=== PATIENT | female | born 1955 | race Caucasian/White ===

== ENCOUNTER → 2017-09-05 | Outpatient (REF) | payer OTHER ==
[2017-09-05 14:26] LABS: ALBUMIN 3.6 GM/DL (3.2-5.2); ALBUMIN/GLOBULIN RATIO 0.84 (1.00-1.93); ALKALINE PHOSPHATASE 94 U/L (45-117); ALT/SGPT 56 U/L (12-78); ANION GAP 10 MEQ/L (8-16); AST/SGOT 46 U/L (7-37); BILIRUBIN,TOTAL 0.6 MG/DL (0.2-1.0); BLOOD UREA NITROGEN 20 MG/DL (7-18); CALCIUM LEVEL 9.6 MG/DL (8.8-10.2); CARBON DIOXIDE LEVEL 28 MEQ/L (21-32); CHLORIDE LEVEL 100 MEQ/L (98-107); CREATININE FOR GFR 0.82 MG/DL (0.55-1.30); GLOMERULAR FILTRATION RATE > 60.0 (>45); GLUCOSE, FASTING 162 MG/DL (70-100); POTASSIUM SERUM 4.5 MEQ/L (3.5-5.1); SODIUM LEVEL 138 MEQ/L (136-145); TOTAL PROTEIN 7.9 GM/DL (6.4-8.2)
[2017-09-05 15:06] LABS: TOTAL 25(OH) VITAMIN D 21.4 NG/ML (30.0-100.0)
== END ==
LOC: M LAB REF 13:49
DX: E11.9 Type 2 diabetes mellitus without complications (principal)
CPT/HCPCS: 80053

== ENCOUNTER → 2017-09-14 | Outpatient (REF) | payer OTHER, MEDICAID ==
[2017-09-14 13:45] LABS: BACTERIA, URINE AUTO NEGATIVE (NEGATIVE); MUCUS, URINE SMALL (NEGATIVE); RBC, URINE AUTO 1 /HPF (0-3); SQUAMOUS EPITHELIAL CELL UR AU 1 /HPF (0-6); WBC, URINE AUTO 1 /HPF (0-3)
== END ==
LOC: M SMT 12:57
DX: N39.41 Urge incontinence (principal)
CPT/HCPCS: 81015

== ENCOUNTER → 2017-11-23 | Outpatient (REF) | payer OTHER, MEDICAID ==
[2017-11-26 15:28] LABS: HPV HYBRID CAPTURE II Negative (Negative)
== END ==
LOC: M LAB REF 14:07
DX: Z12.4 Encounter for screening for malignant neoplasm of cervix (principal)

== ENCOUNTER → 2018-01-09 | Outpatient (REF) | payer OTHER, MEDICAID ==
[2018-01-09 13:41] LABS: ANION GAP 8 MEQ/L (8-16); BLOOD UREA NITROGEN 37 MG/DL (7-18); CALCIUM LEVEL 10.3 MG/DL (8.8-10.2); CARBON DIOXIDE LEVEL 26 MEQ/L (21-32); CHLORIDE LEVEL 103 MEQ/L (98-107); CHOLESTEROL LEVEL 241 MG/DL (<200); CHOLESTEROL RISK RATIO 8.607 (<5); CREATININE FOR GFR 1.51 MG/DL (0.55-1.30); GLOMERULAR FILTRATION RATE 37.2 (>45); GLUCOSE, FASTING 142 MG/DL (70-100); HDL CHOLESTEROL 28 MG/DL (>40); LDL CHOLESTEROL 144 MG/DL (<100); NON-HDL-C 213 MG/DL; POTASSIUM SERUM 5.5 MEQ/L (3.5-5.1); SODIUM LEVEL 137 MEQ/L (136-145); TRIGLYCERIDES LEVEL 346 MG/DL (<150)
== END ==
LOC: M LABDRAW1 09:58
DX: E11.65 Type 2 diabetes mellitus with hyperglycemia (principal); E78.00 Pure hypercholesterolemia, unspecified
CPT/HCPCS: 80061

== ENCOUNTER 2018-03-02 19:48 | Emergency (ER) | payer MEDICAID, OTHER ==
[~2018-03-02] VITALS: Ht 154.9 cm; Wt 80.5 kg
[2018-03-02] MEDS ORDERED: BENAZEP/HCTZ (20:10)
[2018-03-02] MEDS ORDERED: GEMF600T5 (20:10)
[2018-03-02] MEDS ORDERED: VICT18IN (20:10)
[2018-03-02] MEDS ORDERED: LANTINJ4 (20:10)
[2018-03-02] MEDS ORDERED: PHEN-500 (20:10)
[2018-03-02] MEDS ORDERED: INSURSD (20:10)
[2018-03-02] MEDS ORDERED: GLIP5TAB8 (20:10)
[2018-03-02] MEDS ORDERED: INSUHUMDS (20:10)
[2018-03-02] MEDS ORDERED: BASA100I (20:10)
[2018-03-02] MEDS ORDERED: VITA-122 (20:10)
[2018-03-02] MEDS ORDERED: METF10004 (20:10)
[2018-03-02] MEDS ORDERED: METO50TA7 (20:10)
[2018-03-02] MEDS ORDERED: MUPI2OI (20:10)
[2018-03-02] MEDS ORDERED: OMEP40CA2 (20:10)
[2018-03-02] MEDS ORDERED: KETO10TAB PO (22:05)
[2018-03-02 22:08] VITALS: BP 140/71
[2018-03-02] MEDS ORDERED: KETOROLAC TROMETHAMINE 10 MG TAB PO ONE (22:15)
--- NOTE | 2018-03-03 01:44 | REP ---
Clinical: thoracic pain with recent trauma/fall . Technique: AP, lateral, and swimmers views. Findings: Alignment and kyphosis is maintained. Vertebral bodies intact. No acute fracture / compression injury or subluxation. Age-related changes include marginal vertebral body spurring with minimal endplate sclerosis. Impression: No acute fracture / compression injury or subluxation. Electronically Signed by Jean Carlos Branch MD 03/03/2018 01:37 A
== END 2018-03-02 22:17 | disposition home or self-care (01) ==
LOC: M ED 19:48
DX: R10.9 Unspecified abdominal pain (principal); R29.6 Repeated falls; E11.9 Type 2 diabetes mellitus without complications; Z79.4 Long term (current) use of insulin; Z79.899 Other long term (current) drug therapy; Z88.1 Allergy status to other antibiotic agents; Z88.8 Allergy status to other drugs, medicaments and biological substances

== ENCOUNTER → 2018-05-25 | Outpatient (REF) | payer OTHER, MEDICAID ==
[~2018-05-25] MED LIST: BASA100I; BENAZEP/HCTZ; GEMF600T5; GLIP5TAB8; INSUHUMDS; INSURSD; KETO10TAB PO; LANTINJ4; METF10004; METO50TA7; MUPI2OI; OMEP40CA2; PHEN-500; VICT18IN; VITA-122
[2018-05-25 18:41] LABS: APPEARANCE, URINE HAZY (CLEAR); BACTERIA, URINE AUTO NEGATIVE (NEGATIVE); BILIRUBIN, URINE AUTO NEGATIVE (NEGATIVE); BLOOD, URINE BLOOD NEGATIVE (NEGATIVE); COLOR, URINE YELLOW (YELLOW); GLUCOSE, URINE (UA) AUTO 3+ mg/dL (NEGATIVE); KETONE, URINE AUTO NEGATIVE (NEGATIVE); LEUKOCYTE ESTERASE, URINE AUTO NEGATIVE (NEGATIVE); NITRITE, URINE AUTO NEGATIVE (NEGATIVE); PROTEIN, URINE AUTO NEGATIVE (NEGATIVE); RBC, URINE AUTO 0 /HPF (0-3); SPECIFIC GRAVITY URINE AUTO 1.023 (1.002-1.035); SQUAMOUS EPITHELIAL CELL UR AU 4 /HPF (0-6); UROBILINOGEN, URINE AUTO 0.2 mg/dL (0.0-2.0); WBC, URINE AUTO 1 /HPF (0-3)
== END ==
LOC: M SMT 17:00
PROVIDERS: ATTEND Nurse Practitioner Women's Health
DX: R31.9 Hematuria, unspecified (principal)

== ENCOUNTER → 2018-05-25 | Outpatient (REF) | payer OTHER, MEDICAID ==
[2018-05-25 12:03] LABS: BASO % 0.6 % (0.0-1.0); EOS # 0.2 10^3/uL (0.0-0.50); EOS % 2.9 % (0.0-3.0); HEMATOCRIT 40.7 % (36.0-47.0); HEMOGLOBIN 13.5 g/dl (12.0-15.5); LYMPH # 1.6 10^3/uL (1.5-4.5); LYMPH % 24.8 % (24.0-44.0); MEAN CORPUSCULAR HEMOGLOBIN 31.7 pg (27.0-33.0); MEAN CORPUSCULAR HGB CONC 33.2 g/dl (32.0-36.5); MEAN CORPUSCULAR VOLUME 95.5 fl (80.0-96.0); MONO # 0.6 10^3/uL (0.0-0.8); MONO % 10.1 % (0.0-5.0); NEUTROPHILS # 3.9 10^3/uL (1.8-7.7); NEUTROPHILS % 61.4 % (36.0-66.0); PLATELET COUNT, AUTOMATED 159 10^3/uL (150-450); RED BLOOD COUNT 4.26 10^6/uL (4.00-5.40); WHITE BLOOD COUNT 6.3 10^3/uL (4.0-10.0)
[2018-05-25 12:29] LABS: BLOOD UREA NITROGEN 18 MG/DL (7-18); CALCIUM LEVEL 9.2 MG/DL (8.8-10.2); CARBON DIOXIDE LEVEL 29 MEQ/L (21-32); CHLORIDE LEVEL 98 MEQ/L (98-107); CHOLESTEROL LEVEL 238 MG/DL (<200); CHOLESTEROL RISK RATIO 7.677 (<5); CREATININE FOR GFR 0.92 MG/DL (0.55-1.30); GLOMERULAR FILTRATION RATE > 60.0 (>45); GLUCOSE, FASTING 208 MG/DL (70-100); HDL CHOLESTEROL 31 MG/DL (>40); NON-HDL-C 207 MG/DL; POTASSIUM SERUM 3.9 MEQ/L (3.5-5.1); SODIUM LEVEL 135 MEQ/L (136-145); TRIGLYCERIDES LEVEL 621 MG/DL (<150)
[2018-05-25 12:47] LABS: MALB URINE SIEMENS 57.1 MG/L; MAU/CREAT RATIO 19.8 MCG/MG (0.0-30.0)
== END ==
LOC: M LABDRAW1 11:43
PROVIDERS: ATTEND Nurse Practitioner Family
DX: E78.00 Pure hypercholesterolemia, unspecified (principal); E11.65 Type 2 diabetes mellitus with hyperglycemia; N18.3 Chronic kidney disease, stage 3 (moderate)

== ENCOUNTER → 2018-06-23 | Outpatient (CLI) | payer OTHER ==
--- NOTE | 2018-06-23 16:48 | REP ---
HISTORY: Kidney disease. COMPARISON: None. The right kidney measures 11.5 x 5.4 x 5.3 cm, the left kidney measures 11 x 4.4 x 4.8 cm. The renal cortical echoes are normal. There is good cortical medullary differentiation. There are no cystic or solid masses. There is no hydronephrosis. Doppler of the urinary bladder shows uro-jet phenomenon bilaterally. IMPRESSION: The examination is within normal limits. Electronically Signed by Jaret Joe DO 06/23/2018 05:13 P
== END ==
LOC: M RAD 10:06
PROVIDERS: ATTEND Internal Medicine Nephrology
DX: I12.9 Hypertensive chronic kidney disease with stage 1 through stage 4 chronic kidney disease, or unspecified chronic kidney disease (principal)

== ENCOUNTER → 2018-08-07 | Outpatient (REF) | payer OTHER, MEDICAID ==
[2018-08-07 17:23] LABS: BASO % 0.6 % (0.0-1.0); EOS # 0.1 10^3/uL (0.0-0.50); EOS % 2.4 % (0.0-3.0); HEMATOCRIT 37.1 % (36.0-47.0); HEMOGLOBIN 12.5 g/dl (12.0-15.5); LYMPH # 1.5 10^3/uL (1.5-4.5); LYMPH % 30.1 % (24.0-44.0); MEAN CORPUSCULAR HEMOGLOBIN 31.9 pg (27.0-33.0); MEAN CORPUSCULAR HGB CONC 33.7 g/dl (32.0-36.5); MEAN CORPUSCULAR VOLUME 94.6 fl (80.0-96.0); MONO # 0.4 10^3/uL (0.0-0.8); NEUTROPHILS # 2.9 10^3/uL (1.8-7.7); NEUTROPHILS % 58.7 % (36.0-66.0); PLATELET COUNT, AUTOMATED 140 10^3/uL (150-450); RED BLOOD COUNT 3.92 10^6/uL (4.00-5.40)
[2018-08-07 17:26] LABS: ALBUMIN 3.3 GM/DL (3.2-5.2); ALT/SGPT 43 U/L (12-78); BILIRUBIN,TOTAL 0.4 MG/DL (0.2-1.0); BLOOD UREA NITROGEN 19 MG/DL (7-18); CALCIUM LEVEL 9.6 MG/DL (8.8-10.2); CARBON DIOXIDE LEVEL 27 MEQ/L (21-32); CHLORIDE LEVEL 101 MEQ/L (98-107); CHOLESTEROL LEVEL 298 MG/DL (<200); CHOLESTEROL RISK RATIO 9.933 (<5); CREATININE FOR GFR 0.82 MG/DL (0.55-1.30); GLOMERULAR FILTRATION RATE > 60.0 (>45); GLUCOSE, FASTING 234 MG/DL (70-100); HDL CHOLESTEROL 30 MG/DL (>40); NON-HDL-C 268 MG/DL; POTASSIUM SERUM 4.3 MEQ/L (3.5-5.1); SODIUM LEVEL 137 MEQ/L (136-145); TOTAL PROTEIN 7.7 GM/DL (6.4-8.2); TRIGLYCERIDES LEVEL 921 MG/DL (<150)
[2018-08-07 17:41] LABS: HEMOGLOBIN A1c 8.9 %
== END ==
LOC: M LAB REF 16:27
PROVIDERS: ATTEND Nurse Practitioner Family
DX: E78.1 Pure hyperglyceridemia (principal); E11.9 Type 2 diabetes mellitus without complications; I10 Essential (primary) hypertension; Z13.9 Encounter for screening, unspecified

== ENCOUNTER → 2018-08-08 | Outpatient (CLI) | payer OTHER, MEDICAID ==
[~2018-08-08] MED LIST changes: +PRED20TA PO
--- NOTE | 2018-08-20 23:32 | ECWPNPC ---
PATIENT NAME: CATERINA SPEARS : 1955 GENDER: FEMALE VISIT DATE: 08/08/2018 DISCHARGE DATE: 08/08/18 1725 VISIT LOCKED DATE TIME: PHYSICIAN: ZAYRA RUANO MD RESOURCE: ZAYRA RUANO MD REASON FOR APPOINTMENT 1. BACK PAIN HISTORY OF PRESENT ILLNESS PAIN SCREENING: PATIENT HAS A COMPLAINT OF ACUTE OR CHRONIC PAIN :YES 62 YEAR OLD FEMALE PATIENT WITH A HISTORY OF CHRONIC MULTIPLE BODY PAIN. THE PATIENT DESCRIBES THE PAIN ACHING, BURNING, SORE, TENDER, SHARP, STABBING, SHOOTING, AND CONTINUOUS WITH A PAIN SCORE OF 7-10/10 DEPENDING ON PHYSICAL ACTIVITY. THE PATIENT SAYS HER PAIN IS LOCATED AT HER NECK, LEFT SHOULDER, AND BACK AREAS. THE PATIENT SAYS THAT SHE HAS HAD THIS PAIN FOR MANY YEARS AND IT HAS WORSENED OVER TIME. THE PATIENT IS CURRENTLY USING TYLENOL TO AID IN PAIN RELIEF. THE PATIENT IS CURRENTLY USING ELMIRON DUE TO A HISTORY OF CYSTITIS. THE PATIENT ALSO HAS A HISTORY OF KIDNEY STONES. PATIENT DENIES UNEXPLAINABLE WEIGHT LOSS, FEVER, CHILLS, NEW CHANGES ON HER URINARY OR BOWEL CONTROL. FALL RISK SCREENING: SCREENING :NO FALLS REPORTED IN THE LAST YEAR CURRENT MEDICATIONS TAKING PEN NEEDLES 05/06" 31G X 5 MM MISCELLANEOUS TAKING COMFORT EZ INSULIN SYRINGE 31G X 5/16 MISCELLANEOUS TAKING COMFORT EZ INSULIN SYRINGE 31G X 5/16 MISCELLANEOUS TAKING VITAMIN D 1000 UNIT TABLET 2 TABLET ORALLY ONCE A DAY TAKING ALLOPURINOL 100 MG TABLET 1 TABLET ORALLY THREE TIMES DAILY TAKING GLIPIZIDE 5 MG TABLET 1 TABLET ORALLY THREE TIMES DAILY TAKING VICTOZA 18 MG/3ML SOLUTION PEN-INJECTOR SUBCUTANEOUS TAKING GEMFIBROZIL 600 MG TABLET 1 TABLET ORALLY TWICE A DAY TAKING TRIAMTERENE-HCTZ 75-50 MG TABLET 1 TABLET IN THE MORNING ORALLY ONCE A DAY TAKING METOPROLOL TARTRATE 50 MG TABLET 1 TABLET WITH FOOD ORALLY TWICE A DAY TAKING CREON 27918 UNIT CAPSULE DELAYED RELEASE PARTICLES 2 TAB ORALLY BID TAKING METFORMIN HCL 1000 MG TABLET 1 TAB ORALLY DAILY TAKING INSULIN SYRINGE-NEEDLE U-100 31G X 1/4 MISCELLANEOUS TAKING ADVOCATE INSULIN SYRINGE 29G X 1/2 MISCELLANEOUS TAKING OMEPRAZOLE 40 MG CAPSULE DELAYED RELEASE 1 CAPSULE ORALLY ONCE A DAY TAKING BASAGLAR KWIKPEN 20 INITS AM 50 UNITS PM BID TAKING HUMALOG 12 UNITS TID TAKING ELMIRON 100 MG CAPSULE 1 CAPSULE ON AN EMPTY STOMACH ORALLY BID TAKING BENAZEPRIL HCL 20 MG TABLET DIRECTED ORALLY TAKING MAGNESIUM OXIDE 400 MG CAPSULE 1 CAPSULE NEEDED ORALLY ONCE A DAY TAKING VENTOLIN HFA 108 (90 BASE) MCG/ACT AEROSOL SOLUTION 2 PUFFS NEEDED INHALATION EVERY 6 HRS TAKING MUPIROCIN 2 % OINTMENT 1 APPLICATION TO AFFECTED AREA EXTERNALLY THREE TIMES A DAY TAKING ESTRADIOL 10 % CREAM DIRECTED TAKING TYLENOL ARTHRITIS PAIN NOT-TAKING DIPHENHYDRAMINE HCL 2 % CREAM 1 APPLICATION TO AFFECTED AREA NEEDED EXTERNALLY BID NOT-TAKING PREMARIN 0.625 MG/GM CREAM USE 1 GM 2 NIGHTS WEEKLY BY FINGERTIP APPLICATION VAGINAL 2-3X/WEEK X 4 WEEKS NOT-TAKING PYRIDIUM 100 MG TABLET 1 TABLET AFTER MEALS ORALLY THREE TIMES A DAY NEEDED FOR BURNING SENSATION NOT-TAKING CLOBETASOL PROPIONATE 0.05 % OINTMENT 1 APPLICATION TO AFFECTED AREA EXTERNALLY TWICE A DAY NOT-TAKING LANTUS SOLOSTAR 100 UNIT/ML SOLUTION PEN-INJECTOR SUBCUTANEOUS NOT-TAKING GLUCOPHAGE XR 500 MG TABLET EXTENDED RELEASE 24 HOUR 2 TABLETS ORALLY ONCE A DAY NOT-TAKING BENAZEPRIL-HYDROCHLOROTHIAZIDE 20-25 MG TABLET 1 TABLET ORALLY ONCE A DAY NOT-TAKING ATORVASTATIN CALCIUM 40 MG TABLET 1 TABLET ORALLY EVERY OTHER DAY NOT-TAKING HUMULIN R 100 UNIT/ML SOLUTION INJECTION TAKE 14 UNITS TID NOT-TAKING CELEBREX 200 MG CAPSULE 1 CAPSULE WITH FOOD ORALLY ONCE A DAY NOT-TAKING DICLOFENAC SODIUM 1 % GEL TRANSDERMAL APPLY 2 GRAMS TO AFFECTED AREA FOUR TIMES DAILY MEDICATION LIST REVIEWED AND RECONCILED WITH THE PATIENT PAST MEDICAL HISTORY INRTSTITIAL CYSTITIS DM TYPE 2 INSULIN DEPENDENT HYPERTRIGLYCERIDEMIA GERD HTN SKIN LESIONS NOCTURIA UTI'S CHRONIC KIDNEY DISEASE STAGE II BRIAN'S ESOPHAGUS OSTEOPENIA ATHEROSCLEROTIC VESSEL DISEASE ALLERGIES BACTRIM DS: TOUNGE SWELL - ALLERGY KEFLEX: BOTTOM LEGS ITCH - ALLERGY TETRACYCLINE HCL: BUMPS ON TONGUE - ALLERGY PROMETHAZINE HCL: TONGUE SWELL - ALLERGY ATORVASTATIN CALCIUM: FEET, LEG PAIN - SIDE EFFECTS ZETIA: SEVERE MUSCLE PAIN - SIDE EFFECTS SURGICAL HISTORY RT THUMB 1960 1990 TUBALIGATION 1992 GALLBLADDER 1993 NECK 2013 ABORTIONS 1993 BREAST BIOPSY 1979' SQUAMOUS CELL CANCER - NOSE 1989' MISCARRIAGE 1979' (4) LIPOSUCTION FAMILY HISTORY FATHER: MOTHER: 2DAUGHTER(S) . SOCIAL HISTORY GENERAL: TOBACCO USE ARE YOU A:FORMER SMOKER QUIT AGE 34 OTHERS AT HOME: GRANDKIDS AND DAUGHTER. HOUSING: RENTS APARTMENT. EDUCATION LEVEL OF EDUCATION:COLLEGE DIET: REGULAR, LOW CHOLETEROL, LOW SALT. LANGUAGE LANGUAGES SPOKEN:HUNGARIAN DOMESTIC VIOLENCE DO YOU FEEL SAFE IN YOUR ENVIRONMENT?YES NEW PATIENT PAIN DIARY PATIENT DESCRIBES PAIN :ACHING, BURNING, HAVE IT ALL THE TIME, IT COMES AND GOES, SHARP, STABBING, TENDER, THROBBING, SORE, SHOOTING FROM 0-10, WHAT LEVEL IS YOUR PAIN TODAY?7 ARE YOU ALLERGIC TO SHELLFISH OR IV DYE?NO ARE YOU DIABETIC?YES RECREATIONAL DRUG USE DRUG USE?NO EXERCISE: NO REGULAR EXERCISE, CARE FOR 3, 5, 7 YEAR OLD 6-7 DAYS/WEEK. LEARNING BARRIERS / SPECIAL NEEDS BARRIERS TO LEARNING?YES COMMENTSDOCUMENTED IN NOTES SECTION> NEED EXTRA TIME FOR TESTS HEARING IMPAIRED?NO VISION IMPAIRED?NO COGNITIVELY IMPAIRED?YES : DIFFICULTY WITH COMPREHENSION READINESS TO LEARN?YES LEARNING CAPABILITIES PRESENT?YES PAIN CLINIC PFS, CLERGY, PUBLIC HEALTH REFERRALS WAS THE PROVIDER NOTIFIED OF ANY PERTINENT INFO?YES HAS THE PATIENT BEEN EDUCATED REGARDING HIS/HER PLAN OF CARE?YES ORIENTED TO [facility] HAS THE PATIENT BEEN EDUCATED REGARDING PAIN, THE RISK FOR PAIN, THE IMPORTANCE OF EFFECTIVE PAIN MANAGEMENT, AND THE PAIN ASSESSMENT PROCESS?YES LATEX QUESTIONNAIRE LATEX ALLERGY : HAVE YOU EVER DEVELOPED ANY TYPE OF REACTION AFTER HANDLING LATEX PRODUCTS SUCH RUBBER GLOVES, CONDOMS, DIAPHRAGMS, BALLOONS, SOCKS, OR UNDERWEAR?NO LATEX ALLERGY : HAVE YOU EVER DEVELOPED ANY TYPE OF REACTION DURING OR AFTER DENTAL APPOINTMENT, VAGINAL/RECTAL EXAMINATION, SURGICAL PROCEDURE, OR ANY OTHER EXPOSURE?NO LATEX RISK : HAVE YOU EVER HAD ANY DIFFICULTY BREATHING OR HIVES AFTER EATING OR HANDLING ANY FRUITS, OR VEGETABLES; SUCH KIWI, BANANAS, STONE FRUITS, OR CHESTNUTSNO LATEX RISK : DO YOU HAVE A PREVIOUS PERSONAL HISTORY OF MORE THAN NINE SURGERIES, SPINA BIFIDA, OR REPEATED CATHERTIZATIONS? NO LATEX RISK : ARE YOU FREQUENTLY EXPOSED TO LATEX PRODUCTS IN YOUR OCCUPATION?NO DATE ASKED : 08/08/2018 CAFFEINE CAFFEINE USE?YES HOW OFTEN AND HOW MUCH? 1-2 DAILY ADVANCE DIRECTIVE ADVANCE DIRECTIVE DISCUSSED WITH PATIENT:YES PT DOES NOT CURRENTLY HAVE HCP, PAPERWORK GIVEN AND OFFERED ASSISTANCE LATTER DAY [id number] OTHER NO GNOSTICISM BELIEFS THAT WOULD IMPACT HEALTH CARE. SPIRITUAL MARITAL STATUS: .. 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 SEXUAL HX HAD SEX IN THE LAST 12 MONTHS (VAGINAL, ORAL, OR ANAL)?NO HAVE YOU EVER HAD AN STD?YES OTHER?YES HOSPITALIZATION/MAJOR DIAGNOSTIC PROCEDURE NO HOSPITALIZATION HISTORY. REVIEW OF SYSTEMS REVIEWED BY: PROVIDER: ZAYRA RUANO MD . CONSTITUTIONAL: ANY CHANGE IN YOUR MEDICAL CONDITION? NO . CHILLS NO . FEVER NO . INFECTION: DO YOU HAVE NEW INFECTIONS? NO . DO YOU HAVE HISTORY OF MRSA? NO . MUSCULOSKELETAL: ANY NEW PATTERNS OF PAIN OR NUMBNESS? NO . SYTEMIC LUPUS NO . GASTROENTEROLOGY: ANY NEW CHANGE IN BOWEL CONTROL? NO . BARRETTS ESOPHAGUS YES . CIRRHOSIS NO . HEPATITIS NO . LIVER FAILURE NO . ACID REFLUX YES . UNEXPLAINED WEIGHT LOSS NO . GENITOURINARY: ANY NEW CHANGE IN BLADDER CONTROL? NO . IS THERE A CHANCE YOU COULD BE ? NO . HEMATOLOGY/LYMPH: DO YOU TAKE ANY BLOOD THINNERS? (FOR EXAMPLE- COUMADIN, PLAVIX, AGGRENOX, PLATEL, PRADAXA, OR XARELTO) NO . WHEN WAS YOUR LAST DOSE? DATE: TIME: . LOW PLATELET COUNT NO . SICKLE CELL DISEASE NO . VON WILLIEBRANDS NO . FACTOR V LEIDEN NO . THALLASEMIA NO . ANEMIA NO . EASY BRUISING NO . NEUROLOGY: HAVE YOU FALLEN IN THE PAST 12 MONTHS? YES, PT STATES THAT SHE FELL IN MAY WHILE AT HOME, NO REPORT TO ED, BRUISING, PT STATES THAT SHE IS FALLING FREQUENTLY. . ANY NEW EXTREMITY NUMBNESS OR WEAKNESS? NO . HEAD INJURY NO . DEMENTIA NO . CEREBRAL PALSY NO . MULTIPLE SCLEROSIS NO . DIZZINESS NO . HEADACHE NO . STROKES NO . VERTIGO NO . CARDIOLOGY: DO YOU HAVE A PACEMAKER OR DEFIBRILLATOR? NO . ANGINA NO . HEART ATTACK NO . HEART SURGERY NO . CONGESTIVE HEART FAILURE/FLUID OVERLOAD NO . CHEST PAIN NO . HIGH BLOOD PRESSURE NO . IRREGULAR HEART BEAT NO . RESPIRATORY: HAVE YOU BEEN SICK IN THE PAST WEEK? NO . FEVER NO . FLU LIKE SYMPTOMS? NO . CPAP NO . BYPAP NO . ASTHMA NO . EMPHYSEMA NO . CHRONIC LUNG DISEASES NO . SHORTNESS OF BREATH ON EXERTION NO . COUGH NO . SNORING NO . INTEGUMENTARY: DO YOU HAVE ANY RASHES OR OPEN SORES? YES, TOP OF HEAD OPEN SORES, BITES ON BODY . ALLERGIC/IMMUNO: ARE YOU ALLERGIC TO IV DYE? NO . ANY NEW ALLERGIES? NO . PSYCHIATRIC: DO YOU HAVE THOUGHTS OF HURTING YOURSELF OR SOMEONE ELSE? NO . ARE YOU ABUSED, NEGLECTED, OR IN AN UNSAFE ENVIRONMENT? NO . ENDOCRINOLOGY: ARE YOU DIABETIC? YES, TYPE II, INSULIN DEPENDENT . THYROID DISORDER NO . OTHER: DO YOU NEED ANY PRESCRIPTIONS? NO . IF YES, PLEASE LIST: ____ . ANY NEW PROBLEMS WITH YOUR MEDICATIONS? NO . WHEN DID YOU LAST EAT? ____ . WHEN DID YOU LAST DRINK? ____ . WHAT DID YOU LAST DRINK? ____ . NAME OF PERSON DRIVING YOU HOME? ____ . DO YOU HAVE ANY OTHER QUESTIONS OR CONCERNS YES, HAVING SEVERE BACK PAIN AND FREQUENT FALLS . VITAL SIGNS WT 182.2 LBS, HT 62 IN, BMI 33.32 INDEX, BP 136/71`, HR 96 /MIN, RR 18 /MIN, TEMP 99.7 F, OXYGEN SAT % 93%, SAFE IN ENV? (Y/N) Y, NA INITIALS AW 1517, REVIEWED BY: ZORAN. EXAMINATION GENERAL EXAMINATION: PATIENT IS ALERT O X 3 AND COOPERATIVE. LUNGS CLEAR, TO AUSCULTATION. HEART: NO MURMURS OR GALLOPS; FACIAL CRANIAL NERVES ARE GROSSLY NORMAL. GOOD SYMMETRY OF FACIAL MUSCLE MOVEMENT. NORMAL VISUAL BOSS. TENDERNESS IN THE NECK AND THORACIC AREAS. TENDERNESS OVER THE CERVICAL FACET JOINTS. PRESENCE OF TRIGGER POINTS AND BANDS OF TISSUE WITH RESTRICTION OF MOVEMENT OF THE NECK AND BACK. MRI OF THE CERVICAL SPINE DONE ON 12/27/2008 IS SHOWING FACET ARTHROPATHY CHANGES AND BULGING DISCS. X-RAY OF THE THORACIC SPINE DONE ON 03/02/2018 IS SHOWING SOME ARTHRITIC CHANGES. ASSESSMENTS MYALGIA, OTHER SITE - M79.18 (PRIMARY) THORACIC SPINE PAIN - M54.6 CERVICALGIA - M54.2 SPONDYLOSIS OF CERVICAL REGION WITHOUT MYELOPATHY OR RADICULOPATHY - M47.812 TREATMENT MYALGIA, OTHER SITE CLINICAL NOTES: WE DISCUSSED SEVERAL ISSUES WITH MRS. SPEARS'S PAIN MANAGEMENT CASE. DUE TO THE TRIGGER POINTS, BANDS OF TISSUE, AND RESTRICTION OF MOVEMENT, I WOULD LIKE TO MOVE FORWARD WITH A TRIGGER POINT INJECTION. WE DISCUSSED THE BENEFITS, RISKS, AND ALTERNATIVES OF THE INJECTION AND THE PATIENT WOULD LIKE TO PROCEED. THE PATIENT'S THORACIC X-RAY IS NOT SHOWING ME ENOUGH INFORMATION AND HER CERVICAL MRI IS 10 YEARS OLD, SO I WILL ALSO ORDER A THORACIC MRI AND A CERVICAL MRI TO GET A BETTER UNDERSTANDING OF WHERE THE PATIENT'S PAIN IS COMING FROM. IF THE PATIENT HAS AN EPIDURAL IN THE FUTURE, SHE WILL NEED TO STOP THE ELMIRON FOR 5 DAYS PRIOR. INSTRUCTIONS WERE GIVEN, QUESTIONS WERE ANSWERED, PATIENT REPORTS UNDERSTANDING AND AGREES WITH THE PLAN. I, RAPHAEL PARDO, DOCUMENTED THE ABOVE INFORMATION ACTING A SCRIBE FOR DR. RUANO. I HAVE REVIEWED THE ABOVE DOCUMENT, WRITTEN BY RAPHAEL MCADAMSIBRitchie AND I VERIFY THAT IT IS ACCURATE. DEAR DASHAWN CASTILLO:THANK YOU FOR YOUR KIND REFERRAL OF MRS. SPEARS. IF YOU WANT TO DISCUSS HER CASE WITH ME PLEASE CALL ME AT THE PAIN CENTER AT [phone]. SINCERELY,ZAYRA RUANO, [facility] . PROCEDURE CODES FA211 ESTABILISHED PATIENT [facility] CHARGE [id number] CURRENT MEDS W/DOSAGES DOCUMENTED G8730 PAIN ASSESS POS TOOL F/U PLAN DOC DISPOSITION & COMMUNICATION FOLLOW UP 3 WEEKS ELECTRONICALLY SIGNED BY ZAYRA RUANO MD, MD ON 08/20/2018 AT 07:28 PM EDT DISCLAIMER : THIS IS A VISIT SUMMARY EXTRACTED FROM THE [employer] CHART. IT IS NOT A COPY OF THE [employer] PROGRESS NOTE. MERRICK
== END ==
LOC: M PAIN 15:15
PROVIDERS: ATTEND Anesthesiology
DX: M79.18 Myalgia, other site (principal); M54.6 Pain in thoracic spine; M54.2 Cervicalgia; M47.812 Spondylosis without myelopathy or radiculopathy, cervical region; E11.22 Type 2 diabetes mellitus with diabetic chronic kidney disease; K21.9 Gastro-esophageal reflux disease without esophagitis; I12.9 Hypertensive chronic kidney disease with stage 1 through stage 4 chronic kidney disease, or unspecified chronic kidney disease; N18.2 Chronic kidney disease, stage 2 (mild); K22.70 Barrett's esophagus without dysplasia; M85.80 Other specified disorders of bone density and structure, unspecified site; I25.10 Atherosclerotic heart disease of native coronary artery without angina pectoris

== ENCOUNTER 2018-08-27 21:38 | Emergency (ER) | payer MEDICAID, OTHER ==
[~2018-08-27] VITALS: Ht 157.5 cm; Wt 82.5 kg
[~2018-08-27 21:38] MED LIST changes: -PRED20TA PO
[2018-08-27] MEDS ORDERED: NS 1,000 ML IV ONE (22:00)
[2018-08-27] MEDS ORDERED: diphenhydrAMINE INJ 50MG/ML VIAL (J1200) IV ONE (22:00)
[2018-08-27] MEDS ORDERED: FAMOTIDINE INJ 20MG/2ML VIAL (S0028) IVP ONE (22:00)
[2018-08-27] MEDS ORDERED: methylPREDNISolone INJ 125 MG/2 ML VIAL (J2930) IV ONE (22:00)
[2018-08-27 22:07] LABS: BASO % 0.3 % (0.0-1.0); EOS % 0.4 % (0.0-3.0); HEMATOCRIT 42.2 % (36.0-47.0); HEMOGLOBIN 14.2 g/dl (12.0-15.5); LYMPH # 0.8 10^3/uL (1.5-4.5); LYMPH % 8.6 % (24.0-44.0); MEAN CORPUSCULAR HEMOGLOBIN 32.3 pg (27.0-33.0); MEAN CORPUSCULAR HGB CONC 33.6 g/dl (32.0-36.5); MEAN CORPUSCULAR VOLUME 96.1 fl (80.0-96.0); MONO # 0.5 10^3/uL (0.0-0.8); MONO % 5.3 % (0.0-5.0); NEUTROPHILS # 7.6 10^3/uL (1.8-7.7); NEUTROPHILS % 85.1 % (36.0-66.0); PLATELET COUNT, AUTOMATED 173 10^3/uL (150-450); RED BLOOD COUNT 4.39 10^6/uL (4.00-5.40)
[2018-08-27] MEDS ORDERED: ONDANSETRON 4MG/2ML VIAL (J2405) IV ONE (22:30)
[2018-08-27 22:36] LABS: ALBUMIN 3.5 GM/DL (3.2-5.2); BILIRUBIN,DIRECT 0.2 MG/DL (0.0-0.2); BILIRUBIN,TOTAL 0.7 MG/DL (0.2-1.0); CALCIUM LEVEL 8.9 MG/DL (8.8-10.2); CREATININE FOR GFR 1.05 MG/DL (0.55-1.30); GLOMERULAR FILTRATION RATE 56.5 (>45); POTASSIUM SERUM 4.3 MEQ/L (3.5-5.1); TOTAL PROTEIN 8.5 GM/DL (6.4-8.2)
[2018-08-28] MEDS ORDERED: PRED20TA PO (04:17)
[2018-08-28 04:24] VITALS: BP 108/59
[2018-08-31 00:06] LABS: C1 ESTER INHIB. NON FUNCTIONAL 25 mg/dL (21-39); C1 ESTERASE INHIB. FUNCTIONAL > 92 (.)
== END 2018-08-28 04:36 | disposition home or self-care (01) ==
LOC: M ED 21:38
DX: T78.40XA Allergy, unspecified, initial encounter (principal); Y92.9 Unspecified place or not applicable; Y93.9 Activity, unspecified; I51.9 Heart disease, unspecified; E11.9 Type 2 diabetes mellitus without complications; I10 Essential (primary) hypertension; Z79.4 Long term (current) use of insulin; Z79.899 Other long term (current) drug therapy; Z88.8 Allergy status to other drugs, medicaments and biological substances; Z88.1 Allergy status to other antibiotic agents
CPT/HCPCS: 80048; 80076; 85025; 86160; 86161; 93041; 94760; 96361; 96374; 96375; 99285; J1200; J2405; J2930

== ENCOUNTER → 2018-09-06 | Outpatient (CLI) | payer OTHER ==
[~2018-09-06] MED LIST changes: +PRED20TA PO
[2018-09-06 13:06] LABS: FREE T4 0.91 NG/DL (0.76-1.46); THYROID STIMULATING HORMONE 2.64 uIU/ML (0.358-3.740)
[2018-09-12 00:06] LABS: FATS NEUTRAL Normal (.); FATS TOTAL Normal (.); PANCREATIC ELASTASE STOOL >500 (>200); TISSUE TRANSGLUTAMINASE IgA <2 U/mL (0-3)
== END ==
LOC: M LAB 11:38
PROVIDERS: ATTEND Physician Assistant Medical
DX: R19.7 Diarrhea, unspecified (principal)

== ENCOUNTER → 2018-09-27 | Outpatient (CLI) | payer OTHER ==
[~2018-09-27] MED LIST changes: +ALLO100T PO; +ASPI81CH33 PO; +BASA100I SC; +BASA100I SQ; +BENA20TA8 PO; +CETI10TA8 PO; +CLOP75TA2 PO; +CREO12CA PO; +CREO3600 PO; +DULO30CA9 PO; +E-Z-GAS II EFFERVESCENT PACKET (SODIUM BICARB./CITRIC ACID/SIMETHICONE) As Ordered ONE; +E-Z-HD 98% w/w 340GM SUSP BTL As Ordered ONE; +E-Z-PAQUE 96% w/w SUSP 176GM BTL As Ordered ONE; +ESTR1CRE PV; -GEMF600T5; +GEMF600T5 PO; -GLIP5TAB8; +GLIP5TAB8 PO; -INSUHUMDS; +INSUHUMDS SC; +LEVA1TAB2 PO; +LEVO500T3 PO; +MAG400TA PO; -METF10004; +METF10004 PO; +METO25TA4 PO; -METO50TA7; +METO50TA7 PO; +MUCI600T31 PO; +MUPI2OI EXT; +NITR0.4S14 SL; +NITR4TASL SL; -OMEP40CA2; +OMEP40CA97 PO; +PENT10CA PO; -PHEN-500; +PHEN-500 PO; +TRIA75TA PO; -VICT18IN; +VICT18IN SQ; -VITA-122; +VITA-122 PO; +ZOFR4TAB16 PO
--- NOTE | 2018-09-28 00:15 | REP ---
Examination Requested: Esophagram Barium Swallow Reason For Exam/Comment: Dysphasia, heartburn Esophagram: The procedure was performed ERLINDA Patel, under the direct supervision of Dr. Owens. The images were reviewed with Dr. Owens. A single PA chest x-ray is submitted as a healthcare sales representative film. The superior mediastinal structures are midline. The heart size is within normal limits. The lungs are clear. Liquid barium and gas producing granules were given in the erect position as well as liquid barium in the prone oblique position, in order to perform a double contrast esophagram examination. Oral and pharyngeal stages of the examination were unremarkable. Esophageal transport is efficient and there is no esophagitis, stricture, or mucosal ring noted. There is no hiatal hernia noted. Gastroesophageal reflux was not demonstrated throughout the course of this exam. Impression: 1. Unremarkable esophagram. 0.3 minutes of fluoroscopy time was utilized for this procedure. Some fluoroscopic images are performed with last image hold technology. These images require no additional radiation. Reviewed by ERLINDA Payne 09/27/2018 04:45 P Electronically Signed by Darío Owens MD 09/28/2018 12:07 A
== END ==
LOC: M RAD 06:46
PROVIDERS: ATTEND Physician Assistant Medical
DX: R13.10 Dysphagia, unspecified (principal); R12 Heartburn

== ENCOUNTER → 2018-10-04 | Outpatient (CLI) | payer OTHER ==
[~2018-10-04] MED LIST changes: -ALLO100T PO; -ASPI81CH33 PO; -BASA100I SC; -BASA100I SQ; -BENA20TA8 PO; -CETI10TA8 PO; -CLOP75TA2 PO; -CREO12CA PO; -CREO3600 PO; -DULO30CA9 PO; -E-Z-GAS II EFFERVESCENT PACKET (SODIUM BICARB./CITRIC ACID/SIMETHICONE) As Ordered ONE; -E-Z-HD 98% w/w 340GM SUSP BTL As Ordered ONE; -E-Z-PAQUE 96% w/w SUSP 176GM BTL As Ordered ONE; -ESTR1CRE PV; +GEMF600T5; -GEMF600T5 PO; +GLIP5TAB8; -GLIP5TAB8 PO; +INSUHUMDS; -INSUHUMDS SC; -LEVA1TAB2 PO; -LEVO500T3 PO; -MAG400TA PO; +METF10004; -METF10004 PO; -METO25TA4 PO; +METO50TA7; -METO50TA7 PO; -MUCI600T31 PO; -MUPI2OI EXT; -NITR0.4S14 SL; -NITR4TASL SL; +OMEP40CA2; -OMEP40CA97 PO; -PENT10CA PO; +PHEN-500; -PHEN-500 PO; -TRIA75TA PO; +VICT18IN; -VICT18IN SQ; +VITA-122; -VITA-122 PO; -ZOFR4TAB16 PO
--- NOTE | 2018-10-04 20:31 | REP ---
CT abdomen and pelvis without IV or oral contrast: History: Kidney calculus. No comparison CT study. Comparison sonography June 23, [address] findings: Preliminary digital tobacco packer radiograph demonstrates moderate colonic stool. The lung bases show minimal fibrosis. No pleural effusion is seen. The liver is not enlarged. Its margin shows a somewhat micronodular contour. The spleen is mildly enlarged measuring 14 cm in greatest dimension. No focal hepatic or splenic lesion is seen. There are clips in gallbladder fossa post cholecystectomy. No adrenal lesion is observed. The pancreas shows no evidence of mass or cyst. There is a calcification along the superior border of the pancreatic tail which may be vascular. There is vascular calcification in the aorta and its other branches. No hydronephrosis or renal mass lesion is observed. No calculus is seen in either kidney. A normal appendix is noted in the right lower quadrant. No bladder calculus or ureteral stone is seen. No uterine or ovarian abnormality is seen. No abdominal wall defect is observed. There are degenerative changes in the lumbosacral spine. Impression: Mild splenomegaly and micronodular texture to the liver, question chronic liver disease or cirrhosis. No urinary tract calculus or hydronephrosis seen. Prominent vascular calcification. Post cholecystectomy. Electronically Signed by Justino Warren MD 10/04/2018 09:19 P
== END ==
LOC: M RAD 14:58
PROVIDERS: ATTEND Nurse Practitioner Family
DX: N20.0 Calculus of kidney (principal)

== ENCOUNTER → 2018-10-19 | Outpatient (CLI) | payer OTHER ==
[~2018-10-19] MED LIST changes: +ALLO100T PO; +ASPI81CH33 PO; +BASA100I SC; +BASA100I SQ; +BENA20TA8 PO; +CLOP75TA2 PO; +CREO12CA PO; +ESTR1CRE PV; -GEMF600T5; +GEMF600T5 PO; -GLIP5TAB8; +GLIP5TAB8 PO; -INSUHUMDS; +INSUHUMDS SC; +MAG400TA PO; -METF10004; +METF10004 PO; -METO50TA7; +METO50TA7 PO; +NITR0.4S14 SL; -OMEP40CA2; +OMEP40CA2 PO; +PENT10CA PO; -PHEN-500; +PHEN-500 PO; +TRIA75TA PO; -VICT18IN; +VICT18IN SQ; -VITA-122; +VITA-122 PO
--- NOTE | 2018-10-20 09:11 | REP ---
MRI of the thoracic spine without contrast Clinical indication: Thoracic pain. Rule fully kyphosis on vertebral body heights are well aligned but other than dash image been imaging record is of bone marrow signal intensity on CT month which would be right in the bones while there is evolving here Comparison: None Technique: MRI of the thoracic spine was performed utilizing an sagittal T1, T2 and STIR and axial T1 and T2 weighted imaging. No intravenous contrast was administered. Findings: There is normal alignment and curvature of the thoracic spine. Vertebral body heights and intervertebral dic heights are maintained. There is endplate degenerative marrow edema at T5-T6 and T10-T11 adjacent to large anterior bridging osteophytes. There is disc bulge at T12-L1 seen on sagittal images only. The visualized spinal cord is normal in signal intensity. There is no significant spinal canal stenosis or neuroforaminal compromise. The paraspinal soft tissues are within normal limits Impression: Thoracic spondylosis. No significant spinal canal stenosis or neural foraminal compromise within the thoracic spine. Electronically Signed by Elvia Herrera MD 10/20/2018 09:02 A
--- NOTE | 2018-10-20 09:41 | REP ---
MRI of the cervical spine without contrast Indication: Cervical pain. Cevicalgia. Comparison: None Technique: MRI of the cervical spine was performed utilizing sagittal T1 FLAIR, STIR, and T2 weighted imaging as well as axial T1 and T2-weighted imaging. No intravenous contrast was administered. Findings: There is straightening of cervical lordosis which could be related to positioning or muscle spasm. There is normal alignment of the cervical spine. Vertebral body heights and intervertebral disc heights are maintained. There is no bone marrow edema. There is ligamentum flavum thickening, bilateral facet arthropathy and moderate narrowing of the spinal canal with effacement of the epidural fat at C5-C6 and C6-C7. There is ill-defined T2 hyperintensity within the cord without evidence of cord atrophy, questionable for cord edema at this level. There is left greater than right facet arthropathy at remaining levels without significant spinal canal stenosis or neural foraminal narrowing. The paraspinal soft tissues are within normal limits. Impression: Moderate spinal stenosis at C5-C6 and C6-C7 with abnormal signal within the cord at this level, likely representing cord edema versus artifact. There is no cord atrophy. Electronically Signed by Elvia Herrera MD 10/20/2018 09:33 A
== END ==
LOC: M RAD 15:37
PROVIDERS: ATTEND Anesthesiology
DX: M54.2 Cervicalgia (principal)

== ENCOUNTER → 2018-10-24 | Outpatient (REF) | payer OTHER ==
[2018-10-24 14:48] LABS: ALBUMIN 3.4 GM/DL (3.2-5.2); BILIRUBIN,DIRECT 0.2 MG/DL (0.0-0.2); BILIRUBIN,TOTAL 0.7 MG/DL (0.2-1.0); TOTAL PROTEIN 7.5 GM/DL (6.4-8.2)
== END ==
LOC: M LAB REF 13:53
PROVIDERS: ATTEND Nurse Practitioner Family
DX: R93.5 Abnormal findings on diagnostic imaging of other abdominal regions, including retroperitoneum (principal)

== ENCOUNTER 2018-10-25 16:47 | Emergency (ER) | payer OTHER ==
[~2018-10-25] VITALS: Ht 157.5 cm; Wt 83.0 kg
[~2018-10-25 16:47] MED LIST changes: -ALLO100T PO; -ASPI81CH33 PO; -BASA100I SC; -BASA100I SQ; -BENA20TA8 PO; -CLOP75TA2 PO; -CREO12CA PO; -ESTR1CRE PV; -MAG400TA PO; -NITR0.4S14 SL; -PENT10CA PO; -TRIA75TA PO
[2018-10-25 17:44] LABS: BASO % 0.4 % (0.0-1.0); EOS # 0.1 10^3/uL (0.0-0.5); EOS % 1.6 % (0.0-3.0); HEMATOCRIT 37.8 % (36.0-47.0); HEMOGLOBIN 13.2 g/dl (12.0-15.5); LYMPH # 2.5 10^3/uL (1.5-5.0); LYMPH % 36.9 % (24.0-44.0); MEAN CORPUSCULAR HEMOGLOBIN 32.9 pg (27.0-33.0); MEAN CORPUSCULAR HGB CONC 34.9 g/dl (32.0-36.5); MEAN CORPUSCULAR VOLUME 94.3 fl (80.0-96.0); MONO # 0.7 10^3/uL (0.0-0.8); MONO % 9.7 % (0.0-5.0); NEUTROPHILS # 3.4 10^3/uL (1.5-8.5); NEUTROPHILS % 51.1 % (36.0-66.0); PLATELET COUNT, AUTOMATED 159 10^3/uL (150-450); RED BLOOD COUNT 4.01 10^6/uL (4.00-5.40); WHITE BLOOD COUNT 6.7 10^3/uL (4.0-10.0)
--- NOTE | 2018-10-25 17:59 | REP ---
HISTORY: Chest pain. COMPARISON: None. The technique utilized in obtaining the radiograph has magnified the cardiac silhouette and accentuated the interstitial markings. The superior mediastinal structures are midline. The cardiac silhouette is unremarkable in size, shape, and position. The diaphragmatic surfaces of the lungs are regular, and the costophrenic angles are clear. The pulmonary donnelly are clear. The imaged osseous structures are intact. IMPRESSION: There is no acute cardiopulmonary disease. Electronically Signed by Jaret Joe DO 10/25/2018 07:47 P
[2018-10-25 18:17] LABS: CK-MB VALUE MASS 2.3 NG/ML (<3.6); CREATININE FOR GFR 1.22 MG/DL (0.55-1.30); GLOMERULAR FILTRATION RATE 47.5 (>45); MB/CK RELATIVE INDEX 3.9 (< OR =4); POTASSIUM SERUM 3.8 MEQ/L (3.5-5.1); TROPONIN I 0.35 NG/ML (< 0.10)
[2018-10-25] MEDS ORDERED: ASPIRIN 81 MG CHEW TABLET PO ONE (20:00)
--- NOTE | 2018-10-25 20:43 | ECGEPIP ---
[facility] - ED Test Date: 2018-10-25 Pat Name: CATERINA SPEARS Department: Room: - Gender: Female Primary Care Nurse Practitioner: mani : 1955 Requested By: JAYDEN Banks Order Number: [id number] Reading MD: Jeanne Nelson Measurements Intervals [place] Rate: 84 P: 44 MT: 160 QRS: -11 QRSD: 93 T: 58 QT: 366 QTc: 433 Interpretive Statements SINUS RHYTHM NO PRIOR Electronically Signed on 10-25-2018 20:42:54 EDT by Jeanne Nelson
[2018-10-25] MEDS ORDERED: HEPARIN DRIP 25,000 UNITS in APPROPRIATE DILUENT 1 EA IV SCH (21:04)
[2018-10-25] MEDS ORDERED: HEPARIN SOD (PORCINE) 5000 UNITS/ML VIAL IV ONE (21:15)
[2018-10-25 21:23] LABS: INR 0.98; PROTHROMBIN TIME 12.7 SECONDS (11.8-14.0)
[2018-10-25 21:24] LABS: PARTIAL THROMBOPLASTIN TIME 31.9 SECONDS (25.0-38.4)
[2018-10-25 21:47] VITALS: BP 119/57
== END 2018-10-25 21:52 | disposition short-term general hospital (02) ==
LOC: M ED 16:47
DX: I20.0 Unstable angina (principal); I25.10 Atherosclerotic heart disease of native coronary artery without angina pectoris; E11.9 Type 2 diabetes mellitus without complications; K21.9 Gastro-esophageal reflux disease without esophagitis; Z87.891 Personal history of nicotine dependence; Z79.82 Long term (current) use of aspirin; Z79.4 Long term (current) use of insulin; Z79.899 Other long term (current) drug therapy; Z88.8 Allergy status to other drugs, medicaments and biological substances; Z88.1 Allergy status to other antibiotic agents

== ENCOUNTER 2018-10-29 17:51 | Emergency (ER) | payer OTHER ==
[~2018-10-29] VITALS: Ht 157.5 cm; Wt 81.8 kg
[2018-10-29 21:33] LABS: BASO # 0.1 10^3/uL (0.0-0.2); BASO % 0.8 % (0.0-1.0); EOS # 0.2 10^3/uL (0.0-0.5); EOS % 2.7 % (0.0-3.0); HEMATOCRIT 37.9 % (36.0-47.0); HEMOGLOBIN 12.9 g/dl (12.0-15.5); LYMPH # 2.9 10^3/uL (1.5-5.0); LYMPH % 34.9 % (24.0-44.0); MEAN CORPUSCULAR HEMOGLOBIN 32.7 pg (27.0-33.0); MEAN CORPUSCULAR VOLUME 95.9 fl (80.0-96.0); MONO # 0.8 10^3/uL (0.0-0.8); MONO % 9.4 % (0.0-5.0); NEUTROPHILS # 4.4 10^3/uL (1.5-8.5); PLATELET COUNT, AUTOMATED 174 10^3/uL (150-450); RED BLOOD COUNT 3.95 10^6/uL (4.00-5.40); WHITE BLOOD COUNT 8.4 10^3/uL (4.0-10.0)
[2018-10-29 21:45] LABS: CALCIUM LEVEL 9.7 MG/DL (8.8-10.2); CK-MB VALUE MASS 1.7 NG/ML (<3.6); CREATININE FOR GFR 1.09 MG/DL (0.55-1.30); GLOMERULAR FILTRATION RATE 54.1 (>45); MB/CK RELATIVE INDEX 2.1 (< OR =4); POTASSIUM SERUM 3.5 MEQ/L (3.5-5.1); TROPONIN I 0.13 NG/ML (< 0.10)
--- NOTE | 2018-10-29 23:11 | REPVR ---
EXAM: CT Neck Without Contrast EXAM DATE/TIME: 10/29/2018 10:19 PM CLINICAL HISTORY: 62 years old, female; Other: Fb; Additional info: Fb eval TECHNIQUE: Imaging protocol: Computed tomography images of the neck without contrast. Radiation optimization: All CT scans at this facility use at least one of these dose optimization techniques: automated exposure control; mA and/or kV adjustment per patient size (includes targeted exams where dose is matched to clinical indication); or iterative reconstruction. COMPARISON: MRI-Spine,Cervical without con 10/19/2018 5:44 PM FINDINGS: Nasopharynx: Unremarkable. Oropharynx: Small rounded associated with the right tonsil which are probably tonsilloliths. Hypopharynx: Unremarkable Larynx: The epiglottis is normal. Retropharyngeal space: Unremarkable. Submandibular/Parotid glands: Normal. Glands are normal in size. Thyroid: Normal. No enlarged or calcified nodules. Lymph nodes: Unremarkable. No lymphadenopathy. Trachea: Visualized trachea is unremarkable. Lungs: Unremarkable as visualized. Bones/joints: Unremarkable. No acute fracture. Soft tissues: Linear calcification in the left pharyngeal wall just above the left piriform sinus which measures approximately 15 mm in length and 4 mm in diameter appears to be within the wall rather than a definite radiopaque foreign body. There is decreased size of the left piriform sinus. There is also a calcification at the level of the right false cord posteriorly measuring 3 x 7 x 6 mm of uncertain etiology. There is another elongated somewhat rounded calcification at the posterior aspect of the right piriform sinus of uncertain etiology measuring 3 mm in diameter and 15 mm in length. Otherwise, no radiopaque foreign bodies are suggested within the airway lumen. IMPRESSION: 1. Rounded calcifications associated with the right tonsil which are probably tonsilloliths. 2. Elongated calcifications which appear to be within the pharyngeal wall above the left piriform sinus, posterior to the right piriform sinus and associated with the posterior aspect of the right false cords of uncertain etiology but are thought to reflect dystrophic calcifications rather than radiopaque foreign bodies. 3. Otherwise negative CT neck. Electronically signed by: Bernardo Berger On 10/29/2018 23:10:36 PM
[2018-10-30 02:15] VITALS: BP 133/60
[2018-10-30] MEDS ORDERED: CLOP75TA2 PO (08:58)
[2018-10-30] MEDS ORDERED: TRIA75TA PO (08:58)
[2018-10-30] MEDS ORDERED: BASA100I SC (08:58)
[2018-10-30] MEDS ORDERED: BASA100I SQ (08:58)
[2018-10-30] MEDS ORDERED: ASPI81CH33 PO (08:58)
[2018-10-30] MEDS ORDERED: PENT10CA PO (08:58)
[2018-10-30] MEDS ORDERED: BENA20TA8 PO (08:58)
[2018-10-30] MEDS ORDERED: ALLO100T PO (08:58)
[2018-10-30] MEDS ORDERED: NITR0.4S14 SL (08:58)
[2018-10-30] MEDS ORDERED: MAG400TA PO (08:58)
--- NOTE | 2018-10-30 12:19 | REP ---
Oral chest x-ray: Single view. History: Chest pain. Comparison study: October 25, 2018. Findings: EKG monitoring electrodes overlie the chest. There is mild linear plate-like atelectasis at the left base. Lung donnelly are otherwise clear. Pleural angles are sharp. Heart size is normal. Pulmonary vasculature is not increased. The thoracic aorta is calcific and very slightly tortuous. Impression: Mild plate-like atelectasis left base. Otherwise no acute disease. Electronically Signed by Justino Warren MD 10/30/2018 07:58 A
[2018-10-30] MEDS ORDERED: INSUHUMDS SC (20:20)
[2018-10-30] MEDS ORDERED: CREO12CA PO (20:20)
[2018-10-30] MEDS ORDERED: ESTR1CRE PV (20:24)
--- NOTE | 2018-10-31 07:01 | ECGEPIP ---
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
== END 2018-10-30 02:28 | disposition home or self-care (01) ==
LOC: M ED 17:51
DX: J35.8 Other chronic diseases of tonsils and adenoids (principal); I49.8 Other specified cardiac arrhythmias; I12.9 Hypertensive chronic kidney disease with stage 1 through stage 4 chronic kidney disease, or unspecified chronic kidney disease; N18.2 Chronic kidney disease, stage 2 (mild); J98.11 Atelectasis; R07.9 Chest pain, unspecified; K21.9 Gastro-esophageal reflux disease without esophagitis; K57.30 Diverticulosis of large intestine without perforation or abscess without bleeding; E11.9 Type 2 diabetes mellitus without complications; F41.9 Anxiety disorder, unspecified; Z79.4 Long term (current) use of insulin; Z79.899 Other long term (current) drug therapy; Z95.5 Presence of coronary angioplasty implant and graft

== ENCOUNTER 2018-10-30 16:37 | Observation (INO) | payer OTHER ==
[~2018-10-30] VITALS: Ht 157.5 cm; Wt 83.3 kg
[~2018-10-30 16:37] MED LIST changes: +ALLO100T PO; +ASPI81CH33 PO; +BASA100I SC; +BASA100I SQ; +BENA20TA8 PO; +CLOP75TA2 PO; +MAG400TA PO; +NITR0.4S14 SL; +PENT10CA PO; +TRIA75TA PO
--- NOTE | 2018-10-30 17:36 | REPVR ---
EXAM: CT Head Without Contrast EXAM DATE/TIME: 10/30/2018 5:10 PM CLINICAL HISTORY: 62 years old, female; Altered mental status/memory loss TECHNIQUE: Imaging protocol: Computed tomography of the head without contrast. Radiation optimization: All CT scans at this facility use at least one of these dose optimization techniques: automated exposure control; mA and/or kV adjustment per patient size (includes targeted exams where dose is matched to clinical indication); or iterative reconstruction. COMPARISON: No relevant prior studies available. FINDINGS: Brain: No hemorrhage. Unremarkable white matter for the patient's age. No mass effect. No evolving territorial infarct. Ventricles: No significant ventriculomegaly. Bones/joints: Unremarkable. No acute fracture. Sinuses: Visualized sinuses are unremarkable. No fluid levels. Mastoid air cells: Visualized mastoid air cells are well aerated. Soft tissues: Unremarkable. IMPRESSION: No acute intracranial abnormality seen. Electronically signed by: Terri Lewis On 10/30/2018 17:35:58 PM
[2018-10-30 17:57] LABS: BASO % 0.4 % (0.0-1.0); EOS # 0.2 10^3/uL (0.0-0.5); EOS % 2.1 % (0.0-3.0); HEMOGLOBIN 13.5 g/dl (12.0-15.5); LYMPH # 2.7 10^3/uL (1.5-5.0); LYMPH % 28.7 % (24.0-44.0); MEAN CORPUSCULAR HEMOGLOBIN 32.1 pg (27.0-33.0); MEAN CORPUSCULAR HGB CONC 33.8 g/dl (32.0-36.5); MEAN CORPUSCULAR VOLUME 95.2 fl (80.0-96.0); MONO # 0.9 10^3/uL (0.0-0.8); MONO % 9.3 % (0.0-5.0); NEUTROPHILS # 5.6 10^3/uL (1.5-8.5); NEUTROPHILS % 59.1 % (36.0-66.0); PLATELET COUNT, AUTOMATED 205 10^3/uL (150-450); WHITE BLOOD COUNT 9.5 10^3/uL (4.0-10.0)
[2018-10-30] MEDS: OMEPRAZOLE 20 MG CAP PO SCH (18:00)
[2018-10-30 18:15] LABS: ALBUMIN 3.5 GM/DL (3.2-5.2); ALT/SGPT 51 U/L (12-78); BILIRUBIN,DIRECT 0.3 MG/DL (0.0-0.2); BILIRUBIN,TOTAL 0.8 MG/DL (0.2-1.0); BLOOD UREA NITROGEN 32 MG/DL (7-18); CALCIUM LEVEL 9.7 MG/DL (8.8-10.2); CARBON DIOXIDE LEVEL 22 MEQ/L (21-32); CHLORIDE LEVEL 102 MEQ/L (98-107); CK-MB VALUE MASS 1.6 NG/ML (<3.6); CPK CREATINE PHOSPHOKINASE 69 U/L (26-192); CREATININE FOR GFR 1.73 MG/DL (0.55-1.30); GLOMERULAR FILTRATION RATE 31.8 (>45); GLUCOSE, FASTING 125 MG/DL (70-100); MB/CK RELATIVE INDEX 2.32 (< OR =4); POTASSIUM SERUM 3.9 MEQ/L (3.5-5.1); SODIUM LEVEL 138 MEQ/L (136-145); TOTAL PROTEIN 7.6 GM/DL (6.4-8.2); TROPONIN I 0.11 NG/ML (< 0.10)
[2018-10-30 18:52] LABS: INR 1.06; PROTHROMBIN TIME 13.5 SECONDS (11.8-14.0)
--- NOTE | 2018-10-30 19:33 | HPEPDOC ---
[facility] Medical History & Physical Date of Admission Oct 30, 2018 Date of Service: Oct 30, 2018 Other Provider Denise Renae LAUNDRY TECHNICIAN Attending Physician: YAMILEX CLARKE MD History and Physical TIME OF SERVICE: 800pm CHIEF COMPLAINT: confusion HISTORY OF PRESENT ILLNESS: This is a 62-year-old female who presented today with complaints of slow speech, "not feeling right", confusion and anxiety. She reports that she's been confused for a couple of days, but today's worse. She denies dropping objects, denies falling, denies losing consciousness, denies having chest pain, denies having fevers, denies having chills, denies having a runny nose, and denies worsening of her chronic cough. She does have chronic relapsing and remitting. Neck and back pain and attends a pain clinic. Currently the back pain, which she attributes to the ED bed, is 6 out of 10 in severity Per discussion with the ED provided this is her fourth hospitalization in the last few days. 3 days ago she was here and was evaluated for chest pain and her troponin was noted to be 0.35. Today she was diagnosed with tonsillar stones. Today her BUN and creatinine are more elevated than they were the on October 25. The patient attributes admits to not eating and drinking much over the last few days; her last proper meal was yesterday morning. REVIEW OF SYSTEMS: 12 point review of systems negative except as listed in HPI PAST MEDICAL/ SURGICAL HISTORY: Chronic hypertension IDDM Chronic CAD CKD 2 Interstitial cystitis. Dyslipidemia. GERD./Arita's esophagus Osteopenia Frequent UTIs. History of spindle cell cancer affecting the nose Status post Right thumb surgery. Status post . Status post tubal ligation. Status post cholecystectomy Status post neck surgery. Status post . SOCIAL HISTORY: Quit smoking ALLERGIES: Please see below. HOME MEDICATIONS: Please see below. PHYSICAL EXAMINATION: VITAL SIGNS: Please see below. GENERAL APPEARANCE: Well-nourished, well-developed, not in apparent distress HEENT: Normocephalic, atraumatic, mucous members moist and pink CARDIOVASCULAR: Regular rate and rhythm. No murmurs, rubs or gallops. Radial pulses intact. There is no lower extremity edema LUNGS: Clear to auscultation bilaterally on room air ABDOMEN: Bowel sounds hypoactive. Abdomen is soft and nontender on palpation MUSCULOSKELETAL: Range of motion is intact in all 4 extremities INTEGUMENT: She does have a lesion on her scalp NEUROLOGICAL: Cranial nerves II-12 are grossly intact. Speech is not dysarthric PSYCHIATRIC: Alert and oriented to person, place and time, able to understand and follow commands LABORATORY DATA: See below. IMAGING: CT of the head unremarkable. Chest x-ray final report pending. The based on personal visualizations there appears to be cardiomegaly MICROBIOLOGY: Please see below. ASSESSMENT: Ms. Alexander a 52-year-old female with a past medical history of chronic hypertension, chronic CAD, CKD 2, GERD, dyslipidemia, chronic neck and back pain who will be admitted for evaluation of confusion and management of RONALDO.. PLAN: 1. Confusion Possibly due to adverse reaction to medication vs anxiety vs uremia or other metabolic cause Oxygen saturation, glucose, and sodium are within normal limits. CT of the head is unrevealing The only abnormalities are that her blood pressure slightly lower today than it was yesterday and her LFTs are slightly elevated. Plan: admit to [facility] / neurochecks 6H / f/u orthostats / f/u accuchecks, serum E THO, drug screen, ammonia, Mag, Phos, UA, TSH / f/u MRI brain and Carotid US / decreased dose of metoprolol & triamterene-HTCZ 1. RONALDO on CKD 2. RONALDO, likely due 2 dehydration Cr increased from 1.09 to 1.73 CKD, may be secondary to hypertension or diabetes Plan: Is/Os, daily weights / Renal diet / f/u UA ulytes for FENa or FEUrea, renal US, IVF / hold Silas inhibitors and avoid other nephrotoxins such as NSAIDs 3. Elevated Troponin Patient denies having chest pain today. Troponins has been trending down since Oct 25 Plan: telemetry / trend trops 4. CAD Plan continue home meds except decrease dose of metoprolol 5. IDDM A1C 8.9% in July Plan: diabetic diet / f/u accuchecks & A1C / hypoglycemia protocol / sliding scale insulin / c/w lispro 16 units, 16 units & 18 units / c/w long-acting insulin (detemir) 30 units in the morning and 50 units at night (at home the patient takes glargine but this is not on the formulary) / continue with liraglutide 1.8 units daily / hold oral anti-glycemics 6 .Chronic HTN Blood pressures a bit low today Plan: Decrease metoprolol from 50mg BID to 12.5 mg BID and decrease triamterene- HTCZ from 75-50 to 37.5-25 / hold bentapril bc of RONALDO 7. GERD. Plan continue home meds 8.Obesity. BMI 32.7 kg/m2 Plan: can f/u w PCP for bender machine operator consult & referral for Bariatric surgery / recommend cardiovascular exercise for 40 min 4-5 days a week DVT prophylaxis with Heparin Disposition pending clinical course. Vital Signs Vital Signs Date Time Temp Pulse Resp B/P (MAP) Pulse Ox O2 Delivery O2 Flow Rate FiO2 10/30/18 18:45 102/53 (69) 10/30/18 18:37 81 96 10/30/18 16:38 98.4 18 Room Air Laboratory Data Labs 24H Laboratory Tests 2 10/30/18 17:30: Prothrombin Time 13.5, Prothromb Time International Ratio 1.06 10/30/18 17:31: Immature Granulocyte % (Auto) 0.4, White Blood Count 9.5, Red Blood Count 4.20, Hemoglobin 13.5, Hematocrit 40.0, Mean Corpuscular Volume 95.2, Mean Corpuscular Hemoglobin 32.1, Mean Corpuscular Hemoglobin Concent 33.8, Red Cell Distribution Width 13.1, Platelet Count 205, Neutrophils (%) (Auto) 59.1, Lymphocytes (%) (Auto) 28.7, Monocytes (%) (Auto) 9.3H, Eosinophils (%) (Auto) 2.1, Basophils (%) (Auto) 0.4, Neutrophils # (Auto) 5.6, Lymphocytes # (Auto) 2.7, Monocytes # (Auto) 0.9H, Eosinophils # (Auto) 0.2, Basophils # (Auto) 0.0, Nucleated Red Blood Cells % (auto) 0.0, Anion Gap 14, Glomerular Filtration Rate 31.8L, Calcium Level 9.7, Aspartate Amino Transf (AST/SGOT) 48H, Alanine Aminotransferase (ALT/SGPT) 51, Alkaline Phosphatase 105, Total Bilirubin 0.8, Direct Bilirubin 0.3H, Total Creatine Kinase 69, Creatine Kinase MB 1.6, Creatine Kinase MB Relative Index 2.32, Troponin I 0.11H, Total Protein 7.6, Albumin 3.5, Albumin/Globulin Ratio 0.85L, Thyroid Stimulating Hormone (TSH) 1.900 CBC/BMP Laboratory Tests 10/30/18 17:31 Red Blood Count 4.20, Mean Corpuscular Volume 95.2, Mean Corpuscular Hemoglobin 32.1, Mean Corpuscular Hemoglobin Concent 33.8, Red Cell Distribution Width 13.1, Neutrophils (%) (Auto) 59.1, Lymphocytes (%) (Auto) 28.7, Monocytes (%) (Auto) 9.3 H, Eosinophils (%) (Auto) 2.1, Basophils (%) (Auto) 0.4, Neutrophils # (Auto) 5.6, Lymphocytes # (Auto) 2.7, Monocytes # (Auto) 0.9 H, Eosinophils # (Auto) 0.2, Basophils # (Auto) 0.0 Home Medications Scheduled Allopurinol (Allopurinol) 100 Mg Tablet, 100 MG PO TID Aspirin (Aspirin) 81 Mg Tab.chew, 81 MG PO DAILY Benazepril HCl (Benazepril HCl) 20 Mg Tablet, 20 MG PO DAILY Cholecalciferol (Vitamin D3) (Vitamin D3) 1,000 Unit Tab, 1,000 MG PO DAILY @ NOON Clopidogrel Bisulfate (Clopidogrel) 75 Mg Tablet, 75 MG PO DAILY Estradiol (Estrace) 42.5 Gm Cream.appl, 2 GRAM PV 2XW Gemfibrozil (Gemfibrozil) 600 Mg Tab, 600 MG PO BID Glipizide (Glipizide) 5 Mg Tab, 5 MG PO TID Insulin Glargine,Hum.rec.anlog (Basaglar Kwikpen U-100) 100 Unit/1 Ml Insuln.pen, 30 UNITS SQ QAM Insulin Glargine,Hum.rec.anlog (Basaglar Kwikpen U-100) 100 Unit/1 Ml Insuln.pen, 50 UNIT SC QPM Insulin Human Lispro (Humalog) 1 Units/0.01 Ml Inj, 16 UNITS SC BID MORNING AND NOON Insulin Human Lispro (Humalog) 100 Unit/1 Ml Vial, 18 UNITS SC QPM Liraglutide (Victoza 2-Alonzo) 18 Mg/3 Ml Inj, 1.8 UNITS SQ DAILY Magnesium Oxide (Magnesium Oxide) 400 Mg Tablet, 400 MG PO BID Metformin HCl (Metformin HCl) 1,000 Mg Tab, 1,000 MG PO DAILY Metoprolol Tartrate (Metoprolol Tartrate) 50 Mg Tab, 50 MG PO BID Omeprazole (Omeprazole) 40 Mg Cap, 40 MG PO QPM Pancreatic Enzymes (Creon Dr 12,000 Units Capsule) 1 Each Capsule.dr, 1 CAP PO DAILY @NOON Pentosan Polysulfate Sodium (Elmiron) 100 Mg Capsule, 100 MG PO BID Triamterene/Hydrochlorothiazid (Triamterene-Hctz 75-50 mg Tab) 1 Each Tablet, 1 TAB PO DAILY @NOON Scheduled PRN Nitroglycerin (Nitroglycerin) 0.4 Mg Tab.subl, SL NITRO PRN for CHEST PAIN Allergies Coded Allergies: trimethoprim (Verified Allergy, Severe, 10/30/18) promethazine (Verified Allergy, Intermediate, TONGUE SWELLING, 10/30/18) sulfamethoxazole (Verified Allergy, Intermediate, TONGUE SWELLING, 10/30/18) cephalexin (Verified Allergy, Mild, ITCHING, 10/30/18) Sfrumvk-Ehe-Shz Reductase Inhibitor (Verified Adverse Reaction, Unknown, FOOT PAIN, 10/30/18) tetracycline (Verified Adverse Reaction, Unknown, BUMPS ON TONGUE, 10/30/18) A-FIB/CHADSVASC A-FIB History Current/History of A-Fib/PAF?: No Current PO Anticoag Therapy: YAMILEX Saenz MD Oct 30, 2018 19:33
[2018-10-30] MEDS ORDERED: DEXTROSE 50% 50 ML SYRINGE IV PRN (19:45)
[2018-10-30] MEDS ORDERED: GLUCOSE 4 GM CHEW TABLET PO PRN (19:45)
[2018-10-30] MEDS ORDERED: GLUCAGON FOR INJ 1 MG VIAL (J1610) SC PRN (19:45)
[2018-10-30] MEDS ORDERED: INSUHUMDS SC (20:20)
[2018-10-30] MEDS ORDERED: CREO12CA PO (20:20)
[2018-10-30] MEDS ORDERED: ESTR1CRE PV (20:24)
[2018-10-30] MEDS: NS 1,000 ML IV SCH (20:48)
[2018-10-30] MEDS ORDERED: NITROGLYCERIN 0.4 MG SUBL TABLET SL PRN (21:00)
[2018-10-30 21:13] LABS: ETHYL ALCOHOL (ETHANOL) < 0.003 % (0.000-0.010)
[2018-10-30 22:13] VITALS: BP 100/55
[2018-10-30 22:16] VITALS: BP 112/57
[2018-10-30 22:18] VITALS: BP 110/57
[2018-10-30] MEDS: HumaLOG INSULIN (NovoLOG) PER UNIT SC SCH (22:30)
[2018-10-30] MEDS: METOPROLOL TART 12.5 MG PER 1/2 TAB PO SCH (22:30)
[2018-10-30] MEDS: ALLOPURINOL 100 MG TAB PO SCH (22:54)
[2018-10-30] MEDS: LEVEMIR (INSULIN DETEMIR) 1 UNITS/0.01ML SC SCH (22:54)
[2018-10-30] MEDS: HEPARIN SOD (PORCINE) 5000 UNITS/ML VIAL SC SCH (22:54)
[2018-10-30] MEDS: PENTOSAN POLYSULFATE SODIUM 100 MG CAP (ELMIRON) PO SCH (22:54)
[2018-10-30] MEDS: GEMFIBROZIL 600 MG TAB PO SCH (22:54)
[2018-10-31] VITALS (7 sets, daily range): BP systolic 94–140; BP diastolic 54–65
[2018-10-31 05:45] LABS: HEMATOCRIT 36.3 % (36.0-47.0); HEMOGLOBIN 12.2 g/dl (12.0-15.5); MEAN CORPUSCULAR HEMOGLOBIN 31.5 pg (27.0-33.0); MEAN CORPUSCULAR HGB CONC 33.6 g/dl (32.0-36.5); MEAN CORPUSCULAR VOLUME 93.8 fl (80.0-96.0); PLATELET COUNT, AUTOMATED 189 10^3/uL (150-450); RED BLOOD COUNT 3.87 10^6/uL (4.00-5.40); WHITE BLOOD COUNT 9.1 10^3/uL (4.0-10.0)
[2018-10-31] MEDS: HEPARIN SOD (PORCINE) 5000 UNITS/ML VIAL SC SCH ×3 (05:59→21:57)
[2018-10-31 06:17] LABS: CALCIUM LEVEL 9.4 MG/DL (8.8-10.2); CREATININE FOR GFR 1.41 MG/DL (0.55-1.30); GLOMERULAR FILTRATION RATE 40.2 (>45); POTASSIUM SERUM 3.5 MEQ/L (3.5-5.1); THYROID STIMULATING HORMONE 1.19 uIU/ML (0.358-3.740)
--- NOTE | 2018-10-31 07:15 | ECGEPIP ---
[facility] - ED Test Date: 2018-10-30 Pat Name: CATERINA SPEARS Department: Room: [place] [address] Gender: Female Senior Paralegal: BARI : 1955 Requested By: SHANE TAMEZ Order Number: [id number] Reading MD: Magdiel Hull Measurements Intervals [place] Rate: 75 P: 49 WV: 162 QRS: -13 QRSD: 82 T: 19 QT: 365 QTc: 409 Interpretive Statements SINUS RHYTHM SIMILAR TO 10/29/18 Electronically Signed on 10-31-2018 7:15:47 EDT by Magdiel Hull
[2018-10-31] MEDS: HumaLOG INSULIN (NovoLOG) PER UNIT SC SCH ×6 (07:30→21:58)
[2018-10-31] MEDS: LEVEMIR (INSULIN DETEMIR) 1 UNITS/0.01ML SC SCH ×2 (08:41→21:58)
[2018-10-31] MEDS: ASPIRIN 81 MG ENTERIC TAB PO SCH (08:42)
[2018-10-31] MEDS: PENTOSAN POLYSULFATE SODIUM 100 MG CAP (ELMIRON) PO SCH ×2 (08:42→21:57)
[2018-10-31] MEDS: ALLOPURINOL 100 MG TAB PO SCH ×3 (08:44→21:57)
[2018-10-31] MEDS: GEMFIBROZIL 600 MG TAB PO SCH ×2 (08:44→21:57)
[2018-10-31] MEDS: METOPROLOL TART 12.5 MG PER 1/2 TAB PO SCH ×2 (08:44→21:57)
[2018-10-31] MEDS: CLOPIDOGREL 75 MG TAB PO SCH (08:44)
--- NOTE | 2018-10-31 08:46 | REP ---
PORTABLE CHEST X-RAY: SINGLE VIEW. HISTORY: Confusion. COMPARISON CHEST X-RAY: October 29, 2018 FINDINGS: EKG monitoring electrodes overlie the chest. There is evidence of coronary artery stent material over the right heart. Pulmonary vasculature is not increased. Pleural angles are sharp. Lung donnelly are free of infiltrate. Minimal linear plate-like atelectasis is seen in the left base. IMPRESSION: Mild linear plate-like atelectasis is again seen in the left base. There is evidence of coronary artery stent material overlying the right heart. Otherwise no acute disease. Electronically Signed by Justino Warren MD 10/31/2018 09:12 A
[2018-10-31] MEDS ORDERED: LIRAGLUTIDE 18 MG/3 ML SC SCH (09:00)
[2018-10-31 09:05] LABS: APPEARANCE, URINE CLEAR (CLEAR); BACTERIA, URINE AUTO NEGATIVE (NEGATIVE); BILIRUBIN, URINE AUTO NEGATIVE (NEGATIVE); BLOOD, URINE BLOOD NEGATIVE (NEGATIVE); COLOR, URINE YELLOW (YELLOW); GLUCOSE, URINE (UA) AUTO NEGATIVE (NEGATIVE); KETONE, URINE AUTO NEGATIVE (NEGATIVE); LEUKOCYTE ESTERASE, URINE AUTO TRACE (NEGATIVE); MUCUS, URINE SMALL (NEGATIVE); NITRITE, URINE AUTO NEGATIVE (NEGATIVE); PROTEIN, URINE AUTO NEGATIVE (NEGATIVE); RBC, URINE AUTO 0 /HPF (0-3); SPECIFIC GRAVITY URINE AUTO 1.015 (1.002-1.035); SQUAMOUS EPITHELIAL CELL UR AU 4 /HPF (0-6); UROBILINOGEN, URINE AUTO 0.2 mg/dL (0.0-2.0); WBC, URINE AUTO 7 /HPF (0-3)
[2018-10-31 09:32] LABS: SODIUM,RANDOM URINE 90 MEQ/L; UREA NITROGEN RANDOM URINE 696 MG/DL
[2018-10-31 09:35] LABS: AMPHETAMINES LEVEL URINE NEGATIVE (NEGATIVE); BARBITURATES URINE NEGATIVE (NEGATIVE); BENZODIAZEPINES URINE POSITIVE (NEGATIVE); CANNABINOIDS URINE NEGATIVE (NEGATIVE); COCAINE METABOLITE URINE NEGATIVE (NEGATIVE); METHADONE URINE NEGATIVE (NEGATIVE); OPIATES URINE NEGATIVE (NEGATIVE); PHENCYCLIDINE URINE NEGATIVE (NEGATIVE)
[2018-10-31] MEDS ORDERED: LORazepam 2 MG/ML VIAL (J2060) IV ONE (12:00)
--- NOTE | 2018-10-31 12:44 | REP ---
CAROTID ULTRASOUND: Real-time ultrasound evaluation and duplex Doppler interrogation of the extracranial carotid vasculature is performed. There is mild to moderate plaquing in the area in the carotid bulbs and internal carotid arteries bilaterally. There is elevation of the peak systolic velocity in the internal carotid arteries bilaterally, right more so than left. Findings suggest bilateral stenosis 60-79%. There is normal direction of flow in both vertebral arteries. RIGHT LEFT Peak systolic velocity ICA 154.6 cm/s 128.8 cm/s End diastolic velocity ICA 47.4 cm/s 35.5 cm/s Peak systolic velocity CCA 107.8 cm/s 78.1 cm/s Peak systolic velocity ECA 96.9 cm/s 95.4 cm/s ICA/CCA ratio 1.43 1.65 IMPRESSION: Mild elevation of peak systolic velocity in the internal carotid arteries suggesting bilateral stenosis 60-79%. Electronically Signed by Darío Owens MD 11/01/2018 11:19 A
--- NOTE | 2018-10-31 12:44 | REP ---
RENAL AND BLADDER ULTRASOUND: Real-time sonographic evaluation of kidneys performed and demonstrates both kidneys to be normal in size and echotexture, right kidney measuring 12.9 x 6.2 x 5.4 cm, and left kidney 11.5 x 5.8 x 5.0 cm. There is no hydronephrosis. No definite renal stones or mass are seen. Urinary bladder is mildly distended with bilateral ureteral jets noted. IMPRESSION: No evidence of hydronephrosis or nephrolithiasis. Electronically Signed by Darío Owens MD 11/01/2018 11:18 A
--- NOTE | 2018-10-31 13:08 | REP ---
MRA of the brain without contrast Indication: Confusion and slurred speech. Comparison: None Technique: 3D time of flight MR angiogram of the [place] was performed without contrast. MIP images of the vessels were obtained including tumble and spin MIP imaging. 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 The left vertebral artery is dominant. There is no evidence of cerebrovascular occlusion or aneurysmal formation. Impression: No cerebrovascular occlusion or aneurysmal formation. Electronically Signed by Elvia Herrera MD 10/31/2018 01:00 P
[2018-10-31] MEDS: NS 1,000 ML IV SCH (13:32)
[2018-10-31] MEDS: CREON-12 CAPSULE PO SCH (13:33)
[2018-10-31] MEDS: DYAZIDE 37.5/25 CAP (TRIAM/HCTZ) PO SCH (13:33)
--- NOTE | 2018-10-31 16:49 | IPNPDOC ---
Text Note Date of Service The patient was seen on 10/31/18. NOTE SUBJECTIVE: Feels ok this morning, much better than yesterday when she had confused speech and felt generally unwell Review of systems: Pertinent negative: No chest pain, palpitations, headaches, dizziness, asymmetric limb movement or slurred speech OBJECTIVE: Vitals: as below General: sitting up, comfortable, conversational, eating breakfast Head: No sign or evidence of trauma Eyes: Anicteric, non-injected, EOMI Neuro: No tremor, CN 2-12 grossly intact, 5/5 muscle strength in UE and LE core muscle groups, felt slightly dizzy on trying to stand but steadied herself wit hout much difficulty. Cardiovascular: s1,s2, no murmurs, no carotid bruits that could be auscultated Pulmonary: CTAB, breathing comfortably on room air Extremities: WWP, no LE edema IMAGIN10/31/2018: MRA of the brain without contrast Indication: Confusion and slurred speech. Comparison: None Findings: There is antegrade flow within the distal ICAs and proximal MCAs and ACAs, the distal vertebral arteries, basilar artery and proximal apparatus engineering technologist. The left vertebral artery is dominant. There is no evidence of cerebrovascular occlusion or aneurysmal formation. Impression: No cerebrovascular occlusion or aneurysmal formation. 10/31/2018: Renal and bladder ultrasound: Real-time sonographic evaluation of kidneys performed and demonstrates both kidneys to be normal in size and echotexture, right kidney measuring 12.9 x 6.2 x 5.4 cm, and left kidney 11.5 x 5.8 x 5.0 cm. There is no hydronephrosis. No definite renal stones or mass are seen. Urinary bladder is mildly distended with bilateral ureteral jets noted. IMPRESSION: No evidence of hydronephrosis or nephrolithiasis. 10/31/2018: Carotid doppler ultrasound: Real-time ultrasound evaluation and duplex Doppler interrogation of the extracranial carotid vasculature is performed. There is mild to moderate plaquing in the area in the carotid bulbs and internal carotid arteries bilaterally. There is elevation of the peak systolic velocity in the internal carotid arteries bilaterally, right more so than left. Findings suggest bilateral stenosis 60-79%. There is normal direction of flow in both vertebral arteries. IMPRESSION: Mild elevation of peak systolic velocity in the internal carotid arteries suggesting bilateral stenosis 60-79%. ASSESSMENT: 52 yo woman with chronic hypertension, chronic CAD, stage 2 CKD, GERD, dysl ipidemia, chronic neck and back pain who was admitted for altered mental status of confusion and an RONALDO. PLAN: 1. Confusion: Resolved with some episodes of feeling faint. Most likely iatrogenic from psychotropic medications vs unlikely uremia -s/p unrevealing non-contrast head CT and MRI, and tele with no evidence of arrythmias or significant ectopy -Carotid ultrasound with bilateral stenosis of ~60-79%, unlikely to be etiology of her transient symptoms. -Elevated ammonia to to 48 now downtrending with slight transaminitis -Utox with benzodiazepines 1. RONALDO on CKD 2 likely 2/2 chronic hypertension and diabetes RONALDO, likely due 2 dehydration: Cr increased from 1.09 to 1.73 - strict Is/Os - daily weights - Renal diet - f/u UA ulytes for FENa or FEUrea - renal US - s/p IVF - holding Silas inhibitors and avoiding other nephrotoxins such as NSAIDs 3. Elevated Troponin -Continues to have no chest pain -telemetry with no evidence of sustained arrythmia or acute ST segment changes 4. CAD continue home meds and the decreased dose of metoprolol of 12.5 BID 5. IDDM - c/w lispro 16 units, 16 units & 18 units - c/w long-acting insulin (detemir) 30 units in the morning and 50 units at ni ght - continue with liraglutide 1.8 units daily / hold oral anti-glycemics - hypoglycemia protocol - sliding scale insulin 6 .Chronic HTN -metoprolol 12.5 mg BID and decrease triamterene-HTCZ 37.5-25 -continue hold bentapril in the setting of an RONALDO 7. GERD. Plan continue home meds 8.Obesity. BMI 32.7 kg/m2 Plan: can f/u w PCP for emt intermediate consult, recommend cardiovascular exercise for 40 min 4-5 days a week DVT prophylaxis with Heparin Dispo: Plan for dispo home tomorrow, after PT evaluation (consult PT) Roberto RICH, I+O VS, Roberto, I+O Laboratory Tests 10/30/18 17:31 Red Blood Count 4.20, Mean Corpuscular Volume 95.2, Mean Corpuscular Hemoglobin 32.1, Mean Corpuscular Hemoglobin Concent 33.8, Red Cell Distribution Width 13.1, Neutrophils (%) (Auto) 59.1, Lymphocytes (%) (Auto) 28.7, Monocytes (%) (Auto) 9.3 H, Eosinophils (%) (Auto) 2.1, Basophils (%) (Auto) 0.4, Neutrophils # (Auto) 5.6, Lymphocytes # (Auto) 2.7, Monocytes # (Auto) 0.9 H, Eosinophils # (Auto) 0.2, Basophils # (Auto) 0.0 10/31/18 05:30 Red Blood Count 3.87 L, Mean Corpuscular Volume 93.8, Mean Corpuscular Hemoglobin 31.5, Mean Corpuscular Hemoglobin Concent 33.6, Red Cell Distribution Width 13.0, Calcium Level 9.4 Vital Signs Date Time Temp Pulse Resp B/P (MAP) Pulse Ox O2 Delivery O2 Flow Rate FiO2 10/31/18 15:39 104 119/56 (77) 94 117/58 (77) 97 111/55 (73) 10/31/18 13:15 97.3 18 98 10/30/18 22:05 Room Air I&O- Last 24 Hours up to 6 AM 10/31/18 05:59 Intake Total 720 ml Output Total 300 ml Balance 420 ml CLEMENTE PRIETO MD Oct 31, 2018 16:49
[2018-10-31] MEDS ORDERED: HumaLOG INSULIN (NovoLOG) PER UNIT SC SCH (18:00)
[2018-10-31] MEDS: OMEPRAZOLE 20 MG CAP PO SCH (18:45)
[2018-11-01] VITALS: BP_SYST 130; BP_SYST 138; BP_SYST 141; BP_DIAS 62; BP_DIAS 68; BP_DIAS 71
[2018-11-01] MEDS: NS 1,000 ML IV SCH (03:53)
[2018-11-01 04:00] VITALS: BP 111/57
[2018-11-01] MEDS: HEPARIN SOD (PORCINE) 5000 UNITS/ML VIAL SC SCH (06:32)
[2018-11-01] MEDS: HumaLOG INSULIN (NovoLOG) PER UNIT SC SCH ×4 (08:14→14:12)
[2018-11-01] MEDS: ASPIRIN 81 MG ENTERIC TAB PO SCH (08:16)
[2018-11-01] MEDS: LEVEMIR (INSULIN DETEMIR) 1 UNITS/0.01ML SC SCH (08:16)
[2018-11-01 08:17] VITALS: BP 154/80
[2018-11-01] MEDS: ALLOPURINOL 100 MG TAB PO SCH (08:17)
[2018-11-01] MEDS: CLOPIDOGREL 75 MG TAB PO SCH (08:17)
[2018-11-01] MEDS: GEMFIBROZIL 600 MG TAB PO SCH (08:17)
[2018-11-01] MEDS: METOPROLOL TART 12.5 MG PER 1/2 TAB PO SCH (08:17)
[2018-11-01] MEDS: PENTOSAN POLYSULFATE SODIUM 100 MG CAP (ELMIRON) PO SCH (08:17)
[2018-11-01 08:38] VITALS: BP_SYST 125; BP_SYST 135; BP_SYST 154; BP_DIAS 57; BP_DIAS 77; BP_DIAS 80
[2018-11-01 09:51] LABS: ALBUMIN 3.4 GM/DL (3.2-5.2); ALT/SGPT 38 U/L (12-78); BILIRUBIN,TOTAL 0.5 MG/DL (0.2-1.0); BLOOD UREA NITROGEN 19 MG/DL (7-18); CALCIUM LEVEL 9.5 MG/DL (8.8-10.2); CARBON DIOXIDE LEVEL 26 MEQ/L (21-32); CHLORIDE LEVEL 106 MEQ/L (98-107); CREATININE FOR GFR 0.96 MG/DL (0.55-1.30); GLOMERULAR FILTRATION RATE > 60.0 (>45); GLUCOSE, FASTING 171 MG/DL (70-100); POTASSIUM SERUM 3.8 MEQ/L (3.5-5.1); SODIUM LEVEL 139 MEQ/L (136-145); TOTAL PROTEIN 7.2 GM/DL (6.4-8.2)
[2018-11-01] MEDS: DYAZIDE 37.5/25 CAP (TRIAM/HCTZ) PO SCH (12:56)
[2018-11-01] MEDS: CREON-12 CAPSULE PO SCH (14:11)
--- NOTE | 2018-11-01 17:15 | DS.PDOC ---
Discharge Summary General Date of Admission Oct 30, 2018 at 16:38 Date of Discharge 11/01/2018 Primary Care Physician: A Attending Physician: CLEMENTE PRIETO MD Discharge Summary PROCEDURES PERFORMED DURING STAY: None ADMITTING DIAGNOSES: Altered mental status with confused speech DISCHARGE DIAGNOSES: Drug induced delirium Hypertension Insulin dependent diabetes mellitus CAD stage 2 CKD Dyslipidemia GERD. Osteopenia COMPLICATIONS/CHIEF COMPLAINT: Alteration In Speech; Confusion. HISTORY OF PRESENT ILLNESS: 62-year-old woman who presented to the ED after family and a repetitive confused message she left at her PCP office got them concerned that she had significant acute altered mental status. She reported slow speech, "not feeling right", c onfusion and anxiety for two days. On presentation she denied dropping objects, falling, losing consciousness, chest pain, fevers, chills, new URI symptoms or worsening of her chronic cough. She does have chronic relapsing and remitting neck and back pain and attends a pain clinic and per the ED, this was her fourth presentation in the last few days during which her last presentation was for chest pain during which she had a non ischemic EKG with a positive troponin. I HOSPITAL COURSE: Initial work up was notable for an RONALDO in the setting of poor PO per patient's report, as well as a tox screen that was positive for benzodiazepines though she does not carry an outpatient script for them. She had a non con head CT and MRA brain that were negative for acute stroke, carotic ultrasound with 60-70% bilateral stenosis and negative orthostatic vitals. By day 2 of admission her speech had returned to normal and she felt well. On discussions about the benzodiazepines, she reported that she had recently taken 2 valium tabs for an MRI outpatient and felt "loopy" after. We discussed that this presentation may have been a result of the Valium and that she should note this experience the next time they are offered in the future. With regard to her RONALDO, she was started on fluids and her creatinine returned to baseline shortly after. She had an unrevealing renal Doppler ultrasound. She is now being discharge home. DISCHARGE MEDICATIONS: Please see below. ALLERGIES: Please see below. PHYSICAL EXAMINATION ON DISCHARGE: VITAL SIGNS: Please see below. PHYSICAL EXAMINATION: VITAL SIGNS: Please see below. GENERAL APPEARANCE: Well-nourished, well-developed, not in apparent distress HEENT: Normocephalic, atraumatic, mucous members moist and pink CARDIOVASCULAR: Regular rate and rhythm. No murmurs, rubs or gallops. Radial pulses intact. There is no lower extremity edema LUNGS: Clear to auscultation ABDOMEN: Normoactive bowel sounds. Abdomen is soft and nontender on palpation MUSCULOSKELETAL: Range of motion is intact in all 4 extremities NEUROLOGICAL: Cranial nerves II-12 are grossly intact. Speech is not dysarthric, normal gait PSYCHIATRIC: Alert and oriented to person, place and time, able to understand and follow commands LABORATORY DATA: See below. IMAGIN10/30/2018: non contrast CT No acute intracranial abnormalities 10/31/2018: MRA of the brain without contrast Indication: Confusion and slurred speech. Comparison: None Findings: There is antegrade flow within the distal ICAs and proximal MCAs and ACAs, the distal vertebral arteries, basilar artery and proximal laboratory assistant. The left vertebral artery is dominant. There is no evidence of cerebrovascular occlusion or aneurysmal formation. Impression: No cerebrovascular occlusion or aneurysmal formation. 10/31/2018: Renal and bladder ultrasound: Real-time sonographic evaluation of kidneys performed and demonstrates both kidneys to be normal in size and echotexture, right kidney measuring 12.9 x 6.2 x 5.4 cm, and left kidney 11.5 x 5.8 x 5.0 cm. There is no hydronephrosis. No definite renal stones or mass are seen. Urinary bladder is mildly distended with bilateral ureteral jets noted. IMPRESSION: No evidence of hydronephrosis or nephrolithiasis. 10/31/2018: Carotid doppler ultrasound: Real-time ultrasound evaluation and duplex Doppler interrogation of the extracranial carotid vasculature is performed. There is mild to moderate plaquing in the area in the carotid bulbs and internal carotid arteries bilaterally. There is elevation of the peak systolic velocity in the internal carotid arteries bilaterally, right more so than left. Findings suggest bilateral stenosis 60-79%. There is normal direction of flow in both vertebral arteries. IMPRESSION: Mild elevation of peak systolic velocity in the internal carotid arteries suggesting bilateral stenosis 60-79%. PROGNOSIS: Good ACTIVITY: As tolerated DIET: Diabetic consistent carbohydrate diet DISCHARGE PLAN: Home to follow up with PCP DISPOSITION: 01 Home, Self-Care. DISCHARGE INSTRUCTIONS: 1. To follow up with PCP in 1 week post discharge ITEMS TO FOLLOWUP ON ON OUTPATIENT: 1. Benzodiazepine use and its psychotropic effects in Ms. Alexander DISCHARGE CONDITION: Good TIME SPENT ON DISCHARGE: Greater than 30 minutes. Vital Signs/I&Os Vital Signs Date Time Temp Pulse Resp B/P (MAP) Pulse Ox O2 Delivery O2 Flow Rate FiO2 11/01/18 08:38 97.1 81 19 125/57 (79) 97 10/30/18 22:05 Room Air I&O- Last 24 Hours up to 6 AM 11/01/18 06:00 Intake Total 2160 ml Output Total 2000 ml Balance 160 ml Laboratory Data Labs 24H Laboratory Tests 2 10/31/18 17:51: Bedside Glucose (Misc Panel) 269H 10/31/18 20:15: Bedside Glucose (Misc Panel) 280H 11/01/18 07:29: Bedside Glucose (Misc Panel) 184H 11/01/18 08:53: Anion Gap 7L, Glomerular Filtration Rate > 60.0, Blood Urea Nitrogen 19H, Creatinine 0.96, Sodium Level 139, Potassium Level 3.8, Chloride Level 106, Carbon Dioxide Level 26, Calcium Level 9.5, Aspartate Amino Transf (AST/SGOT) 24, Alanine Aminotransferase (ALT/SGPT) 38, Alkaline Phosphatase 99, Total Bilirubin 0.5, Total Protein 7.2, Albumin 3.4, Albumin/Globulin Ratio 0.89L 11/01/18 13:01: Bedside Glucose (Misc Panel) 223H CBC/BMP Laboratory Tests 11/01/18 08:53 Calcium Level 9.5, Aspartate Amino Transf (AST/SGOT) 24, Alanine Aminotransferase (ALT/SGPT) 38, Alkaline Phosphatase 99, Total Bilirubin 0.5, Total Protein 7.2, Albumin 3.4 FSBS Laboratory Tests Test 10/31/18 17:51 10/31/18 20:15 11/01/18 07:29 11/01/18 13:01 Range/Units Bedside Glucose (Misc Panel) 269 280 184 223 80-115 MG/DL Discharge Medications Scheduled Allopurinol (Allopurinol) 100 Mg Tablet, 100 MG PO TID, (Reported) Aspirin (Aspirin) 81 Mg Tab.chew, 81 MG PO DAILY, (Reported) Benazepril HCl (Benazepril HCl) 20 Mg Tablet, 20 MG PO DAILY, (Reported) Cholecalciferol (Vitamin D3) (Vitamin D3) 1,000 Unit Tab, 1,000 MG PO DAILY, (Reported) @ NOON Clopidogrel Bisulfate (Clopidogrel) 75 Mg Tablet, 75 MG PO DAILY, (Reported) Estradiol (Estrace) 42.5 Gm Cream.appl, 2 GRAM PV 2XW, (Reported) Gemfibrozil (Gemfibrozil) 600 Mg Tab, 600 MG PO BID, (Reported) Glipizide (Glipizide) 5 Mg Tab, 5 MG PO TID, (Reported) Insulin Glargine,Hum.rec.anlog (Basaglar Kwikpen U-100) 100 Unit/1 Ml Insuln.pen, 30 UNITS SQ QAM, (Reported) Insulin Glargine,Hum.rec.anlog (Basaglar Kwikpen U-100) 100 Unit/1 Ml Insuln.pen, 50 UNIT SC QPM, (Reported) Insulin Human Lispro (Humalog) 1 Units/0.01 Ml Inj, 16 UNITS SC BID, (Reported) MORNING AND NOON Insulin Human Lispro (Humalog) 100 Unit/1 Ml Vial, 18 UNITS SC QPM, (Reported) Liraglutide (Victoza 2-Alonzo) 18 Mg/3 Ml Inj, 1.8 UNITS SQ DAILY, (Reported) Magnesium Oxide (Magnesium Oxide) 400 Mg Tablet, 400 MG PO BID, (Reported) Metformin HCl (Metformin HCl) 1,000 Mg Tab, 1,000 MG PO DAILY, (Reported) Metoprolol Tartrate (Metoprolol Tartrate) 50 Mg Tab, 50 MG PO BID, (Reported) Omeprazole (Omeprazole) 40 Mg Cap, 40 MG PO QPM, (Reported) Pancreatic Enzymes (Creon Dr 12,000 Units Capsule) 1 Each Capsule.dr, 1 CAP PO DAILY, (Reported) @NOON Pentosan Polysulfate Sodium (Elmiron) 100 Mg Capsule, 100 MG PO BID, (Reported) Triamterene/Hydrochlorothiazid (Triamterene-Hctz 75-50 mg Tab) 1 Each Tablet, 1 TAB PO DAILY, (Reported) @NOON Scheduled PRN Nitroglycerin (Nitroglycerin) 0.4 Mg Tab.subl, SL NITRO PRN for CHEST PAIN, (Reported) Allergies Coded Allergies: trimethoprim (Verified Allergy, Severe, 10/30/18) promethazine (Verified Allergy, Intermediate, TONGUE SWELLING, 10/30/18) sulfamethoxazole (Verified Allergy, Intermediate, TONGUE SWELLING, 10/30/18) cephalexin (Verified Allergy, Mild, ITCHING, 10/30/18) Xhrlpum-Twy-Rfv Reductase Inhibitor (Verified Adverse Reaction, Unknown, FOOT PAIN, 10/30/18) tetracycline (Verified Adverse Reaction, Unknown, BUMPS ON TONGUE, 10/30/18) CLEMENTE PRIETO MD Nov 01, 2018 17:15
== END 2018-11-01 14:30 | disposition home or self-care (01) ==
LOC: M ED 16:37 → M ED INP 16:38 → M PCU 22:13
PROVIDERS: ADMIT Internal Medicine; ATTEND Internal Medicine
DX: F19.221 Other psychoactive substance dependence with intoxication delirium (principal); N17.9 Acute kidney failure, unspecified; I12.9 Hypertensive chronic kidney disease with stage 1 through stage 4 chronic kidney disease, or unspecified chronic kidney disease; E11.9 Type 2 diabetes mellitus without complications; Z79.4 Long term (current) use of insulin; I25.10 Atherosclerotic heart disease of native coronary artery without angina pectoris; N18.2 Chronic kidney disease, stage 2 (mild); E78.49 Other hyperlipidemia; K21.9 Gastro-esophageal reflux disease without esophagitis; M85.80 Other specified disorders of bone density and structure, unspecified site; Z87.891 Personal history of nicotine dependence; Z79.899 Other long term (current) drug therapy
CPT/HCPCS: 36415; 70450; 70544; 71045; 76775; 80048; 80053; 80076; 80307; 81001; 82140; 82550; 82553; 82570; 83735; 84300; 84311; 84443; 84540; 85025; 85027; 85610; 93005; 93041; 93880; 94760; 96361; 96372; 96374; 97116; 97161; 99285; G0480; J2060

== ENCOUNTER → 2018-11-08 | Outpatient (REF) | payer OTHER, MEDICAID ==
[~2018-11-08] MED LIST changes: +CREO12CA PO; +ESTR1CRE PV
[2018-11-08 18:48] LABS: BASO % 0.7 % (0.0-1.0); EOS # 0.2 10^3/uL (0.0-0.5); HEMATOCRIT 35.2 % (36.0-47.0); HEMOGLOBIN 11.4 g/dl (12.0-15.5); LYMPH # 1.9 10^3/uL (1.5-5.0); LYMPH % 33.7 % (24.0-44.0); MEAN CORPUSCULAR HEMOGLOBIN 32.5 pg (27.0-33.0); MEAN CORPUSCULAR HGB CONC 32.4 g/dl (32.0-36.5); MEAN CORPUSCULAR VOLUME 100.3 fl (80.0-96.0); MONO # 0.5 10^3/uL (0.0-0.8); MONO % 8.5 % (0.0-5.0); NEUTROPHILS # 2.9 10^3/uL (1.5-8.5); NEUTROPHILS % 52.9 % (36.0-66.0); PLATELET COUNT, AUTOMATED 180 10^3/uL (150-450); RED BLOOD COUNT 3.51 10^6/uL (4.00-5.40); WHITE BLOOD COUNT 5.6 10^3/uL (4.0-10.0)
[2018-11-08 18:52] LABS: ALBUMIN 3.5 GM/DL (3.2-5.2); BILIRUBIN,TOTAL 0.4 MG/DL (0.2-1.0); CALCIUM LEVEL 9.8 MG/DL (8.8-10.2); CHOLESTEROL RISK RATIO 7.032 (<5); CREATININE FOR GFR 1.09 MG/DL (0.55-1.30); GLOMERULAR FILTRATION RATE 54.1 (>45); HEMOGLOBIN A1c 8.1 %; POTASSIUM SERUM 5.2 MEQ/L (3.5-5.1); TOTAL PROTEIN 7.3 GM/DL (6.4-8.2)
== END ==
LOC: M LAB REF 16:41
PROVIDERS: ATTEND Nurse Practitioner Family
DX: I10 Essential (primary) hypertension (principal); E78.1 Pure hyperglyceridemia

== ENCOUNTER 2018-11-09 12:54 | Outpatient (RCR) | payer OTHER | END 2018-11-20 | LOC: M PT 12:54 | PROVIDERS: ATTEND Specialist | DX: N39.41 Urge incontinence (principal); E11.65 Type 2 diabetes mellitus with hyperglycemia; N76.1 Subacute and chronic vaginitis; L90.0 Lichen sclerosus et atrophicus ==

== ENCOUNTER → 2018-12-21 | Outpatient (CLI) | payer OTHER, MEDICAID ==
[~2018-12-21] MED LIST changes: -OMEP40CA2 PO; +OMEP40CA97 PO
--- NOTE | 2019-01-03 03:04 | ECWPNPC ---
PATIENT NAME: CATERINA SPEARS : 1955 GENDER: FEMALE VISIT DATE: 12/21/2018 DISCHARGE DATE: 12/21/18 1227 VISIT LOCKED DATE TIME: PHYSICIAN: JOSH LONDON RESOURCE: JOSH LONDON REASON FOR APPOINTMENT 1. BACK/REVIEW MRI HISTORY OF PRESENT ILLNESS HISTORY OF PRESENT ILLNESS: PAIN THE PATIENT DESCRIBES THE PAIN... 62-YEAR-OLD FEMALE IN TO REVIEW MRI AND CHRONIC PAIN FOLLOW-UP. PATIENT RATES HER PAIN CURRENTLY AT A 6+ OUT OF 10 AND DESCRIBES IT ACHING, SHARP, BURNING, SORE, AND TENDER. SHE FURTHER STATES THAT SHE FEELS STIFF. FALL RISK SCREENING: SCREENING :NO FALLS REPORTED IN THE LAST YEAR CURRENT MEDICATIONS TAKING PEN NEEDLES 3/16" 31G X 5 MM MISCELLANEOUS TAKING COMFORT EZ INSULIN SYRINGE 31G X 5/16 MISCELLANEOUS TAKING COMFORT EZ INSULIN SYRINGE 31G X 5/16 MISCELLANEOUS TAKING VITAMIN D 1000 UNIT TABLET 2 TABLET ORALLY ONCE A DAY TAKING ALLOPURINOL 100 MG TABLET 1 TABLET ORALLY THREE TIMES DAILY TAKING GLIPIZIDE 5 MG TABLET 1 TABLET ORALLY THREE TIMES DAILY TAKING VICTOZA 18 MG/3ML SOLUTION PEN-INJECTOR SUBCUTANEOUS TAKING GEMFIBROZIL 600 MG TABLET 1 TABLET ORALLY TWICE A DAY TAKING TRIAMTERENE-HCTZ 75-50 MG TABLET 1 TABLET IN THE MORNING ORALLY ONCE A DAY TAKING METOPROLOL TARTRATE 25 MG TABLET 1 TABLET WITH FOOD ORALLY TWICE A DAY TAKING CREON 10863 UNIT CAPSULE DELAYED RELEASE PARTICLES 2 TAB ORALLY BID TAKING METFORMIN HCL 1000 MG TABLET 1 TAB ORALLY DAILY TAKING INSULIN SYRINGE-NEEDLE U-100 31G X 1/4 MISCELLANEOUS TAKING ADVOCATE INSULIN SYRINGE 29G X 1/2 MISCELLANEOUS TAKING OMEPRAZOLE 40 MG CAPSULE DELAYED RELEASE 1 CAPSULE ORALLY ONCE A DAY TAKING BASAGLAR KWIKPEN 20 INITS AM 50 UNITS PM BID TAKING HUMALOG 12 UNITS TID TAKING ELMIRON 100 MG CAPSULE 1 CAPSULE ON AN EMPTY STOMACH ORALLY BID TAKING MAGNESIUM OXIDE 400 MG CAPSULE 1 CAPSULE NEEDED ORALLY ONCE A DAY TAKING VENTOLIN HFA 108 (90 BASE) MCG/ACT AEROSOL SOLUTION 2 PUFFS NEEDED INHALATION EVERY 6 HRS TAKING MUPIROCIN 2 % OINTMENT 1 APPLICATION TO AFFECTED AREA EXTERNALLY THREE TIMES A DAY TAKING ESTRADIOL 10 % CREAM DIRECTED TAKING TYLENOL ARTHRITIS PAIN NOT-TAKING BENAZEPRIL HCL 20 MG TABLET DIRECTED ORALLY NOT-TAKING CETIRIZINE HCL 10 MG TABLET 1 TABLET ORALLY ONCE A DAY NOT-TAKING DIPHENHYDRAMINE HCL 2 % CREAM 1 APPLICATION TO AFFECTED AREA NEEDED EXTERNALLY BID NOT-TAKING PREMARIN 0.625 MG/GM CREAM USE 1 GM 2 NIGHTS WEEKLY BY FINGERTIP APPLICATION VAGINAL 2-3X/WEEK X 4 WEEKS NOT-TAKING PYRIDIUM 100 MG TABLET 1 TABLET AFTER MEALS ORALLY THREE TIMES A DAY NEEDED FOR BURNING SENSATION NOT-TAKING CLOBETASOL PROPIONATE 0.05 % OINTMENT 1 APPLICATION TO AFFECTED AREA EXTERNALLY TWICE A DAY NOT-TAKING LANTUS SOLOSTAR 100 UNIT/ML SOLUTION PEN-INJECTOR SUBCUTANEOUS NOT-TAKING GLUCOPHAGE XR 500 MG TABLET EXTENDED RELEASE 24 HOUR 2 TABLETS ORALLY ONCE A DAY NOT-TAKING BENAZEPRIL-HYDROCHLOROTHIAZIDE 20-25 MG TABLET 1 TABLET ORALLY ONCE A DAY NOT-TAKING ATORVASTATIN CALCIUM 40 MG TABLET 1 TABLET ORALLY EVERY OTHER DAY NOT-TAKING HUMULIN R 100 UNIT/ML SOLUTION INJECTION TAKE 14 UNITS TID NOT-TAKING CELEBREX 200 MG CAPSULE 1 CAPSULE WITH FOOD ORALLY ONCE A DAY NOT-TAKING DICLOFENAC SODIUM 1 % GEL TRANSDERMAL APPLY 2 GRAMS TO AFFECTED AREA FOUR TIMES DAILY DISCONTINUED DIAZEPAM 5 MG TABLET 1 TABLET NEEDED ORALLY FOR ANXIETY ON HER WAY TO MRI STUDY. MAY REPEAT UPON ARRIVAL TO MRI OFFICE. MDD2 MEDICATION LIST REVIEWED AND RECONCILED WITH THE PATIENT PAST MEDICAL HISTORY INRTSTITIAL CYSTITIS DM TYPE 2 INSULIN DEPENDENT HYPERTRIGLYCERIDEMIA GERD HTN SKIN LESIONS NOCTURIA UTI'S CHRONIC KIDNEY DISEASE STAGE II BRIAN'S ESOPHAGUS OSTEOPENIA ATHEROSCLEROTIC VESSEL DISEASE OR WITH 2 STENTS PLACED 10/2018 KIDNEY DISEASE CAD W/ UNSTABLE ANGINA ALLERGIES BACTRIM DS: TOUNGE SWELL - ALLERGY KEFLEX: BOTTOM LEGS ITCH - ALLERGY TETRACYCLINE HCL: BUMPS ON TONGUE - ALLERGY PROMETHAZINE HCL: TONGUE SWELL - ALLERGY ATORVASTATIN CALCIUM: FEET, LEG PAIN - SIDE EFFECTS ZETIA: SEVERE MUSCLE PAIN - SIDE EFFECTS SURGICAL HISTORY RT THUMB 1960 1990 TUBALIGATION 1992 GALLBLADDER 1993 NECK 2013 ABORTIONS 1994 BREAST BIOPSY SQUAMOUS CELL CANCER - NOSE MISCARRIAGE (4) LIPOSUCTION 2 CARDIAC STENTS PLACED 10/2018 FAMILY HISTORY FATHER: MOTHER: 2DAUGHTER(S) . SOCIAL HISTORY GENERAL: TOBACCO USE ARE YOU A:FORMER SMOKER QUIT AGE 34 OTHERS AT HOME: GRANDKIDS AND DAUGHTER. HOUSING: RENTS APARTMENT. EDUCATION LEVEL OF EDUCATION:COLLEGE DIET: REGULAR, LOW CHOLETEROL, LOW SALT. LANGUAGE LANGUAGES SPOKEN:GREENLANDIC DOMESTIC VIOLENCE DO YOU FEEL SAFE IN YOUR ENVIRONMENT?YES NEW PATIENT PAIN DIARY PATIENT DESCRIBES PAIN :ACHING, BURNING, HAVE IT ALL THE TIME, IT COMES AND GOES, SHARP, STABBING, TENDER, THROBBING, SORE, SHOOTING FROM 0-10, WHAT LEVEL IS YOUR PAIN TODAY?7 ARE YOU ALLERGIC TO SHELLFISH OR IV DYE?NO ARE YOU DIABETIC?YES RECREATIONAL DRUG USE DRUG USE?NO EXERCISE: NO REGULAR EXERCISE, CARE FOR 3, 5, 7 YEAR OLD 6-7 DAYS/WEEK. LEARNING BARRIERS / SPECIAL NEEDS BARRIERS TO LEARNING?YES COMMENTSDOCUMENTED IN NOTES SECTION> NEED EXTRA TIME FOR TESTS HEARING IMPAIRED?NO VISION IMPAIRED?NO COGNITIVELY IMPAIRED?YES : DIFFICULTY WITH COMPREHENSION READINESS TO LEARN?YES LEARNING CAPABILITIES PRESENT?YES PAIN CLINIC PFS, CLERGY, PUBLIC HEALTH REFERRALS WAS THE PROVIDER NOTIFIED OF ANY PERTINENT INFO?YES HAS THE PATIENT BEEN EDUCATED REGARDING HIS/HER PLAN OF CARE?YES ORIENTED TO PMC HAS THE PATIENT BEEN EDUCATED REGARDING PAIN, THE RISK FOR PAIN, THE IMPORTANCE OF EFFECTIVE PAIN MANAGEMENT, AND THE PAIN ASSESSMENT PROCESS?YES LATEX QUESTIONNAIRE LATEX ALLERGY : HAVE YOU EVER DEVELOPED ANY TYPE OF REACTION AFTER HANDLING LATEX PRODUCTS SUCH RUBBER GLOVES, CONDOMS, DIAPHRAGMS, BALLOONS, SOCKS, OR UNDERWEAR?NO LATEX ALLERGY : HAVE YOU EVER DEVELOPED ANY TYPE OF REACTION DURING OR AFTER DENTAL APPOINTMENT, VAGINAL/RECTAL EXAMINATION, SURGICAL PROCEDURE, OR ANY OTHER EXPOSURE?NO DATE ASKED : 08/08/2018 LATEX RISK : HAVE YOU EVER HAD ANY DIFFICULTY BREATHING OR HIVES AFTER EATING OR HANDLING ANY FRUITS, OR VEGETABLES; SUCH KIWI, BANANAS, STONE FRUITS, OR CHESTNUTSNO LATEX RISK : DO YOU HAVE A PREVIOUS PERSONAL HISTORY OF MORE THAN NINE SURGERIES, SPINA BIFIDA, OR REPEATED CATHERIZATIONS? NO LATEX RISK : ARE YOU FREQUENTLY EXPOSED TO LATEX PRODUCTS IN YOUR OCCUPATION?NO CAFFEINE CAFFEINE USE?YES HOW OFTEN AND HOW MUCH? 1-2 DAILY ADVANCE DIRECTIVE ADVANCE DIRECTIVE DISCUSSED WITH PATIENT:YES PT DOES NOT CURRENTLY HAVE HCP, PAPERWORK GIVEN AND OFFERED ASSISTANCE UATSDIN [id number] OTHER NO MU-ISM BELIEFS THAT WOULD IMPACT HEALTH CARE. SPIRITUAL MARITAL STATUS: .. ALCOHOL SCREENING DID YOU HAVE A DRINK CONTAINING ALCOHOL IN THE PAST YEAR?NO POINTS0 INTERPRETATIONNEGATIVE OCCUPATION: [employer]. SEXUAL HX HAD SEX IN THE LAST 12 MONTHS (VAGINAL, ORAL, OR ANAL)?NO HAVE YOU EVER HAD AN STD?YES OTHER?YES HOSPITALIZATION/MAJOR DIAGNOSTIC PROCEDURE OR WITH STENTS PLACED 10/2018 ALTERED SPEECH 10/2018 REVIEW OF SYSTEMS REVIEWED BY: PROVIDER: ZACKARY VILLAGOMEZ . CONSTITUTIONAL: ANY CHANGE IN YOUR MEDICAL CONDITION? YES, OR . CHILLS NO . FEVER NO . INFECTION: DO YOU HAVE NEW INFECTIONS? NO . DO YOU HAVE HISTORY OF MRSA? NO . MUSCULOSKELETAL: ANY NEW PATTERNS OF PAIN OR NUMBNESS? YES, BILAT FOOT PAIN WORSE AT NIGHT . GASTROENTEROLOGY: ANY NEW CHANGE IN BOWEL CONTROL? YES, CONSTIPATION . GENITOURINARY: ANY NEW CHANGE IN BLADDER CONTROL? YES, URGENCY . IS THERE A CHANCE YOU COULD BE ? NO . HEMATOLOGY/LYMPH: DO YOU TAKE ANY BLOOD THINNERS? (FOR EXAMPLE- COUMADIN, PLAVIX, AGGRENOX, PLATEL, PRADAXA, OR XARELTO) YES, PLAVIX, ELMIRON . WHEN WAS YOUR LAST DOSE? DATE: TIME: . NEUROLOGY: HAVE YOU FALLEN IN THE PAST 12 MONTHS? YES, FELL X 10 IN PAST YEAR NOT SURE WHY . ANY NEW EXTREMITY NUMBNESS OR WEAKNESS? YES, LEFT ARM TO DELTOID, CRAMPS TO LEFT CALF AND RIGHT LEG . CARDIOLOGY: DO YOU HAVE A PACEMAKER OR DEFIBRILLATOR? NO . RESPIRATORY: HAVE YOU BEEN SICK IN THE PAST WEEK? YES, COUGH . FEVER NO . FLU LIKE SYMPTOMS? NO . COUGH NON-PRODUCTIVE . INTEGUMENTARY: DO YOU HAVE ANY RASHES OR OPEN SORES? YES, SORE TO TOP OF HEAD COMES AND GOES . ALLERGIC/IMMUNO: ARE YOU ALLERGIC TO IV DYE? NO . ANY NEW ALLERGIES? NO . PSYCHIATRIC: DO YOU HAVE THOUGHTS OF HURTING YOURSELF OR SOMEONE ELSE? NO . ARE YOU ABUSED, NEGLECTED, OR IN AN UNSAFE ENVIRONMENT? NO . ENDOCRINOLOGY: ARE YOU DIABETIC? YES . OTHER: DO YOU NEED ANY PRESCRIPTIONS? YES, PRN PAIN FOR GREATER THAN 7/10 PAIN . IF YES, PLEASE LIST: ____ . ANY NEW PROBLEMS WITH YOUR MEDICATIONS? ASKING FOR RX FOR GRAB BAR IN [place] . WHEN DID YOU LAST EAT? ____ . WHEN DID YOU LAST DRINK? ____ . WHAT DID YOU LAST DRINK? ____ . NAME OF PERSON DRIVING YOU HOME? ____ . DO YOU HAVE ANY OTHER QUESTIONS OR CONCERNS FLU VACCINE RECEIVED 11/27/18 . VITAL SIGNS WT 182.6 LBS, HT 62 IN, BMI 33.39 INDEX, BP 126/61 MM HG, HR 89 /MIN, RR 18 /MIN, TEMP 97.8 F, OXYGEN SAT % 97%, NA INITIALS SC 11:26, REVIEWED BY: EM. EXAMINATION GENERAL EXAMINATION: GENERALNO ACUTE DISTRESS, WELL NOURISHED AND HYDRATED. PSYCHAPPROPRIATE MOOD AND AFFECT . LUNGS:CLEAR TO AUSCULTATION BILATERALLY, NO WHEEZES, RHONCHI, RALES. HEART:NO MURMURS, REGULAR RATE AND RHYTHM. ASSESSMENTS SPONDYLOSIS OF CERVICAL REGION WITHOUT MYELOPATHY OR RADICULOPATHY - M47.812 (PRIMARY) TREATMENT SPONDYLOSIS OF CERVICAL REGION WITHOUT MYELOPATHY OR RADICULOPATHY START CYMBALTA CAPSULE DELAYED RELEASE PARTICLES, 30 MG, 1 CAPSULE, ORALLY, ONCE A DAY, 30 DAY(S), 30 CLINICAL NOTES: 62-YEAR-OLD FEMALE IN FOR CHRONIC PAIN FOLLOW-UP AND TO REVIEW RECENT MRIS. MRIS WERE REVIEWED WITH PATIENT. DISCUSSED POTENTIAL PROCEDURES AND THEY WERE DECLINED BY PATIENT. DISCUSSED POTENTIALLY PRESCRIBING CYMBALTA 30 MG DAILY FOR PATIENT AND INFORMED HER THAT THIS SIMULATION EDUCATOR WOULD DISCUSS IT WITH HER ELECT EQUIP MAINT ENG AND SHOULD HE AGREE THEN AN ORDER WOULD BE SENT. PATIENT HAS EXPRESSED UNDERSTANDING OF AND WAS IN AGREEMENT WITH TREATMENT PLAN. GIVEN TIME TO ASK QUESTIONS AND EXPRESS CONCERNS. NEPHROLOGY AGREED WITH USE OF CYMBALTA. . PROCEDURE CODES FA211 ESTABILISHED PATIENT [facility] CHARGE DISPOSITION & COMMUNICATION FOLLOW UP 2 MONTHS (REASON: CHRONIC PAIN ) ELECTRONICALLY SIGNED BY DASHAWN MCKEON ON 01/02/2019 AT 01:45 PM EST DISCLAIMER : THIS IS A VISIT SUMMARY EXTRACTED FROM THE [email or web address] CHART. IT IS NOT A COPY OF THE [email or web address] PROGRESS NOTE. MERRICK
== END ==
LOC: M PAIN 11:45
PROVIDERS: ATTEND Family Medicine
DX: M47.812 Spondylosis without myelopathy or radiculopathy, cervical region (principal); G89.29 Other chronic pain; E11.9 Type 2 diabetes mellitus without complications; E78.1 Pure hyperglyceridemia; K21.9 Gastro-esophageal reflux disease without esophagitis; I10 Essential (primary) hypertension; Z87.891 Personal history of nicotine dependence; Z88.1 Allergy status to other antibiotic agents; Z88.8 Allergy status to other drugs, medicaments and biological substances; Z91.81 History of falling; Z79.4 Long term (current) use of insulin; Z79.899 Other long term (current) drug therapy

== ENCOUNTER 2019-01-10 21:51 | Inpatient (IN) | payer MEDICAID, OTHER ==
[~2019-01-10] VITALS: Ht 157.5 cm; Wt 82.0 kg
[2019-01-10] MEDS ORDERED: NS 1,000 ML IV ONE (22:15)
[2019-01-10] MEDS ORDERED: ACETAMINOPHEN 325 MG TAB PO ONE (22:45)
[2019-01-10] MEDS ORDERED: ISOVUE-370 76% 100ML VIAL (Q9967) As Ordered ONE (22:56)
[2019-01-10 22:58] LABS: HEMATOCRIT 37.2 % (36.0-47.0); HEMOGLOBIN 12.8 g/dl (12.0-15.5); MEAN CORPUSCULAR HEMOGLOBIN 31.7 pg (27.0-33.0); MEAN CORPUSCULAR HGB CONC 34.4 g/dl (32.0-36.5); MEAN CORPUSCULAR VOLUME 92.1 fl (80.0-96.0); PLATELET COUNT, AUTOMATED 139 10^3/uL (150-450); RED BLOOD COUNT 4.04 10^6/uL (4.00-5.40); WHITE BLOOD COUNT 5.3 10^3/uL (4.0-10.0)
[2019-01-10 23:14] LABS: ALBUMIN 3.2 GM/DL (3.2-5.2); ALT/SGPT 31 U/L (12-78); BILIRUBIN,DIRECT 0.5 MG/DL (0.0-0.2); BILIRUBIN,TOTAL 1.1 MG/DL (0.2-1.0); CK-MB VALUE MASS < 1.0 NG/ML (<3.6); CPK CREATINE PHOSPHOKINASE 36 U/L (26-192); LIPASE 131 U/L (73-393); MB/CK RELATIVE INDEX 2.78 (< OR =4); TOTAL PROTEIN 7.7 GM/DL (6.4-8.2); TROPONIN I < 0.02 NG/ML (< 0.10)
[2019-01-10 23:24] LABS: LYMPHOCYTES 9 % (16-44); METAMYELOCYTES 6 % (0-0); NEUTROPHILS 75 % (28-66)
[2019-01-10 23:25] LABS: GIANT PLATELETS 1+; PLATELET ESTIMATE NORMAL (NORMAL)
[2019-01-10] MEDS ORDERED: NS 1,450 ML in IV 1 EA IV ONE (23:30)
[2019-01-10] MEDS ORDERED: LevoFLOXacin IV 750 MG in IV 1 EA IV ONE (23:45)
--- NOTE | 2019-01-11 00:17 | REPVR ---
PROCEDURE INFORMATION: Exam: CT Abdomen And Pelvis With Contrast Exam date and time: 01/10/2019 10:37 PM Age: 63 years old Clinical history: Abdominal pain; Generalized; Additional info: Abdominal pain; R/O colitis vs pyelonephritis TECHNIQUE: Imaging protocol: Computed tomography of the abdomen and pelvis with intravenous contrast. Radiation optimization: All CT scans at this facility use at least one of these dose optimization techniques: automated exposure control; mA and/or kV adjustment per patient size (includes targeted exams where dose is matched to clinical indication); or iterative reconstruction. Contrast material: ISO; Contrast volume: 100 ml; Contrast route: AC; COMPARISON: CT ABD PELVIS W/O CONTRAST 10/04/2018 3:21 PM FINDINGS: Heart: The heart is normal in size and there is no pericardial effusion. Liver: There is hepatomegaly with the right lobe of the liver measuring 20 CM in length. There is moderate fatty infiltration of the liver. Gallbladder and bile ducts: There are surgical clips in the gallbladder fossa. Normal common bile duct. Pancreas: Normal pancreas. Spleen: Moderate splenomegaly measuring 15 CM in length. Adrenals: Normal adrenal glands. Kidneys and ureters: There is opacification of the kidneys. There is no evidence of hydronephrosis. Stranding along the right kidney could be from pyelonephritis. Stomach and bowel: There is no evidence of bowel obstruction. Appendix: The cecum is in the right pelvis and the appendix appears within the range of normal. Intraperitoneal space: There is no evidence of pneumoperitoneum. There is no evidence of mesenteric mass. Vasculature: There is opacification of the SMV and the SMA. There is opacification of the celiac artery and SMA. There is severe calcified atherosclerotic plaque formation along the course of the aorta. Opacification of the renal arteries. Lymph nodes: There are small lymph nodes following the aorta. Bladder: Normal appearing urinary bladder. Reproductive: Normal uterus. No evidence of adnexal mass. Bones/joints: There is moderate posterior disc protrusion L5-S1. There is a large posterior osteophytes T12-L1 causing impression on the thecal sac. Soft tissues: There is a small area of skin thickening to the right of the umbilicus measuring 7 cm which could represent scar or an area of cellulitis. IMPRESSION: 1. Hepatosplenomegaly and moderate fatty infiltration of the liver. 2. No evidence of bowel obstruction. 3. 7 CM area of skin thickening to the right of the umbilicus may be scarring or cellulitis. 4. Subtle stranding along the margin of the right kidney could be related to pyelonephritis or scarring. Electronically signed by: Brodie Byrne On 01/11/2019 00:17:08 AM
[2019-01-11] MEDS ORDERED: NS 1,000 ML IV SCH (01:08)
[2019-01-11] MEDS ORDERED: ONDANSETRON 4MG/2ML VIAL (J2405) IV PRN (01:15)
[2019-01-11] MEDS ORDERED: GLUCAGON FOR INJ 1 MG VIAL (J1610) SC PRN (01:30)
[2019-01-11] MEDS ORDERED: DEXTROSE 50% 50 ML SYRINGE IV PRN (01:30)
[2019-01-11] MEDS ORDERED: GLUCOSE 4 GM CHEW TABLET PO PRN (01:30)
--- NOTE | 2019-01-11 01:34 | HPEPDOC ---
General Date of Admission 01/11/19 Date of Service: Jan 11, 2019 Chief Complaint The patient is a 63-year-old female admitted with a reason for visit of Urinary Problem. Source: Patient Exam Limitations: No limitations Timing/Duration: Day(s) Severity: Moderate Associated Symptoms: Nausea, Weakness, Other (right flank pain) History of Present Illness Patient is 63 year old female with past medical history of multiple UTI, coronary artery diseases with 2 stents placement, [place], hypertension, diabetes type 2 presented to the hospital with right flank pain and dysuria. She stated that she developed painful urination with frequency 5-6 days ago associated with chills and fever. Also patient noticed increased right flank pain with suprapubic discomfort. Of note patient has had multiple UTI episodes in the past. Today patient stated that his symptoms became worse, in emergency room patient was found to have fever of 100.9, lactic acid of 4.3 and pyuria. Abdominal CAT scan showed subtle stranding along the margin of the right kidney could be related to pyelonephritis or scarring. Home Medications Scheduled Allopurinol (Allopurinol) 100 Mg Tablet, 100 MG PO TID, (Reported) Aspirin (Aspirin) 81 Mg Tab.chew, 81 MG PO QPM, (Reported) DINNERTIME Cholecalciferol (Vitamin D3) (Vitamin D3) 1,000 Unit Tab, 1,000 MG PO DAILY, (Reported) LUNCHTIME Clopidogrel Bisulfate (Clopidogrel) 75 Mg Tablet, 75 MG PO DAILY, (Reported) Duloxetine Hcl (Duloxetine HCl) 30 Mg Capsule.dr, 30 MG PO DAILY, (Reported) LUNCHTIME Gemfibrozil (Gemfibrozil) 600 Mg Tab, 600 MG PO BID, (Reported) Glipizide (Glipizide) 5 Mg Tab, 5 MG PO WM, (Reported) Insulin Glargine,Hum.rec.anlog (Basaglar Kwikpen U-100) 100 Unit/1 Ml Insu ln.pen, 30 UNITS SQ QAM, (Reported) Insulin Glargine,Hum.rec.anlog (Basaglar Kwikpen U-100) 100 Unit/1 Ml Insuln.pen, 50 UNIT SC QPM, (Reported) Insulin Human Lispro (Humalog) 1 Units/0.01 Ml Inj, 16 UNITS SC BID, (Reported) MORNING AND NOON Insulin Human Lispro (Humalog) 100 Unit/1 Ml Vial, 18 UNITS SC QPM, (Reported) Lipase/Protease/Amylase (Creon Dr 36,000 Units Capsule) 1 Each Capsule.dr, 1 CAP PO DAILY, (Reported) LUNCHTIME Liraglutide (Victoza 2-Alonzo) 18 Mg/3 Ml Inj, 1.8 UNITS SQ DAILY, (Reported) LUNCHTIME Magnesium Oxide (Magnesium Oxide) 400 Mg Tablet, 400 MG PO BID, (Reported) Metformin HCl (Metformin HCl) 1,000 Mg Tab, 1,000 MG PO QPM, (Reported) DINNERTIME Metoprolol Tartrate (Metoprolol Tartrate) 25 Mg Tablet, 25 MG PO BID, (Reported) Omeprazole (Omeprazole) 40 Mg Cap, 40 MG PO QHS, (Reported) Pentosan Polysulfate Sodium (Elmiron) 100 Mg Capsule, 100 MG PO BID, (Reported) Triamterene/Hydrochlorothiazid (Triamterene-Hctz 75-50 mg Tab) 1 Each Tablet, 1 TAB PO DAILY, (Reported) LUNCHTIME Scheduled PRN Cetirizine HCl (Cetirizine HCl) 10 Mg Tablet, 10 MG PO DAILY PRN for ALLERGY SYMPTOMS, (Reported) Estradiol (Estrace) 42.5 Gm Cream.appl, 2 GRAM PV 2XW PRN for IRRITATION, (Reported) Guaifenesin (Mucinex) 600 Mg Tab.er.12h, 600 MG PO BID PRN for CONGESTION, (Reported) Mupirocin (Mupirocin) 22 Gm Oint...g., 1 DOSE EXT BID PRN for SORES, (Reported) APPLIES TO SORE ON SCALP NEEDED Nitroglycerin (Nitrostat) 0.4 Mg Tab.subl, 0.4 MG SL NITRO PRN for CHEST PAIN, (Reported) Allergies Coded Allergies: trimethoprim (Verified Allergy, Severe, 10/30/18) promethazine (Verified Allergy, Intermediate, TONGUE SWELLING, 10/30/18) sulfamethoxazole (Verified Allergy, Intermediate, TONGUE SWELLING, 10/30/18) cephalexin (Verified Allergy, Mild, ITCHING, 10/30/18) Jkwuuqf-Rrg-Vzi Reductase Inhibitor (Verified Adverse Reaction, Unknown, FOOT PAIN, 10/30/18) tetracycline (Verified Adverse Reaction, Unknown, BUMPS ON TONGUE, 10/30/18) Past Medical History Medical History multiple UTI, coronary artery diseases with 2 stents placement, [place], hypertension, diabetes type 2 Family History Mother had diabetes type2 Social History * Smoker: Denies, former Smoker Alcohol: Denies Drugs: denies A-FIB/CHADSVASC A-FIB History Current/History of A-Fib/PAF?: No Current PO Anticoag Therapy: No Review of Systems Constitutional: Reports: Chills, Fever, Malaise, Weakness Eyes: Denies: Pain, Vision change ENT: Denies: Head Aches, Ear Pain Skin: Denies: Rash, Lesions, Jaundice Pulmonary: Denies: Dyspnea, Cough Cardiovascular: Denies: Chest Pain, Palpitations Gastrointestinal: Reports: Abdominal Pain (right flank pain with suprapubic discomfort); Denies: Nausea, Vomiting Genitourinary: Reports: Dysuria, Frequency Hematologic: Denies: Bruising, Bleeding Excessively Endocrine: Denies: Polydipsia, Polyphagia Musculoskeletal: Denies: Neck Pain, Back Pain Neurological: Denies: Weakness, Numbness Psych: Reports: Mood Normal Physical Examination General Exam: Positive: Alert, Cooperative Eye Exam: Positive: PERRLA, Conjunctiva & lids normal, EOMI ENT Exam: Positive: Atraumatic Neck Exam: Positive: Supple; Negative: JVD Chest Exam: Positive: Clear to auscultation Heart Exam: Positive: Rate Normal Telemetry: Positive: No significant arrhythmia Abdomen Exam: Positive: Normal bowel sounds, Tenderness (in suprapubic area) Extremity Exam: Negative: Clubbing, Cyanosis Skin Exam: Positive: Nl turgor and temperature Neuro Exam: Positive: Normal Gait, Strength at 5/5 X4 ext Psych Exam: Positive: Mental status NL Vital Signs Vital Signs Date Time Temp Pulse Resp B/P (MAP) Pulse Ox O2 Delivery O2 Flow Rate FiO2 01/10/19 23:56 100.9 01/10/19 23:45 105 116/50 (72) 95 Room Air 01/10/19 22:27 18 Laboratory Data Labs 24H Laboratory Tests 2 01/10/19 22:27: Nucleated Red Blood Cells % (auto) 0.0, Neutrophils 75H, Band Neutrophils 10, Lymphocytes (Manual) 9L, Metamyelocytes 6H, Red Blood Cell Morphology NORMAL, Giant Platelets 1+, Platelet Estimate NORMAL, POC Glucose (Misc Panel) 325H, POC Sodium (Misc Panel) 133L, POC Potassium (Misc Panel) 3.0L, POC Chloride (Misc Panel) 94L, POC Total CO2 (Misc Panel) 24.0, POC Blood Urea Nitrogen (Misc Panel 18, POC Ionized Calcium (Misc Panel) 4.4L, POC Creatinine (Misc Panel) 0.9, POC Hematocrit (Misc Panel) 38.0, Total Bilirubin 1.1H, Direct Bilirubin 0.5H, Aspartate Amino Transf (AST/SGOT) 21, Alanine Aminotransferase (ALT/SGPT) 31, Alkaline Phosphatase 172H, Total Creatine Kinase 36, Creatine Kinase MB < 1.0, Creatine Kinase MB Relative Index 2.78, Troponin I < 0.02, Total Protein 7.7, Albumin 3.2, Albumin/Globulin Ratio 0.71L, Lipase 131 01/10/19 22:37: Lactic Acid Level 4.3*H 01/10/19 23:17: Urine Color GURWINDER, Urine Appearance CLOUDYH, Urine pH 5.0, Urine Specific [place] 1.017, Urine Protein 1+H, Urine Glucose (UA) 3+H, Urine Ketones NEGATIVE, Urine Blood 2+H, Urine Nitrite POSITIVEH, Urine Bilirubin NEGATIVE, Urine Urobilinogen 2.0H, Urine Leukocyte Esterase 2+H, Urine WBC (Auto) TNTCH, Urine RBC (Auto) 4H, Urine Hyaline Casts (Auto) 0, Urine Bacteria (Auto) 1+H, Urine Squamous Epithelial Cells 1, Urine Calcium Oxalate Cryst (Auto) SMALL, Urine Sperm (Auto) CBC/BMP Laboratory Tests 01/10/19 22:27 Microbiology Microbiology 01/10/19 Urine Culture, Received Pending 01/10/19 Blood Culture, Received Pending 01/10/19 Blood Culture, Received Pending Assessment/Plan Patient is 63 year old female with past medical history of multiple UTI, coronary artery diseases with 2 stents placement, [place], hypertension, diabetes type 2 presented to the hospital with right flank pain and dysuria. She stated that she developed painful urination with frequency 5-6 days ago associated with chills and fever. Also patient noticed increased right flank pain with s uprapubic discomfort. Of note patient has had multiple UTI episodes in the past. Patient was diagnosed with sepsis secondary to acute pyelonephritis Problems (1) Sepsis Status: Acute Problem Text: Secondary to acute pyelonephritis IV fluid Blood culture, urine culture Monitor lactic acid level Levaquin IV (2) Pyelonephritis Status: Acute Problem Text: Patient has multiple episodes of UTI in the past She has a fever with chills associated with pyuria No stones on the CAT scan or hydronephrosis Continue treatment with IV antibiotic (3) Lactic acidosis Status: Acute Problem Text: Continue to monitor Secondary to acute pyelonephritis and sepsis (4) Diabetes mellitus Status: Chronic Problem Text: Diabetes diet Detemir twice a day Insulin sliding scale (5) Coronary artery disease Status: Chronic Problem Text: Patient has recently [place] with 2 stents placement Continue treatment with dual antiplatelet therapy Patient does not have any chest pain EKG does not show any acute ischemic changes Plan / VTE VTE Prophylaxis Ordered?: Yes CHELLY NEWTON DO Jan 11, 2019 01:34
[2019-01-11] MEDS ORDERED: METO25TA4 PO (01:39)
[2019-01-11] MEDS ORDERED: CETI10TA8 PO (01:39)
[2019-01-11] MEDS ORDERED: NITR4TASL SL (01:39)
[2019-01-11] MEDS ORDERED: MUCI600T31 PO (01:39)
[2019-01-11] MEDS ORDERED: DULO30CA9 PO (01:39)
[2019-01-11] MEDS ORDERED: CREO3600 PO (01:39)
[2019-01-11] MEDS ORDERED: MUPI2OI EXT (01:39)
[2019-01-11 02:45] VITALS: BP 141/71
[2019-01-11] MEDS ORDERED: CETIRIZINE (ZyrTEC) 10 MG TAB PO PRN (02:45)
[2019-01-11] MEDS ORDERED: NITROGLYCERIN 0.4 MG SUBL TABLET SL PRN ×2 (02:45→03:45)
[2019-01-11 04:00] VITALS: BP 114/55
[2019-01-11] MEDS: ACETAMINOPHEN TAB 650MG DOSE (2X325MG) PO PRN ×2 (05:28→22:12)
[2019-01-11 08:00] VITALS: BP 131/58
[2019-01-11 08:14] LABS: BLOOD UREA NITROGEN 15 MG/DL (7-18); CARBON DIOXIDE LEVEL 24 MEQ/L (21-32); CHLORIDE LEVEL 101 MEQ/L (98-107); CREATININE FOR GFR 0.95 MG/DL (0.55-1.30); GLOMERULAR FILTRATION RATE > 60.0 (>45); GLUCOSE, FASTING 219 MG/DL (70-100); SODIUM LEVEL 135 MEQ/L (136-145)
[2019-01-11 08:30] LABS: HEMATOCRIT 31.2 % (36.0-47.0); HEMOGLOBIN 10.4 g/dl (12.0-15.5); MEAN CORPUSCULAR HEMOGLOBIN 31.6 pg (27.0-33.0); MEAN CORPUSCULAR HGB CONC 33.3 g/dl (32.0-36.5); MEAN CORPUSCULAR VOLUME 94.8 fl (80.0-96.0); RED BLOOD COUNT 3.29 10^6/uL (4.00-5.40)
[2019-01-11] MEDS: VITAMIN D 1,000 INTERNATIONAL UNITS TABLET PO SCH (08:39)
[2019-01-11] MEDS: HumaLOG INSULIN (NovoLOG) PER UNIT SC SCH ×3 (08:39→17:48)
[2019-01-11] MEDS: LEVEMIR (INSULIN DETEMIR) 1 UNITS/0.01ML SC SCH ×2 (08:39→20:29)
[2019-01-11] MEDS: CLOPIDOGREL 75 MG TAB PO SCH (08:39)
[2019-01-11] MEDS: DULoxetine 30 MG CAP (CYMBALTA) PO SCH (08:39)
[2019-01-11] MEDS: ASPIRIN 81 MG CHEW TABLET PO SCH (08:39)
[2019-01-11] MEDS: METOPROLOL TART 25 MG TABLET PO SCH ×2 (08:39→20:27)
[2019-01-11] MEDS: ALLOPURINOL 100 MG TAB PO SCH ×3 (08:40→20:28)
[2019-01-11] MEDS: MAGNESIUM OXIDE 400 MG TAB (MAG-OX) PO SCH ×2 (08:40→20:26)
[2019-01-11] MEDS: PENTOSAN POLYSULFATE SODIUM 100 MG CAP (ELMIRON) PO SCH ×2 (08:40→22:09)
[2019-01-11] MEDS: HEPARIN SOD (PORCINE) 5000 UNITS/ML VIAL SC SCH ×2 (08:40→20:27)
[2019-01-11] MEDS: GEMFIBROZIL 600 MG TAB PO SCH ×2 (08:40→20:26)
[2019-01-11 08:43] LABS: PLATELET COUNT, AUTOMATED 86 10^3/uL (150-450)
[2019-01-11] MEDS ORDERED: MAXZIDE 75/50 TABLET PO SCH (09:00)
[2019-01-11] MEDS ORDERED: POTASSIUM CHLORIDE 10 MEQ SR TABLET PO ONE ×2 (10:30→12:00)
--- NOTE | 2019-01-11 11:28 | REP ---
Portable chest x-ray: Single view. History: Short of breath. Comparison study: October 30, 2018. Findings: Patient is rotated slightly to the right. Lungs are symmetrically aerated and clear. Pleural angles are sharp. Monitoring electrodes overlie the right chest. The aorta is calcific and tortuous. The heart is not felt to be enlarged. Pulmonary vasculature is not increased. Impression: No acute disease. Electronically Signed by Justino Warren MD 01/11/2019 11:19 A
[2019-01-11 12:00] VITALS: BP 130/60
--- NOTE | 2019-01-11 13:42 | IPNPDOC ---
Date Seen The patient was seen on 01/11/19. Progress Note SUBJECTIVE: Patient reported feeling unwell. Stated that she feels slightly better than yesterday but still fairly sick. Dysuria reportedly had resolved however. Reported feeling SOB this morning, stated that she gets intermittent episodes either with anxiety or lying flat. Tmax 101.7 overnight, finally afebrile at noon today. WBC 5.3->12 Blood culture + Gram negative rods. OBJECTIVE PHYSICAL EXAMINATION: VITAL SIGNS: Please see below. General: Mild distress, Alert Eyes: Normal sclera, EOMI, DARLIN HENT: Atraumatic Cardiovascular: Normal rate, normal rhythm. Pulmonary: Clear to auscultation b/l, no wheezing GI: Soft, nontender, nondistended Skin: Warm and dry Neuro: CN grossly intact. No focal deficits. Strengths equal b/l. Psych: oriented x 3 LABORATORY DATA, IMAGING STUDIES, MICROBIOLOGY: Please see below. DVT prophylaxis ordered?: HSQ ASSESSMENT AND PLAN: 1. Sepsis 2/2 Pyelonephritis - Febrile, tachycardia, Lactic acidosis 4.3 on presentation. - c/p 30 cc/kg and started on IV levaquin. - Lactic acid trended down to 2.3. - c/w Abx. HD stable at this time. 2. Gram negative rods bacteremia - likely 2/2 E. coli UTI. - c/w current IV abx. - f/u/ culture ID and sensitivities. 3. DM - Resume home insulin regimen. - ISS and coverage ACHS. 4. CAD - resume home medications. DISPOSITION: Home. VS, I&O, 24H, [facility] Vital Signs/I&O Vital Signs Date Time Temp Pulse Resp B/P (MAP) Pulse Ox O2 Delivery O2 Flow Rate FiO2 01/11/19 12:00 98.8 100 20 130/60 (83) 97 01/11/19 08:00 Room Air I&O- Last 24 Hours up to 6 AM 01/11/19 06:00 Intake Total 3350 ml Output Total 450 ml Balance 2900 ml Laboratory Data 24H LABS Laboratory Tests 2 01/10/19 22:27: Nucleated Red Blood Cells % (auto) 0.0, Neutrophils 75H, Band Neutrophils 10, Lymphocytes (Manual) 9L, Metamyelocytes 6H, Red Blood Cell Morphology NORMAL, Giant Platelets 1+, Platelet Estimate NORMAL, POC Glucose (Misc Panel) 325H, POC Sodium (Misc Panel) 133L, POC Potassium (Misc Panel) 3.0L, POC Chloride (Misc Panel) 94L, POC Total CO2 (Misc Panel) 24.0, POC Blood Urea Nitrogen (Misc Panel 18, POC Ionized Calcium (Misc Panel) 4.4L, POC Creatinine (Misc Panel) 0.9, POC Hematocrit (Misc Panel) 38.0, Total Bilirubin 1.1H, Direct Bilirubin 0.5H, Aspartate Amino Transf (AST/SGOT) 21, Alanine Aminotransferase (ALT/SGPT) 31, A lkaline Phosphatase 172H, Total Creatine Kinase 36, Creatine Kinase MB < 1.0, Creatine Kinase MB Relative Index 2.78, Troponin I < 0.02, Total Protein 7.7, Albumin 3.2, Albumin/Globulin Ratio 0.71L, Lipase 131 01/10/19 22:37: Lactic Acid Level 4.3*H 01/10/19 23:17: Urine Color GURWINDER, Urine Appearance CLOUDYH, Urine pH 5.0, Urine Specific [place] 1.017, Urine Protein 1+H, Urine Glucose (UA) 3+H, Urine Ketones NEGATIVE, Urine Blood 2+H, Urine Nitrite POSITIVEH, Urine Bilirubin NEGATIVE, Urine Urobilinogen 2.0H, Urine Leukocyte Esterase 2+H, Urine WBC (Auto) TNTCH, Urine RBC (Auto) 4H, Urine Hyaline Casts (Auto) 0, Urine Bacteria (Auto) 1+H, Urine Squamous Epithelial Cells 1, Urine Calcium Oxalate Cryst (Auto) SMALL, Urine Sperm (Auto) 01/11/19 03:01: Lactic Acid Level 3.1*H 01/11/19 07:18: Nucleated Red Blood Cells % (auto) 0.0, Immature Platelet Fraction 8.7, Anion Gap 10, Glomerular Filtration Rate > 60.0, Calcium Level 8.0L 01/11/19 07:22: Lactic Acid Followup at 4 Hours 2.3*H 01/11/19 12:16: Bedside Glucose (Misc Panel) 238H CBC/BMP Laboratory Tests 01/10/19 22:27 01/11/19 07:18 Microbiology Microbiology 01/10/19 Urine Culture, Received Pending 01/10/19 Blood Culture - Preliminary, Resulted 01/10/19 Blood Culture, Received Pending ZAHRA TAYLOR MD Jan 11, 2019 13:42
--- NOTE | 2019-01-11 15:02 | ECGEPIP ---
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
[2019-01-11 16:00] VITALS: BP 116/63
[2019-01-11] MEDS ORDERED: SENNA 8.6 MG TAB (SENOKOT) PO PRN (17:30)
[2019-01-11 20:00] VITALS: BP 119/59
[2019-01-11] MEDS: OMEPRAZOLE 20 MG CAP PO SCH (20:26)
[2019-01-11] MEDS: LevoFLOXacin IV 750 MG in IV 1 EA IV SCH (22:10)
[2019-01-11] MEDS: DOCUSATE SODIUM 100 MG CAP PO PRN (23:50)
[2019-01-12] VITALS: BP 104/52
[2019-01-12 04:00] VITALS: BP 125/56
[2019-01-12 05:37] LABS: HEMATOCRIT 30.5 % (36.0-47.0); HEMOGLOBIN 10.5 g/dl (12.0-15.5); MEAN CORPUSCULAR HEMOGLOBIN 31.6 pg (27.0-33.0); MEAN CORPUSCULAR HGB CONC 34.4 g/dl (32.0-36.5); MEAN CORPUSCULAR VOLUME 91.9 fl (80.0-96.0); RED BLOOD COUNT 3.32 10^6/uL (4.00-5.40); WHITE BLOOD COUNT 10.2 10^3/uL (4.0-10.0)
[2019-01-12 05:39] LABS: PLATELET COUNT, AUTOMATED 87 10^3/uL (150-450)
[2019-01-12 05:56] LABS: BLOOD UREA NITROGEN 13 MG/DL (7-18); CALCIUM LEVEL 8.9 MG/DL (8.8-10.2); CARBON DIOXIDE LEVEL 27 MEQ/L (21-32); CHLORIDE LEVEL 102 MEQ/L (98-107); CREATININE FOR GFR 0.86 MG/DL (0.55-1.30); GLOMERULAR FILTRATION RATE > 60.0 (>45); GLUCOSE, FASTING 204 MG/DL (70-100); MAGNESIUM LEVEL 1.6 MG/DL (1.8-2.4); POTASSIUM SERUM 3.5 MEQ/L (3.5-5.1); SODIUM LEVEL 136 MEQ/L (136-145)
[2019-01-12] MEDS ORDERED: MAG SULF 1GM/100ML (MAG RUN) 1 GM in IV 1 EA IV ONE (06:15)
[2019-01-12 07:57] VITALS: BP 116/55
[2019-01-12] MEDS: HumaLOG INSULIN (NovoLOG) PER UNIT SC SCH ×3 (08:22→17:58)
[2019-01-12] MEDS: LEVEMIR (INSULIN DETEMIR) 1 UNITS/0.01ML SC SCH ×2 (08:22→21:15)
[2019-01-12] MEDS: VITAMIN D 1,000 INTERNATIONAL UNITS TABLET PO SCH (08:23)
[2019-01-12] MEDS: ASPIRIN 81 MG CHEW TABLET PO SCH (08:23)
[2019-01-12] MEDS: HEPARIN SOD (PORCINE) 5000 UNITS/ML VIAL SC SCH ×2 (08:23→21:16)
[2019-01-12] MEDS: PENTOSAN POLYSULFATE SODIUM 100 MG CAP (ELMIRON) PO SCH ×2 (08:23→21:15)
[2019-01-12] MEDS: ACETAMINOPHEN TAB 650MG DOSE (2X325MG) PO PRN ×2 (08:25→18:18)
[2019-01-12] MEDS: ALLOPURINOL 100 MG TAB PO SCH ×3 (08:25→21:15)
[2019-01-12] MEDS: DULoxetine 30 MG CAP (CYMBALTA) PO SCH (08:25)
[2019-01-12] MEDS: CLOPIDOGREL 75 MG TAB PO SCH (08:25)
[2019-01-12] MEDS: GEMFIBROZIL 600 MG TAB PO SCH ×2 (08:26→21:15)
[2019-01-12] MEDS: METOPROLOL TART 25 MG TABLET PO SCH ×2 (08:26→21:17)
[2019-01-12] MEDS: MAGNESIUM OXIDE 400 MG TAB (MAG-OX) PO SCH ×2 (08:26→21:16)
[2019-01-12] MEDS ORDERED: DYAZIDE 37.5/25 CAP (TRIAM/HCTZ) PO SCH (09:00)
--- NOTE | 2019-01-12 09:50 | IPN ---
DATE: 01/12/2019 PRIMARY CARE PROVIDER: (cut off) [facility]ST[facility] REPORT DEVELOPER: Dr. Escobar UROLOGIST: Dr. Korin Espinoza HISTORY: Sherie Alexander is a 63-year-old. She has a history of chronic kidney disease, followed by nephrology, and interstitial cystitis, followed by urology. She was admitted with pyelonephritis and gram negative bacteremia with microbiology still pending. She is on Levaquin, she feels better. She still has flank and abdominal pain, but has improved. She has been afebrile for the last 24 hours. She had a T-max yesterday of 102.6, T-max the last 24 hours of 99 degrees. PHYSICAL EXAMINATION: Afebrile. Vital signs stable, 116/55. Alert and conversant, in no distress. Lungs clear. Heart regular rhythm. Abdomen soft, nontender. Mild right CVA tenderness. Mild right sided abdominal pain. No peripheral edema. LABS: Electrolytes unremarkable. Potassium 3.5, creatinine 0.6, white count is 10.2, hemoglobin 10.5, platelets 87, blood sugar is in the 200 range. IMPRESSION: 1. Pyelonephritis with gram negative bacteremia. Microbiology is pending. Continue Levaquin and tailor antibiotic therapy more precisely once bacteria is identified. 2. Interstitial cystitis. Continue her Elmiron. 3. Chronic kidney disease. Renal function is stable. I will send a copy of this note to Dr. Escobar so he is aware of the admission. 4. Hypertensive heart disease. Blood pressure is well controlled on current regimen. 5. Diabetes. Blood sugar is adequately controlled on her current medications. 6. Coronary artery disease. Stable. Continue antiplatelet therapy. Continue beta-sumi therapy. She is not currently on a statin. She apparently has an intolerance or allergy to statin medications per her allergy list.
[2019-01-12 16:00] VITALS: BP 132/74
[2019-01-12] MEDS ORDERED: SLF 3 ML SYR IV PRN (18:00)
[2019-01-12 20:00] VITALS: BP 129/60
[2019-01-12] MEDS: OMEPRAZOLE 20 MG CAP PO SCH (21:15)
[2019-01-12] MEDS: LevoFLOXacin IV 750 MG in IV 1 EA IV SCH (21:15)
[2019-01-12] MEDS: DOCUSATE SODIUM 100 MG CAP PO PRN (21:17)
[2019-01-12] MEDS: SLF 3 ML SYR IV SCH (21:34)
[2019-01-13] VITALS: BP 126/63
[2019-01-13 04:00] VITALS: BP 129/64
[2019-01-13] MEDS: ACETAMINOPHEN TAB 650MG DOSE (2X325MG) PO PRN (06:12)
[2019-01-13] MEDS: SLF 3 ML SYR IV SCH ×3 (06:13→20:41)
[2019-01-13 06:26] LABS: BASO % 0.5 % (0.0-1.0); EOS # 0.1 10^3/uL (0.0-0.5); EOS % 1.9 % (0.0-3.0); HEMATOCRIT 33.2 % (36.0-47.0); HEMOGLOBIN 11.1 g/dl (12.0-15.5); MEAN CORPUSCULAR HEMOGLOBIN 31.2 pg (27.0-33.0); MEAN CORPUSCULAR HGB CONC 33.4 g/dl (32.0-36.5); MEAN CORPUSCULAR VOLUME 93.3 fl (80.0-96.0); MONO # 0.9 10^3/uL (0.0-0.8); MONO % 14.1 % (0.0-5.0); NEUTROPHILS # 4.3 10^3/uL (1.5-8.5); NEUTROPHILS % 67.6 % (36.0-66.0); RED BLOOD COUNT 3.56 10^6/uL (4.00-5.40); WHITE BLOOD COUNT 6.3 10^3/uL (4.0-10.0)
[2019-01-13 06:28] LABS: PLATELET COUNT, AUTOMATED 93 10^3/uL (150-450)
[2019-01-13 06:37] LABS: BLOOD UREA NITROGEN 12 MG/DL (7-18); CARBON DIOXIDE LEVEL 26 MEQ/L (21-32); CHLORIDE LEVEL 97 MEQ/L (98-107); CREATININE FOR GFR 0.93 MG/DL (0.55-1.30); GLOMERULAR FILTRATION RATE > 60.0 (>45); GLUCOSE, FASTING 252 MG/DL (70-100); POTASSIUM SERUM 3.5 MEQ/L (3.5-5.1); SODIUM LEVEL 133 MEQ/L (136-145)
[2019-01-13] MEDS: LEVEMIR (INSULIN DETEMIR) 1 UNITS/0.01ML SC SCH ×2 (08:35→20:38)
[2019-01-13] MEDS: HumaLOG INSULIN (NovoLOG) PER UNIT SC SCH ×3 (08:35→18:00)
[2019-01-13] MEDS: ASPIRIN 81 MG CHEW TABLET PO SCH (08:35)
[2019-01-13] MEDS: VITAMIN D 1,000 INTERNATIONAL UNITS TABLET PO SCH (08:35)
[2019-01-13] MEDS: PENTOSAN POLYSULFATE SODIUM 100 MG CAP (ELMIRON) PO SCH ×2 (08:35→20:39)
[2019-01-13] MEDS: DULoxetine 30 MG CAP (CYMBALTA) PO SCH (08:36)
[2019-01-13] MEDS: CLOPIDOGREL 75 MG TAB PO SCH (08:36)
[2019-01-13] MEDS: MAGNESIUM OXIDE 400 MG TAB (MAG-OX) PO SCH ×2 (08:36→20:39)
[2019-01-13] MEDS: ALLOPURINOL 100 MG TAB PO SCH ×3 (08:36→20:39)
[2019-01-13] MEDS: GEMFIBROZIL 600 MG TAB PO SCH ×2 (08:38→20:39)
[2019-01-13] MEDS: METOPROLOL TART 25 MG TABLET PO SCH ×2 (08:38→20:40)
[2019-01-13] MEDS: HEPARIN SOD (PORCINE) 5000 UNITS/ML VIAL SC SCH ×2 (08:39→20:40)
--- NOTE | 2019-01-13 11:04 | IPN ---
DATE: 01/13/2019 Sherie is feeling well. Some aches and pains. Had low grade fever 100.1 overnight. One urine culture returned with to Escherichia (E.) coli. Treatment options are limited by her allergy list. PHYSICAL EXAMINATION: Afebrile. T-max 100.1. Lungs clear. Heart: Regular rhythm. Abdomen soft, nontender. No peripheral edema. No costovertebral angle (CVA) tenderness. LABS: CBC: White count 76.3. Electrolytes unremarkable. IMPRESSION: E. Coli urinary tract infection (UTI) with bacteremia. PLAN: Will reduce the Levaquin dose to 500 mg daily. The plan is for mouth (p.o.) Levaquin with discharge tomorrow if stable.
[2019-01-13 16:00] VITALS: BP 138/77
[2019-01-13] MEDS: OMEPRAZOLE 20 MG CAP PO SCH (20:39)
[2019-01-13] MEDS: LevoFLOXacin IV 250 MG in IV 1 EA IV SCH (20:41)
[2019-01-14] VITALS: BP 124/58
[2019-01-14] MEDS: SLF 3 ML SYR IV SCH ×3 (05:13→21:00)
[2019-01-14 05:37] LABS: BASO % 0.7 % (0.0-1.0); EOS # 0.1 10^3/uL (0.0-0.5); HEMOGLOBIN 11.4 g/dl (12.0-15.5); LYMPH # 1.4 10^3/uL (1.5-5.0); LYMPH % 26.2 % (24.0-44.0); MEAN CORPUSCULAR HGB CONC 32.6 g/dl (32.0-36.5); MEAN CORPUSCULAR VOLUME 95.1 fl (80.0-96.0); MONO % 18.7 % (0.0-5.0); NEUTROPHILS # 2.8 10^3/uL (1.5-8.5); NEUTROPHILS % 51.5 % (36.0-66.0); RED BLOOD COUNT 3.68 10^6/uL (4.00-5.40); WHITE BLOOD COUNT 5.4 10^3/uL (4.0-10.0)
[2019-01-14 05:41] LABS: PLATELET COUNT, AUTOMATED 99 10^3/uL (150-450)
[2019-01-14 05:58] LABS: BLOOD UREA NITROGEN 10 MG/DL (7-18); CALCIUM LEVEL 9.3 MG/DL (8.8-10.2); CARBON DIOXIDE LEVEL 27 MEQ/L (21-32); CHLORIDE LEVEL 100 MEQ/L (98-107); CREATININE FOR GFR 0.87 MG/DL (0.55-1.30); GLOMERULAR FILTRATION RATE > 60.0 (>45); GLUCOSE, FASTING 235 MG/DL (70-100); POTASSIUM SERUM 3.6 MEQ/L (3.5-5.1); SODIUM LEVEL 137 MEQ/L (136-145)
[2019-01-14 08:00] VITALS: BP 127/58
[2019-01-14] MEDS: LEVEMIR (INSULIN DETEMIR) 1 UNITS/0.01ML SC SCH ×2 (08:57→20:59)
[2019-01-14] MEDS: MAGNESIUM OXIDE 400 MG TAB (MAG-OX) PO SCH ×2 (08:58→20:57)
[2019-01-14] MEDS: CLOPIDOGREL 75 MG TAB PO SCH (08:58)
[2019-01-14] MEDS: GEMFIBROZIL 600 MG TAB PO SCH ×2 (08:58→20:59)
[2019-01-14] MEDS: HumaLOG INSULIN (NovoLOG) PER UNIT SC SCH ×3 (08:58→18:24)
[2019-01-14] MEDS: DULoxetine 30 MG CAP (CYMBALTA) PO SCH (08:59)
[2019-01-14] MEDS: ALLOPURINOL 100 MG TAB PO SCH ×3 (08:59→20:57)
[2019-01-14] MEDS: VITAMIN D 1,000 INTERNATIONAL UNITS TABLET PO SCH (08:59)
[2019-01-14] MEDS: PENTOSAN POLYSULFATE SODIUM 100 MG CAP (ELMIRON) PO SCH ×2 (08:59→21:00)
[2019-01-14] MEDS: ASPIRIN 81 MG CHEW TABLET PO SCH (09:01)
[2019-01-14] MEDS: METOPROLOL TART 25 MG TABLET PO SCH ×2 (09:01→20:58)
[2019-01-14] MEDS: HEPARIN SOD (PORCINE) 5000 UNITS/ML VIAL SC SCH ×2 (09:02→20:59)
--- NOTE | 2019-01-14 11:57 | IPN ---
DATE: 01/14/2019 Sherie is seen in progressive care unit (PCU). She probably could be discharged. She is declining discharge today, she does not feel she is ready. She has a lot of back pain. I looked in her records and she has chronic back pain. She has been referred to the pain clinic and this is not a new finding for her. She does think that it is worse since the pyelonephritis. Medically, she is improved. She has defervesced and her white count has normalized. PHYSICAL EXAMINATION: Afebrile. Vital signs stable. LUNGS: Clear. HEART: Regular rhythm. ABDOMEN: Soft, nontender. No costovertebral angle tenderness. BACK: Low back is tender to palpate in a musculoskeletal fashion but not over the kidneys. EXTREMITIES: Trace peripheral edema. LABORATORIES: White count is 5.4. Electrolytes unremarkable. IMPRESSION: 1. Escherichia (E) coli pyelonephritis with bacteremia. She is on oral Levaquin 250 mg daily, dose adjusted for renal function. 2. Back pain. This is acute on chronic, it has acutely worsened with pyelonephritis, but it is not something that is going to resolve before discharge. The patient is declining discharge today and feels that she needs more therapy. I have ordered physical therapy (PT) for her and we will get a home safety evaluation and plan for discharge tomorrow.
[2019-01-14 16:00] VITALS: BP 133/63
[2019-01-14 20:00] VITALS: BP 129/60
[2019-01-14] MEDS: DOCUSATE SODIUM 100 MG CAP PO PRN (20:57)
[2019-01-14] MEDS: OMEPRAZOLE 20 MG CAP PO SCH (20:57)
[2019-01-14] MEDS: LevoFLOXacin IV 250 MG in IV 1 EA IV SCH (20:59)
[2019-01-15] VITALS: BP 134/67
[2019-01-15] MEDS: ACETAMINOPHEN TAB 650MG DOSE (2X325MG) PO PRN (00:21)
[2019-01-15 04:00] VITALS: BP 129/68
[2019-01-15] MEDS: SLF 3 ML SYR IV SCH ×2 (06:12→08:34)
[2019-01-15 07:46] LABS: BASO % 0.7 % (0.0-1.0); EOS # 0.1 10^3/uL (0.0-0.5); EOS % 2.1 % (0.0-3.0); HEMATOCRIT 35.4 % (36.0-47.0); HEMOGLOBIN 11.6 g/dl (12.0-15.5); LYMPH # 1.8 10^3/uL (1.5-5.0); LYMPH % 29.3 % (24.0-44.0); MEAN CORPUSCULAR HEMOGLOBIN 31.2 pg (27.0-33.0); MEAN CORPUSCULAR HGB CONC 32.8 g/dl (32.0-36.5); MEAN CORPUSCULAR VOLUME 95.2 fl (80.0-96.0); MONO # 0.9 10^3/uL (0.0-0.8); MONO % 14.5 % (0.0-5.0); NEUTROPHILS # 3.2 10^3/uL (1.5-8.5); NEUTROPHILS % 52.1 % (36.0-66.0); PLATELET COUNT, AUTOMATED 125 10^3/uL (150-450); RED BLOOD COUNT 3.72 10^6/uL (4.00-5.40); WHITE BLOOD COUNT 6.1 10^3/uL (4.0-10.0)
[2019-01-15 07:57] LABS: BLOOD UREA NITROGEN 11 MG/DL (7-18); CALCIUM LEVEL 9.5 MG/DL (8.8-10.2); CARBON DIOXIDE LEVEL 27 MEQ/L (21-32); CHLORIDE LEVEL 101 MEQ/L (98-107); CREATININE FOR GFR 0.93 MG/DL (0.55-1.30); GLOMERULAR FILTRATION RATE > 60.0 (>45); GLUCOSE, FASTING 303 MG/DL (70-100); POTASSIUM SERUM 3.7 MEQ/L (3.5-5.1); SODIUM LEVEL 136 MEQ/L (136-145)
[2019-01-15 08:00] VITALS: BP 140/63
[2019-01-15] MEDS: GEMFIBROZIL 600 MG TAB PO SCH (08:31)
[2019-01-15] MEDS: CLOPIDOGREL 75 MG TAB PO SCH (08:31)
[2019-01-15] MEDS: PENTOSAN POLYSULFATE SODIUM 100 MG CAP (ELMIRON) PO SCH (08:31)
[2019-01-15] MEDS: ASPIRIN 81 MG CHEW TABLET PO SCH (08:31)
[2019-01-15] MEDS: VITAMIN D 1,000 INTERNATIONAL UNITS TABLET PO SCH (08:31)
[2019-01-15 08:32] VITALS: BP 140/63
[2019-01-15] MEDS: DULoxetine 30 MG CAP (CYMBALTA) PO SCH (08:32)
[2019-01-15] MEDS: MAGNESIUM OXIDE 400 MG TAB (MAG-OX) PO SCH (08:32)
[2019-01-15] MEDS: METOPROLOL TART 25 MG TABLET PO SCH (08:32)
[2019-01-15] MEDS: ALLOPURINOL 100 MG TAB PO SCH (08:32)
[2019-01-15] MEDS: LEVEMIR (INSULIN DETEMIR) 1 UNITS/0.01ML SC SCH (08:33)
[2019-01-15] MEDS: HEPARIN SOD (PORCINE) 5000 UNITS/ML VIAL SC SCH (08:33)
[2019-01-15] MEDS: HumaLOG INSULIN (NovoLOG) PER UNIT SC SCH ×2 (08:33→12:41)
[2019-01-15] MEDS ORDERED: LEVA1TAB2 PO (10:23)
[2019-01-15] MEDS ORDERED: LevoFLOXacin 500 MG TABLET PO ONE ×2 (13:45→14:00)
--- NOTE | 2019-01-16 10:07 | DSES ---
DATE OF ADMISSION: 01/11/2019 DATE OF DISCHARGE: 01/15/2019 PRINCIPAL DIAGNOSIS: Pyelonephritis with E. coli bacteremia and sepsis. SECONDARY DIAGNOSES: History of interstitial cystitis. History of chronic back pain. Chronic kidney disease stage III, followed by nephrology/Dr. Escobar as an outpatient. Hypertensive heart disease. Type 2 diabetes. Coronary artery disease (CAD). Hyperlipidemia. HISTORY: Sherie Alexander was admitted with pyelonephritis. Details are in the history and physical from admission. HOSPITAL COURSE: The patient was admitted to a medical bed. She was treated with IV Levaquin due to multiple antibiotic allergies. She ended up culturing out E. coli and blood in the urine. She responded well to the prescribed therapy. She defervesced after 24 hours of antibiotic and her leukocytosis resolved as well. She was a little slow to agree to discharge, contributing her back pain to her pyelonephritis, but chart review showed that she has actually been in the pain clinic for chronic back pain and on exam she had no CVA tenderness and her back pain seemed musculoskeletal. On the day of discharge she is afebrile. Vital signs stable. Lungs clear. Heart regular rhythm. Abdomen soft, nontender. There is no CVA tenderness. No peripheral edema. She has passed her home safety evaluation, walking and doing stairs. LABORATORIES: Today white count is 6.1, hemoglobin 11.6, platelets 125, sodium 136, potassium 3.7, BUN 11, creatinine 0.9, glucose 300. Blood and urine cultures grew out E. coli sensitive to quinolones. CT scan of the abdomen and pelvis showed hepatosplenomegaly, fatty liver infiltration, right pyelonephritis. Disc protrusion at L5-1, large posterior osteophytes T12-L1. Severely calcified atherosclerotic plaque formation in the aorta. DISPOSITION: Patient discharged home in improved and stable condition. She will followup with [facility] in a week. Activity as tolerated. No added salt, low fat/cholesterol diet advised. DISCHARGE MEDICATIONS: Her discharge medicines will continue to be: - allopurinol 100 mg three times a day - aspirin 81 mg daily - cetirizine 10 mg daily as needed for allergies - vitamin D 1000 units daily - Plavix 75 mg daily - duloxetine 30 mg daily - esterase 2 grams vaginally twice weekly - gemfibrozil 600 mg twice a day - glipizide 5 mg daily - Basaglar 30 units in the morning and 50 units in the evening - sliding scale insulin coverage three times a day - Creon 36,000 unit capsules daily at lunch time - Victoza 18 mg subcutaneous daily - MagOx 400 mg twice a day - metformin 1000 mg at bedtime - metoprolol tartrate 25 mg twice a day - Nitrostat as needed - omeprazole 40 mg daily - Elmiron 100 mg twice a day - triamterene hydrochlorothiazide 75-50 mg daily The only new medication will be Levaquin 500 mg daily for seven more days. She will need outpatient urine culture to confirm cure after she completes her antibiotic and has been off the antibiotic for at least 2-3 days. The patient is unable to take statins. She has significant atherosclerosis noted and a history of coronary artery disease (CAD). Consideration could be given to PCSK9 inhibitor therapy, which she can discuss with her outpatient provider.
== END 2019-01-15 14:15 | disposition home or self-care (01) | DRG 720 ==
LOC: M ED 21:51 → M ED INP 01-11 01:08 → M PCU 01-11 02:34
PROVIDERS: ADMIT Internal Medicine; ATTEND Family Medicine
DX: A41.51 Sepsis due to Escherichia coli [E. coli] (principal); E87.2 Acidosis; N18.3 Chronic kidney disease, stage 3 (moderate); I11.9 Hypertensive heart disease without heart failure; N10 Acute pyelonephritis; E11.9 Type 2 diabetes mellitus without complications; E78.5 Hyperlipidemia, unspecified; M54.5 Low back pain; I25.10 Atherosclerotic heart disease of native coronary artery without angina pectoris; Z79.82 Long term (current) use of aspirin; Z79.899 Other long term (current) drug therapy; Z88.8 Allergy status to other drugs, medicaments and biological substances; Z88.2 Allergy status to sulfonamides; Z95.2 Presence of prosthetic heart valve; I12.9 Hypertensive chronic kidney disease with stage 1 through stage 4 chronic kidney disease, or unspecified chronic kidney disease

== ENCOUNTER 2019-01-17 12:30 | Emergency (ER) | payer OTHER ==
[~2019-01-17] VITALS: Ht 154.9 cm; Wt 80.5 kg
[~2019-01-17 12:30] MED LIST changes: +CETI10TA8 PO; +CREO3600 PO; +DULO30CA9 PO; +LEVA1TAB2 PO; +METO25TA4 PO; +MUCI600T31 PO; +MUPI2OI EXT; +NITR4TASL SL
[2019-01-17] MEDS ORDERED: LEVO500T3 PO (12:50)
[2019-01-17] MEDS ORDERED: NS 1,000 ML IV ONE (13:30)
[2019-01-17] MEDS ORDERED: ONDANSETRON 4MG/2ML VIAL (J2405) IV ONE (13:30)
--- NOTE | 2019-01-17 13:42 | REP ---
Clinical: Generalized abdominal pain. Technique: Upright view of the chest with supine and upright views of the abdomen and pelvis. Findings: Frontal upright view of the chest demonstrates no acute cardiopulmonary process or free air below the diaphragm to suspect pneumoperitoneum. Supine and upright views of the abdomen and pelvis demonstrate nonspecific bowel gas pattern without obstruction or perforation. No organomegaly. No significant abnormal calcifications. Skeletal structures normal for age. Impression: Nonspecific bowel gas pattern. Electronically Signed by Jean Carlos Branch MD 01/17/2019 01:33 P
[2019-01-17 14:13] LABS: BASO % 0.4 % (0.0-1.0); EOS # 0.1 10^3/uL (0.0-0.5); EOS % 1.6 % (0.0-3.0); HEMATOCRIT 35.4 % (36.0-47.0); HEMOGLOBIN 11.9 g/dl (12.0-15.5); LYMPH # 1.9 10^3/uL (1.5-5.0); MEAN CORPUSCULAR HEMOGLOBIN 31.5 pg (27.0-33.0); MEAN CORPUSCULAR HGB CONC 33.6 g/dl (32.0-36.5); MEAN CORPUSCULAR VOLUME 93.7 fl (80.0-96.0); MONO # 0.6 10^3/uL (0.0-0.8); MONO % 9.2 % (0.0-5.0); NEUTROPHILS # 4.2 10^3/uL (1.5-8.5); NEUTROPHILS % 60.2 % (36.0-66.0); PLATELET COUNT, AUTOMATED 178 10^3/uL (150-450); RED BLOOD COUNT 3.78 10^6/uL (4.00-5.40); WHITE BLOOD COUNT 6.9 10^3/uL (4.0-10.0)
[2019-01-17 14:45] LABS: ALBUMIN 2.7 GM/DL (3.2-5.2); ALT/SGPT 28 U/L (12-78); BILIRUBIN,DIRECT 0.1 MG/DL (0.0-0.2); BILIRUBIN,TOTAL 0.4 MG/DL (0.2-1.0); BLOOD UREA NITROGEN 14 MG/DL (7-18); CALCIUM LEVEL 9.8 MG/DL (8.8-10.2); CARBON DIOXIDE LEVEL 28 MEQ/L (21-32); CHLORIDE LEVEL 101 MEQ/L (98-107); CREATININE FOR GFR 0.88 MG/DL (0.55-1.30); GLOMERULAR FILTRATION RATE > 60.0 (>45); GLUCOSE, FASTING 142 MG/DL (70-100); LIPASE 335 U/L (73-393); POTASSIUM SERUM 3.8 MEQ/L (3.5-5.1); SODIUM LEVEL 138 MEQ/L (136-145); TOTAL PROTEIN 7.4 GM/DL (6.4-8.2)
[2019-01-17] MEDS ORDERED: ZOFR4TAB16 PO (14:58)
[2019-01-17 15:14] VITALS: BP 100/57
== END 2019-01-17 15:40 | disposition home or self-care (01) ==
LOC: M ED 12:30 → EDBD 12:30 → M ED 15:40
DX: R11.10 Vomiting, unspecified (principal); I51.9 Heart disease, unspecified; E11.9 Type 2 diabetes mellitus without complications; I10 Essential (primary) hypertension; Z95.5 Presence of coronary angioplasty implant and graft; Z87.891 Personal history of nicotine dependence; Z79.82 Long term (current) use of aspirin; Z79.4 Long term (current) use of insulin; Z79.899 Other long term (current) drug therapy; Z88.8 Allergy status to other drugs, medicaments and biological substances; Z88.1 Allergy status to other antibiotic agents
CPT/HCPCS: 74021; 80048; 80076; 81001; 83690; 85025; 87086; 96374; 99284; J2405

== ENCOUNTER → 2019-01-30 | Outpatient (REF) | payer OTHER, MEDICAID ==
[~2019-01-30] MED LIST changes: +LEVO500T3 PO; +ZOFR4TAB16 PO
== END ==
LOC: M SMT 13:37
PROVIDERS: ATTEND Nurse Practitioner Women's Health
DX: R30.0 Dysuria (principal)

== ENCOUNTER → 2019-01-30 | Outpatient (REF) | payer OTHER, MEDICAID ==
[2019-01-30 13:44] LABS: APPEARANCE, URINE CLOUDY (CLEAR); BACTERIA, URINE AUTO NEGATIVE (NEGATIVE); BILIRUBIN, URINE AUTO NEGATIVE (NEGATIVE); BLOOD, URINE BLOOD 2+ (NEGATIVE); COLOR, URINE YELLOW (YELLOW); GLUCOSE, URINE (UA) AUTO 3+ mg/dL (NEGATIVE); KETONE, URINE AUTO NEGATIVE (NEGATIVE); LEUKOCYTE ESTERASE, URINE AUTO 3+ (NEGATIVE); NITRITE, URINE AUTO NEGATIVE (NEGATIVE); PROTEIN, URINE AUTO NEGATIVE (NEGATIVE); RBC, URINE AUTO 1 /HPF (0-3); SPECIFIC GRAVITY URINE AUTO 1.021 (1.002-1.035); SQUAMOUS EPITHELIAL CELL UR AU 7 /HPF (0-6); WBC, URINE AUTO 16 /HPF (0-3)
== END ==
LOC: M SMT 13:32
PROVIDERS: ATTEND Nurse Practitioner Women's Health
DX: N39.0 Urinary tract infection, site not specified (principal)

== ENCOUNTER 2019-03-11 18:51 | Emergency (ER) | payer MEDICAID, OTHER ==
[~2019-03-11] VITALS: Ht 157.5 cm; Wt 81.8 kg
[2019-03-11] MEDS ORDERED: IMIQ5CR (19:21)
[2019-03-11] MEDS ORDERED: ROSU10TA6 (19:21)
[2019-03-11 21:15] LABS: BASO % 0.5 % (0.0-1.0); EOS # 0.1 10^3/uL (0.0-0.5); EOS % 2.2 % (0.0-3.0); HEMOGLOBIN 12.6 g/dl (12.0-15.5); LYMPH # 2.2 10^3/uL (1.5-5.0); LYMPH % 34.2 % (24.0-44.0); MEAN CORPUSCULAR HEMOGLOBIN 30.2 pg (27.0-33.0); MEAN CORPUSCULAR HGB CONC 32.3 g/dl (32.0-36.5); MEAN CORPUSCULAR VOLUME 93.5 fl (80.0-96.0); MONO # 0.6 10^3/uL (0.0-0.8); MONO % 9.2 % (0.0-5.0); NEUTROPHILS # 3.4 10^3/uL (1.5-8.5); NEUTROPHILS % 53.7 % (36.0-66.0); PLATELET COUNT, AUTOMATED 158 10^3/uL (150-450); RED BLOOD COUNT 4.17 10^6/uL (4.00-5.40); WHITE BLOOD COUNT 6.4 10^3/uL (4.0-10.0)
[2019-03-11 21:37] LABS: C REACTIVE PROTEIN QUANTITATIV 0.71 MG/DL (0.00-0.30); CALCIUM LEVEL 8.9 MG/DL (8.8-10.2); CREATININE FOR GFR 1.06 MG/DL (0.55-1.30); ERYTHROCYTE SEDIMENTATION RATE 80 mm/hr (0-30); GLOMERULAR FILTRATION RATE 55.7 (>45); POTASSIUM SERUM 3.7 MEQ/L (3.5-5.1)
[2019-03-11] MEDS ORDERED: AUGM875T28 PO (22:27)
[2019-03-11 22:35] VITALS: BP 148/70
== END 2019-03-11 22:40 | disposition home or self-care (01) ==
LOC: M ED 18:51
DX: T81.41XA Infection following a procedure, superficial incisional surgical site, initial encounter (principal); Y92.9 Unspecified place or not applicable; Y93.9 Activity, unspecified; E11.9 Type 2 diabetes mellitus without complications; N18.2 Chronic kidney disease, stage 2 (mild); Z85.828 Personal history of other malignant neoplasm of skin; Z95.5 Presence of coronary angioplasty implant and graft; Z79.82 Long term (current) use of aspirin; Z79.4 Long term (current) use of insulin; Z79.899 Other long term (current) drug therapy; Z88.1 Allergy status to other antibiotic agents; Z88.8 Allergy status to other drugs, medicaments and biological substances

== ENCOUNTER → 2019-03-19 | Outpatient (CLI) | payer OTHER, MEDICAID ==
[~2019-03-19] MED LIST changes: +AUGM875T28 PO; +IMIQ5CR; +ROSU10TA6
--- NOTE | 2019-03-21 00:50 | ECWPNPC ---
PATIENT NAME: CATERINA SPEARS : 1955 GENDER: FEMALE VISIT DATE: 03/19/2019 DISCHARGE DATE: 03/19/19 1112 VISIT LOCKED DATE TIME: PHYSICIAN: JOSH LONDON RESOURCE: JOSH LONDON REASON FOR APPOINTMENT 1. CHRONIC PAIN HISTORY OF PRESENT ILLNESS HISTORY OF PRESENT ILLNESS: PAIN THE PATIENT DESCRIBES THE PAIN... 63-YEAR-OLD FEMALE IN FOR CHRONIC PAIN FOLLOW-UP. SHE RATES HER PAIN CURRENTLY AT A 7 OUT OF 10 AND DESCRIBES IT ACHING, BURNING, SORE, TENDER, NUMBNESS AND TINGLING. PATIENT WAS STARTED ON CYMBALTA AT LAST CLINIC VISIT HOWEVER SHE HAS DISCONTINUED USE IT ALTERED HER MOOD. FALL RISK SCREENING: SCREENING :NO FALLS REPORTED IN THE LAST YEAR CURRENT MEDICATIONS TAKING PEN NEEDLES 3/16" 31G X 5 MM MISCELLANEOUS TAKING COMFORT EZ INSULIN SYRINGE 31G X 5/16 MISCELLANEOUS TAKING COMFORT EZ INSULIN SYRINGE 31G X 5/16 MISCELLANEOUS TAKING VITAMIN D 1000 UNIT TABLET 2 TABLET ORALLY ONCE A DAY TAKING ALLOPURINOL 100 MG TABLET 1 TABLET ORALLY THREE TIMES DAILY TAKING GLIPIZIDE 5 MG TABLET 1 TABLET ORALLY THREE TIMES DAILY TAKING VICTOZA 18 MG/3ML SOLUTION PEN-INJECTOR SUBCUTANEOUS TAKING TRIAMTERENE-HCTZ 75-50 MG TABLET 1 TABLET IN THE MORNING ORALLY ONCE A DAY TAKING METOPROLOL TARTRATE 25 MG TABLET 1 TABLET WITH FOOD ORALLY TWICE A DAY TAKING METFORMIN HCL 1000 MG TABLET 1 TAB ORALLY DAILY TAKING INSULIN SYRINGE-NEEDLE U-100 31G X 1/4 MISCELLANEOUS TAKING ADVOCATE INSULIN SYRINGE 29G X 1/2 MISCELLANEOUS TAKING OMEPRAZOLE 40 MG CAPSULE DELAYED RELEASE 1 CAPSULE ORALLY ONCE A DAY TAKING BASAGLAR KWIKPEN 20 INITS AM 50 UNITS PM BID TAKING HUMALOG 12 UNITS TID TAKING ELMIRON 100 MG CAPSULE 1 CAPSULE ON AN EMPTY STOMACH ORALLY BID TAKING MAGNESIUM OXIDE 400 MG CAPSULE 1 CAPSULE NEEDED ORALLY ONCE A DAY TAKING MUPIROCIN 2 % OINTMENT 1 APPLICATION TO AFFECTED AREA EXTERNALLY THREE TIMES A DAY TAKING ESTRADIOL 10 % CREAM DIRECTED TAKING TYLENOL ARTHRITIS PAIN TAKING ASPIRIN 81 81 MG TABLET DELAYED RELEASE 1 TABLET ORALLY ONCE A DAY TAKING PLAVIX 75 MG TABLET 1 TABLET ORALLY ONCE A DAY TAKING CLOTRIMAZOLE-7 1 % CREAM 1 APPLICATION AT BEDTIME VAGINAL ONCE A DAY TAKING ZOFRAN 4 MG TABLET 1 TABLET ORALLY ONCE A DAY TAKING GENTAMICIN 1 TAB ORAL TAKING MUCINEX 600 MG TABLET EXTENDED RELEASE 12 HOUR 1 TABLET NEEDED ORALLY EVERY 12 HRS TAKING NITROGLYCERIN 0.4 MG TABLET SUBLINGUAL DIRECTED SUBLINGUAL TAKING STOOL SOFTENER 100 MG CAPSULE 1 CAPSULE NEEDED ORALLY ONCE A DAY TAKING CETIRIZINE HCL 10 MG TABLET 1 TABLET ORALLY ONCE A DAY NOT-TAKING CREON 93362 UNIT CAPSULE DELAYED RELEASE PARTICLES 2 TAB ORALLY BID NOT-TAKING VENTOLIN HFA 108 (90 BASE) MCG/ACT AEROSOL SOLUTION 2 PUFFS NEEDED INHALATION EVERY 6 HRS NOT-TAKING DIFLUCAN 200 MG TABLET 1 TABLET ORALLY DAILY NOT-TAKING FLAGYL 500 MG TABLET 1 TABLET ORALLY THREE TIMES A DAY NOT-TAKING CYMBALTA 30 MG CAPSULE DELAYED RELEASE PARTICLES 1 CAPSULE ORALLY ONCE A DAY NOT-TAKING BENAZEPRIL HCL 20 MG TABLET DIRECTED ORALLY NOT-TAKING DIPHENHYDRAMINE HCL 2 % CREAM 1 APPLICATION TO AFFECTED AREA NEEDED EXTERNALLY BID NOT-TAKING PREMARIN 0.625 MG/GM CREAM USE 1 GM 2 NIGHTS WEEKLY BY FINGERTIP APPLICATION VAGINAL 2-3X/WEEK X 4 WEEKS NOT-TAKING PYRIDIUM 100 MG TABLET 1 TABLET AFTER MEALS ORALLY THREE TIMES A DAY NEEDED FOR BURNING SENSATION NOT-TAKING CLOBETASOL PROPIONATE 0.05 % OINTMENT 1 APPLICATION TO AFFECTED AREA EXTERNALLY TWICE A DAY NOT-TAKING LANTUS SOLOSTAR 100 UNIT/ML SOLUTION PEN-INJECTOR SUBCUTANEOUS NOT-TAKING GLUCOPHAGE XR 500 MG TABLET EXTENDED RELEASE 24 HOUR 2 TABLETS ORALLY ONCE A DAY NOT-TAKING BENAZEPRIL-HYDROCHLOROTHIAZIDE 20-25 MG TABLET 1 TABLET ORALLY ONCE A DAY NOT-TAKING ATORVASTATIN CALCIUM 40 MG TABLET 1 TABLET ORALLY EVERY OTHER DAY NOT-TAKING HUMULIN R 100 UNIT/ML SOLUTION INJECTION TAKE 14 UNITS TID NOT-TAKING CELEBREX 200 MG CAPSULE 1 CAPSULE WITH FOOD ORALLY ONCE A DAY NOT-TAKING DICLOFENAC SODIUM 1 % GEL TRANSDERMAL APPLY 2 GRAMS TO AFFECTED AREA FOUR TIMES DAILY DISCONTINUED GEMFIBROZIL 600 MG TABLET 1 TABLET ORALLY TWICE A DAY MEDICATION LIST REVIEWED AND RECONCILED WITH THE PATIENT PAST MEDICAL HISTORY INRTSTITIAL CYSTITIS DM TYPE 2 INSULIN DEPENDENT HYPERTRIGLYCERIDEMIA GERD HTN SKIN LESIONS NOCTURIA UTI'S CHRONIC KIDNEY DISEASE STAGE II BRIAN'S ESOPHAGUS OSTEOPENIA ATHEROSCLEROTIC VESSEL DISEASE [place] WITH 2 STENTS PLACED 10/2018 KIDNEY DISEASE CAD W/ UNSTABLE ANGINA ALLERGIES BACTRIM DS: TOUNGE SWELL - ALLERGY KEFLEX: BOTTOM LEGS ITCH - ALLERGY TETRACYCLINE HCL: BUMPS ON TONGUE - ALLERGY PROMETHAZINE HCL: TONGUE SWELL - ALLERGY ATORVASTATIN CALCIUM: FEET, LEG PAIN - SIDE EFFECTS ZETIA: SEVERE MUSCLE PAIN - SIDE EFFECTS SURGICAL HISTORY RT THUMB 1960 1990 TUBALIGATION 1991 GALLBLADDER 1993 NECK 2013 ABORTIONS 1994 BREAST BIOPSY SQUAMOUS CELL CANCER - NOSE MISCARRIAGE (4) LIPOSUCTION 2 CARDIAC STENTS PLACED 10/2018 FAMILY HISTORY FATHER: MOTHER: 2DAUGHTER(S) . SOCIAL HISTORY GENERAL: TOBACCO USE ARE YOU A:FORMER SMOKER QUIT AGE 34 OTHERS AT HOME: GRANDKIDS AND DAUGHTER. HOUSING: RENTS APARTMENT. EDUCATION LEVEL OF EDUCATION:COLLEGE DIET: REGULAR, LOW CHOLETEROL, LOW SALT. LANGUAGE LANGUAGES SPOKEN:EAST TIMORESE DOMESTIC VIOLENCE DO YOU FEEL SAFE IN YOUR ENVIRONMENT?YES NEW PATIENT PAIN DIARY PATIENT DESCRIBES PAIN :ACHING, BURNING, HAVE IT ALL THE TIME, IT COMES AND GOES, SHARP, STABBING, TENDER, THROBBING, SORE, SHOOTING FROM 0-10, WHAT LEVEL IS YOUR PAIN TODAY?7 ARE YOU ALLERGIC TO SHELLFISH OR IV DYE?NO ARE YOU DIABETIC?YES RECREATIONAL DRUG USE DRUG USE?NO EXERCISE: NO REGULAR EXERCISE, CARE FOR 3, 5, 7 YEAR OLD 6-7 DAYS/WEEK. LEARNING BARRIERS / SPECIAL NEEDS BARRIERS TO LEARNING?YES COMMENTSDOCUMENTED IN NOTES SECTION> NEED EXTRA TIME FOR TESTS HEARING IMPAIRED?NO VISION IMPAIRED?NO COGNITIVELY IMPAIRED?YES : DIFFICULTY WITH COMPREHENSION READINESS TO LEARN?YES LEARNING CAPABILITIES PRESENT?YES PAIN CLINIC PFS, CLERGY, PUBLIC HEALTH REFERRALS WAS THE PROVIDER NOTIFIED OF ANY PERTINENT INFO?YES HAS THE PATIENT BEEN EDUCATED REGARDING HIS/HER PLAN OF CARE?YES ORIENTED TO [facility] HAS THE PATIENT BEEN EDUCATED REGARDING PAIN, THE RISK FOR PAIN, THE IMPORTANCE OF EFFECTIVE PAIN MANAGEMENT, AND THE PAIN ASSESSMENT PROCESS?YES LATEX QUESTIONNAIRE LATEX ALLERGY : HAVE YOU EVER DEVELOPED ANY TYPE OF REACTION AFTER HANDLING LATEX PRODUCTS SUCH RUBBER GLOVES, CONDOMS, DIAPHRAGMS, BALLOONS, SOCKS, OR UNDERWEAR?NO LATEX ALLERGY : HAVE YOU EVER DEVELOPED ANY TYPE OF REACTION DURING OR AFTER DENTAL APPOINTMENT, VAGINAL/RECTAL EXAMINATION, SURGICAL PROCEDURE, OR ANY OTHER EXPOSURE?NO DATE ASKED : 03/12/2019 LATEX RISK : HAVE YOU EVER HAD ANY DIFFICULTY BREATHING OR HIVES AFTER EATING OR HANDLING ANY FRUITS, OR VEGETABLES; SUCH KIWI, BANANAS, STONE FRUITS, OR CHESTNUTSNO LATEX RISK : DO YOU HAVE A PREVIOUS PERSONAL HISTORY OF MORE THAN NINE SURGERIES, SPINA BIFIDA, OR REPEATED CATHERIZATIONS? NO LATEX RISK : ARE YOU FREQUENTLY EXPOSED TO LATEX PRODUCTS IN YOUR OCCUPATION?NO CAFFEINE CAFFEINE USE?YES HOW OFTEN AND HOW MUCH? 1-2 DAILY ADVANCE DIRECTIVE ADVANCE DIRECTIVE DISCUSSED WITH PATIENT:YES PT DOES NOT CURRENTLY HAVE HCP, PAPERWORK GIVEN AND OFFERED ASSISTANCE SHINTO [id number] OTHER NO ADVENTISM BELIEFS THAT WOULD IMPACT HEALTH CARE. SPIRITUAL MARITAL STATUS: .. ALCOHOL SCREENING DID YOU HAVE A DRINK CONTAINING ALCOHOL IN THE PAST YEAR?NO POINTS0 INTERPRETATIONNEGATIVE OCCUPATION: [employer]. SEXUAL HX HAD SEX IN THE LAST 12 MONTHS (VAGINAL, ORAL, OR ANAL)?NO HAVE YOU EVER HAD AN STD?YES OTHER?YES HOSPITALIZATION/MAJOR DIAGNOSTIC PROCEDURE [place] WITH STENTS PLACED 10/2018 ALTERED SPEECH 10/2018 SEPTIC 12/2018 REVIEW OF SYSTEMS REVIEWED BY: PROVIDER: ZACKARY VILLAGOMEZ . CONSTITUTIONAL: ANY CHANGE IN YOUR MEDICAL CONDITION? YES, LEFT SHOULDER BASAL CELL CARCINOMA EXCISED S/P STAPH INFECTION TX'D W ABX . CHILLS NO . FEVER NO . INFECTION: DO YOU HAVE NEW INFECTIONS? YES, SEE ABOVE . DO YOU HAVE HISTORY OF MRSA? YES . MUSCULOSKELETAL: ANY NEW PATTERNS OF PAIN OR NUMBNESS? YES, PAIN IS WORSE . GASTROENTEROLOGY: ANY NEW CHANGE IN BOWEL CONTROL? NO . GENITOURINARY: ANY NEW CHANGE IN BLADDER CONTROL? NO . IS THERE A CHANCE YOU COULD BE ? NO . HEMATOLOGY/LYMPH: DO YOU TAKE ANY BLOOD THINNERS? (FOR EXAMPLE- COUMADIN, PLAVIX, AGGRENOX, PLATEL, PRADAXA, OR XARELTO) YES, PLAVIX . WHEN WAS YOUR LAST DOSE? DATE: TIME: . NEUROLOGY: HAVE YOU FALLEN IN THE PAST 12 MONTHS? YES, PRIOR TO LAST VISIT . ANY NEW EXTREMITY NUMBNESS OR WEAKNESS? LEFT KNEE PATELLA NECROSIS . CARDIOLOGY: DO YOU HAVE A PACEMAKER OR DEFIBRILLATOR? NO . RESPIRATORY: HAVE YOU BEEN SICK IN THE PAST WEEK? YES, ALLERGIES . FEVER NO . FLU LIKE SYMPTOMS? NO . COUGH NO . INTEGUMENTARY: DO YOU HAVE ANY RASHES OR OPEN SORES? NO . ALLERGIC/IMMUNO: ARE YOU ALLERGIC TO IV DYE? NO . ANY NEW ALLERGIES? NO . PSYCHIATRIC: DO YOU HAVE THOUGHTS OF HURTING YOURSELF OR SOMEONE ELSE? NO . ARE YOU ABUSED, NEGLECTED, OR IN AN UNSAFE ENVIRONMENT? NO . ENDOCRINOLOGY: ARE YOU DIABETIC? YES . OTHER: DO YOU NEED ANY PRESCRIPTIONS? TO DISCUSS . IF YES, PLEASE LIST: ____ . ANY NEW PROBLEMS WITH YOUR MEDICATIONS? YES, CYMBALTA MADE HER FEEL LIKE A ZOMBIE . WHEN DID YOU LAST EAT? ____ . WHEN DID YOU LAST DRINK? ____ . WHAT DID YOU LAST DRINK? ____ . NAME OF PERSON DRIVING YOU HOME? ____ . DO YOU HAVE ANY OTHER QUESTIONS OR CONCERNS NO . VITAL SIGNS WT 184 LBS, HT 62 IN, BMI 33.65 INDEX, BP 134/68 MM HG, HR 86 /MIN, RR 16 /MIN, TEMP 98.6 F, OXYGEN SAT % 97, REVIEWED BY: GISELE. EXAMINATION GENERAL EXAMINATION: GENERALNO ACUTE DISTRESS, WELL NOURISHED AND HYDRATED. PSYCHAPPROPRIATE MOOD AND AFFECT . LUNGS:CLEAR TO AUSCULTATION BILATERALLY, NO WHEEZES, RHONCHI, RALES. HEART:NO MURMURS, REGULAR RATE AND RHYTHM. ASSESSMENTS SPONDYLOSIS OF CERVICAL REGION WITHOUT MYELOPATHY OR RADICULOPATHY - M47.812 (PRIMARY) TREATMENT SPONDYLOSIS OF CERVICAL REGION WITHOUT MYELOPATHY OR RADICULOPATHY STOP CYMBALTA CAPSULE DELAYED RELEASE PARTICLES, 30 MG, 1 CAPSULE, ORALLY, ONCE A DAY START LYRICA CAPSULE, 50 MG, 1 CAPSULE, ORALLY, ONCE A DAY, 30 DAYS, 30 CAPSULE, REFILLS 1 CLINICAL NOTES: 63-YEAR-OLD FEMALE IN FOR CHRONIC PAIN FOLLOW-UP. GIVEN PRESENTING SYMPTOMS AND RESULTS OF PHYSICAL EXAMINATION RECOMMENDED STOPPING CYMBALTA AND STARTING LYRICA 50 MG DAILY WITH FOLLOW-UP IN 2 MONTHS TO DETERMINE EFFICACY OF TREATMENT. PATIENT HAS EXPRESSED UNDERSTANDING OF AND WAS IN AGREEMENT WITH TREATMENT PLAN. GIVEN TIME TO ASK QUESTIONS AND EXPRESS CONCERNS., ISTOP REGISTRY REVIEWED AND DEMONSTRATES COMPLLIANCE. (REF # [id number] ) BRINGS IN MEDICATIONS WHICH IS APPROPRIATE FOR WHAT WAS DISPENSED. RECENT URINE TOXICOLOGY REVIEWED. NO UNAUTHORIZED MEDICATIONS. NO ILLICIT SUBSTANCES AND PRESCRIBED MEDICATIONS WERE PRESENT. PROCEDURE CODES FA211 ESTABILISHED PATIENT [facility] FACILITY CHARGE DISPOSITION & COMMUNICATION FOLLOW UP 2 MONTHS (REASON: NECK PAIN, NEW MEDICATION) ELECTRONICALLY SIGNED BY DASHAWN MCKEON ON 03/20/2019 AT 08:42 AM EST DISCLAIMER : THIS IS A VISIT SUMMARY [facility]ACTED FROM [facility]. IT IS NOT A COPY OF THE [employer] PROGRESS NOTE. MTDD
== END ==
LOC: M PAIN 10:15
PROVIDERS: ATTEND Family Medicine
DX: M47.812 Spondylosis without myelopathy or radiculopathy, cervical region (principal); G89.29 Other chronic pain; E11.9 Type 2 diabetes mellitus without complications; K21.9 Gastro-esophageal reflux disease without esophagitis; I10 Essential (primary) hypertension; I25.2 Old myocardial infarction; Z87.891 Personal history of nicotine dependence; Z88.1 Allergy status to other antibiotic agents; Z88.8 Allergy status to other drugs, medicaments and biological substances; Z86.14 Personal history of Methicillin resistant Staphylococcus aureus infection; Z79.4 Long term (current) use of insulin; Z79.82 Long term (current) use of aspirin; Z79.899 Other long term (current) drug therapy

== ENCOUNTER → 2019-03-22 | Outpatient (REF) | payer OTHER, MEDICAID ==
[2019-03-22 13:48] LABS: BASO # 0.1 10^3/uL (0.0-0.2); BASO % 0.7 % (0.0-1.0); EOS # 0.1 10^3/uL (0.0-0.5); EOS % 1.6 % (0.0-3.0); HEMATOCRIT 36.5 % (36.0-47.0); HEMOGLOBIN 12.2 g/dl (12.0-15.5); LYMPH # 1.6 10^3/uL (1.5-5.0); LYMPH % 22.6 % (24.0-44.0); MEAN CORPUSCULAR HGB CONC 33.4 g/dl (32.0-36.5); MEAN CORPUSCULAR VOLUME 92.9 fl (80.0-96.0); MONO # 0.6 10^3/uL (0.0-0.8); MONO % 8.1 % (0.0-5.0); NEUTROPHILS # 4.6 10^3/uL (1.5-8.5); NEUTROPHILS % 66.1 % (36.0-66.0); PLATELET COUNT, AUTOMATED 174 10^3/uL (150-450); RED BLOOD COUNT 3.93 10^6/uL (4.00-5.40)
[2019-03-22 14:05] LABS: ALBUMIN 3.3 GM/DL (3.2-5.2); ALT/SGPT 51 U/L (12-78); BILIRUBIN,TOTAL 0.6 MG/DL (0.2-1.0); BLOOD UREA NITROGEN 16 MG/DL (7-18); CARBON DIOXIDE LEVEL 28 MEQ/L (21-32); CHLORIDE LEVEL 99 MEQ/L (98-107); CREATININE FOR GFR 0.95 MG/DL (0.55-1.30); FOLATE 11.5 NG/ML; FREE T4 1.15 NG/DL (0.76-1.46); GLOMERULAR FILTRATION RATE > 60.0 (>45); GLUCOSE, FASTING 364 MG/DL (70-100); POTASSIUM SERUM 3.9 MEQ/L (3.5-5.1); RHEUMATOID FACTOR QUANT < 10.0 IU/ML (<15.0); SODIUM LEVEL 134 MEQ/L (136-145); TOTAL PROTEIN 7.5 GM/DL (6.4-8.2); VITAMIN B12 LEVEL 399 PG/ML
[2019-03-22 14:16] LABS: ERYTHROCYTE SEDIMENTATION RATE 71 mm/hr (0-30)
[2019-03-29 00:06] LABS: ANTINUCLEAR ANTIBODIES DIRECT Negative (Negative); VITAMIN B1 LEVEL WHOLE BLOOD 100.1 nmol/L (66.5-200.0); VITAMIN B6,PYRIDOXAL PHOSPHATE 6.3 ug/L (2.0-32.8); VITAMIN E(ALPHA TOCOPHEROL) 22.7 mg/L (9.0-29.0)
== END ==
LOC: M LABNEURO 13:03
PROVIDERS: ATTEND Psychiatry & Neurology Neurology
DX: E07.9 Disorder of thyroid, unspecified (principal); G62.9 Polyneuropathy, unspecified

== ENCOUNTER 2019-04-16 23:20 | Emergency (ER) | payer MEDICAID, OTHER ==
[~2019-04-16] VITALS: Ht 157.5 cm; Wt 81.8 kg
[2019-04-16] MEDS ORDERED: CREO12CA PO (23:38)
[2019-04-17 00:35] LABS: BASO # 0.1 10^3/uL (0.0-0.2); BASO % 0.7 % (0.0-1.0); EOS # 0.1 10^3/uL (0.0-0.5); EOS % 1.5 % (0.0-3.0); HEMOGLOBIN 11.8 g/dl (12.0-15.5); LYMPH # 2.4 10^3/uL (1.5-5.0); LYMPH % 35.7 % (24.0-44.0); MEAN CORPUSCULAR HEMOGLOBIN 31.1 pg (27.0-33.0); MEAN CORPUSCULAR HGB CONC 33.7 g/dl (32.0-36.5); MEAN CORPUSCULAR VOLUME 92.1 fl (80.0-96.0); MONO # 0.7 10^3/uL (0.0-0.8); MONO % 10.9 % (0.0-5.0); NEUTROPHILS # 3.4 10^3/uL (1.5-8.5); NEUTROPHILS % 51.1 % (36.0-66.0); PLATELET COUNT, AUTOMATED 146 10^3/uL (150-450); WHITE BLOOD COUNT 6.7 10^3/uL (4.0-10.0)
[2019-04-17 01:03] LABS: BLOOD UREA NITROGEN 21 MG/DL (7-18); CALCIUM LEVEL 9.7 MG/DL (8.8-10.2); CARBON DIOXIDE LEVEL 26 MEQ/L (21-32); CHLORIDE LEVEL 102 MEQ/L (98-107); CK-MB VALUE MASS 1.1 NG/ML (<3.6); CPK CREATINE PHOSPHOKINASE 62 U/L (26-192); CREATININE FOR GFR 1.02 MG/DL (0.55-1.30); GLOMERULAR FILTRATION RATE 58.3 (>45); GLUCOSE, FASTING 174 MG/DL (70-100); MB/CK RELATIVE INDEX 1.77 (< OR =4); POTASSIUM SERUM 3.4 MEQ/L (3.5-5.1); SODIUM LEVEL 139 MEQ/L (136-145); TROPONIN I < 0.02 NG/ML (< 0.10)
[2019-04-17] MEDS ORDERED: GI COCKTAIL 50ML BTL(HYOSCYAMINE/MAALOX/LIDOCAINE VISCOUS)(1:3:1) PO ONE (02:30)
--- NOTE | 2019-04-17 06:00 | ECGEPIP ---
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
[2019-04-17 06:47] LABS: CPK CREATINE PHOSPHOKINASE 53 U/L (26-192); MB/CK RELATIVE INDEX 1.89 (< OR =4); TROPONIN I < 0.02 NG/ML (< 0.10)
[2019-04-17] MEDS ORDERED: PEPC1TAB5 PO (06:54)
[2019-04-17] MEDS ORDERED: CARA1TAB6 PO (06:54)
[2019-04-17] MEDS ORDERED: FAMOTIDINE 20 MG TAB PO ONE (07:00)
[2019-04-17] MEDS ORDERED: SUCRALFATE 1 GM TAB PO ONE (07:00)
[2019-04-17 07:11] VITALS: BP 122/56
--- NOTE | 2019-04-17 07:23 | REP ---
Portable chest, 11:38 p.m., single AP view the patient upright: Comparison is 01/11/2019. The lung donnelly are clear. The cardiac size is normal. The antwon, mediastinum, and skeletal structures are unremarkable. Impression: Negative portable chest. There is no interval change. The Electronically Signed by Darío Gallegos MD 04/17/2019 07:14 A
--- NOTE | 2019-04-18 07:51 | ECGEPIP ---
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
== END 2019-04-17 07:20 | disposition home or self-care (01) ==
LOC: M ED 23:20
DX: K21.9 Gastro-esophageal reflux disease without esophagitis (principal); I25.2 Old myocardial infarction; E11.21 Type 2 diabetes mellitus with diabetic nephropathy; I12.9 Hypertensive chronic kidney disease with stage 1 through stage 4 chronic kidney disease, or unspecified chronic kidney disease; E78.5 Hyperlipidemia, unspecified; Z95.5 Presence of coronary angioplasty implant and graft; Z79.82 Long term (current) use of aspirin; Z79.4 Long term (current) use of insulin; Z79.899 Other long term (current) drug therapy; Z88.8 Allergy status to other drugs, medicaments and biological substances; Z88.1 Allergy status to other antibiotic agents

== ENCOUNTER → 2019-04-27 | Outpatient (CLI) | payer OTHER ==
[~2019-04-27] MED LIST changes: +CARA1TAB6 PO; +PEPC1TAB5 PO
[2019-04-27 10:46] LABS: BLOOD UREA NITROGEN 19 MG/DL (7-18); CALCIUM LEVEL 9.6 MG/DL (8.8-10.2); CARBON DIOXIDE LEVEL 29 MEQ/L (21-32); CHLORIDE LEVEL 104 MEQ/L (98-107); CREATININE FOR GFR 0.85 MG/DL (0.55-1.30); GLOMERULAR FILTRATION RATE > 60.0 (>45); GLUCOSE, FASTING 171 MG/DL (70-100); POTASSIUM SERUM 3.9 MEQ/L (3.5-5.1); SODIUM LEVEL 139 MEQ/L (136-145)
== END ==
LOC: M LAB 09:48
PROVIDERS: ATTEND Nurse Practitioner Family
DX: E11.65 Type 2 diabetes mellitus with hyperglycemia (principal)

== ENCOUNTER → 2019-04-30 | Outpatient (CLI) | payer OTHER ==
--- NOTE | 2019-05-01 08:23 | REP ---
Clinical: Stenosis. Technique: Owens scale and color Doppler evaluation using linear high frequency transducer Comparison: 10/31/2018. Findings: Two-dimensional owens scale and color images demonstrate mild/moderate partially calcified bilateral atheromatous plaquing (right greater than left) . Color Doppler interrogation demonstrates normal arterial wave patterns with scattered spectral broadening. Normal flow direction is appreciated in the bilateral vertebral arteries. RIGHT (cm/s) LEFT (cm/s) ICA peak systolic velocity 149.0 122.0 ICA diastolic velocity 26.6 25.9 ECA peak systolic velocity 147.0 103.0 CCA peak systolic velocity 90.1 108.0 ICA/CCA ratio 2.89 1.36 Impression: Right carotid artery stenosis at the 50-69% range. Left carotid artery stenosis less than 50% range. Electronically Signed by Jean Carlos Branch MD 05/01/2019 08:15 A
== END ==
LOC: M RAD 11:57
PROVIDERS: ATTEND Surgery Vascular Surgery
DX: I65.23 Occlusion and stenosis of bilateral carotid arteries (principal)

== ENCOUNTER → 2019-06-06 | Outpatient (CLI) | payer OTHER, MEDICAID ==
--- NOTE | 2019-06-08 00:33 | ECWPNPC ---
PATIENT NAME: CATERINA SPEARS : 1955 GENDER: FEMALE VISIT DATE: 06/06/2019 DISCHARGE DATE: 06/06/19 1424 VISIT LOCKED DATE TIME: PHYSICIAN: JOSH LONDON RESOURCE: JOSH LONDON REASON FOR APPOINTMENT 1. BACK PX, MEDICINE [phone] HISTORY OF PRESENT ILLNESS HISTORY OF PRESENT ILLNESS: PAIN THE PATIENT DESCRIBES THE PAINDURING THE LAST MONTH SEVERITY - PAIN SCORE OF3/10, 4/10 LOCATIONSLOWER BACK QUALITYACHING , BURNING DURATIONMAINLY DURING THE NIGHT, INTERMITTENT, AWAKENS FROM SLEEEP PAIN IS INCREASED BY:ACTIVITIES, PROLONGED STANDING PAIN IS DECREASED BY:SITTING PERMISSION REQUESTED AND RECEIVED FROM PATIENT TO PERFORM TELEHEALTH VISIT. 63-YEAR-OLD FEMALE IN FOR CHRONIC PAIN FOLLOW-UP. AT LAST CLINIC VISIT PATIENT WAS STARTED ON LYRICA AND ADMITS THAT SHE STOP THE LYRICA SHE WAS EXPERIENCING SOME SIDE EFFECTS ALTHOUGH SHE IS UNSURE IF THE SIDE EFFECTS CAME FROM THE LYRICA OR ANOTHER MEDICATION THAT SHE HAD STARTED AT THE SAME TIME. SHE RATES HER PAIN CURRENTLY AT A 3-4 OUT OF 10. FALL RISK SCREENING: SCREENING :NO FALLS REPORTED IN THE LAST YEAR CURRENT MEDICATIONS TAKING PEN NEEDLES 3/16" 31G X 5 MM MISCELLANEOUS TAKING COMFORT EZ INSULIN SYRINGE 31G X 5/16 MISCELLANEOUS TAKING COMFORT EZ INSULIN SYRINGE 31G X 5/16 MISCELLANEOUS TAKING VITAMIN D 1000 UNIT TABLET 2 TABLET ORALLY ONCE A DAY TAKING ALLOPURINOL 100 MG TABLET 1 TABLET ORALLY THREE TIMES DAILY TAKING GLIPIZIDE 5 MG TABLET 1 TABLET ORALLY THREE TIMES DAILY TAKING VICTOZA 18 MG/3ML SOLUTION PEN-INJECTOR SUBCUTANEOUS TAKING TRIAMTERENE-HCTZ 75-50 MG TABLET 1 TABLET IN THE MORNING ORALLY ONCE A DAY TAKING METOPROLOL TARTRATE 25 MG TABLET 1 TABLET WITH FOOD ORALLY TWICE A DAY TAKING METFORMIN HCL 1000 MG TABLET 1 TAB ORALLY DAILY TAKING INSULIN SYRINGE-NEEDLE U-100 31G X 1/4 MISCELLANEOUS TAKING ADVOCATE INSULIN SYRINGE 29G X 1/2 MISCELLANEOUS TAKING OMEPRAZOLE 40 MG CAPSULE DELAYED RELEASE 1 CAPSULE ORALLY ONCE A DAY TAKING BASAGLAR KWIKPEN 20 INITS AM 50 UNITS PM BID TAKING HUMALOG 12 UNITS TID TAKING MAGNESIUM OXIDE 400 MG CAPSULE 1 CAPSULE NEEDED ORALLY ONCE A DAY TAKING MUPIROCIN 2 % OINTMENT 1 APPLICATION TO AFFECTED AREA EXTERNALLY THREE TIMES A DAY TAKING ESTRADIOL 10 % CREAM DIRECTED TAKING TYLENOL ARTHRITIS PAIN TAKING ASPIRIN 81 81 MG TABLET DELAYED RELEASE 1 TABLET ORALLY ONCE A DAY TAKING PLAVIX 75 MG TABLET 1 TABLET ORALLY ONCE A DAY TAKING CLOTRIMAZOLE-7 1 % CREAM 1 APPLICATION AT BEDTIME VAGINAL ONCE A DAY TAKING ZOFRAN 4 MG TABLET 1 TABLET ORALLY ONCE A DAY TAKING GENTAMICIN 1 TAB ORAL TAKING MUCINEX 600 MG TABLET EXTENDED RELEASE 12 HOUR 1 TABLET NEEDED ORALLY EVERY 12 HRS TAKING NITROGLYCERIN 0.4 MG TABLET SUBLINGUAL DIRECTED SUBLINGUAL TAKING STOOL SOFTENER 100 MG CAPSULE 1 CAPSULE NEEDED ORALLY ONCE A DAY TAKING CETIRIZINE HCL 10 MG TABLET 1 TABLET ORALLY ONCE A DAY TAKING LYRICA 75 MG CAPSULE 1 CAPSULE ORALLY ONCE A DAY TAKING ELMIRON 100 MG CAPSULE 1 CAPSULE ON AN EMPTY STOMACH ORALLY BID NOT-TAKING CREON 31192 UNIT CAPSULE DELAYED RELEASE PARTICLES 2 TAB ORALLY BID NOT-TAKING VENTOLIN HFA 108 (90 BASE) MCG/ACT AEROSOL SOLUTION 2 PUFFS NEEDED INHALATION EVERY 6 HRS NOT-TAKING DIFLUCAN 200 MG TABLET 1 TABLET ORALLY DAILY NOT-TAKING FLAGYL 500 MG TABLET 1 TABLET ORALLY THREE TIMES A DAY NOT-TAKING BENAZEPRIL HCL 20 MG TABLET DIRECTED ORALLY NOT-TAKING DIPHENHYDRAMINE HCL 2 % CREAM 1 APPLICATION TO AFFECTED AREA NEEDED EXTERNALLY BID NOT-TAKING PREMARIN 0.625 MG/GM CREAM USE 1 GM 2 NIGHTS WEEKLY BY FINGERTIP APPLICATION VAGINAL 2-3X/WEEK X 4 WEEKS NOT-TAKING PYRIDIUM 100 MG TABLET 1 TABLET AFTER MEALS ORALLY THREE TIMES A DAY NEEDED FOR BURNING SENSATION NOT-TAKING CLOBETASOL PROPIONATE 0.05 % OINTMENT 1 APPLICATION TO AFFECTED AREA EXTERNALLY TWICE A DAY NOT-TAKING LANTUS SOLOSTAR 100 UNIT/ML SOLUTION PEN-INJECTOR SUBCUTANEOUS NOT-TAKING GLUCOPHAGE XR 500 MG TABLET EXTENDED RELEASE 24 HOUR 2 TABLETS ORALLY ONCE A DAY NOT-TAKING BENAZEPRIL-HYDROCHLOROTHIAZIDE 20-25 MG TABLET 1 TABLET ORALLY ONCE A DAY NOT-TAKING ATORVASTATIN CALCIUM 40 MG TABLET 1 TABLET ORALLY EVERY OTHER DAY NOT-TAKING HUMULIN R 100 UNIT/ML SOLUTION INJECTION TAKE 14 UNITS TID NOT-TAKING CELEBREX 200 MG CAPSULE 1 CAPSULE WITH FOOD ORALLY ONCE A DAY NOT-TAKING DICLOFENAC SODIUM 1 % GEL TRANSDERMAL APPLY 2 GRAMS TO AFFECTED AREA FOUR TIMES DAILY MEDICATION LIST REVIEWED AND RECONCILED WITH THE PATIENT PAST MEDICAL HISTORY INRTSTITIAL CYSTITIS DM TYPE 2 INSULIN DEPENDENT HYPERTRIGLYCERIDEMIA GERD HTN SKIN LESIONS NOCTURIA UTI'S CHRONIC KIDNEY DISEASE STAGE II BRIAN'S ESOPHAGUS OSTEOPENIA ATHEROSCLEROTIC VESSEL DISEASE SD WITH 2 STENTS PLACED 10/2018 KIDNEY DISEASE CAD W/ UNSTABLE ANGINA ALLERGIES BACTRIM DS: TOUNGE SWELL - ALLERGY KEFLEX: BOTTOM LEGS ITCH - ALLERGY TETRACYCLINE HCL: BUMPS ON TONGUE - ALLERGY PROMETHAZINE HCL: TONGUE SWELL - ALLERGY ATORVASTATIN CALCIUM: FEET, LEG PAIN - SIDE EFFECTS ZETIA: SEVERE MUSCLE PAIN - SIDE EFFECTS SURGICAL HISTORY RT THUMB 1960 1990 TUBALIGATION 1991 GALLBLADDER 1993 NECK 2013 ABORTIONS 1994 BREAST BIOPSY SQUAMOUS CELL CANCER - NOSE MISCARRIAGE (3) LIPOSUCTION 2 CARDIAC STENTS PLACED 10/2018 FAMILY HISTORY FATHER: MOTHER: 2DAUGHTER(S) . SOCIAL HISTORY GENERAL: TOBACCO USE ARE YOU A:FORMER SMOKER QUIT AGE 34 OTHERS AT HOME: GRANDKIDS AND DAUGHTER. HOUSING: RENTS APARTMENT. EDUCATION LEVEL OF EDUCATION:COLLEGE DIET: REGULAR, LOW CHOLETEROL, LOW SALT. LANGUAGE LANGUAGES SPOKEN:LATVIAN DOMESTIC VIOLENCE DO YOU FEEL SAFE IN YOUR ENVIRONMENT?YES NEW PATIENT PAIN DIARY TODAY'S VISIT 06/06/19 PATIENT DESCRIBES PAIN :ACHING, BURNING, IT COMES AND GOES, SHARP, STABBING, TENDER, THROBBING, SORE, SHOOTING FROM 0-10, WHAT LEVEL IS YOUR PAIN TODAY?3 PRECIPITATING FACTORS ANY ACTIVITIES ALLEVIATING FACTORS SITTING ARE YOU ALLERGIC TO SHELLFISH OR IV DYE?NO ARE YOU DIABETIC?YES RECREATIONAL DRUG USE DRUG USE?NO EXERCISE: NO REGULAR EXERCISE, CARE FOR 3, 5, 7 YEAR OLD 6-7 DAYS/WEEK. LEARNING BARRIERS / SPECIAL NEEDS CHANGE FROM LAST VISIT?NO BARRIERS TO LEARNING?YES COMMENTSDOCUMENTED IN NOTES SECTION> NEED EXTRA TIME FOR TESTS HEARING IMPAIRED?NO VISION IMPAIRED?NO COGNITIVELY IMPAIRED?YES : DIFFICULTY WITH COMPREHENSION READINESS TO LEARN?YES LEARNING PREFERENCES?NO LEARNING CAPABILITIES PRESENT?YES EMOTIONAL BARRIERS?NO NAUTICAL INSTRUMENT MECHANIC NEEDED?NO PAIN CLINIC PFS, CLERGY, PUBLIC HEALTH REFERRALS WAS THE PROVIDER NOTIFIED OF ANY PERTINENT INFO?YES HAS THE PATIENT BEEN EDUCATED REGARDING HIS/HER PLAN OF CARE?YES ORIENTED TO PM[facility] HAS THE PATIENT BEEN EDUCATED REGARDING PAIN, THE RISK FOR PAIN, THE IMPORTANCE OF EFFECTIVE PAIN MANAGEMENT, AND THE PAIN ASSESSMENT PROCESS?YES LATEX QUESTIONNAIRE LATEX ALLERGY : HAVE YOU EVER DEVELOPED ANY TYPE OF REACTION AFTER HANDLING LATEX PRODUCTS SUCH RUBBER GLOVES, CONDOMS, DIAPHRAGMS, BALLOONS, SOCKS, OR UNDERWEAR?NO LATEX ALLERGY : HAVE YOU EVER DEVELOPED ANY TYPE OF REACTION DURING OR AFTER DENTAL APPOINTMENT, VAGINAL/RECTAL EXAMINATION, SURGICAL PROCEDURE, OR ANY OTHER EXPOSURE?NO DATE ASKED : 03/12/2019 LATEX RISK : HAVE YOU EVER HAD ANY DIFFICULTY BREATHING OR HIVES AFTER EATING OR HANDLING ANY FRUITS, OR VEGETABLES; SUCH KIWI, BANANAS, STONE FRUITS, OR CHESTNUTSNO LATEX RISK : DO YOU HAVE A PREVIOUS PERSONAL HISTORY OF MORE THAN NINE SURGERIES, SPINA BIFIDA, OR REPEATED CATHERIZATIONS? NO LATEX RISK : ARE YOU FREQUENTLY EXPOSED TO LATEX PRODUCTS IN YOUR OCCUPATION?NO CAFFEINE CAFFEINE USE?YES HOW OFTEN AND HOW MUCH? 1-2 DAILY ADVANCE DIRECTIVE ADVANCE DIRECTIVE DISCUSSED WITH PATIENT:YES PT DOES NOT CURRENTLY HAVE HCP, PAPERWORK GIVEN AND OFFERED ASSISTANCE MARITAL STATUS: .. ALCOHOL SCREENING DID YOU HAVE A DRINK CONTAINING ALCOHOL IN THE PAST YEAR?NO POINTS0 INTERPRETATIONNEGATIVE OCCUPATION: [employer]. SEXUAL HX HAD SEX IN THE LAST 12 MONTHS (VAGINAL, ORAL, OR ANAL)?NO HAVE YOU EVER HAD AN STD?YES OTHER?YES HOSPITALIZATION/MAJOR DIAGNOSTIC PROCEDURE SD WITH STENTS PLACED 10/2018 ALTERED SPEECH 10/2018 SEPTIC 12/2018 REVIEW OF SYSTEMS REVIEWED BY: PROVIDER: ZACKARY VILLAGOMEZ . CONSTITUTIONAL: ANY CHANGE IN YOUR MEDICAL CONDITION? NO . CHILLS NO . FEVER NO . INFECTION: DO YOU HAVE NEW INFECTIONS? NO . DO YOU HAVE HISTORY OF MRSA? NO . MUSCULOSKELETAL: ANY NEW PATTERNS OF PAIN OR NUMBNESS? NO . GASTROENTEROLOGY: ANY NEW CHANGE IN BOWEL CONTROL? NO . GENITOURINARY: ANY NEW CHANGE IN BLADDER CONTROL? NO . IS THERE A CHANCE YOU COULD BE ? NO . HEMATOLOGY/LYMPH: DO YOU TAKE ANY BLOOD THINNERS? (FOR EXAMPLE- COUMADIN, PLAVIX, AGGRENOX, PLATEL, PRADAXA, OR XARELTO) NO . WHEN WAS YOUR LAST DOSE? DATE: TIME: . NEUROLOGY: HAVE YOU FALLEN IN THE PAST 12 MONTHS? NO . ANY NEW EXTREMITY NUMBNESS OR WEAKNESS? NO . CARDIOLOGY: DO YOU HAVE A PACEMAKER OR DEFIBRILLATOR? NO . RESPIRATORY: HAVE YOU BEEN SICK IN THE PAST WEEK? NO . FEVER NO . FLU LIKE SYMPTOMS? NO . COUGH NO . INTEGUMENTARY: DO YOU HAVE ANY RASHES OR OPEN SORES? NO . ALLERGIC/IMMUNO: ARE YOU ALLERGIC TO IV DYE? NO . ANY NEW ALLERGIES? NO . PSYCHIATRIC: DO YOU HAVE THOUGHTS OF HURTING YOURSELF OR SOMEONE ELSE? NO . ARE YOU ABUSED, NEGLECTED, OR IN AN UNSAFE ENVIRONMENT? NO . ENDOCRINOLOGY: ARE YOU DIABETIC? YES . OTHER: DO YOU NEED ANY PRESCRIPTIONS? NO . IF YES, PLEASE LIST: ____ . ANY NEW PROBLEMS WITH YOUR MEDICATIONS? NO . WHEN DID YOU LAST EAT? ____ . WHEN DID YOU LAST DRINK? ____ . WHAT DID YOU LAST DRINK? ____ . NAME OF PERSON DRIVING YOU HOME? ____ . DO YOU HAVE ANY OTHER QUESTIONS OR CONCERNS NO . EXAMINATION GENERAL EXAMINATION: GENERALNO ACUTE DISTRESS, WELL NOURISHED AND HYDRATED. PSYCHAPPROPRIATE MOOD AND AFFECT , ORIENTED X 3. ASSESSMENTS SPONDYLOSIS OF CERVICAL REGION WITHOUT MYELOPATHY OR RADICULOPATHY - M47.812 (PRIMARY) TREATMENT SPONDYLOSIS OF CERVICAL REGION WITHOUT MYELOPATHY OR RADICULOPATHY CLINICAL NOTES: 63-YEAR-OLD FEMALE IN FOR CHRONIC PAIN FOLLOW-UP. GIVEN PRESENTING SYMPTOMS RECOMMEND RESTARTING LYRICA. PATIENT HAS STOPPED LYRICA SHE WAS EXPERIENCING HAIR LOSS A POTENTIAL SIDE EFFECT ALTHOUGH SHE ADMITS TO BEING ON ANOTHER MEDICATION AT THAT TIME AND SHE IS UNSURE IF THE LYRICA HAD IN FACT CAUSED THAT SIDE EFFECTS. GIVEN THIS RECOMMENDED RESTARTING LYRICA AND SHOULD PATIENT EXPERIENCING SIDE EFFECTS AGAIN STOPPING THE LYRICA AND CALL THE OFFICE TO MAKE THIS COMMUNICATIONS PROGRAM MANAGER AWARE. PATIENT HAS EXPRESSED UNDERSTANDING OF AND WAS IN AGREEMENT WITH TREATMENT PLAN. GIVEN TIME TO ASK QUESTIONS AND EXPRESS CONCERNS. , ISTOP REGISTRY REVIEWED AND DEMONSTRATES COMPLLIANCE. (REF # [id number] ) BRINGS IN MEDICATIONS WHICH IS APPROPRIATE FOR WHAT WAS DISPENSED. TELEHEALTH VISIT PERFORMED VIA ZOOM. TIME SPENT WITH PATIENT 8 MINUTES.. DISPOSITION & COMMUNICATION FOLLOW UP 2 MONTHS (REASON: SPONDYLOSIS IN CERVICAL REGION) ELECTRONICALLY SIGNED BY DASHAWN MCKEON ON 06/07/2019 AT 08:54 AM EDT DISCLAIMER : THIS IS A VISIT SUMMARY EXTRACTED FROM THE [employer] CHART. IT IS NOT A COPY OF THE [employer] PROGRESS NOTE. MERRICK
== END ==
LOC: M PAIN 10:15
PROVIDERS: ATTEND Family Medicine
DX: M47.812 Spondylosis without myelopathy or radiculopathy, cervical region (principal); E11.9 Type 2 diabetes mellitus without complications; I10 Essential (primary) hypertension; N18.2 Chronic kidney disease, stage 2 (mild); Z79.4 Long term (current) use of insulin; Z79.82 Long term (current) use of aspirin; Z79.899 Other long term (current) drug therapy; Z95.5 Presence of coronary angioplasty implant and graft; Z88.1 Allergy status to other antibiotic agents; Z88.8 Allergy status to other drugs, medicaments and biological substances

== ENCOUNTER 2019-06-23 14:54 | Emergency (ER) | payer MEDICAID, OTHER ==
[~2019-06-23] VITALS: Ht 157.5 cm; Wt 84.0 kg
--- NOTE | 2019-06-23 15:30 | REP ---
Clinical: Acute chest pain . Comparison: 04/16/2019 . Findings: The mediastinum and cardiac silhouette are stable and within normal limits for portable technique. The lung donnelly are clear without acute consolidation, effusion, or pneumothorax. Skeletal structures are intact. Impression: No acute cardiopulmonary process appreciated. Electronically Signed by Jean Carlos Branch MD 06/23/2019 03:22 P
[2019-06-23 15:39] LABS: BASO % 0.6 % (0.0-1.0); EOS # 0.1 10^3/uL (0.0-0.5); EOS % 1.3 % (0.0-3.0); HEMATOCRIT 36.7 % (36.0-47.0); HEMOGLOBIN 12.1 g/dl (12.0-15.5); LYMPH # 1.6 10^3/uL (1.5-5.0); LYMPH % 30.9 % (24.0-44.0); MEAN CORPUSCULAR HEMOGLOBIN 29.3 pg (27.0-33.0); MEAN CORPUSCULAR VOLUME 88.9 fl (80.0-96.0); MONO # 0.5 10^3/uL (0.0-0.8); MONO % 8.6 % (0.0-5.0); NEUTROPHILS % 58.4 % (36.0-66.0); PLATELET COUNT, AUTOMATED 112 10^3/uL (150-450); RED BLOOD COUNT 4.13 10^6/uL (4.00-5.40); WHITE BLOOD COUNT 5.2 10^3/uL (4.0-10.0)
[2019-06-23 15:59] LABS: PROTHROMBIN TIME 12.8 SECONDS (11.8-14.0)
[2019-06-23 16:00] LABS: PARTIAL THROMBOPLASTIN TIME 30.3 SECONDS (25.0-38.4)
[2019-06-23] MEDS ORDERED: ASPIRIN 81 MG CHEW TABLET PO ONE (16:00)
[2019-06-23] MEDS ORDERED: ONDANSETRON 4MG/2ML VIAL IV ONE (16:00)
[2019-06-23] MEDS ORDERED: fentaNYL 100 MCG/2 ML INJECTION (J3010) IV ONE (16:00)
[2019-06-23 16:04] LABS: ALBUMIN 3.3 GM/DL (3.2-5.2); ALT/SGPT 42 U/L (12-78); BILIRUBIN,DIRECT 0.2 MG/DL (0.0-0.2); BILIRUBIN,TOTAL 0.5 MG/DL (0.2-1.0); BLOOD UREA NITROGEN 15 MG/DL (7-18); CALCIUM LEVEL 9.3 MG/DL (8.8-10.2); CARBON DIOXIDE LEVEL 25 MEQ/L (21-32); CHLORIDE LEVEL 101 MEQ/L (98-107); CK-MB VALUE MASS 1.3 NG/ML (<3.6); CPK CREATINE PHOSPHOKINASE 49 U/L (26-192); GLOMERULAR FILTRATION RATE 59.6 (>45); GLUCOSE, FASTING 313 MG/DL (70-100); MB/CK RELATIVE INDEX 2.65 (< OR =4); NT-PRO BNP 21 PG/ML (<125); POTASSIUM SERUM 3.8 MEQ/L (3.5-5.1); SODIUM LEVEL 135 MEQ/L (136-145); TOTAL PROTEIN 7.8 GM/DL (6.4-8.2); TROPONIN I < 0.02 NG/ML (< 0.10)
[2019-06-23] MEDS ORDERED: ISOVUE-370 76% 100ML VIAL As Ordered ONE (16:24)
--- NOTE | 2019-06-23 16:52 | REP ---
Clinical: Acute chest pain. Technique: Axial contrast enhanced images from the thoracic inlet to the upper abdomen using 100 ml Isovue 370 intravenous contrast material with coronal and sagittal re-formations. Findings: Satisfactory enhancement of the pulmonary vasculature is achieved and no filling defects are identified to suggest pulmonary embolus. Thoracic aorta is normal caliber without aneurysm or dissection. Heart and pericardium are normal. Bilateral lung donnelly are well aerated and clear without acute pulmonary parenchymal consolidation or atelectasis. No nodule or mass lesion. No pleural effusion/reaction. No pneumothorax. No adenopathy. Impression: No evidence for pulmonary embolus. No acute pleuroparenchymal or mediastinal process. Electronically Signed by Jean Carlos Branch MD 06/23/2019 04:43 P
[2019-06-23 18:50] LABS: CK-MB VALUE MASS 1.5 NG/ML (<3.6); CPK CREATINE PHOSPHOKINASE 44 U/L (26-192); MB/CK RELATIVE INDEX 3.41 (< OR =4); TROPONIN I < 0.02 NG/ML (< 0.10)
[2019-06-23 19:00] VITALS: BP 121/59
--- NOTE | 2019-06-23 19:39 | ECGEPIP ---
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
--- NOTE | 2019-06-23 19:45 | ECGEPIP ---
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
== END 2019-06-23 19:15 | disposition home or self-care (01) ==
LOC: M ED 14:54
DX: R07.89 Other chest pain (principal); M25.511 Pain in right shoulder; I25.2 Old myocardial infarction; I12.9 Hypertensive chronic kidney disease with stage 1 through stage 4 chronic kidney disease, or unspecified chronic kidney disease; E78.5 Hyperlipidemia, unspecified; E11.9 Type 2 diabetes mellitus without complications; I25.10 Atherosclerotic heart disease of native coronary artery without angina pectoris; K21.9 Gastro-esophageal reflux disease without esophagitis; N18.9 Chronic kidney disease, unspecified; Z95.5 Presence of coronary angioplasty implant and graft; Z88.8 Allergy status to other drugs, medicaments and biological substances; Z88.1 Allergy status to other antibiotic agents; Z88.2 Allergy status to sulfonamides; Z79.899 Other long term (current) drug therapy; Z79.4 Long term (current) use of insulin; Z79.82 Long term (current) use of aspirin; Z79.02 Long term (current) use of antithrombotics/antiplatelets
CPT/HCPCS: 36415; 71045; 71275; 80048; 80076; 82550; 82553; 83880; 85025; 85610; 85730; 93005; 93041; 94760; 96374; 96375; 99285; J2405; J3010; Q9967

== ENCOUNTER → 2019-07-04 | Outpatient (REF) | payer OTHER, MEDICAID ==
[2019-07-04 16:13] LABS: MALB URINE SIEMENS 56.7 MG/L; MAU/CREAT RATIO 56.1 MCG/MG (0.0-30.0)
== END ==
LOC: M LAB REF 15:02
PROVIDERS: ATTEND Nurse Practitioner Family
DX: E11.65 Type 2 diabetes mellitus with hyperglycemia (principal)

== ENCOUNTER → 2019-10-04 | Outpatient (CLI) | payer OTHER, MEDICAID ==
[~2019-10-04] MED LIST changes: +AMMO12CR7 TOP; +APAP500T10 PO; +CIPR-250 PO; +D31000TA2 PO; +MIRA3350 PO; +MM S100C PO; -ROSU10TA6; +ROSU10TA6 PO; +TRIA0.027 EXT; +TRIA37.5 PO
[2019-11-21 07:11] LABS: BLOOD UREA NITROGEN 18 MG/DL (7-18); GLOMERULAR FILTRATION RATE > 60.0 (>45)
== END ==
LOC: M LAB 07:32
PROVIDERS: ATTEND Psychiatry & Neurology Neurology
DX: I10 Essential (primary) hypertension (principal)

== ENCOUNTER → 2019-11-06 | Outpatient (REF) | payer OTHER, MEDICAID ==
[2019-11-06 12:44] LABS: BASO # 0.1 10^3/uL (0.0-0.2); EOS # 0.1 10^3/uL (0.0-0.5); EOS % 2.8 % (0.0-3.0); HEMATOCRIT 38.5 % (36.0-47.0); HEMOGLOBIN 12.2 g/dl (12.0-15.5); LYMPH # 1.4 10^3/uL (1.5-5.0); LYMPH % 27.5 % (24.0-44.0); MEAN CORPUSCULAR HEMOGLOBIN 28.4 pg (27.0-33.0); MEAN CORPUSCULAR HGB CONC 31.7 g/dl (32.0-36.5); MEAN CORPUSCULAR VOLUME 89.7 fl (80.0-96.0); MONO # 0.5 10^3/uL (0.0-0.8); MONO % 10.4 % (0.0-5.0); NEUTROPHILS # 2.9 10^3/uL (1.5-8.5); NEUTROPHILS % 58.1 % (36.0-66.0); PLATELET COUNT, AUTOMATED 120 10^3/uL (150-450); RED BLOOD COUNT 4.29 10^6/uL (4.00-5.40)
[2019-11-06 13:02] LABS: ALBUMIN 3.3 GM/DL (3.2-5.2); ALT/SGPT 45 U/L (12-78); BILIRUBIN,TOTAL 0.6 MG/DL (0.2-1.0); BLOOD UREA NITROGEN 17 MG/DL (7-18); CALCIUM LEVEL 9.9 MG/DL (8.8-10.2); CARBON DIOXIDE LEVEL 27 MEQ/L (21-32); CHLORIDE LEVEL 102 MEQ/L (98-107); CHOLESTEROL LEVEL 219 MG/DL (<200); CREATININE FOR GFR 0.97 MG/DL (0.55-1.30); FREE T4 1.06 NG/DL (0.76-1.46); GLOMERULAR FILTRATION RATE > 60.0 (>45); GLUCOSE, FASTING 312 MG/DL (70-100); HDL CHOLESTEROL 30 MG/DL (>40); NON-HDL-C 189 MG/DL; POTASSIUM SERUM 4.1 MEQ/L (3.5-5.1); SODIUM LEVEL 138 MEQ/L (136-145); TOTAL PROTEIN 7.7 GM/DL (6.4-8.2); TRIGLYCERIDES LEVEL 507 MG/DL (<150)
[2019-11-06 13:35] LABS: TOTAL 25(OH) VITAMIN D 21.5 NG/ML (30.0-100.0)
== END ==
LOC: M LAB REF 12:23
PROVIDERS: ATTEND Nurse Practitioner Family
DX: M25.531 Pain in right wrist (principal); E11.40 Type 2 diabetes mellitus with diabetic neuropathy, unspecified; Z13.9 Encounter for screening, unspecified; E66.09 Other obesity due to excess calories; I10 Essential (primary) hypertension; E78.1 Pure hyperglyceridemia

== ENCOUNTER → 2020-02-27 | Outpatient (REF) | payer OTHER, MEDICAID ==
[2020-02-27 17:09] LABS: ALBUMIN 3.1 GM/DL (3.2-5.2); ALT/SGPT 33 U/L (12-78); BILIRUBIN,TOTAL 0.6 MG/DL (0.2-1.0); BLOOD UREA NITROGEN 13 MG/DL (7-18); CALCIUM LEVEL 8.9 MG/DL (8.8-10.2); CARBON DIOXIDE LEVEL 25 MEQ/L (21-32); CHLORIDE LEVEL 109 MEQ/L (98-107); GLOMERULAR FILTRATION RATE > 60.0 (>45); GLUCOSE, FASTING 241 MG/DL (70-100); POTASSIUM SERUM 4.3 MEQ/L (3.5-5.1); SODIUM LEVEL 141 MEQ/L (136-145); TOTAL PROTEIN 6.8 GM/DL (6.4-8.2)
[2020-02-27 17:54] LABS: HEMOGLOBIN A1c 9.9 %
== END ==
LOC: M LAB REF 16:13
PROVIDERS: ATTEND Family Medicine Addiction Medicine
DX: E11.69 Type 2 diabetes mellitus with other specified complication (principal)

== ENCOUNTER → 2020-03-17 | Outpatient (REF) | payer OTHER, MEDICAID ==
[~2020-03-17] MED LIST changes: -MAG400TA PO; +MAGN400T35 PO
[2020-03-17 18:31] LABS: PERCENT SATURATION 9.1 % (13.2-45.0)
== END ==
LOC: M LAB REF 17:11
PROVIDERS: ATTEND Internal Medicine Nephrology
DX: D50.9 Iron deficiency anemia, unspecified (principal)

== ENCOUNTER 2020-03-26 13:08 | Outpatient (CLI) | payer OTHER ==
[~2020-03-26] VITALS: Ht 157.5 cm; Wt 87.5 kg
[~2020-03-26 13:08] MED LIST changes: +ALBUTEROL SULFATE 2.5 MG/0.5 ML INH NEB SOLN INH PRN; +EPINEPHrine INJ 1 MG/ML 1ML AMP IM PRN; +MAG400TA PO; -MAGN400T35 PO; +diphenhydrAMINE 50MG/ML VIAL (J1200) IV PRN; +methylPREDNISolone 125MG 2ML VIAL IV PRN
[2020-03-26 13:15] VITALS: BP 142/78
[2020-03-26] MEDS ORDERED: FERRIC CARBOXYMALTOSE INJ 750 MG, VIAL MATE ADAPTER 1 EACH in NS 250 ML IV ONE (14:00)
[2020-03-26] MEDS ORDERED: NS 1,000 ML IV SCH (14:00)
[2020-03-26 14:30] VITALS: BP 116/59
[2020-03-26 16:51] VITALS: BP 159/72
== END 2020-03-26 17:00 | disposition home or self-care (01) ==
LOC: M INFU 13:08
PROVIDERS: ATTEND Internal Medicine Nephrology
DX: D50.9 Iron deficiency anemia, unspecified (principal); Z88.1 Allergy status to other antibiotic agents; Z88.2 Allergy status to sulfonamides; Z88.8 Allergy status to other drugs, medicaments and biological substances
CPT/HCPCS: 96365; 96366; J1439

== ENCOUNTER 2020-04-24 13:38 | Emergency (ER) | payer OTHER, MEDICAID ==
[~2020-04-24] VITALS: Ht 157.5 cm; Wt 84.4 kg
[~2020-04-24 13:38] MED LIST changes: -ALBUTEROL SULFATE 2.5 MG/0.5 ML INH NEB SOLN INH PRN; -EPINEPHrine INJ 1 MG/ML 1ML AMP IM PRN; -MAG400TA PO; +MAGN400T35 PO; -diphenhydrAMINE 50MG/ML VIAL (J1200) IV PRN; -methylPREDNISolone 125MG 2ML VIAL IV PRN
--- NOTE | 2020-04-24 15:09 | REP ---
INDICATION: Coronavirus workup. COMPARISON: 06/23/2019. TECHNIQUE: SINGLE PORTABLE AP VIEW OF THE CHEST WAS PERFORMED. FINDINGS: No evidence of acute infiltrate or pulmonary edema. There is mild cardiomegaly. The mediastinal silhouette appears unchanged. IMPRESSION: NO ACUTE PULMONARY DISEASE.Mild cardiomegaly. <Electronically signed by Darío Owens > 04/24/20 [id number]
[2020-04-24 15:37] LABS: BASO % 0.6 % (0.0-1.0); EOS % 1.3 % (0.0-3.0); HEMATOCRIT 40.6 % (36.0-47.0); HEMOGLOBIN 13.1 g/dl (12.0-15.5); LYMPH # 1.2 10^3/uL (1.5-5.0); LYMPH % 36.7 % (24.0-44.0); MEAN CORPUSCULAR HGB CONC 32.3 g/dl (32.0-36.5); MEAN CORPUSCULAR VOLUME 89.8 fl (80.0-96.0); MONO # 0.4 10^3/uL (0.0-0.8); MONO % 11.9 % (2.0-8.0); NEUTROPHILS # 1.6 10^3/uL (1.5-8.5); NEUTROPHILS % 49.5 % (36.0-66.0); RED BLOOD COUNT 4.52 10^6/uL (4.00-5.40); WHITE BLOOD COUNT 3.2 10^3/uL (4.0-10.0)
[2020-04-24 15:46] LABS: INR 0.96; PARTIAL THROMBOPLASTIN TIME 30.9 SECONDS (24.2-38.5)
[2020-04-24 15:49] LABS: D-DIMER QUANT 499.55 ng/ml (<500)
[2020-04-24 15:53] LABS: PLATELET COUNT, AUTOMATED 88 10^3/uL (150-450)
[2020-04-24 16:05] LABS: ALBUMIN 3.2 GM/DL (3.2-5.2); ALT/SGPT 102 U/L (12-78); BILIRUBIN,TOTAL 0.7 MG/DL (0.2-1.0); BLOOD UREA NITROGEN 13 MG/DL (7-18); C REACTIVE PROTEIN QUANTITATIV 0.87 MG/DL (0.00-0.30); CARBON DIOXIDE LEVEL 29 MEQ/L (21-32); CHLORIDE LEVEL 101 MEQ/L (98-107); CK-MB VALUE MASS 1.6 NG/ML (<3.6); CPK CREATINE PHOSPHOKINASE 65 U/L (26-192); CREATININE FOR GFR 0.82 MG/DL (0.55-1.30); FERRITIN 338 NG/ML (8-252); GLOMERULAR FILTRATION RATE > 60.0 (>45); GLUCOSE, FASTING 202 MG/DL (70-100); LDH LACTATE DEHYDROGENASE 218 U/L (84-246); MAGNESIUM LEVEL 1.8 MG/DL (1.8-2.4); MB/CK RELATIVE INDEX 2.46 (< OR =4); POTASSIUM SERUM 3.3 MEQ/L (3.5-5.1); SODIUM LEVEL 136 MEQ/L (136-145); TOTAL PROTEIN 7.3 GM/DL (6.4-8.2); TROPONIN I < 0.02 NG/ML (< 0.10)
--- NOTE | 2020-04-24 17:46 | CR ---
CONSULTATION DATE: 04/24/2020 CONSULTATION FOR: Dr. Boo Owens REASON FOR CONSULTATION: Concerning monoclonal antibody administration for COVID with multiple risk factors. HISTORY: Sherie Alexander is a 64-year-old patient followed by [facility]. She has been trying to reach them repeatedly for symptoms of fever, achiness, and concern that she had COVID. She was unable to get through on their phone line. She went to [facility]. Was diagnosed with an antigen test that was COVID positive. She came to the emergency room, where she is being offered monoclonal antibody therapy. MEDICAL HISTORY: Briefly summarized below. 1. Type 2 diabetes. Body mass index (BMI) over 35. 2. Hypertensive heart disease. Other past history includes coronary artery disease, history of gout, peripheral arterial disease, hyperlipidemia. HOME MEDICATIONS: - Tylenol as needed - allopurinol 100 mg three times a day - aspirin 81 mg daily - vitamin D 1000 units daily - Plavix 75 mg daily - famotidine 20 mg daily - glipizide 10 mg in the morning - Basaglar 50 units twice a day - Lispro sliding scale - Victoza 1.8 mcg subcutaneous daily - magnesium oxide 400 mg twice a day - metformin 1000 mg in the evening - metoprolol tartrate 25 mg twice a day - omeprazole 40 mg every night - Elmiron 100 mg twice a day - MiraLax as needed - Crestor 10 mg daily - triamterene/ hydrochlorothiazide, dose not specified, one daily ALLERGIES: CEPHALEXIN, PROMETHAZINE, SULFA, TETRACYCLINE, TRIMETHOPRIM. She also lists STATINS, though she is reportedly taking rosuvastatin. REVIEW OF SYSTEMS: No chest pain, no shortness of breath. She has felt febrile. PHYSICAL EXAMINATION: Temperature 99.6, 158/92, oxygen saturation 97% on room air, pulse 78. GENERAL APPEARANCE: Resting comfortably, no distress. HEENT: Unremarkable. LUNGS: Decreased breath sounds but clear. HEART: Regular rate and rhythm without murmur. ABDOMEN: Soft, nontender. No masses. No peripheral edema. LABORATORY DATA: Electrolytes look essentially unremarkable. Potassium 3.3, creatinine 0.8. AST 103, ALT 102, alkaline phosphatase 152, C-reactive protein 0.87. D-dimer 499. Fibrinogen 505. White count 32, hemoglobin 13, platelets 88. Chest x-ray: No active disease. IMPRESSION: Patient has multiple risk factors, putting her at risk for the progression of her COVID, including type 2 diabetes, BMI over 35, hypertensive heart disease. We have given her information on monoclonal antibody therapy, and after she reads and signs consent, we will order an infusion of this. She understands she should delay vaccination for COVID-19 for approximately 90 days after the infusion. She was set up to have her first COVID shot this week, but she missed that appointment. I urged her to followup with her primary care provider and to call the office in the morning to arrange a followup. She is at risk of progression. I have asked the emergency room (ER) to enroll her in the outpatient management program as well.
[2020-04-24 17:49] VITALS: BP 126/59
[2020-04-24] MEDS ORDERED: ACETAMINOPHEN TAB 650MG DOSE (2X325MG) PO ONE (18:15)
--- NOTE | 2020-04-25 08:07 | ECGEPIP ---
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
== END 2020-04-24 18:23 | disposition home or self-care (01) ==
LOC: M ED 13:38
DX: U07.1 COVID-19 (principal); R06.02 Shortness of breath; R05 Cough; R50.9 Fever, unspecified; E11.9 Type 2 diabetes mellitus without complications; I25.2 Old myocardial infarction; Z87.442 Personal history of urinary calculi; K21.9 Gastro-esophageal reflux disease without esophagitis; K58.9 Irritable bowel syndrome, unspecified; N18.30 Chronic kidney disease, stage 3 unspecified; F41.9 Anxiety disorder, unspecified; F32.9 Major depressive disorder, single episode, unspecified; Z95.5 Presence of coronary angioplasty implant and graft; Z79.4 Long term (current) use of insulin; Z79.82 Long term (current) use of aspirin; Z79.899 Other long term (current) drug therapy; Z88.8 Allergy status to other drugs, medicaments and biological substances; Z91.89 Other specified personal risk factors, not elsewhere classified; Z88.1 Allergy status to other antibiotic agents

== ENCOUNTER 2020-04-24 18:35 | Outpatient (CLI) | payer MEDICAID, OTHER ==
[2020-04-24] VITALS (11 sets, daily range): BP systolic 109–134; BP diastolic 53–61
[~2020-04-24] VITALS: Ht 157.5 cm; Wt 83.4 kg
[~2020-04-24 18:35] MED LIST changes: +ACETAMINOPHEN TAB 650MG DOSE (2X325MG) PO ONE; +ALBUTEROL 90 MCG/ACT 8GM HFA INHALER INH PRN; +ALBUTEROL SULFATE 2.5 MG/0.5 ML INH NEB SOLN INH PRN; +EPINEPHrine INJ 1 MG/ML 1ML AMP IM PRN; +NS 1,000 ML IV SCH; +diphenhydrAMINE 50MG CAP PO ONE; +diphenhydrAMINE 50MG/ML VIAL (J1200) IV PRN; +methylPREDNISolone 125MG 2ML VIAL IV ONE; +methylPREDNISolone 125MG 2ML VIAL IV PRN
[2020-04-24] MEDS ORDERED: BAMLANIVIMAB 700 MG in NS 250 ML IV ONE (19:30)
== END 2020-04-24 23:57 | disposition home or self-care (01) ==
LOC: M OPCLI4 18:35 → M 4MAIN 18:36 → M OPCLI4 23:57
PROVIDERS: ATTEND Family Medicine
DX: U07.1 COVID-19 (principal); Z88.2 Allergy status to sulfonamides; Z88.8 Allergy status to other drugs, medicaments and biological substances
CPT/HCPCS: 96375; J2930; M0239

== ENCOUNTER → 2020-05-29 | Outpatient (REF) | payer OTHER, MEDICAID ==
[~2020-05-29] MED LIST changes: -ACETAMINOPHEN TAB 650MG DOSE (2X325MG) PO ONE; -ALBUTEROL 90 MCG/ACT 8GM HFA INHALER INH PRN; -ALBUTEROL SULFATE 2.5 MG/0.5 ML INH NEB SOLN INH PRN; -EPINEPHrine INJ 1 MG/ML 1ML AMP IM PRN; -NS 1,000 ML IV SCH; -diphenhydrAMINE 50MG CAP PO ONE; -diphenhydrAMINE 50MG/ML VIAL (J1200) IV PRN; -methylPREDNISolone 125MG 2ML VIAL IV ONE; -methylPREDNISolone 125MG 2ML VIAL IV PRN
[2020-05-29 14:15] LABS: AMORPHOUS SEDIMENT SMALL (NEGATIVE); BACTERIA, URINE AUTO NEGATIVE (NEGATIVE); MUCUS, URINE SMALL (NEGATIVE); RBC, URINE AUTO 1 /HPF (0-3); SQUAMOUS EPITHELIAL CELL UR AU 5 /HPF (0-6); WBC, URINE AUTO 6 /HPF (0-3)
== END ==
LOC: M SMT 13:17
PROVIDERS: ATTEND Specialist
DX: R31.9 Hematuria, unspecified (principal)

== ENCOUNTER → 2020-06-06 | Outpatient (REF) | payer OTHER, MEDICAID ==
[2020-06-06 11:55] LABS: BASO % 0.7 % (0.0-1.0); EOS # 0.2 10^3/uL (0.0-0.5); EOS % 3.7 % (0.0-3.0); HEMATOCRIT 40.3 % (36.0-47.0); HEMOGLOBIN 13.2 g/dl (12.0-15.5); LYMPH # 1.4 10^3/uL (1.5-5.0); LYMPH % 34.2 % (24.0-44.0); MEAN CORPUSCULAR HEMOGLOBIN 31.1 pg (27.0-33.0); MEAN CORPUSCULAR HGB CONC 32.8 g/dl (32.0-36.5); MEAN CORPUSCULAR VOLUME 94.8 fl (80.0-96.0); MONO # 0.5 10^3/uL (0.0-0.8); MONO % 11.4 % (2.0-8.0); NEUTROPHILS % 49.8 % (36.0-66.0); PLATELET COUNT, AUTOMATED 101 10^3/uL (150-450); RED BLOOD COUNT 4.25 10^6/uL (4.00-5.40)
[2020-06-06 12:50] LABS: ALBUMIN 3.2 GM/DL (3.2-5.2); ALT/SGPT 42 U/L (12-78); BILIRUBIN,DIRECT 0.2 MG/DL (0.0-0.2); BILIRUBIN,TOTAL 0.6 MG/DL (0.2-1.0); BLOOD UREA NITROGEN 12 MG/DL (7-18); CALCIUM LEVEL 9.9 MG/DL (8.8-10.2); CARBON DIOXIDE LEVEL 27 MEQ/L (21-32); CHLORIDE LEVEL 103 MEQ/L (98-107); CREATININE FOR GFR 0.65 MG/DL (0.55-1.30); GLOMERULAR FILTRATION RATE > 60.0 (>45); GLUCOSE, FASTING 233 MG/DL (70-100); SODIUM LEVEL 139 MEQ/L (136-145); TOTAL PROTEIN 7.2 GM/DL (6.4-8.2)
== END ==
LOC: M LAB REF 11:17
PROVIDERS: ATTEND Pediatrics
DX: D69.6 Thrombocytopenia, unspecified (principal); R74.01 Elevation of levels of liver transaminase levels; N18.9 Chronic kidney disease, unspecified

== ENCOUNTER → 2020-11-11 | Outpatient (CLI) | payer OTHER ==
[~2020-11-11] MED LIST changes: +OMEP40CA4 PO; -OMEP40CA97 PO
--- NOTE | 2020-11-11 09:54 | REP ---
INDICATION: ELEVATED LFT\S. COMPARISON: CT chest 06/23/2019, CT abdomen 01/10/2019. TECHNIQUE: Real-time sonographic evaluation of right upper quadrant performed. FINDINGS: The patient has had a prior cholecystectomy.. There is no intrahepatic or extrahepatic biliary dilatation, common bile duct measures 4 mm in maximum diameter. Liver demonstrates heterogeneous increased echotexture compatible with diffuse fibrofatty infiltration. In the right lobe of the liver there is a hyperechoic nodule measuring 9 x 6 x 8 mm. The pancreas demonstrates homogeneous echotexture with no gross mass. The right kidney demonstrates no hydronephrosis, with a normal size of 11.8 cm in length. No free fluid is seen. IMPRESSION: Prior cholecystectomy. No biliary dilatation. Mild diffuse fibrofatty infiltration of the liver. Hyperechoic nodule in the right lobe of the liver measures 9 x 6 x 8 mm and may represent a subcentimeter hemangioma. <Electronically signed by Darío Owens > 11/11/20 0951
== END ==
LOC: M RAD 08:51
PROVIDERS: ATTEND Pediatrics
DX: R74.01 Elevation of levels of liver transaminase levels (principal); Z90.49 Acquired absence of other specified parts of digestive tract; K76.0 Fatty (change of) liver, not elsewhere classified; K76.89 Other specified diseases of liver

== ENCOUNTER → 2021-01-12 | Outpatient (REF) | payer OTHER, MEDICAID ==
[2021-01-12 18:34] LABS: MAGNESIUM LEVEL 1.8 MG/DL (1.8-2.4); PERCENT SATURATION 15.1 % (13.2-45.0)
== END ==
LOC: M LAB REF 17:06
PROVIDERS: ATTEND Internal Medicine Nephrology
DX: E61.1 Iron deficiency (principal); E83.42 Hypomagnesemia; N18.2 Chronic kidney disease, stage 2 (mild)

== ENCOUNTER → 2021-01-19 | Outpatient (CLI) | payer OTHER ==
[~2021-01-19] MED LIST changes: +ALBU8.5H INH; +BENA-8 PO; -BENA20TA8 PO; +CETI-25 PO; -CETI10TA8 PO; +GLIP10TA PO; -IMIQ5CR; +IMIQ5CRE8; -LEVO500T3 PO; +LEVO500T4 PO; +OZEM2INJ SC
[2021-01-19 12:55] LABS: HEMATOCRIT 36.1 % (36.0-47.0); HEMOGLOBIN 11.9 g/dl (12.0-15.5); MEAN CORPUSCULAR HEMOGLOBIN 30.4 pg (27.0-33.0); MEAN CORPUSCULAR VOLUME 92.3 fl (80.0-96.0); RED BLOOD COUNT 3.91 10^6/uL (4.00-5.40); WHITE BLOOD COUNT 4.7 10^3/uL (4.0-10.0)
[2021-01-19 12:58] LABS: PLATELET COUNT, AUTOMATED 89 10^3/uL (150-450)
== END ==
LOC: M LAB 12:10
PROVIDERS: ATTEND Physician Assistant Medical
DX: D50.9 Iron deficiency anemia, unspecified (principal); D69.6 Thrombocytopenia, unspecified

== ENCOUNTER → 2021-02-02 | Outpatient (CLI) | payer OTHER ==
[~2021-02-02] MED LIST changes: -BENA-8 PO; +BENA20TA8 PO; -CETI-25 PO; +CETI10TA8 PO; +IMIQ5CR; -IMIQ5CRE8; +LEVO500T3 PO; -LEVO500T4 PO
== END ==
LOC: M LABSMTC 10:59
PROVIDERS: ATTEND Anesthesiology
DX: Z01.812 Encounter for preprocedural laboratory examination (principal); Z20.822 Contact with and (suspected) exposure to COVID-19

== ENCOUNTER 2021-02-06 07:01 | Day surgery (SDC) | payer OTHER ==
[~2021-02-06] VITALS: Ht 157.5 cm; Wt 84.4 kg
[~2021-02-06 07:01] MED LIST changes: +BENA-8 PO; -BENA20TA8 PO; +CETI-25 PO; -CETI10TA8 PO; -IMIQ5CR; +IMIQ5CRE8; -LEVO500T3 PO; +LEVO500T4 PO; +NS 1,000 ML IV ONE
[2021-02-06] MEDS ORDERED: LIDOCAINE 2% 100MG/5ML SDV (FOR ANES.) As Ordered ONE (08:46)
[2021-02-06] MEDS ORDERED: propofoL 200 MG/20 ML VIAL As Ordered ONE ×3 (08:46→09:06)
[2021-02-06] MEDS ORDERED: GLYCOPYRROLATE INJ 0.2 MG/ML 2 ML VIAL As Ordered ONE (08:46)
[2021-02-06 09:35] VITALS: BP 156/72
== END 2021-02-06 09:44 | disposition home or self-care (01) ==
LOC: M OPP 07:01
PROVIDERS: ATTEND Internal Medicine Gastroenterology
DX: K52.9 Noninfective gastroenteritis and colitis, unspecified (principal); Z86.010 Personal history of colon polyps; Z80.0 Family history of malignant neoplasm of digestive organs; K64.8 Other hemorrhoids; R10.84 Generalized abdominal pain; I85.00 Esophageal varices without bleeding; K31.7 Polyp of stomach and duodenum; D50.9 Iron deficiency anemia, unspecified; R12 Heartburn; Z79.4 Long term (current) use of insulin; Z79.899 Other long term (current) drug therapy; Z88.1 Allergy status to other antibiotic agents; Z88.2 Allergy status to sulfonamides; Z88.5 Allergy status to narcotic agent; Z88.8 Allergy status to other drugs, medicaments and biological substances; Z91.048 Other nonmedicinal substance allergy status

== ENCOUNTER → 2021-04-09 | Outpatient (CLI) | payer OTHER ==
[~2021-04-09] MED LIST changes: -NS 1,000 ML IV ONE
== END ==
LOC: M SOG 09:30
PROVIDERS: ATTEND Orthopaedic Surgery Adult Reconstructive Orthopaedic Surgery
DX: M25.561 Pain in right knee (principal); M25.761 Osteophyte, right knee

== ENCOUNTER → 2021-04-14 | Outpatient (CLI) | payer MEDICAID, OTHER ==
[2021-04-14 12:32] LABS: URIC ACID 2.2 MG/DL (2.6-6.0)
[2021-04-14 12:41] LABS: TOTAL 25(OH) VITAMIN D 19.8 NG/ML (30.0-100.0)
== END ==
LOC: M RAD 09:28
PROVIDERS: ATTEND Pediatrics
DX: M47.817 Spondylosis without myelopathy or radiculopathy, lumbosacral region (principal); M17.11 Unilateral primary osteoarthritis, right knee; M25.561 Pain in right knee; M54.50 Low back pain, unspecified; M10.9 Gout, unspecified; E55.9 Vitamin D deficiency, unspecified; Z79.899 Other long term (current) drug therapy

== ENCOUNTER → 2021-04-14 | Outpatient (CLI) | payer MEDICAID, OTHER ==
[2021-04-14 12:05] LABS: HEMATOCRIT 35.6 % (36.0-47.0); HEMOGLOBIN 11.6 g/dl (12.0-15.5); MEAN CORPUSCULAR HEMOGLOBIN 29.3 pg (27.0-33.0); MEAN CORPUSCULAR HGB CONC 32.6 g/dl (32.0-36.5); MEAN CORPUSCULAR VOLUME 89.9 fl (80.0-96.0); PLATELET COUNT, AUTOMATED 112 10^3/uL (150-450); RED BLOOD COUNT 3.96 10^6/uL (4.00-5.40); WHITE BLOOD COUNT 6.3 10^3/uL (4.0-10.0)
[2021-04-14 12:33] LABS: ALBUMIN 3.1 GM/DL (3.2-5.2); ALT/SGPT 29 U/L (12-78); BILIRUBIN,DIRECT 0.2 MG/DL (0.0-0.2); BILIRUBIN,TOTAL 0.6 MG/DL (0.2-1.0); IRON (FE) 48 UG/DL (50-170); TOTAL IRON BINDING CAPACITY 479 UG/DL (250-450); TOTAL PROTEIN 7.1 GM/DL (6.4-8.2)
[2021-04-14 12:52] LABS: HEPATITIS B SURFACE ANTIGEN NEGATIVE (NEGATIVE)
[2021-04-14 13:20] LABS: HEPATITIS B CORE ANTIBODY IGM NEGATIVE (NEGATIVE)
[2021-04-16 17:08] LABS: ANCA-ATYPICAL <1:20 titer (Neg:<1:20); ANTI-MITOCHONDRIAL ANTIBODY <20.0 Units (0.0-20.0); ANTINUCLEAR ANTIBODIES DIRECT Negative (Negative); CERULOPLASMIN 28.5 mg/dL (19.0-39.0); CYTOPLASMIC NEUTROP AB ANCA-C <1:20 titer (Neg:<1:20); LIVER-KIDNEY MICROSOMAL ABY <20.1 Units (0.0-20.0); PERINUCLEAR AB ANCA-P <1:20 titer (Neg:<1:20)
== END ==
LOC: M LAB 09:21
PROVIDERS: ATTEND Physician Assistant Medical
DX: I85.00 Esophageal varices without bleeding (principal); R94.5 Abnormal results of liver function studies; Z79.899 Other long term (current) drug therapy; M25.561 Pain in right knee; M47.817 Spondylosis without myelopathy or radiculopathy, lumbosacral region; M17.11 Unilateral primary osteoarthritis, right knee; M10.9 Gout, unspecified; M54.50 Low back pain, unspecified; E55.9 Vitamin D deficiency, unspecified

== ENCOUNTER 2021-04-21 06:35 | Day surgery (SDC) | payer OTHER ==
[~2021-04-21] VITALS: Ht 154.9 cm; Wt 84.7 kg
[~2021-04-21 06:35] MED LIST changes: -D31000TA2 PO; +NS 1,000 ML IV ONE; +VITA100093 PO
[2021-04-21] MEDS ORDERED: ONDANSETRON 4MG/2ML VIAL IV ONE (08:25)
[2021-04-21 08:30] VITALS: BP 143/73
== END 2021-04-21 08:31 | disposition home or self-care (01) ==
LOC: M OPP 06:35
PROVIDERS: ATTEND Internal Medicine Gastroenterology
DX: K31.7 Polyp of stomach and duodenum (principal); I85.00 Esophageal varices without bleeding; D50.9 Iron deficiency anemia, unspecified; K74.60 Unspecified cirrhosis of liver; Z80.0 Family history of malignant neoplasm of digestive organs; Z80.6 Family history of leukemia; Z79.4 Long term (current) use of insulin; Z79.82 Long term (current) use of aspirin; Z79.899 Other long term (current) drug therapy; Z88.1 Allergy status to other antibiotic agents; Z88.5 Allergy status to narcotic agent; Z88.8 Allergy status to other drugs, medicaments and biological substances; Z91.048 Other nonmedicinal substance allergy status; Z95.5 Presence of coronary angioplasty implant and graft; Z87.891 Personal history of nicotine dependence
CPT/HCPCS: 43244; J2405

== ENCOUNTER → 2021-05-14 | Outpatient (CLI) | payer OTHER ==
[~2021-05-14] MED LIST changes: +LIDOCAINE 2% 100MG/5ML SDV (FOR ANES.) As Ordered ONE; -NS 1,000 ML IV ONE; +fentaNYL 100 MCG/2 ML INJECTION As Ordered ONE; +propofoL 200 MG/20 ML VIAL As Ordered ONE
== END ==
LOC: M RAD 07:55
PROVIDERS: ATTEND Physician Assistant Medical
DX: I85.00 Esophageal varices without bleeding (principal)

== ENCOUNTER → 2021-05-21 | Outpatient (CLI) | payer OTHER ==
[~2021-05-21] MED LIST changes: -LIDOCAINE 2% 100MG/5ML SDV (FOR ANES.) As Ordered ONE; -fentaNYL 100 MCG/2 ML INJECTION As Ordered ONE; -propofoL 200 MG/20 ML VIAL As Ordered ONE
[2021-05-21 09:19] LABS: HEMATOCRIT 38.2 % (36.0-47.0); HEMOGLOBIN 12.2 g/dl (12.0-15.5); MEAN CORPUSCULAR HEMOGLOBIN 28.7 pg (27.0-33.0); MEAN CORPUSCULAR HGB CONC 31.9 g/dl (32.0-36.5); MEAN CORPUSCULAR VOLUME 89.9 fl (80.0-96.0); PLATELET COUNT, AUTOMATED 126 10^3/uL (150-450); RED BLOOD COUNT 4.25 10^6/uL (4.00-5.40); WHITE BLOOD COUNT 6.3 10^3/uL (4.0-10.0)
== END ==
LOC: M LAB 08:49
PROVIDERS: ATTEND Physician Assistant Medical
DX: D50.9 Iron deficiency anemia, unspecified (principal)

== ENCOUNTER → 2021-06-17 | Outpatient (CLI) | payer OTHER | LOC: M RAD 13:24 | PROVIDERS: ATTEND Pediatrics | DX: R05.1 Acute cough (principal) ==

== ENCOUNTER → 2021-07-02 | Outpatient (CLI) | payer OTHER | LOC: M SOG 10:32 | PROVIDERS: ATTEND Orthopaedic Surgery | DX: M25.512 Pain in left shoulder (principal) ==

== ENCOUNTER 2021-07-22 20:58 | Emergency (ER) | payer OTHER, MEDICARE, MEDICAID ==
[~2021-07-22] VITALS: Ht 157.5 cm; Wt 84.1 kg
[2021-07-22 21:23] VITALS: BP 144/68
[2021-07-23] MEDS ORDERED: CLAR10CA3 PO (00:08)
[2021-07-23] MEDS ORDERED: HYDR25OIN TOP (00:08)
[2021-08-07] MEDS ORDERED: PROP20TA72 PO (14:32)
[2021-08-07] MEDS ORDERED: TRES1INJ SC (14:32)
[2021-08-07] MEDS ORDERED: INSU100V2 SC (14:32)
== END 2021-07-23 00:22 | disposition home or self-care (01) ==
LOC: M ED 20:58
DX: R21 Rash and other nonspecific skin eruption (principal); I25.2 Old myocardial infarction; E11.9 Type 2 diabetes mellitus without complications; G47.30 Sleep apnea, unspecified; H40.9 Unspecified glaucoma; K58.9 Irritable bowel syndrome, unspecified; M89.8X9 Other specified disorders of bone, unspecified site; F32.A Depression, unspecified; F41.9 Anxiety disorder, unspecified; Z79.899 Other long term (current) drug therapy; Z79.82 Long term (current) use of aspirin; Z79.4 Long term (current) use of insulin; Z88.8 Allergy status to other drugs, medicaments and biological substances; Z91.048 Other nonmedicinal substance allergy status; Z88.1 Allergy status to other antibiotic agents; Z88.5 Allergy status to narcotic agent; Z87.891 Personal history of nicotine dependence; Z95.1 Presence of aortocoronary bypass graft; Z98.890 Other specified postprocedural states; Z86.69 Personal history of other diseases of the nervous system and sense organs

== ENCOUNTER → 2021-08-06 | Outpatient (CLI) | payer MEDICAID, OTHER ==
[~2021-08-06] MED LIST changes: +CLAR10CA3 PO; +HYDR25OIN TOP; +INSU100V2 SC; +PROP20TA72 PO; +TRES1INJ SC
== END ==
LOC: M PLAIMG 08:13
PROVIDERS: ATTEND Orthopaedic Surgery
DX: M75.42 Impingement syndrome of left shoulder (principal); M19.012 Primary osteoarthritis, left shoulder

== ENCOUNTER → 2021-08-11 | Outpatient (CLI) | payer OTHER ==
[~2021-08-11] MED LIST changes: +LEVO1TAB39 PO; -LEVO500T4 PO
== END ==
LOC: M LABSMTC 10:59
PROVIDERS: ATTEND Anesthesiology
DX: Z01.812 Encounter for preprocedural laboratory examination (principal); Z20.822 Contact with and (suspected) exposure to COVID-19

== ENCOUNTER → 2021-08-11 | Outpatient (REF) | payer OTHER ==
[2021-08-11 14:34] LABS: BACTERIA, URINE AUTO 1+ (NEGATIVE); RBC, URINE AUTO 26 /HPF (0-3); SQUAMOUS EPITHELIAL CELL UR AU 15 /HPF (0-6); WBC, URINE AUTO TNTC /HPF (0-3)
== END ==
LOC: M SMT 12:55
PROVIDERS: ATTEND Specialist
DX: N39.41 Urge incontinence (principal)

== ENCOUNTER 2021-08-13 11:51 | Day surgery (SDC) | payer OTHER ==
[~2021-08-13] VITALS: Ht 157.5 cm; Wt 83.9 kg
[~2021-08-13 11:51] MED LIST changes: -LEVO1TAB39 PO; +LEVO500T4 PO; +NS 1,000 ML IV ONE
[2021-08-13] MEDS ORDERED: fentaNYL 100 MCG/2 ML INJECTION As Ordered ONE (13:39)
[2021-08-13] MEDS ORDERED: GLYCOPYRROLATE INJ 0.2 MG/ML 2 ML VIAL As Ordered ONE (13:39)
[2021-08-13] MEDS ORDERED: propofoL 200 MG/20 ML VIAL As Ordered ONE (13:39)
[2021-08-13] MEDS ORDERED: ONDANSETRON 4MG/2ML VIAL As Ordered ONE (13:50)
[2021-08-13 14:30] VITALS: BP 149/71
== END 2021-08-13 14:43 | disposition home or self-care (01) ==
LOC: M OPP 11:51
PROVIDERS: ATTEND Internal Medicine Gastroenterology
DX: K29.60 Other gastritis without bleeding (principal); I85.00 Esophageal varices without bleeding; Z86.010 Personal history of colon polyps; Z80.0 Family history of malignant neoplasm of digestive organs; Z80.8 Family history of malignant neoplasm of other organs or systems; Z83.79 Family history of other diseases of the digestive system; Z79.02 Long term (current) use of antithrombotics/antiplatelets; Z79.1 Long term (current) use of non-steroidal anti-inflammatories (NSAID); Z79.2 Long term (current) use of antibiotics; Z79.4 Long term (current) use of insulin; Z79.51 Long term (current) use of inhaled steroids; Z79.82 Long term (current) use of aspirin; Z79.899 Other long term (current) drug therapy; Z88.1 Allergy status to other antibiotic agents; Z88.2 Allergy status to sulfonamides; Z88.5 Allergy status to narcotic agent; Z88.8 Allergy status to other drugs, medicaments and biological substances; Z91.048 Other nonmedicinal substance allergy status
CPT/HCPCS: 43239; 88305; J2405; J3010

== ENCOUNTER → 2021-09-10 | Outpatient (CLI) | payer MEDICARE, MEDICAID ==
[~2021-09-10] MED LIST changes: -NS 1,000 ML IV ONE
[2021-09-10 18:47] LABS: BLOOD UREA NITROGEN 13 MG/DL (7-18); CREATININE FOR GFR 0.91 MG/DL (0.55-1.30); GLOMERULAR FILTRATION RATE > 60.0 (>45)
== END ==
LOC: M LAB 17:15
PROVIDERS: ATTEND Physician Assistant Medical
DX: K74.60 Unspecified cirrhosis of liver (principal)

== ENCOUNTER → 2021-09-14 | Outpatient (CLI) | payer OTHER ==
[~2021-09-14] MED LIST changes: +PROHANCE 279.3MG/ML 15ML VIAL ONE; +PROHANCE 279.3MG/ML 5ML VIAL ONE
== END ==
LOC: M PLAIMG 15:00
PROVIDERS: ATTEND Physician Assistant Medical
DX: R93.3 Abnormal findings on diagnostic imaging of other parts of digestive tract (principal); K74.60 Unspecified cirrhosis of liver; K44.9 Diaphragmatic hernia without obstruction or gangrene; R16.1 Splenomegaly, not elsewhere classified; N28.1 Cyst of kidney, acquired; K76.6 Portal hypertension
CPT/HCPCS: 74183; A9576

== ENCOUNTER → 2021-11-14 | Outpatient (CLI) | payer MEDICARE, MEDICAID ==
[~2021-11-14] MED LIST changes: +LEVO1TAB39 PO; -LEVO500T4 PO; -PROHANCE 279.3MG/ML 15ML VIAL ONE; -PROHANCE 279.3MG/ML 5ML VIAL ONE
== END ==
LOC: M RAD 12:29
PROVIDERS: ATTEND Orthopaedic Surgery Adult Reconstructive Orthopaedic Surgery
DX: M17.0 Bilateral primary osteoarthritis of knee (principal); M71.21 Synovial cyst of popliteal space [Baker], right knee; M25.461 Effusion, right knee; M94.261 Chondromalacia, right knee; M23.021 Cystic meniscus, posterior horn of medial meniscus, right knee

== ENCOUNTER → 2021-12-09 | Outpatient (REF) | payer MEDICARE, MEDICAID | LOC: M LAB REF 16:15 | PROVIDERS: ATTEND Pediatrics | DX: R35.0 Frequency of micturition (principal) ==

== ENCOUNTER → 2021-12-19 | Outpatient (CLI) | payer MEDICAID, MEDICARE ==
[2021-12-19 16:46] LABS: HEMOGLOBIN A1c 11.3 %
== END ==
LOC: M LAB 15:40
PROVIDERS: ATTEND Orthopaedic Surgery Adult Reconstructive Orthopaedic Surgery
DX: Z01.812 Encounter for preprocedural laboratory examination (principal); M17.9 Osteoarthritis of knee, unspecified

== ENCOUNTER → 2022-03-22 | Outpatient (REF) | payer MEDICARE, OTHER ==
[2022-03-22 18:06] LABS: BASO # 0.1 10^3/uL (0.0-0.2); BASO % 1.1 % (0.0-1.0); EOS # 0.1 10^3/uL (0.0-0.5); HEMATOCRIT 42.7 % (36.0-47.0); HEMOGLOBIN 13.5 g/dl (12.0-15.5); LYMPH # 1.5 10^3/uL (1.5-5.0); MEAN CORPUSCULAR HEMOGLOBIN 28.8 pg (27.0-33.0); MEAN CORPUSCULAR HGB CONC 31.6 g/dl (32.0-36.5); MEAN CORPUSCULAR VOLUME 91.2 fl (80.0-96.0); MONO # 0.7 10^3/uL (0.0-0.8); MONO % 9.9 % (2.0-8.0); NEUTROPHILS # 4.2 10^3/uL (1.5-8.5); NEUTROPHILS % 63.8 % (36.0-66.0); PLATELET COUNT, AUTOMATED 117 10^3/uL (150-450); RED BLOOD COUNT 4.68 10^6/uL (4.00-5.40); WHITE BLOOD COUNT 6.6 10^3/uL (4.0-10.0)
[2022-03-22 18:39] LABS: ALBUMIN 3.4 G/DL (3.2-5.2); ALKALINE PHOSPHATASE 133 U/L (46-116); ALT/SGPT 35 U/L (7.0-40); AST/SGOT 30 U/L (<34); BILIRUBIN,TOTAL 1.1 MG/DL (0.3-1.2); BLOOD UREA NITROGEN 17 MG/DL (9-23); CALCIUM LEVEL 9.7 MG/DL (8.3-10.6); CARBON DIOXIDE LEVEL 24 MMOL/L (20-31); CHLORIDE LEVEL 104 MMOL/L (98-107); CHOLESTEROL LEVEL 203 MG/DL (<200); CHOLESTEROL RISK RATIO 5.08 (<5); CREATININE FOR GFR 0.72 MG/DL (0.55-1.30); GLOMERULAR FILTRATION RATE > 60.0 (>45); GLUCOSE, FASTING 268 MG/DL (74-106); HDL CHOLESTEROL 39.9 MG/DL (>40); LDL CHOLESTEROL 90.3 MG/DL (<100); NON-HDL-C 163 MG/DL; POTASSIUM SERUM 4.2 MMOL/L (3.5-5.1); SODIUM LEVEL 139 MMOL/L (136-145); TOTAL PROTEIN 7.6 G/DL (5.7-8.2); TRIGLYCERIDES LEVEL 364 MG/DL (<150)
== END ==
LOC: M LAB REF 17:19
PROVIDERS: ATTEND Pediatrics
DX: E11.8 Type 2 diabetes mellitus with unspecified complications (principal); E78.1 Pure hyperglyceridemia

== ENCOUNTER → 2022-04-06 | Outpatient (REF) | payer MEDICARE, MEDICAID ==
[2022-04-06 17:56] LABS: BACTERIA, URINE AUTO NEGATIVE (NEGATIVE); RBC, URINE AUTO 2 /HPF (0-3); SQUAMOUS EPITHELIAL CELL UR AU 3 /HPF (0-6); WBC, URINE AUTO 1 /HPF (0-3)
== END ==
LOC: M SMT 16:44
PROVIDERS: ATTEND Specialist
DX: N30.20 Other chronic cystitis without hematuria (principal)

== ENCOUNTER → 2022-04-26 | Outpatient (CLI) | payer MEDICARE, OTHER ==
[2022-04-26 10:07] LABS: HEMATOCRIT 43.4 % (36.0-47.0); MEAN CORPUSCULAR HEMOGLOBIN 30.4 pg (27.0-33.0); MEAN CORPUSCULAR HGB CONC 32.3 g/dl (32.0-36.5); MEAN CORPUSCULAR VOLUME 94.1 fl (80.0-96.0); PLATELET COUNT, AUTOMATED 110 10^3/uL (150-450); RED BLOOD COUNT 4.61 10^6/uL (4.00-5.40)
[2022-04-26 10:37] LABS: LIPASE 38 U/L (12-53)
[2022-04-26 10:38] LABS: AMYLASE 61 U/L (30-118)
[2022-04-26 10:39] LABS: ALBUMIN 3.3 G/DL (3.2-5.2); ALKALINE PHOSPHATASE 105 U/L (46-116); ALT/SGPT 34 U/L (7.0-40); AST/SGOT 33 U/L (<34); BILIRUBIN,TOTAL 0.8 MG/DL (0.3-1.2); BLOOD UREA NITROGEN 13 MG/DL (9-23); CALCIUM LEVEL 9.2 MG/DL (8.3-10.6); CARBON DIOXIDE LEVEL 27 MMOL/L (20-31); CHLORIDE LEVEL 107 MMOL/L (98-107); CREATININE FOR GFR 0.64 MG/DL (0.55-1.30); GLOMERULAR FILTRATION RATE > 60.0 (>45); GLUCOSE, FASTING 87 MG/DL (74-106); POTASSIUM SERUM 4.3 MMOL/L (3.5-5.1); SODIUM LEVEL 143 MMOL/L (136-145)
== END ==
LOC: M LAB 09:41
PROVIDERS: ATTEND Physician Assistant Medical
DX: K74.60 Unspecified cirrhosis of liver (principal); K86.2 Cyst of pancreas

== ENCOUNTER → 2022-04-28 | Outpatient (CLI) | payer MEDICARE, OTHER ==
[2022-04-28 16:38] LABS: HEMOGLOBIN A1c 9.5 % (4.0-6.0)
== END ==
LOC: M LAB 15:15
PROVIDERS: ATTEND Orthopaedic Surgery Adult Reconstructive Orthopaedic Surgery
DX: M17.11 Unilateral primary osteoarthritis, right knee (principal); E11.9 Type 2 diabetes mellitus without complications

== ENCOUNTER → 2022-04-29 | Outpatient (CLI) | payer MEDICARE, MEDICAID | LOC: M PLARAD 14:40 | PROVIDERS: ATTEND Physician Assistant Medical | DX: K74.60 Unspecified cirrhosis of liver (principal); K86.2 Cyst of pancreas; Q44.6 Cystic disease of liver; Q61.9 Cystic kidney disease, unspecified; K76.0 Fatty (change of) liver, not elsewhere classified; R16.1 Splenomegaly, not elsewhere classified ==

== ENCOUNTER 2022-07-27 12:26 | Day surgery (SDC) | payer MEDICARE, OTHER ==
[~2022-07-27] VITALS: Ht 157.5 cm; Wt 81.2 kg
[~2022-07-27 12:26] MED LIST changes: +ESTR1CRE VA; +FARX1TAB3 PO; +LOSA25TA13 PO; +NS 1,000 ML IV ONE; +OXYB10TA23 PO; +SEMA1PEN2 SQ
[2022-07-27] MEDS ORDERED: fentaNYL 100 MCG/2 ML INJECTION As Ordered ONE (13:22)
[2022-07-27] MEDS ORDERED: METOCLOPRAMIDE INJ 10MG/2ML VIAL IV STA (14:01)
[2022-07-27] MEDS ORDERED: NS 1,000 ML IV SCH (14:05)
[2022-07-27] MEDS ORDERED: INSULIN LISPRO (NovoLOG) PER UNIT SC PRN (14:05)
[2022-07-27] MEDS ORDERED: METO1TAB32 PO (14:54)
[2022-07-27 15:46] VITALS: TEMP 97.5
[2022-07-27 16:05] VITALS: BP 114/65; O2SAT 94
== END 2022-07-27 16:20 | disposition home or self-care (01) ==
LOC: M OPP 12:26
PROVIDERS: ATTEND Internal Medicine Gastroenterology
DX: I85.00 Esophageal varices without bleeding (principal); I48.91 Unspecified atrial fibrillation; I25.10 Atherosclerotic heart disease of native coronary artery without angina pectoris; I25.2 Old myocardial infarction; I12.9 Hypertensive chronic kidney disease with stage 1 through stage 4 chronic kidney disease, or unspecified chronic kidney disease; E78.5 Hyperlipidemia, unspecified; E11.40 Type 2 diabetes mellitus with diabetic neuropathy, unspecified; M10.9 Gout, unspecified; K58.9 Irritable bowel syndrome, unspecified; K74.60 Unspecified cirrhosis of liver; K21.9 Gastro-esophageal reflux disease without esophagitis; M06.9 Rheumatoid arthritis, unspecified; M79.7 Fibromyalgia; M85.88 Other specified disorders of bone density and structure, other site; F41.9 Anxiety disorder, unspecified; F32.A Depression, unspecified; G47.30 Sleep apnea, unspecified; N18.2 Chronic kidney disease, stage 2 (mild); Z88.1 Allergy status to other antibiotic agents; Z88.2 Allergy status to sulfonamides; Z88.5 Allergy status to narcotic agent; Z88.8 Allergy status to other drugs, medicaments and biological substances; Z91.09 Other allergy status, other than to drugs and biological substances; Z79.4 Long term (current) use of insulin; Z79.84 Long term (current) use of oral hypoglycemic drugs; Z79.85 Long-term (current) use of injectable non-insulin antidiabetic drugs; Z79.899 Other long term (current) drug therapy; Z80.0 Family history of malignant neoplasm of digestive organs; Z80.6 Family history of leukemia; Z83.3 Family history of diabetes mellitus; Z83.6 Family history of other diseases of the respiratory system; Z82.3 Family history of stroke; Z82.69 Family history of other diseases of the musculoskeletal system and connective tissue; Z82.49 Family history of ischemic heart disease and other diseases of the circulatory system; Z83.79 Family history of other diseases of the digestive system; Z80.8 Family history of malignant neoplasm of other organs or systems
CPT/HCPCS: 43235; 93005; J2765; J3010

== ENCOUNTER → 2022-08-04 | Outpatient (REF) | payer MEDICARE, OTHER ==
[~2022-08-04] MED LIST changes: +COLA100C5 PO; +D3 H10002 PO; +ECOT81TA5 PO; +FAMO20TA PO; +LACT10SO3 PO; +METO1TAB32 PO; +METO1TAB87 PO; -NS 1,000 ML IV ONE; +ROSU20TA5 PO
[2022-08-04 12:44] LABS: BASO # 0.1 10^3/uL (0.0-0.2); EOS # 0.2 10^3/uL (0.0-0.5); EOS % 2.6 % (0.0-3.0); HEMATOCRIT 42.7 % (36.0-47.0); HEMOGLOBIN 14.4 g/dl (12.0-15.5); LYMPH # 1.3 10^3/uL (1.5-5.0); MEAN CORPUSCULAR HEMOGLOBIN 32.4 pg (27.0-33.0); MEAN CORPUSCULAR HGB CONC 33.7 g/dl (32.0-36.5); MEAN CORPUSCULAR VOLUME 96.2 fl (80.0-96.0); MONO # 0.6 10^3/uL (0.0-0.8); MONO % 10.6 % (2.0-8.0); NEUTROPHILS # 3.9 10^3/uL (1.5-8.5); NEUTROPHILS % 64.6 % (36.0-66.0); PLATELET COUNT, AUTOMATED 106 10^3/uL (150-450); RED BLOOD COUNT 4.44 10^6/uL (4.00-5.40)
[2022-08-04 12:57] LABS: HEMOGLOBIN A1c 7.2 % (4.0-6.0)
== END ==
LOC: M LAB REF 12:08
PROVIDERS: ATTEND Pediatrics
DX: E11.8 Type 2 diabetes mellitus with unspecified complications (principal)

== ENCOUNTER 2022-08-05 10:09 | Inpatient (IN) | payer MEDICARE, OTHER ==
[~2022-08-05] VITALS: Ht 157.5 cm; Wt 79.5 kg
[~2022-08-05 10:09] MED LIST changes: -COLA100C5 PO; -D3 H10002 PO; -ECOT81TA5 PO; -FAMO20TA PO; -LACT10SO3 PO; -METO1TAB87 PO; -ROSU20TA5 PO
[2022-08-05 11:15] LABS: BASO # 0.1 10^3/uL (0.0-0.2); BASO % 0.9 % (0.0-1.0); EOS # 0.2 10^3/uL (0.0-0.5); EOS % 3.2 % (0.0-3.0); HEMATOCRIT 42.2 % (36.0-47.0); HEMOGLOBIN 14.4 g/dl (12.0-15.5); LYMPH # 1.2 10^3/uL (1.5-5.0); LYMPH % 23.5 % (24.0-44.0); MEAN CORPUSCULAR HEMOGLOBIN 32.6 pg (27.0-33.0); MEAN CORPUSCULAR HGB CONC 34.1 g/dl (32.0-36.5); MEAN CORPUSCULAR VOLUME 95.5 fl (80.0-96.0); MONO # 0.5 10^3/uL (0.0-0.8); MONO % 10.2 % (2.0-8.0); NEUTROPHILS # 3.3 10^3/uL (1.5-8.5); PLATELET COUNT, AUTOMATED 106 10^3/uL (150-450); RED BLOOD COUNT 4.42 10^6/uL (4.00-5.40); WHITE BLOOD COUNT 5.3 10^3/uL (4.0-10.0)
[2022-08-05 11:44] LABS: LIPASE 36 U/L (12-53)
[2022-08-05 11:45] LABS: CK-MB VALUE MASS 1.7 NG/ML (<3.6)
[2022-08-05 11:46] LABS: ALBUMIN 3.2 G/DL (3.2-5.2); ALKALINE PHOSPHATASE 137 U/L (46-116); ALT/SGPT 40 U/L (7.0-40); AST/SGOT 30 U/L (<34); BILIRUBIN,DIRECT 0.4 MG/DL (<0.4); BILIRUBIN,TOTAL 1.3 MG/DL (0.3-1.2); BLOOD UREA NITROGEN 13 MG/DL (9-23); CALCIUM LEVEL 8.6 MG/DL (8.3-10.6); CARBON DIOXIDE LEVEL 24 MMOL/L (20-31); CHLORIDE LEVEL 108 MMOL/L (98-107); CK-MB VALUE MASS 1.2 NG/ML (<3.6); CPK CREATINE PHOSPHOKINASE 59 U/L (34-145); CREATININE FOR GFR 0.67 MG/DL (0.55-1.30); GLOMERULAR FILTRATION RATE > 60.0 (>45); GLUCOSE, FASTING 123 MG/DL (74-106); MB/CK RELATIVE INDEX 2.03 (< OR =4); MB/CK RELATIVE INDEX 2.74 (< OR =4); POTASSIUM SERUM 3.9 MMOL/L (3.5-5.1); SODIUM LEVEL 140 MMOL/L (136-145); TOTAL PROTEIN 6.8 G/DL (5.7-8.2)
[2022-08-05 11:50] LABS: THYROID STIMULATING HORMONE 2.363 uIU/ML (0.55-4.78)
[2022-08-05] MEDS ORDERED: LACTULOSE 20GM/30ML SYRUP UDC PO ONE (13:45)
[2022-08-05] MEDS ORDERED: ISOVUE-370 76% 100ML VIAL As Ordered ONE (13:47)
[2022-08-05] MEDS ORDERED: FAMO20TA PO (15:31)
[2022-08-05] MEDS ORDERED: METO1TAB87 PO (15:31)
[2022-08-05] MEDS ORDERED: D3 H10002 PO (15:31)
[2022-08-05] MEDS ORDERED: ROSU20TA61 PO (15:31)
[2022-08-05] MEDS ORDERED: ECOT81TA5 PO (15:31)
[2022-08-05] MEDS ORDERED: HOME MED LIST COMPLETE! XX SCH (15:40)
[2022-08-05 16:15] VITALS: BP 134/83; TEMP 97.9; O2SAT 97
[2022-08-05] MEDS: LACTULOSE 20GM/30ML SYRUP UDC PO SCH ×2 (17:19→23:00)
[2022-08-05] MEDS ORDERED: GLUCOSE 4GM CHEW TABLET PO PRN (17:20)
[2022-08-05] MEDS ORDERED: GLUCAGON INJ 1MG VIAL SC PRN (17:20)
[2022-08-05] MEDS ORDERED: DEXTROSE 50% 50ML SYRINGE IV PRN (17:20)
[2022-08-05] MEDS ORDERED: METOPROLOL TART 25 MG TABLET PO ONE (17:20)
[2022-08-05] MEDS ORDERED: INSULIN LISPRO (NovoLOG) PER UNIT SC SCH (17:30)
[2022-08-05 20:08] VITALS: BP 137/75; TEMP 97.3
[2022-08-05] MEDS: MAGNESIUM OXIDE 400MG TAB (MAG-OX) PO SCH (20:41)
[2022-08-05] MEDS: allopurinoL 100 MG TAB PO SCH (20:42)
[2022-08-05] MEDS: METOPROLOL TART 25 MG TABLET PO SCH (20:42)
[2022-08-05] MEDS: DOCUSATE SODIUM 100MG CAPSULE PO SCH (20:42)
[2022-08-05] MEDS ORDERED: LEVEMIR (INSULIN DETEMIR) 1 UNITS/0.01ML SC SCH (21:00)
[2022-08-06] MEDS: LACTULOSE 20GM/30ML SYRUP UDC PO SCH ×2 (05:09→11:00)
[2022-08-06 06:32] VITALS: BP 111/53; TEMP 97.9; O2SAT 96
[2022-08-06 06:59] LABS: BASO # 0.1 10^3/uL (0.0-0.2); BASO % 0.9 % (0.0-1.0); EOS # 0.2 10^3/uL (0.0-0.5); EOS % 3.6 % (0.0-3.0); HEMATOCRIT 43.6 % (36.0-47.0); HEMOGLOBIN 14.5 g/dl (12.0-15.5); LYMPH # 1.7 10^3/uL (1.5-5.0); MEAN CORPUSCULAR HEMOGLOBIN 32.3 pg (27.0-33.0); MEAN CORPUSCULAR HGB CONC 33.3 g/dl (32.0-36.5); MEAN CORPUSCULAR VOLUME 97.1 fl (80.0-96.0); MONO # 0.8 10^3/uL (0.0-0.8); MONO % 13.5 % (2.0-8.0); NEUTROPHILS # 2.9 10^3/uL (1.5-8.5); NEUTROPHILS % 51.8 % (36.0-66.0); PLATELET COUNT, AUTOMATED 108 10^3/uL (150-450); RED BLOOD COUNT 4.49 10^6/uL (4.00-5.40); WHITE BLOOD COUNT 5.6 10^3/uL (4.0-10.0)
[2022-08-06] MEDS ORDERED: LACT10SO3 PO (07:19)
[2022-08-06] MEDS ORDERED: COLA100C5 PO (07:19)
[2022-08-06 07:26] LABS: BLOOD UREA NITROGEN 19 MG/DL (9-23); CALCIUM LEVEL 8.8 MG/DL (8.3-10.6); CARBON DIOXIDE LEVEL 25 MMOL/L (20-31); CHLORIDE LEVEL 109 MMOL/L (98-107); CREATININE FOR GFR 0.67 MG/DL (0.55-1.30); GLOMERULAR FILTRATION RATE > 60.0 (>45); GLUCOSE, FASTING 97 MG/DL (74-106); POTASSIUM SERUM 3.7 MMOL/L (3.5-5.1); SODIUM LEVEL 143 MMOL/L (136-145)
[2022-08-06] MEDS: INSULIN LISPRO (NovoLOG) PER UNIT SC SCH ×2 (07:30→12:00)
[2022-08-06] MEDS ORDERED: glipiZIDE XL 5 MG TABCR PO SCH (07:30)
[2022-08-06] MEDS: MAGNESIUM OXIDE 400MG TAB (MAG-OX) PO SCH (08:29)
[2022-08-06 08:31] VITALS: BP 152/81
[2022-08-06] MEDS: allopurinoL 100 MG TAB PO SCH (08:31)
[2022-08-06] MEDS: DOCUSATE SODIUM 100MG CAPSULE PO SCH (08:31)
[2022-08-06] MEDS: METOPROLOL TART 25 MG TABLET PO SCH (08:31)
[2022-08-06] MEDS ORDERED: ROSUVASTATIN 10 MG TAB (CRESTOR) PO SCH (09:00)
[2022-08-06] MEDS ORDERED: oxyBUTYnin *DITROPAN XL* 5 MG TABCR PO SCH (09:00)
[2022-08-06] MEDS ORDERED: LEVEMIR (INSULIN DETEMIR) 1 UNITS/0.01ML SC SCH (09:00)
[2022-08-06] MEDS ORDERED: FAMOTIDINE 20 MG TAB PO SCH (09:00)
[2022-08-06] MEDS ORDERED: CLOPIDOGREL 75 MG TAB PO SCH (09:00)
[2022-08-06] MEDS ORDERED: DAPAGLIFLOZIN PROPANEDIOL 10MG TABLET (FARXIGA) PO SCH (09:00)
[2022-08-06] MEDS ORDERED: LOSARTAN 25 MG TAB PO SCH (09:00)
== END 2022-08-06 12:25 | disposition home or self-care (01) | DRG 441 ==
LOC: M ED 10:09 → M ED INP 14:53 → M MS5PR 16:18
PROVIDERS: ADMIT Internal Medicine Nephrology; ATTEND Internal Medicine Nephrology
DX: K76.82 Hepatic encephalopathy (principal); G93.41 Metabolic encephalopathy; K76.6 Portal hypertension; I85.10 Secondary esophageal varices without bleeding; I12.9 Hypertensive chronic kidney disease with stage 1 through stage 4 chronic kidney disease, or unspecified chronic kidney disease; R07.89 Other chest pain; K75.81 Nonalcoholic steatohepatitis (NASH); R16.1 Splenomegaly, not elsewhere classified; E11.42 Type 2 diabetes mellitus with diabetic polyneuropathy; E78.1 Pure hyperglyceridemia; K21.9 Gastro-esophageal reflux disease without esophagitis; I25.10 Atherosclerotic heart disease of native coronary artery without angina pectoris; I25.2 Old myocardial infarction; N18.30 Chronic kidney disease, stage 3 unspecified; E11.22 Type 2 diabetes mellitus with diabetic chronic kidney disease; G47.33 Obstructive sleep apnea (adult) (pediatric); K58.9 Irritable bowel syndrome, unspecified; R32 Unspecified urinary incontinence; H40.9 Unspecified glaucoma; H26.9 Unspecified cataract; K59.00 Constipation, unspecified; M10.9 Gout, unspecified; E83.42 Hypomagnesemia; N30.10 Interstitial cystitis (chronic) without hematuria; Z79.84 Long term (current) use of oral hypoglycemic drugs; Z79.4 Long term (current) use of insulin; Z79.899 Other long term (current) drug therapy; Z88.1 Allergy status to other antibiotic agents; Z88.2 Allergy status to sulfonamides; Z88.6 Allergy status to analgesic agent; Z88.8 Allergy status to other drugs, medicaments and biological substances; Z91.048 Other nonmedicinal substance allergy status; Z95.5 Presence of coronary angioplasty implant and graft; Z87.891 Personal history of nicotine dependence; Z90.49 Acquired absence of other specified parts of digestive tract; Z85.828 Personal history of other malignant neoplasm of skin

== ENCOUNTER 2022-08-09 16:29 | Inpatient (IN) | payer MEDICARE, OTHER ==
[~2022-08-09] VITALS: Ht 157.5 cm; Wt 79.5 kg
[~2022-08-09 16:29] MED LIST changes: +COLA100C5 PO; +D3 H10002 PO; +ECOT81TA5 PO; +FAMO20TA PO; +LACT10SO3 PO; +METO1TAB87 PO; +ROSU20TA61 PO
[2022-08-09 17:34] LABS: BASO # 0.1 10^3/uL (0.0-0.2); BASO % 1.1 % (0.0-1.0); EOS # 0.2 10^3/uL (0.0-0.5); EOS % 3.4 % (0.0-3.0); HEMATOCRIT 41.6 % (36.0-47.0); HEMOGLOBIN 14.1 g/dl (12.0-15.5); LYMPH # 1.2 10^3/uL (1.5-5.0); LYMPH % 21.7 % (24.0-44.0); MEAN CORPUSCULAR HEMOGLOBIN 32.8 pg (27.0-33.0); MEAN CORPUSCULAR HGB CONC 33.9 g/dl (32.0-36.5); MEAN CORPUSCULAR VOLUME 96.7 fl (80.0-96.0); MONO # 0.6 10^3/uL (0.0-0.8); MONO % 10.9 % (2.0-8.0); NEUTROPHILS # 3.6 10^3/uL (1.5-8.5); NEUTROPHILS % 62.7 % (36.0-66.0); PLATELET COUNT, AUTOMATED 103 10^3/uL (150-450); WHITE BLOOD COUNT 5.7 10^3/uL (4.0-10.0)
[2022-08-09 17:51] LABS: BLOOD UREA NITROGEN 14 MG/DL (9-23); CALCIUM LEVEL 10.1 MG/DL (8.3-10.6); CARBON DIOXIDE LEVEL 28 MMOL/L (20-31); CHLORIDE LEVEL 108 MMOL/L (98-107); CREATININE FOR GFR 0.73 MG/DL (0.55-1.30); GLOMERULAR FILTRATION RATE > 60.0 (>45); GLUCOSE, FASTING 241 MG/DL (74-106); POTASSIUM SERUM 3.9 MMOL/L (3.5-5.1); SODIUM LEVEL 141 MMOL/L (136-145)
[2022-08-09] MEDS ORDERED: NS 1,000 ML IV ONE (20:15)
[2022-08-09 21:20] LABS: ETHYL ALCOHOL (ETHANOL) < 0.003 % (0.000-0.010)
[2022-08-09 21:22] LABS: ACETAMINOPHEN LEVEL < 2.0 UG/ML (10.0-20.0); ALBUMIN 3.4 G/DL (3.2-5.2); ALKALINE PHOSPHATASE 144 U/L (46-116); ALT/SGPT 54 U/L (7.0-40); AST/SGOT 39 U/L (<34); BILIRUBIN,DIRECT 0.3 MG/DL (<0.4); CPK CREATINE PHOSPHOKINASE 61 U/L (34-145); SALICYLATE LEVEL < 3.0 MG/DL (<30); TOTAL PROTEIN 7.2 G/DL (5.7-8.2)
[2022-08-09 21:31] LABS: RSV AMPLIFICATION NEGATIVE (NEGATIVE)
[2022-08-09 22:05] LABS: INR 1.08; PROTHROMBIN TIME 14.2 SECONDS (12.5-14.5)
[2022-08-09] MEDS ORDERED: GLUCAGON INJ 1MG VIAL SC PRN (23:25)
[2022-08-09] MEDS ORDERED: DEXTROSE 50% 50ML SYRINGE IV PRN (23:25)
[2022-08-09] MEDS ORDERED: LACTULOSE 20GM/30ML SYRUP UDC PO ONE (23:25)
[2022-08-09] MEDS ORDERED: GLUCOSE 4GM CHEW TABLET PO PRN (23:25)
[2022-08-09] MEDS ORDERED: BISACODYL 10MG SUPP PR ONE (23:25)
[2022-08-09] MEDS: INSULIN LISPRO (NovoLOG) PER UNIT SC SCH (23:34)
[2022-08-10 00:49] LABS: CK-MB VALUE MASS 1.7 NG/ML (<3.6); MB/CK RELATIVE INDEX 2.78 (< OR =4)
[2022-08-10 02:30] VITALS: BP 150/76; TEMP 97.6; O2SAT 18
[2022-08-10] MEDS ORDERED: LACT10SO PO (02:30)
[2022-08-10] MEDS ORDERED: INSUHUMDS SC (02:30)
[2022-08-10] MEDS ORDERED: GLIP10TA18 PO (02:30)
[2022-08-10] MEDS ORDERED: HOME MED LIST COMPLETE! XX SCH (02:35)
[2022-08-10] MEDS ORDERED: ALBUTEROL 90 MCG/ACT 8GM HFA INHALER INH PRN (02:45)
[2022-08-10] MEDS ORDERED: PILL CUTTER 1 EACH XX PRN (02:55)
[2022-08-10 05:54] VITALS: BP 118/60; TEMP 98.1; O2SAT 18
[2022-08-10 06:44] LABS: HEMATOCRIT 39.7 % (36.0-47.0); HEMOGLOBIN 13.2 g/dl (12.0-15.5); MEAN CORPUSCULAR HEMOGLOBIN 32.3 pg (27.0-33.0); MEAN CORPUSCULAR HGB CONC 33.2 g/dl (32.0-36.5); MEAN CORPUSCULAR VOLUME 97.1 fl (80.0-96.0); RED BLOOD COUNT 4.09 10^6/uL (4.00-5.40); WHITE BLOOD COUNT 5.3 10^3/uL (4.0-10.0)
[2022-08-10 07:10] LABS: PLATELET COUNT, AUTOMATED 92 10^3/uL (150-450)
[2022-08-10 07:11] LABS: LIPASE 43 U/L (12-53)
[2022-08-10 07:15] LABS: ALKALINE PHOSPHATASE 124 U/L (46-116); ALT/SGPT 47 U/L (7.0-40); AST/SGOT 34 U/L (<34); BILIRUBIN,TOTAL 1.1 MG/DL (0.3-1.2); BLOOD UREA NITROGEN 15 MG/DL (9-23); CALCIUM LEVEL 8.8 MG/DL (8.3-10.6); CARBON DIOXIDE LEVEL 23 MMOL/L (20-31); CHLORIDE LEVEL 111 MMOL/L (98-107); CREATININE FOR GFR 0.59 MG/DL (0.55-1.30); GLOMERULAR FILTRATION RATE > 60.0 (>45); GLUCOSE, FASTING 121 MG/DL (74-106); MAGNESIUM LEVEL 1.7 MG/DL (1.8-2.4); POTASSIUM SERUM 3.7 MMOL/L (3.5-5.1); SODIUM LEVEL 143 MMOL/L (136-145); TOTAL PROTEIN 6.2 G/DL (5.7-8.2)
[2022-08-10] MEDS: INSULIN LISPRO (NovoLOG) PER UNIT SC SCH ×4 (07:30→21:00)
[2022-08-10] MEDS ORDERED: MAGNESIUM OXIDE 400MG TAB (MAG-OX) PO SCH (09:00)
[2022-08-10] MEDS: ASPIRIN 81MG ENTERIC TABLET PO SCH (10:51)
[2022-08-10] MEDS: LACTULOSE 20GM/30ML SYRUP UDC PO SCH ×3 (10:51→21:00)
[2022-08-10] MEDS: allopurinoL 100 MG TAB PO SCH ×3 (10:52→21:01)
[2022-08-10] MEDS: FAMOTIDINE 20 MG TAB PO SCH (10:52)
[2022-08-10] MEDS: LOSARTAN 25 MG TAB PO SCH (10:53)
[2022-08-10] MEDS: METOPROLOL TART 25 MG TABLET PO SCH ×2 (10:53→21:02)
[2022-08-10] MEDS: DOCUSATE SODIUM 100MG CAPSULE PO SCH ×2 (10:53→21:01)
[2022-08-10 15:37] VITALS: BP 140/64; TEMP 98.2; O2SAT 97
[2022-08-10 20:00] VITALS: BP 122/57; TEMP 98.6; O2SAT 97
[2022-08-10] MEDS ORDERED: LEVEMIR (INSULIN DETEMIR) 1 UNITS/0.01ML SC SCH (21:00)
[2022-08-10] MEDS ORDERED: oxyBUTYnin *DITROPAN XL* 5 MG TABCR PO SCH (21:00)
[2022-08-11 06:00] VITALS: BP 114/54; TEMP 98.3; O2SAT 95
[2022-08-11 06:16] LABS: BASO % 0.9 % (0.0-1.0); EOS # 0.2 10^3/uL (0.0-0.5); EOS % 4.4 % (0.0-3.0); HEMATOCRIT 37.5 % (36.0-47.0); HEMOGLOBIN 12.7 g/dl (12.0-15.5); LYMPH # 1.4 10^3/uL (1.5-5.0); LYMPH % 31.9 % (24.0-44.0); MEAN CORPUSCULAR HEMOGLOBIN 32.6 pg (27.0-33.0); MEAN CORPUSCULAR HGB CONC 33.9 g/dl (32.0-36.5); MEAN CORPUSCULAR VOLUME 96.2 fl (80.0-96.0); MONO # 0.5 10^3/uL (0.0-0.8); MONO % 12.4 % (2.0-8.0); NEUTROPHILS # 2.1 10^3/uL (1.5-8.5); NEUTROPHILS % 50.2 % (36.0-66.0); WHITE BLOOD COUNT 4.3 10^3/uL (4.0-10.0)
[2022-08-11 06:28] LABS: PLATELET COUNT, AUTOMATED 76 10^3/uL (150-450)
[2022-08-11 06:34] LABS: ALBUMIN 2.8 G/DL (3.2-5.2); ALKALINE PHOSPHATASE 123 U/L (46-116); ALT/SGPT 48 U/L (7.0-40); AST/SGOT 32 U/L (<34); BILIRUBIN,TOTAL 0.7 MG/DL (0.3-1.2); BLOOD UREA NITROGEN 12 MG/DL (9-23); CARBON DIOXIDE LEVEL 24 MMOL/L (20-31); CHLORIDE LEVEL 112 MMOL/L (98-107); CREATININE FOR GFR 0.57 MG/DL (0.55-1.30); GLOMERULAR FILTRATION RATE > 60.0 (>45); GLUCOSE, FASTING 134 MG/DL (74-106); MAGNESIUM LEVEL 1.6 MG/DL (1.8-2.4); PHOSPHORUS LEVEL 3.2 MG/DL (2.4-5.1); POTASSIUM SERUM 3.5 MMOL/L (3.5-5.1); SODIUM LEVEL 142 MMOL/L (136-145); TOTAL PROTEIN 5.9 G/DL (5.7-8.2)
[2022-08-11] MEDS: INSULIN LISPRO (NovoLOG) PER UNIT SC SCH ×2 (07:47→12:10)
[2022-08-11] MEDS: METOPROLOL TART 25 MG TABLET PO SCH (07:48)
[2022-08-11 07:49] VITALS: BP 131/62
[2022-08-11] MEDS: allopurinoL 100 MG TAB PO SCH (07:49)
[2022-08-11] MEDS: DOCUSATE SODIUM 100MG CAPSULE PO SCH (07:49)
[2022-08-11] MEDS: LOSARTAN 25 MG TAB PO SCH (07:49)
[2022-08-11] MEDS: FAMOTIDINE 20 MG TAB PO SCH (07:50)
[2022-08-11] MEDS: ASPIRIN 81MG ENTERIC TABLET PO SCH (07:50)
[2022-08-11] MEDS: LACTULOSE 20GM/30ML SYRUP UDC PO SCH (07:54)
[2022-08-11 08:00] VITALS: BP 133/62; TEMP 96.9; O2SAT 97
[2022-08-11] MEDS ORDERED: MAGNESIUM OXIDE 400MG TAB (MAG-OX) PO SCH (09:00)
== END 2022-08-11 15:49 | disposition home or self-care (01) | DRG 443 ==
LOC: M ED 16:29 → M ED INP 23:36 → M MS4PR 08-10 02:27
PROVIDERS: ADMIT Internal Medicine; ATTEND Internal Medicine
DX: K76.82 Hepatic encephalopathy (principal); M10.9 Gout, unspecified; I25.10 Atherosclerotic heart disease of native coronary artery without angina pectoris; Z95.2 Presence of prosthetic heart valve; I10 Essential (primary) hypertension; E11.9 Type 2 diabetes mellitus without complications; E83.42 Hypomagnesemia; N30.10 Interstitial cystitis (chronic) without hematuria; K75.81 Nonalcoholic steatohepatitis (NASH); K74.60 Unspecified cirrhosis of liver; K57.30 Diverticulosis of large intestine without perforation or abscess without bleeding; E78.5 Hyperlipidemia, unspecified; K21.9 Gastro-esophageal reflux disease without esophagitis; M79.7 Fibromyalgia; G47.00 Insomnia, unspecified; F41.9 Anxiety disorder, unspecified; F32.A Depression, unspecified; Z98.41 Cataract extraction status, right eye; Z98.42 Cataract extraction status, left eye; Z87.891 Personal history of nicotine dependence; Z88.8 Allergy status to other drugs, medicaments and biological substances; Z79.899 Other long term (current) drug therapy; Z79.4 Long term (current) use of insulin; Z88.2 Allergy status to sulfonamides; Z88.5 Allergy status to narcotic agent

== ENCOUNTER → 2022-08-16 | Outpatient (CLI) | payer MEDICARE, OTHER ==
[~2022-08-16] MED LIST changes: +GLIP10TA18 PO; +LACT10SO PO
[2022-08-16 17:04] LABS: BASO # 0.1 10^3/uL (0.0-0.2); BASO % 0.9 % (0.0-1.0); EOS # 0.2 10^3/uL (0.0-0.5); EOS % 3.2 % (0.0-3.0); HEMOGLOBIN 13.7 g/dl (12.0-15.5); LYMPH # 1.5 10^3/uL (1.5-5.0); LYMPH % 22.9 % (24.0-44.0); MEAN CORPUSCULAR HEMOGLOBIN 32.1 pg (27.0-33.0); MEAN CORPUSCULAR HGB CONC 33.4 g/dl (32.0-36.5); MONO # 0.8 10^3/uL (0.0-0.8); MONO % 11.9 % (2.0-8.0); NEUTROPHILS % 60.8 % (36.0-66.0); PLATELET COUNT, AUTOMATED 108 10^3/uL (150-450); RED BLOOD COUNT 4.27 10^6/uL (4.00-5.40); WHITE BLOOD COUNT 6.6 10^3/uL (4.0-10.0)
[2022-08-16 17:38] LABS: ALBUMIN 3.2 G/DL (3.2-5.2); ALKALINE PHOSPHATASE 123 U/L (46-116); ALT/SGPT 55 U/L (7.0-40); AST/SGOT 37 U/L (<34); BLOOD UREA NITROGEN 16 MG/DL (9-23); CARBON DIOXIDE LEVEL 25 MMOL/L (20-31); CHLORIDE LEVEL 110 MMOL/L (98-107); CREATININE FOR GFR 0.69 MG/DL (0.55-1.30); GLOMERULAR FILTRATION RATE > 60.0 (>45); GLUCOSE, FASTING 103 MG/DL (74-106); MAGNESIUM LEVEL 1.9 MG/DL (1.8-2.4); SODIUM LEVEL 142 MMOL/L (136-145); TOTAL PROTEIN 6.6 G/DL (5.7-8.2)
== END ==
LOC: M LAB 15:51
PROVIDERS: ATTEND Pediatrics
DX: K76.82 Hepatic encephalopathy (principal); E83.42 Hypomagnesemia

== ENCOUNTER → 2022-09-08 | Outpatient (CLI) | payer MEDICARE, OTHER ==
[~2022-09-08] MED LIST changes: -INSU100V2 SC; +INSU100V6 SC
== END ==
LOC: M RAD 14:48
PROVIDERS: ATTEND Surgery Vascular Surgery
DX: I65.23 Occlusion and stenosis of bilateral carotid arteries (principal)

== ENCOUNTER → 2022-09-15 | Outpatient (CLI) | payer MEDICARE, OTHER ==
[2022-09-15 09:04] LABS: BLOOD UREA NITROGEN 12 MG/DL (9-23); CREATININE FOR GFR 0.58 MG/DL (0.55-1.30); GLOMERULAR FILTRATION RATE > 60.0 (>45)
== END ==
LOC: M LAB 07:19
PROVIDERS: ATTEND Internal Medicine Gastroenterology
DX: D37.8 Neoplasm of uncertain behavior of other specified digestive organs (principal); K76.82 Hepatic encephalopathy

== ENCOUNTER → 2022-09-22 | Outpatient (CLI) | payer MEDICARE, OTHER ==
[~2022-09-22] MED LIST changes: +PROHANCE 279.3MG/ML 15ML VIAL As Ordered ONE
== END ==
LOC: M RAD 10:58
PROVIDERS: ATTEND Internal Medicine Gastroenterology
DX: D37.8 Neoplasm of uncertain behavior of other specified digestive organs (principal); R16.0 Hepatomegaly, not elsewhere classified; K74.60 Unspecified cirrhosis of liver; I81 Portal vein thrombosis
CPT/HCPCS: 74183; A9576

== ENCOUNTER → 2022-10-18 | Outpatient (CLI) | payer MEDICARE, OTHER ==
[~2022-10-18] MED LIST changes: -PROHANCE 279.3MG/ML 15ML VIAL As Ordered ONE
[2022-10-18 07:37] LABS: INR 1.19; PROTHROMBIN TIME 14.8 SECONDS (12.5-14.5)
[2022-10-18 07:38] LABS: PARTIAL THROMBOPLASTIN TIME 29.5 SECONDS (24.8-34.2)
== END ==
LOC: M LAB 06:50
PROVIDERS: ATTEND Internal Medicine Gastroenterology
DX: K86.2 Cyst of pancreas (principal); Q44.6 Cystic disease of liver

== ENCOUNTER 2022-12-17 18:08 | Observation (INO) | payer MEDICARE, OTHER ==
[~2022-12-17] VITALS: Ht 157.5 cm; Wt 78.9 kg
[~2022-12-17 18:08] MED LIST changes: +GLIP5TAB17 PO; -GLIP5TAB8 PO; +INSU100V19; -INSURSD
[2022-12-18] MEDS ORDERED: KETOROLAC 30 MG/ML 1ML VIAL IV ONE
[2022-12-18 00:15] LABS: BASO % 0.8 % (0.0-1.0); EOS # 0.2 10^3/uL (0.0-0.5); EOS % 3.1 % (0.0-3.0); HEMATOCRIT 43.8 % (36.0-47.0); HEMOGLOBIN 14.8 g/dl (12.0-15.5); LYMPH # 1.4 10^3/uL (1.5-5.0); MEAN CORPUSCULAR HEMOGLOBIN 32.2 pg (27.0-33.0); MEAN CORPUSCULAR HGB CONC 33.8 g/dl (32.0-36.5); MEAN CORPUSCULAR VOLUME 95.4 fl (80.0-96.0); MONO # 0.6 10^3/uL (0.0-0.8); MONO % 11.7 % (2.0-8.0); NEUTROPHILS # 2.7 10^3/uL (1.5-8.5); NEUTROPHILS % 55.4 % (36.0-66.0); RED BLOOD COUNT 4.59 10^6/uL (4.00-5.40); WHITE BLOOD COUNT 4.8 10^3/uL (4.0-10.0)
[2022-12-18 00:26] LABS: INR 1.17; PARTIAL THROMBOPLASTIN TIME 30.8 SECONDS (24.8-34.2); PROTHROMBIN TIME 14.6 SECONDS (12.5-14.5)
[2022-12-18 00:28] LABS: LIPASE 37 U/L (12-53)
[2022-12-18 00:31] LABS: ALBUMIN 3.3 G/DL (3.2-5.2); ALKALINE PHOSPHATASE 125 U/L (46-116); ALT/SGPT 59 U/L (7.0-40); AST/SGOT 44 U/L (<34); BLOOD UREA NITROGEN 14 MG/DL (9-23); CALCIUM LEVEL 9.5 MG/DL (8.3-10.6); CARBON DIOXIDE LEVEL 24 MMOL/L (20-31); CHLORIDE LEVEL 107 MMOL/L (98-107); CK-MB VALUE MASS 1.3 NG/ML (<3.6); CREATININE FOR GFR 0.57 MG/DL (0.55-1.30); GLOMERULAR FILTRATION RATE > 60.0 (>45); GLUCOSE, FASTING 103 MG/DL (74-106); POTASSIUM SERUM 3.9 MMOL/L (3.5-5.1); SODIUM LEVEL 143 MMOL/L (136-145); TOTAL PROTEIN 7.2 G/DL (5.7-8.2)
[2022-12-18 00:33] LABS: CPK CREATINE PHOSPHOKINASE 67 U/L (34-145); FREE T4 0.85 NG/DL (0.89-1.76); MB/CK RELATIVE INDEX 1.94 (< OR =4); THYROID STIMULATING HORMONE 3.572 uIU/ML (0.55-4.78)
[2022-12-18] MEDS ORDERED: LACTULOSE 20GM/30ML SYRUP UDC PO STA (00:36)
[2022-12-18] MEDS ORDERED: ISOVUE-370 76% 100ML VIAL As Ordered ONE (00:50)
[2022-12-18 00:55] LABS: PLATELET COUNT, AUTOMATED 72 10^3/uL (150-450)
[2022-12-18] MEDS ORDERED: HOME MED LIST COMPLETE! XX SCH (02:55)
[2022-12-18] MEDS ORDERED: ACETAMINOPHEN TAB 650MG DOSE (2X325MG) PO PRN (03:05)
[2022-12-18] MEDS ORDERED: DEXTROSE 50% 50ML SYRINGE IV PRN (03:05)
[2022-12-18] MEDS ORDERED: KETOROLAC 30 MG/ML 1ML VIAL IV PRN (03:05)
[2022-12-18] MEDS ORDERED: GLUCOSE 4GM CHEW TABLET PO PRN (03:05)
[2022-12-18] MEDS ORDERED: ONDANSETRON 4MG 2ML VIAL IV PRN (03:05)
[2022-12-18] MEDS ORDERED: GLUCAGON INJ 1MG VIAL SC PRN (03:05)
[2022-12-18] MEDS ORDERED: ALBUTEROL 90 MCG/ACT 8GM HFA INHALER INH PRN (03:05)
[2022-12-18 04:39] VITALS: BP 162/72; TEMP 97.5; O2SAT 95
[2022-12-18 07:28] LABS: BASO % 0.7 % (0.0-1.0); EOS # 0.1 10^3/uL (0.0-0.5); EOS % 2.9 % (0.0-3.0); HEMATOCRIT 40.8 % (36.0-47.0); HEMOGLOBIN 13.9 g/dl (12.0-15.5); LYMPH # 1.3 10^3/uL (1.5-5.0); MEAN CORPUSCULAR HEMOGLOBIN 32.3 pg (27.0-33.0); MEAN CORPUSCULAR HGB CONC 34.1 g/dl (32.0-36.5); MEAN CORPUSCULAR VOLUME 94.9 fl (80.0-96.0); MONO # 0.6 10^3/uL (0.0-0.8); NEUTROPHILS # 2.4 10^3/uL (1.5-8.5); NEUTROPHILS % 53.2 % (36.0-66.0); WHITE BLOOD COUNT 4.5 10^3/uL (4.0-10.0)
[2022-12-18 07:29] LABS: PLATELET COUNT, AUTOMATED 68 10^3/uL (150-450)
[2022-12-18] MEDS: INSULIN LISPRO (NovoLOG) PER UNIT SC SCH ×2 (07:30→11:46)
[2022-12-18 07:40] LABS: ALKALINE PHOSPHATASE 112 U/L (46-116); ALT/SGPT 54 U/L (7.0-40); AST/SGOT 40 U/L (<34); BLOOD UREA NITROGEN 14 MG/DL (9-23); CALCIUM LEVEL 9.1 MG/DL (8.3-10.6); CARBON DIOXIDE LEVEL 22 MMOL/L (20-31); CHLORIDE LEVEL 110 MMOL/L (98-107); CREATININE FOR GFR 0.52 MG/DL (0.55-1.30); GLOMERULAR FILTRATION RATE > 60.0 (>45); GLUCOSE, FASTING 90 MG/DL (74-106); POTASSIUM SERUM 3.6 MMOL/L (3.5-5.1); SODIUM LEVEL 144 MMOL/L (136-145); TOTAL PROTEIN 6.5 G/DL (5.7-8.2)
[2022-12-18 08:00] VITALS: BP 111/64; TEMP 101.1; O2SAT 90
[2022-12-18] MEDS: NITROGLYCERIN 0.4MG SUBL TABLET SL PRN ×2 (08:07→08:14)
[2022-12-18 08:14] VITALS: BP 110/52; TEMP 98.6; O2SAT 92
[2022-12-18] MEDS ORDERED: LEVEMIR (INSULIN DETEMIR) 1 UNITS/0.01ML SC SCH (09:00)
[2022-12-18] MEDS ORDERED: allopurinoL 100 MG TAB PO SCH (09:00)
[2022-12-18] MEDS ORDERED: METOPROLOL TART 25 MG TABLET PO SCH (09:00)
[2022-12-18] MEDS ORDERED: PANTOPRAZOLE 40MG TAB (PROTONIX) PO SCH (09:00)
[2022-12-18] MEDS ORDERED: ROSUVASTATIN 10 MG TAB (CRESTOR) PO SCH (09:00)
[2022-12-18] MEDS ORDERED: LACTULOSE 20GM/30ML SYRUP UDC PO SCH (09:00)
[2022-12-18] MEDS ORDERED: LIDOCAINE 5% (LIDODERM) PATCH TOP SCH (09:00)
[2022-12-18 09:01] VITALS: BP 126/62
[2022-12-18] MEDS ORDERED: LACT10SO PO (11:18)
[2022-12-18] MEDS ORDERED: LIDO5DIS41 TOP (11:29)
[2022-12-18] MEDS ORDERED: DICL100G10 TOP (11:29)
[2022-12-18] MEDS ORDERED: NITR4TASL SL (11:29)
[2022-12-18] MEDS ORDERED: PRED20TA PO (12:10)
[2022-12-18] MEDS ORDERED: oxyBUTYnin *DITROPAN XL* 5 MG TABCR PO SCH (21:00)
[2022-12-18] MEDS ORDERED: LOSARTAN 25 MG TAB PO SCH (21:00)
[2022-12-18] MEDS ORDERED: INSULIN LISPRO (NovoLOG) PER UNIT SC SCH (21:00)
== END 2022-12-18 13:38 | disposition home or self-care (01) ==
LOC: M ED 18:08 → M ED INP 18:09 → CMPBEDREQ 12-18 02:24 → M PCU 12-18 03:54
PROVIDERS: ADMIT Internal Medicine; ATTEND Internal Medicine
DX: M75.02 Adhesive capsulitis of left shoulder (principal); I25.10 Atherosclerotic heart disease of native coronary artery without angina pectoris; I25.2 Old myocardial infarction; E78.5 Hyperlipidemia, unspecified; I10 Essential (primary) hypertension; E11.9 Type 2 diabetes mellitus without complications; Z87.891 Personal history of nicotine dependence; K74.60 Unspecified cirrhosis of liver; K76.0 Fatty (change of) liver, not elsewhere classified; K76.82 Hepatic encephalopathy; M75.32 Calcific tendinitis of left shoulder; M10.9 Gout, unspecified; Z90.79 Acquired absence of other genital organ(s); Z95.5 Presence of coronary angioplasty implant and graft; N32.81 Overactive bladder; Z79.4 Long term (current) use of insulin; Z79.84 Long term (current) use of oral hypoglycemic drugs; Z79.899 Other long term (current) drug therapy; Z88.1 Allergy status to other antibiotic agents; Z88.2 Allergy status to sulfonamides; Z88.5 Allergy status to narcotic agent; Z88.6 Allergy status to analgesic agent; Z88.8 Allergy status to other drugs, medicaments and biological substances; Z91.048 Other nonmedicinal substance allergy status; Z20.822 Contact with and (suspected) exposure to COVID-19
CPT/HCPCS: 36415; 70450; 71046; 71275; 73030; 73221; 74177; 80053; 81001; 82140; 82550; 82553; 83690; 84439; 84443; 84484; 85025; 85049; 85055; 85610; 85730; 87086; 87486; 87581; 87633; 87798; 93005; 96374; 99285; G0378; J1815; J1885; Q9967

== ENCOUNTER → 2022-12-22 | Outpatient (REF) | payer MEDICARE, OTHER ==
[~2022-12-22] MED LIST changes: +DICL100G10 TOP; -INSU100V19; +INSURSD; +LIDO5DIS41 TOP
[2022-12-22 17:49] LABS: HEMOGLOBIN A1c 8.7 % (4.0-6.0)
[2022-12-22 17:50] LABS: CHOLESTEROL RISK RATIO 3.03 (<5); HDL CHOLESTEROL 51.1 MG/DL (>40); LDL CHOLESTEROL 65.9 MG/DL (<100); NON-HDL-C 103.9 MG/DL
[2022-12-22 17:52] LABS: THYROID STIMULATING HORMONE 2.592 uIU/ML (0.55-4.78)
== END ==
LOC: M LAB REF 16:42
PROVIDERS: ATTEND Pediatrics
DX: E78.1 Pure hyperglyceridemia (principal); E11.8 Type 2 diabetes mellitus with unspecified complications

== ENCOUNTER → 2023-02-10 | Outpatient (CLI) | payer MEDICARE, OTHER ==
[~2023-02-10] MED LIST changes: +INSU100V19; -INSURSD
[2023-02-10 13:37] LABS: BLOOD UREA NITROGEN 16 MG/DL (9-23); CREATININE FOR GFR 0.69 MG/DL (0.55-1.30); GLOMERULAR FILTRATION RATE > 60.0 (>45)
== END ==
LOC: M LAB 12:32
PROVIDERS: ATTEND Psychiatry & Neurology Neurology
DX: I10 Essential (primary) hypertension (principal)

== ENCOUNTER → 2023-03-08 | Outpatient (REF) | payer MEDICARE, OTHER ==
[2023-03-08 17:32] LABS: CPK CREATINE PHOSPHOKINASE 77 U/L (34-145)
[2023-03-08 17:33] LABS: ALBUMIN 3.4 G/DL (3.2-5.2); ALKALINE PHOSPHATASE 120 U/L (46-116); ALT/SGPT 36 U/L (7.0-40); AST/SGOT 28 U/L (<34); BILIRUBIN,TOTAL 1.4 MG/DL (0.3-1.2); BLOOD UREA NITROGEN 12 MG/DL (9-23); CALCIUM LEVEL 9.5 MG/DL (8.3-10.6); CARBON DIOXIDE LEVEL 26 MMOL/L (20-31); CHLORIDE LEVEL 107 MMOL/L (98-107); CREATININE FOR GFR 0.59 MG/DL (0.55-1.30); GLOMERULAR FILTRATION RATE > 60.0 (>45); GLUCOSE, FASTING 182 MG/DL (74-106); POTASSIUM SERUM 4.1 MMOL/L (3.5-5.1); SODIUM LEVEL 141 MMOL/L (136-145); TOTAL PROTEIN 7.2 G/DL (5.7-8.2)
[2023-03-08 17:37] LABS: BASO # 0.1 10^3/uL (0.0-0.2); BASO % 1.2 % (0.0-1.0); EOS # 0.2 10^3/uL (0.0-0.5); EOS % 3.6 % (0.0-3.0); HEMATOCRIT 45.9 % (36.0-47.0); HEMOGLOBIN 15.5 g/dl (12.0-15.5); LYMPH # 1.5 10^3/uL (1.5-5.0); LYMPH % 24.7 % (24.0-44.0); MEAN CORPUSCULAR HEMOGLOBIN 32.4 pg (27.0-33.0); MEAN CORPUSCULAR HGB CONC 33.8 g/dl (32.0-36.5); MONO # 0.6 10^3/uL (0.0-0.8); MONO % 9.1 % (2.0-8.0); NEUTROPHILS # 3.7 10^3/uL (1.5-8.5); NEUTROPHILS % 61.1 % (36.0-66.0); PLATELET COUNT, AUTOMATED 107 10^3/uL (150-450); RED BLOOD COUNT 4.78 10^6/uL (4.00-5.40)
[2023-03-08 17:59] LABS: ERYTHROCYTE SEDIMENTATION RATE 48 mm/hr (0-30)
[2023-03-08 18:13] LABS: HEMOGLOBIN A1c 8.9 % (4.0-6.0)
== END ==
LOC: M LAB REF 16:21
PROVIDERS: ATTEND Pediatrics
DX: Z01.818 Encounter for other preprocedural examination (principal); E11.40 Type 2 diabetes mellitus with diabetic neuropathy, unspecified; Z79.4 Long term (current) use of insulin; K76.82 Hepatic encephalopathy; M79.10 Myalgia, unspecified site

== ENCOUNTER → 2023-04-01 | Outpatient (CLI) | payer MEDICARE, MEDICAID | LOC: M RAD 06:05 | PROVIDERS: ATTEND Physician Assistant Medical | DX: K74.60 Unspecified cirrhosis of liver (principal); K76.6 Portal hypertension; D18.03 Hemangioma of intra-abdominal structures ==

== ENCOUNTER 2023-04-08 14:03 | Emergency (ER) | payer MEDICARE, MEDICAID ==
[2023-04-08 14:45] VITALS: BP 125/81; TEMP 98; O2SAT 98
[2023-04-08 17:20] LABS: LIPASE 113 U/L (12-53)
[2023-04-08 17:22] LABS: ALKALINE PHOSPHATASE 128 U/L (46-116); ALT/SGPT 59 U/L (7.0-40); AST/SGOT 40 U/L (<34); BASO # 0.1 10^3/uL (0.0-0.2); BASO % 1.1 % (0.0-1.0); BILIRUBIN,DIRECT 0.3 MG/DL (<0.4); BILIRUBIN,TOTAL 1.1 MG/DL (0.3-1.2); BLOOD UREA NITROGEN 11 MG/DL (9-23); CALCIUM LEVEL 9.1 MG/DL (8.3-10.6); CARBON DIOXIDE LEVEL 26 MMOL/L (20-31); CHLORIDE LEVEL 111 MMOL/L (98-107); CREATININE FOR GFR 0.59 MG/DL (0.55-1.30); EOS # 0.2 10^3/uL (0.0-0.5); EOS % 3.8 % (0.0-3.0); GLOMERULAR FILTRATION RATE > 60.0 (>45); GLUCOSE, FASTING 197 MG/DL (74-106); HEMATOCRIT 41.7 % (36.0-47.0); HEMOGLOBIN 14.1 g/dl (12.0-15.5); LYMPH # 1.3 10^3/uL (1.5-5.0); LYMPH % 26.9 % (24.0-44.0); MEAN CORPUSCULAR HEMOGLOBIN 32.6 pg (27.0-33.0); MEAN CORPUSCULAR HGB CONC 33.8 g/dl (32.0-36.5); MEAN CORPUSCULAR VOLUME 96.3 fl (80.0-96.0); MONO # 0.5 10^3/uL (0.0-0.8); MONO % 10.7 % (2.0-8.0); NEUTROPHILS # 2.7 10^3/uL (1.5-8.5); NEUTROPHILS % 57.3 % (36.0-66.0); POTASSIUM SERUM 3.9 MMOL/L (3.5-5.1); RED BLOOD COUNT 4.33 10^6/uL (4.00-5.40); SODIUM LEVEL 143 MMOL/L (136-145); TOTAL PROTEIN 6.5 G/DL (5.7-8.2); WHITE BLOOD COUNT 4.7 10^3/uL (4.0-10.0)
[2023-04-08 17:24] LABS: PLATELET COUNT, AUTOMATED 91 10^3/uL (150-450)
[2023-04-08 17:36] LABS: INR 1.12; PROTHROMBIN TIME 14.1 SECONDS (12.5-14.5)
[2023-04-08 17:37] LABS: PARTIAL THROMBOPLASTIN TIME 29.6 SECONDS (24.8-34.2)
[2023-04-08] MEDS ORDERED: MIRA3350 PO (18:52)
== END 2023-04-08 19:19 | disposition home or self-care (01) ==
LOC: M ED 14:03
DX: K62.5 Hemorrhage of anus and rectum (principal); K64.8 Other hemorrhoids; K59.00 Constipation, unspecified; E11.9 Type 2 diabetes mellitus without complications; K74.60 Unspecified cirrhosis of liver; M79.7 Fibromyalgia; Z79.4 Long term (current) use of insulin; Z88.1 Allergy status to other antibiotic agents; Z88.5 Allergy status to narcotic agent; Z88.6 Allergy status to analgesic agent; Z88.8 Allergy status to other drugs, medicaments and biological substances; Z79.52 Long term (current) use of systemic steroids; Z79.811 Long term (current) use of aromatase inhibitors; Z79.899 Other long term (current) drug therapy

== ENCOUNTER → 2023-07-27 | Outpatient (REF) | payer MEDICARE, MEDICAID, OTHER ==
[~2023-07-27] MED LIST changes: -ROSU10TA6 PO; +ROSU10TA61 PO
[2023-07-27 18:27] LABS: ALBUMIN 3.5 G/DL (3.2-5.2); ALKALINE PHOSPHATASE 122 U/L (46-116); ALT/SGPT 56 U/L (7.0-40); AST/SGOT 34 U/L (<34); BILIRUBIN,TOTAL 1.2 MG/DL (0.3-1.2); BLOOD UREA NITROGEN 11 MG/DL (9-23); CALCIUM LEVEL 9.9 MG/DL (8.3-10.6); CARBON DIOXIDE LEVEL 26 MMOL/L (20-31); CHLORIDE LEVEL 109 MMOL/L (98-107); CREATININE FOR GFR 0.61 MG/DL (0.55-1.30); GLOMERULAR FILTRATION RATE > 60.0 (>45); GLUCOSE, FASTING 149 MG/DL (74-106); POTASSIUM SERUM 4.3 MMOL/L (3.5-5.1); SODIUM LEVEL 141 MMOL/L (136-145); TOTAL PROTEIN 7.2 G/DL (5.7-8.2)
[2023-07-27 18:30] LABS: THYROID STIMULATING HORMONE 1.971 uIU/ML (0.55-4.78)
[2023-07-27 18:44] LABS: CREATININE, URINE 64.6 MG/DL
[2023-07-27 18:45] LABS: MAU/CREAT RATIO 4.6 MCG/MG (0.0-30.0)
== END ==
LOC: M LAB REF 16:23
PROVIDERS: ATTEND Pediatrics
DX: E11.8 Type 2 diabetes mellitus with unspecified complications (principal)

== ENCOUNTER → 2023-08-11 | Outpatient (CLI) | payer MEDICARE, MEDICAID ==
[2023-08-11 12:38] LABS: HEMATOCRIT 42.1 % (36.0-47.0); HEMOGLOBIN 14.4 g/dl (12.0-15.5); MEAN CORPUSCULAR HGB CONC 34.2 g/dl (32.0-36.5); MEAN CORPUSCULAR VOLUME 96.6 fl (80.0-96.0); RED BLOOD COUNT 4.36 10^6/uL (4.00-5.40); WHITE BLOOD COUNT 5.1 10^3/uL (4.0-10.0)
[2023-08-11 12:46] LABS: PLATELET COUNT, AUTOMATED 91 10^3/uL (150-450)
[2023-08-11 13:05] LABS: ALBUMIN 3.2 G/DL (3.2-5.2); BILIRUBIN,DIRECT 0.4 MG/DL (<0.4); BILIRUBIN,TOTAL 1.4 MG/DL (0.3-1.2); TOTAL PROTEIN 6.6 G/DL (5.7-8.2)
== END ==
LOC: M LAB 10:54
PROVIDERS: ATTEND Physician Assistant Medical
DX: K74.60 Unspecified cirrhosis of liver (principal)

== ENCOUNTER 2023-09-20 18:11 | Emergency (ER) | payer MEDICARE, MEDICAID ==
[~2023-09-20] VITALS: Ht 157.5 cm; Wt 83.4 kg
[2023-09-20 18:12] VITALS: BP 141/96; TEMP 97.8; O2SAT 98
== END 2023-09-20 21:11 | disposition left against medical advice (07) ==
LOC: M ED 18:11
DX: Z53.21 Procedure and treatment not carried out due to patient leaving prior to being seen by health care provider (principal)

== ENCOUNTER → 2024-02-07 | Outpatient (REF) | payer MEDICARE, OTHER, MEDICAID ==
[~2024-02-07] MED LIST changes: -LACT10SO3 PO; +LACT10SO94 PO; -ROSU20TA61 PO; +ROSU20TA86 PO
[2024-02-07 13:21] LABS: APPEARANCE, URINE HAZY (CLEAR); BACTERIA, URINE AUTO NEGATIVE (NEGATIVE); BILIRUBIN, URINE AUTO NEGATIVE (NEGATIVE); BLOOD, URINE BLOOD 1+ (NEGATIVE); COLOR, URINE YELLOW (YELLOW); GLUCOSE, URINE (UA) AUTO 3+ mg/dL (NEGATIVE); KETONE, URINE AUTO TRACE mg/dL (NEGATIVE); LEUKOCYTE ESTERASE, URINE AUTO NEGATIVE (NEGATIVE); NITRITE, URINE AUTO NEGATIVE (NEGATIVE); PROTEIN, URINE AUTO NEGATIVE (NEGATIVE); RBC, URINE AUTO 1 /HPF (0-3); SPECIFIC GRAVITY URINE AUTO 1.032 (1.002-1.035); SQUAMOUS EPITHELIAL CELL UR AU 4 /HPF (0-6); UROBILINOGEN, URINE AUTO 0.2 mg/dL (0.0-2.0); WBC, URINE AUTO 2 /HPF (0-3)
== END ==
LOC: M SMT 12:45
PROVIDERS: ATTEND Physician Assistant
DX: R31.21 Asymptomatic microscopic hematuria (principal)

== ENCOUNTER 2024-03-09 18:09 | Emergency (ER) | payer MEDICAID, MEDICARE, OTHER ==
[~2024-03-09] VITALS: Ht 157.5 cm; Wt 86.3 kg
[2024-03-09 19:29] LABS: BASO # 0.1 10^3/uL (0.0-0.2); BASO % 1.1 % (0.0-1.0); EOS # 0.1 10^3/uL (0.0-0.5); EOS % 1.6 % (0.0-3.0); HEMATOCRIT 44.2 % (36.0-47.0); HEMOGLOBIN 14.2 g/dl (12.0-15.5); LYMPH # 0.6 10^3/uL (1.5-5.0); LYMPH % 10.5 % (24.0-44.0); MEAN CORPUSCULAR HEMOGLOBIN 32.3 pg (27.0-33.0); MEAN CORPUSCULAR HGB CONC 32.1 g/dl (32.0-36.5); MEAN CORPUSCULAR VOLUME 100.7 fl (80.0-96.0); MONO # 0.6 10^3/uL (0.0-0.8); MONO % 10.7 % (2.0-8.0); NEUTROPHILS # 4.2 10^3/uL (1.5-8.5); NEUTROPHILS % 75.9 % (36.0-66.0); PLATELET COUNT, AUTOMATED 130 10^3/uL (150-450); RED BLOOD COUNT 4.39 10^6/uL (4.00-5.40); WHITE BLOOD COUNT 5.5 10^3/uL (4.0-10.0)
[2024-03-09 19:51] LABS: KETONE, URINE AUTO RFX NEGATIVE (NEGATIVE); LEUKOCYTE ESTERASE UR AUTO RFX 2+ (NEGATIVE); MUCUS, URINE RFX SMALL (NEGATIVE); NITRITE, URINE AUTO RFX NEGATIVE (NEGATIVE); RBC, URINE AUTO RFX 3 /HPF (0-3); SQUAM EPITHELIAL CELL UR AURFX 2 /HPF (0-6); WBC, URINE AUTO RFX TNTC /HPF (0-3)
[2024-03-09 19:51] LABS: ALBUMIN 2.5 G/DL (3.2-5.2); ALKALINE PHOSPHATASE 134 U/L (35-104); ALT/SGPT 70 U/L (7.0-40); AST/SGOT 85 U/L (<34); BILIRUBIN,DIRECT 0.4 MG/DL (<0.4); BILIRUBIN,TOTAL 1.2 MG/DL (0.3-1.2); BLOOD UREA NITROGEN 13 MG/DL (9-23); CALCIUM LEVEL 8.3 MG/DL (8.3-10.6); CARBON DIOXIDE LEVEL 25 MMOL/L (20-31); CHLORIDE LEVEL 109 MMOL/L (98-107); CREATININE FOR GFR 0.55 MG/DL (0.55-1.30); GLOMERULAR FILTRATION RATE > 60.0 (>45); GLUCOSE, FASTING 358 MG/DL (74-106); POTASSIUM SERUM 4.1 MMOL/L (3.5-5.1); SODIUM LEVEL 143 MMOL/L (136-145); TOTAL PROTEIN 6.6 G/DL (5.7-8.2)
[2024-03-09] MEDS: LACTULOSE 20GM/30ML SYRUP UDC PO ONE (23:45)
[2024-03-09] MEDS ORDERED: LACT10SO94 PO (23:52)
[2024-03-09] MEDS ORDERED: HOME MED LIST COMPLETE! XX SCH (23:55)
[2024-03-10] MEDS: FOSFOMYCIN TROMETHAMINE 3 GM POWDER PACKET (MONUROL) PO ONE (00:46)
[2024-03-10 00:59] LABS: LIPASE 26 U/L (12-53)
[2024-03-10 01:26] LABS: INR 1.09; PROTHROMBIN TIME 14.5 SECONDS (12.5-14.5)
[2024-03-10] MEDS ORDERED: DEXTROSE 50% 50ML SYRINGE IV PRN (04:05)
[2024-03-10] MEDS ORDERED: ALBUTEROL 90 MCG/ACT 8GM HFA INHALER INH PRN (04:05)
[2024-03-10] MEDS ORDERED: GLUCOSE 4 GM CHEW PO PRN (04:05)
[2024-03-10] MEDS ORDERED: GLUCAGON INJ 1MG VIAL SC PRN (04:05)
[2024-03-10] MEDS ORDERED: NITROGLYCERIN 0.4MG SUBL TABLET SL PRN (04:05)
[2024-03-10] MEDS ORDERED: HOME MED LIST COMPLETE! XX SCH (04:35)
[2024-03-10] MEDS: INSULIN LISPRO (NovoLOG) PER UNIT SC SCH (07:30)
[2024-03-10 08:42] VITALS: BP 149/83; TEMP 98.2; O2SAT 96
[2024-03-10] MEDS ORDERED: METOPROLOL TART 25 MG TABLET PO SCH (09:00)
[2024-03-10] MEDS ORDERED: MAGNESIUM OXIDE 400MG TAB (MAG-OX) PO SCH (09:00)
[2024-03-10] MEDS ORDERED: allopurinoL 100 MG TAB PO SCH (09:00)
[2024-03-10] MEDS ORDERED: FAMOTIDINE 20 MG TAB PO SCH (09:00)
[2024-03-10] MEDS ORDERED: CLOPIDOGREL 75 MG TAB PO SCH (09:00)
[2024-03-10] MEDS ORDERED: ROSUVASTATIN 10 MG TAB (CRESTOR) PO SCH (09:00)
[2024-03-10] MEDS ORDERED: LOSARTAN 25 MG TAB PO SCH (21:00)
[2024-03-10] MEDS ORDERED: INSULIN LISPRO (NovoLOG) PER UNIT SC SCH (21:00)
[2024-03-10] MEDS ORDERED: oxyBUTYnin *DITROPAN XL* 5 MG TABCR PO SCH (21:00)
== END 2024-03-10 08:45 | disposition short-term general hospital (02) ==
LOC: M ED 18:09
DX: N30.00 Acute cystitis without hematuria (principal); R18.8 Other ascites; E72.20 Disorder of urea cycle metabolism, unspecified; I48.91 Unspecified atrial fibrillation; I25.10 Atherosclerotic heart disease of native coronary artery without angina pectoris; I25.2 Old myocardial infarction; I10 Essential (primary) hypertension; E78.5 Hyperlipidemia, unspecified; K74.60 Unspecified cirrhosis of liver; Z88.1 Allergy status to other antibiotic agents; Z88.2 Allergy status to sulfonamides; Z88.8 Allergy status to other drugs, medicaments and biological substances; Z91.048 Other nonmedicinal substance allergy status; Z79.4 Long term (current) use of insulin; E11.9 Type 2 diabetes mellitus without complications; Z79.899 Other long term (current) drug therapy

== ENCOUNTER 2024-04-06 16:13 | Inpatient (IN) | payer MEDICARE ==
[~2024-04-06] VITALS: Ht 157.5 cm; Wt 73.0 kg
[2024-04-06 17:05] LABS: BASO # 0.1 10^3/uL (0.0-0.2); BASO % 0.5 % (0.0-1.0); EOS # 0.1 10^3/uL (0.0-0.5); EOS % 0.4 % (0.0-3.0); HEMATOCRIT 47.4 % (36.0-47.0); HEMOGLOBIN 16.1 g/dl (12.0-15.5); LYMPH % 8.5 % (24.0-44.0); MEAN CORPUSCULAR HEMOGLOBIN 32.9 pg (27.0-33.0); MEAN CORPUSCULAR VOLUME 96.9 fl (80.0-96.0); MONO # 0.8 10^3/uL (0.0-0.8); NEUTROPHILS # 9.8 10^3/uL (1.5-8.5); NEUTROPHILS % 83.3 % (36.0-66.0); PLATELET COUNT, AUTOMATED 119 10^3/uL (150-450); RED BLOOD COUNT 4.89 10^6/uL (4.00-5.40); WHITE BLOOD COUNT 11.7 10^3/uL (4.0-10.0)
[2024-04-06 17:12] LABS: KETONE, URINE AUTO RFX TRACE mg/dL (NEGATIVE); NITRITE, URINE AUTO RFX NEGATIVE (NEGATIVE); RBC, URINE AUTO RFX 0 /HPF (0-3); SQUAM EPITHELIAL CELL UR AURFX 6 /HPF (0-6); YEAST LIKE CELL URINE AUTO RFX LARGE
[2024-04-06 17:15] LABS: LEUKOCYTE ESTERASE UR AUTO RFX TRACE (NEGATIVE); WBC, URINE AUTO RFX 38 /HPF (0-3)
[2024-04-06 17:29] LABS: ETHYL ALCOHOL (ETHANOL) < 0.003 % (0.000-0.010)
[2024-04-06 17:32] LABS: ALBUMIN 3.2 G/DL (3.2-5.2); ALKALINE PHOSPHATASE 123 U/L (35-104); ALT/SGPT 48 U/L (7.0-40); AST/SGOT 48 U/L (<34); BILIRUBIN,DIRECT 0.5 MG/DL (<0.4); BILIRUBIN,TOTAL 1.9 MG/DL (0.3-1.2); BLOOD UREA NITROGEN 17 MG/DL (9-23); CALCIUM LEVEL 9.7 MG/DL (8.3-10.6); CARBON DIOXIDE LEVEL 24 MMOL/L (20-31); CHLORIDE LEVEL 107 MMOL/L (98-107); CPK CREATINE PHOSPHOKINASE 55 U/L (34-145); CREATININE FOR GFR 0.56 MG/DL (0.55-1.30); GLOMERULAR FILTRATION RATE > 60.0 (>45); GLUCOSE, FASTING 213 MG/DL (74-106); SODIUM LEVEL 140 MMOL/L (136-145)
[2024-04-06 17:33] LABS: INR 1.06; PROTHROMBIN TIME 14.1 SECONDS (12.5-14.5)
[2024-04-06] MEDS: NS (Normal Saline) 0.9% 1,000 ML IV ONE (18:05)
[2024-04-06] MEDS ORDERED: CARV12.5 PO (19:07)
[2024-04-06] MEDS ORDERED: SPIR50TA4 PO (19:07)
[2024-04-06] MEDS ORDERED: HOME MED LIST COMPLETE! XX SCH (19:10)
[2024-04-06] MEDS ORDERED: ONDANSETRON 4MG 2ML VIAL IV PRN (19:40)
[2024-04-06] MEDS ORDERED: ACETAMINOPHEN 325 MG TAB PO PRN (19:40)
[2024-04-06] MEDS ORDERED: KETOROLAC 30 MG/ML 1ML VIAL IV PRN ×2 (19:40)
[2024-04-06] MEDS: NS (Normal Saline) 0.9% 1,000 ML IV SCH (19:40)
[2024-04-06] MEDS ORDERED: MAALOX 30 ML SUSP *UDC PO PRN (19:40)
[2024-04-06] MEDS ORDERED: MOM 30ML SUSPENSION UDC PO PRN (19:40)
[2024-04-06] MEDS ORDERED: GLUCAGON INJ 1MG VIAL SC PRN (20:00)
[2024-04-06] MEDS ORDERED: GLUCOSE 4 GM CHEW PO PRN (20:00)
[2024-04-06] MEDS ORDERED: DEXTROSE 50% 50ML SYRINGE IV PRN (20:00)
[2024-04-06 20:26] LABS: MAGNESIUM LEVEL 2.1 MG/DL (1.8-2.4)
[2024-04-06 20:27] LABS: C REACTIVE PROTEIN QUANTITATIV < 0.50 MG/DL (<1.0)
[2024-04-06] MEDS: LACTULOSE 20GM/30ML SYRUP UDC PO ONE (20:57)
[2024-04-06] MEDS: PATIROMER SORBITEX CALCIUM 8.4 GM POWDER PACKET (VELTASSA) PO ONE (21:13)
[2024-04-06] MEDS: cefTRIAXone SOD 2 GM in DEXTROSE 5% (D5W) ADV/MINI-BAG 50 ML IV SCH (21:31)
[2024-04-06] MEDS: INSULIN LISPRO (NovoLOG) PER UNIT SC SCH (21:37)
[2024-04-06] MEDS: oxyBUTYnin *DITROPAN XL* 5 MG TABCR PO SCH (23:10)
[2024-04-06] MEDS: LACTULOSE 20GM/30ML SYRUP UDC PO SCH (23:10)
[2024-04-06] MEDS: allopurinoL 100 MG TAB PO SCH (23:11)
[2024-04-06] MEDS: MAGNESIUM OXIDE 400MG TAB (MAG-OX) PO SCH (23:11)
[2024-04-06] MEDS: DOCUSATE SODIUM 100MG CAPSULE PO SCH (23:12)
[2024-04-06] MEDS: CARVedilol 12.5 MG TAB PO SCH (23:12)
[2024-04-06] MEDS: LEVEMIR (INSULIN DETEMIR) 1 UNITS/0.01ML SC SCH (23:27)
[2024-04-06 23:55] LABS: BLOOD UREA NITROGEN 17 MG/DL (9-23); CALCIUM LEVEL 9.8 MG/DL (8.3-10.6); CARBON DIOXIDE LEVEL 23 MMOL/L (20-31); CHLORIDE LEVEL 110 MMOL/L (98-107); CREATININE FOR GFR 0.49 MG/DL (0.55-1.30); GLOMERULAR FILTRATION RATE > 60.0 (>45); GLUCOSE, FASTING 187 MG/DL (74-106); SODIUM LEVEL 143 MMOL/L (136-145)
[2024-04-07] MEDS: HEPARIN SOD (PORCINE) 5000UNITS/ML 1ML VIAL/SYRINGE SC SCH (06:06)
[2024-04-07 07:10] LABS: ALBUMIN 2.7 G/DL (3.2-5.2); ALKALINE PHOSPHATASE 111 U/L (35-104); ALT/SGPT 48 U/L (7.0-40); AST/SGOT 44 U/L (<34); BILIRUBIN,DIRECT 0.5 MG/DL (<0.4); BILIRUBIN,TOTAL 1.5 MG/DL (0.3-1.2); BLOOD UREA NITROGEN 17 MG/DL (9-23); CALCIUM LEVEL 8.9 MG/DL (8.3-10.6); CARBON DIOXIDE LEVEL 20 MMOL/L (20-31); CHLORIDE LEVEL 111 MMOL/L (98-107); CREATININE FOR GFR 0.51 MG/DL (0.55-1.30); GLOMERULAR FILTRATION RATE > 60.0 (>45); GLUCOSE, FASTING 144 MG/DL (74-106); MAGNESIUM LEVEL 1.8 MG/DL (1.8-2.4); POTASSIUM SERUM 3.8 MMOL/L (3.5-5.1); SODIUM LEVEL 145 MMOL/L (136-145); TOTAL PROTEIN 6.7 G/DL (5.7-8.2)
[2024-04-07] MEDS: INSULIN LISPRO (NovoLOG) PER UNIT SC SCH (07:30)
[2024-04-07] MEDS: rifAXIMin 550 MG TAB (XIFAXAN) PO SCH (09:00)
[2024-04-07] MEDS: ROSUVASTATIN 10 MG TAB (CRESTOR) PO SCH (09:48)
[2024-04-07] MEDS: CLOPIDOGREL 75 MG TAB PO SCH (09:50)
[2024-04-07] MEDS: SPIRONOLACTONE 50 MG TAB PO SCH (09:51)
[2024-04-07] MEDS: LEVEMIR (INSULIN DETEMIR) 1 UNITS/0.01ML SC SCH (09:51)
[2024-04-07 17:05] VITALS: BP 134/68; TEMP 98.8; O2SAT 98
[2024-04-07 20:00] VITALS: BP 114/49; TEMP 99; O2SAT 97
[2024-04-07] MEDS: ENOXAPARIN 40MG/0.4ML SYRINGE (J1650 PER 10MG) SC SCH (20:55)
[2024-04-07 21:00] VITALS: O2SAT 96
[2024-04-07 22:20] LABS: BASO % 0.4 % (0.0-1.0); EOS # 0.2 10^3/uL (0.0-0.5); HEMATOCRIT 37.2 % (36.0-47.0); LYMPH # 1.1 10^3/uL (1.5-5.0); LYMPH % 10.9 % (24.0-44.0); MEAN CORPUSCULAR HEMOGLOBIN 33.2 pg (27.0-33.0); MEAN CORPUSCULAR HGB CONC 34.1 g/dl (32.0-36.5); MEAN CORPUSCULAR VOLUME 97.4 fl (80.0-96.0); MONO # 0.9 10^3/uL (0.0-0.8); MONO % 9.4 % (2.0-8.0); NEUTROPHILS # 7.7 10^3/uL (1.5-8.5); RED BLOOD COUNT 3.82 10^6/uL (4.00-5.40)
[2024-04-07 22:22] LABS: PLATELET COUNT, AUTOMATED 76 10^3/uL (150-450)
[2024-04-07 22:24] LABS: HEMOGLOBIN 12.7 g/dl (12.0-15.5)
[2024-04-08] VITALS: BP 135/66; TEMP 98.4; O2SAT 96
[2024-04-08 04:00] VITALS: BP 125/62; TEMP 97.5; O2SAT 91
[2024-04-08 09:29] LABS: BASO % 0.3 % (0.0-1.0); EOS # 0.1 10^3/uL (0.0-0.5); EOS % 1.6 % (0.0-3.0); HEMATOCRIT 39.9 % (36.0-47.0); HEMOGLOBIN 13.6 g/dl (12.0-15.5); LYMPH # 0.5 10^3/uL (1.5-5.0); LYMPH % 5.6 % (24.0-44.0); MEAN CORPUSCULAR HEMOGLOBIN 33.7 pg (27.0-33.0); MEAN CORPUSCULAR HGB CONC 34.1 g/dl (32.0-36.5); MEAN CORPUSCULAR VOLUME 98.8 fl (80.0-96.0); MONO # 0.7 10^3/uL (0.0-0.8); MONO % 8.1 % (2.0-8.0); NEUTROPHILS # 7.4 10^3/uL (1.5-8.5); NEUTROPHILS % 84.2 % (36.0-66.0); RED BLOOD COUNT 4.04 10^6/uL (4.00-5.40); WHITE BLOOD COUNT 8.9 10^3/uL (4.0-10.0)
[2024-04-08 09:33] LABS: PLATELET COUNT, AUTOMATED 73 10^3/uL (150-450)
[2024-04-08 09:53] LABS: ALBUMIN 2.7 G/DL (3.2-5.2); ALKALINE PHOSPHATASE 117 U/L (35-104); ALT/SGPT 49 U/L (7.0-40); AST/SGOT 39 U/L (<34); BILIRUBIN,TOTAL 1.2 MG/DL (0.3-1.2); BLOOD UREA NITROGEN 14 MG/DL (9-23); CALCIUM LEVEL 8.3 MG/DL (8.3-10.6); CARBON DIOXIDE LEVEL 19 MMOL/L (20-31); CHLORIDE LEVEL 109 MMOL/L (98-107); CREATININE FOR GFR 0.47 MG/DL (0.55-1.30); GLOMERULAR FILTRATION RATE > 60.0 (>45); GLUCOSE, FASTING 223 MG/DL (74-106); POTASSIUM SERUM 3.8 MMOL/L (3.5-5.1); SODIUM LEVEL 139 MMOL/L (136-145); TOTAL PROTEIN 6.8 G/DL (5.7-8.2)
[2024-04-08] MEDS: FLUCONAZOLE 100 MG TAB PO ONE (12:10)
[2024-04-08 18:00] VITALS: BP 141/69; TEMP 98.4; O2SAT 98
[2024-04-08 20:00] VITALS: BP 117/52; TEMP 97.5; O2SAT 96
[2024-04-09] VITALS: BP 112/49; TEMP 97.9; O2SAT 95
[2024-04-09 04:00] VITALS: BP 110/60; TEMP 97.9; O2SAT 97
[2024-04-09 06:35] LABS: ALBUMIN 2.3 G/DL (3.2-5.2); ALKALINE PHOSPHATASE 104 U/L (35-104); ALT/SGPT 39 U/L (7.0-40); AST/SGOT 32 U/L (<34); BILIRUBIN,TOTAL 0.7 MG/DL (0.3-1.2); BLOOD UREA NITROGEN 11 MG/DL (9-23); CARBON DIOXIDE LEVEL 22 MMOL/L (20-31); CHLORIDE LEVEL 110 MMOL/L (98-107); CREATININE FOR GFR 0.51 MG/DL (0.55-1.30); GLOMERULAR FILTRATION RATE > 60.0 (>45); GLUCOSE, FASTING 167 MG/DL (74-106); POTASSIUM SERUM 3.6 MMOL/L (3.5-5.1); SODIUM LEVEL 139 MMOL/L (136-145); TOTAL PROTEIN 5.9 G/DL (5.7-8.2)
[2024-04-09 08:00] VITALS: BP 116/46; TEMP 98.5; O2SAT 97
[2024-04-09 08:30] VITALS: BP 116/46
[2024-04-09] MEDS: LACTULOSE 20GM/30ML SYRUP UDC PO SCH (08:33)
[2024-04-09 08:53] LABS: BASO % 0.8 % (0.0-1.0); EOS # 0.2 10^3/uL (0.0-0.5); EOS % 4.4 % (0.0-3.0); HEMATOCRIT 37.9 % (36.0-47.0); HEMOGLOBIN 12.9 g/dl (12.0-15.5); LYMPH # 0.8 10^3/uL (1.5-5.0); LYMPH % 14.9 % (24.0-44.0); MEAN CORPUSCULAR VOLUME 96.9 fl (80.0-96.0); MONO # 0.6 10^3/uL (0.0-0.8); MONO % 12.5 % (2.0-8.0); NEUTROPHILS # 3.4 10^3/uL (1.5-8.5); NEUTROPHILS % 67.2 % (36.0-66.0); RED BLOOD COUNT 3.91 10^6/uL (4.00-5.40)
[2024-04-09 08:54] LABS: PLATELET COUNT, AUTOMATED 72 10^3/uL (150-450)
[2024-04-09] MEDS ORDERED: XIFA550T PO (11:08)
[2024-04-09] MEDS ORDERED: DIFL200T PO (11:16)
[2024-04-09 12:00] VITALS: BP 100/56; TEMP 97.7; O2SAT 94
[2024-04-09] MEDS ORDERED: FLUCONAZOLE 100 MG TAB PO ONE (13:30)
[2024-04-09] MEDS ORDERED: 3 DA2CRE PV (13:37)
[2024-04-09 14:46] VITALS: O2SAT 97
== END 2024-04-09 16:52 | disposition home health service (06) | DRG 441 ==
LOC: EDBD 16:13 → M ED 16:13 → M ED INP 19:37 → M MSPAV 04-07 17:02
PROVIDERS: ADMIT Family Medicine; ATTEND Student in an Organized Health Care Education/Training Program
DX: K76.82 Hepatic encephalopathy (principal); G93.41 Metabolic encephalopathy; E72.20 Disorder of urea cycle metabolism, unspecified; N39.0 Urinary tract infection, site not specified; J44.9 Chronic obstructive pulmonary disease, unspecified; I12.9 Hypertensive chronic kidney disease with stage 1 through stage 4 chronic kidney disease, or unspecified chronic kidney disease; E11.22 Type 2 diabetes mellitus with diabetic chronic kidney disease; K75.81 Nonalcoholic steatohepatitis (NASH); N18.9 Chronic kidney disease, unspecified; I25.10 Atherosclerotic heart disease of native coronary artery without angina pectoris; K21.9 Gastro-esophageal reflux disease without esophagitis; E87.5 Hyperkalemia; Z95.2 Presence of prosthetic heart valve; F41.9 Anxiety disorder, unspecified; F32.A Depression, unspecified; Z86.73 Personal history of transient ischemic attack (TIA), and cerebral infarction without residual deficits; I48.91 Unspecified atrial fibrillation; Z79.01 Long term (current) use of anticoagulants; G47.33 Obstructive sleep apnea (adult) (pediatric); Z87.891 Personal history of nicotine dependence; Z88.2 Allergy status to sulfonamides; Z88.8 Allergy status to other drugs, medicaments and biological substances; Z79.899 Other long term (current) drug therapy; Z79.4 Long term (current) use of insulin; E86.0 Dehydration; Z91.148 Patient's other noncompliance with medication regimen for other reason

== ENCOUNTER → 2024-04-27 | Outpatient (CLI) | payer MEDICARE ==
[~2024-04-27] MED LIST changes: +3 DA2CRE PV; +CARV12.5 PO; +DIFL200T PO; +SPIR50TA4 PO; +XIFA550T PO
[2024-04-27 18:30] LABS: HEMOGLOBIN A1c 9.5 % (4.0-6.0)
[2024-04-27 18:37] LABS: URIC ACID 1.8 MG/DL (3.1-7.8)
[2024-04-27 18:41] LABS: ALBUMIN 3.1 G/DL (3.2-5.2); ALKALINE PHOSPHATASE 114 U/L (35-104); ALT/SGPT 60 U/L (7.0-40); AST/SGOT 38 U/L (<34); BLOOD UREA NITROGEN 11 MG/DL (9-23); CALCIUM LEVEL 9.9 MG/DL (8.3-10.6); CARBON DIOXIDE LEVEL 26 MMOL/L (20-31); CHLORIDE LEVEL 105 MMOL/L (98-107); CHOLESTEROL LEVEL 182 MG/DL (<200); CHOLESTEROL RISK RATIO 2.71 (<5); CREATININE FOR GFR 0.62 MG/DL (0.55-1.30); GLOMERULAR FILTRATION RATE > 60.0 (>45); GLUCOSE, FASTING 291 MG/DL (74-106); HDL CHOLESTEROL 67.1 MG/DL (>40); LDL CHOLESTEROL 93.9 MG/DL (<100); NON-HDL-C 114.9 MG/DL; POTASSIUM SERUM 4.5 MMOL/L (3.5-5.1); SODIUM LEVEL 140 MMOL/L (136-145); TOTAL PROTEIN 7.2 G/DL (5.7-8.2); TRIGLYCERIDES LEVEL 105 MG/DL (<150)
[2024-04-27 18:43] LABS: BASO # 0.1 10^3/uL (0.0-0.2); BASO % 1.2 % (0.0-1.0); EOS # 0.2 10^3/uL (0.0-0.5); EOS % 3.5 % (0.0-3.0); HEMATOCRIT 43.1 % (36.0-47.0); HEMOGLOBIN 14.6 g/dl (12.0-15.5); LYMPH # 1.2 10^3/uL (1.5-5.0); LYMPH % 27.1 % (24.0-44.0); MEAN CORPUSCULAR HEMOGLOBIN 32.8 pg (27.0-33.0); MEAN CORPUSCULAR HGB CONC 33.9 g/dl (32.0-36.5); MEAN CORPUSCULAR VOLUME 96.9 fl (80.0-96.0); MONO # 0.6 10^3/uL (0.0-0.8); NEUTROPHILS # 2.3 10^3/uL (1.5-8.5); NEUTROPHILS % 54.7 % (36.0-66.0); PLATELET COUNT, AUTOMATED 100 10^3/uL (150-450); RED BLOOD COUNT 4.45 10^6/uL (4.00-5.40); WHITE BLOOD COUNT 4.2 10^3/uL (4.0-10.0)
== END ==
LOC: M LAB 17:39
PROVIDERS: ATTEND Pediatrics
DX: E11.8 Type 2 diabetes mellitus with unspecified complications (principal); K76.82 Hepatic encephalopathy

== ENCOUNTER 2024-05-30 10:09 | Inpatient (IN) | payer MEDICARE ==
[~2024-05-30 10:09] MED LIST changes: +GLIP-320 PO; -GLIP10TA18 PO
[2024-05-30] MEDS ORDERED: ISOVUE-370 76% 100ML VIAL As Ordered ONE (10:30)
[2024-05-30 10:45] LABS: BASO # 0.1 10^3/uL (0.0-0.2); BASO % 0.9 % (0.0-1.0); EOS # 0.1 10^3/uL (0.0-0.5); HEMATOCRIT 43.7 % (36.0-47.0); HEMOGLOBIN 14.7 g/dl (12.0-15.5); LYMPH # 1.1 10^3/uL (1.5-5.0); LYMPH % 15.6 % (24.0-44.0); MEAN CORPUSCULAR HEMOGLOBIN 32.7 pg (27.0-33.0); MEAN CORPUSCULAR HGB CONC 33.6 g/dl (32.0-36.5); MEAN CORPUSCULAR VOLUME 97.1 fl (80.0-96.0); MONO # 0.7 10^3/uL (0.0-0.8); MONO % 9.4 % (2.0-8.0); NEUTROPHILS % 71.8 % (36.0-66.0); WHITE BLOOD COUNT 6.9 10^3/uL (4.0-10.0)
[2024-05-30 10:56] LABS: INR 1.03; PARTIAL THROMBOPLASTIN TIME 24.7 SECONDS (24.8-34.2); PROTHROMBIN TIME 13.8 SECONDS (12.5-14.5)
[2024-05-30 11:04] LABS: VENOUS BASE EXCESS -0.2 (-2.0-2.0); VENOUS HCO3 24.5 MMOL/L (23.0-27.0); VENOUS O2 SATURATION 87.4 % (60.0-80.0); VENOUS PARTIAL PRESSURE CO2 40.1 mmHg (38.0-50.0); VENOUS PARTIAL PRESSURE O2 53.2 mmHg (30.0-50.0); VENOUS PH 7.403 UNITS (7.330-7.430); VENOUS STANDARD HCO3 24.1 MMOL/L; VENOUS TOTAL CO2 25.7 MMOL/L (24.0-28.0)
[2024-05-30 11:10] LABS: BLOOD UREA NITROGEN 22 MG/DL (9-23); CALCIUM LEVEL 9.8 MG/DL (8.3-10.6); CARBON DIOXIDE LEVEL 24 MMOL/L (20-31); CHLORIDE LEVEL 104 MMOL/L (98-107); CREATININE FOR GFR 0.67 MG/DL (0.55-1.30); GLOMERULAR FILTRATION RATE > 90.0 (>45); GLUCOSE, FASTING 200 MG/DL (74-106); POTASSIUM SERUM 4.9 MMOL/L (3.5-5.1); SODIUM LEVEL 138 MMOL/L (136-145)
[2024-05-30 11:27] LABS: PLATELET COUNT, AUTOMATED 96 10^3/uL (150-450)
[2024-05-30 11:32] LABS: OSMOLALITY SERUM 307 MOSM/KG (280-301)
[2024-05-30 11:35] LABS: ETHYL ALCOHOL (ETHANOL) 0.004 % (0.000-0.010)
[2024-05-30 11:36] LABS: ALBUMIN 2.6 G/DL (3.2-5.2); ALKALINE PHOSPHATASE 91 U/L (35-104); ALT/SGPT 43 U/L (7.0-40); AST/SGOT 29 U/L (<34); BILIRUBIN,DIRECT 0.3 MG/DL (<0.4); SALICYLATE LEVEL < 3.0 MG/DL (<30); TOTAL PROTEIN 6.2 G/DL (5.7-8.2)
[2024-05-30 11:39] LABS: THYROID STIMULATING HORMONE 2.933 uIU/ML (0.55-4.78)
[2024-05-30] MEDS: NS (Normal Saline) 0.9% 1,000 ML IV SCH (11:51)
[2024-05-30] MEDS: LACTULOSE 20GM/30ML SYRUP UDC PO ONE (11:51)
[2024-05-30 12:02] LABS: KETONE, URINE AUTO RFX TRACE mg/dL (NEGATIVE); NITRITE, URINE AUTO RFX NEGATIVE (NEGATIVE); RBC, URINE AUTO RFX 3 /HPF (0-3); SQUAM EPITHELIAL CELL UR AURFX 18 /HPF (0-6)
[2024-05-30 12:14] LABS: LEUKOCYTE ESTERASE UR AUTO RFX 3+ (NEGATIVE); WBC, URINE AUTO RFX 66 /HPF (0-3)
[2024-05-30 12:26] LABS: AMPHETAMINES LEVEL URINE NEGATIVE (NEGATIVE); BARBITURATES URINE NEGATIVE (NEGATIVE); BENZODIAZEPINES URINE NEGATIVE (NEGATIVE); CANNABINOIDS URINE NEGATIVE (NEGATIVE); COCAINE METABOLITE URINE NEGATIVE (NEGATIVE); METHADONE URINE NEGATIVE (NEGATIVE); OPIATES URINE NEGATIVE (NEGATIVE); PHENCYCLIDINE URINE NEGATIVE (NEGATIVE)
[2024-05-30] MEDS ORDERED: MED REC IN PROGRESS XX SCH (13:45)
[2024-05-30] MEDS: DOCUSATE SODIUM 100MG CAPSULE PO SCH (14:29)
[2024-05-30] MEDS ORDERED: XIFA550T PO (16:45)
[2024-05-30] MEDS ORDERED: INSU100I24 INJ (16:49)
[2024-05-30] MEDS ORDERED: INSU100I24 SQ (16:50)
[2024-05-30] MEDS ORDERED: FAMO1TAB11 PO (16:51)
[2024-05-30] MEDS ORDERED: ACET-683 PO (16:51)
[2024-05-30] MEDS ORDERED: HOME MED LIST COMPLETE! XX SCH (16:55)
[2024-05-30] MEDS: LACTULOSE 20GM/30ML SYRUP UDC PO SCH (17:19)
[2024-05-30] MEDS: INSULIN LISPRO (NovoLOG) PER UNIT SC SCH ×2 (17:30→20:50)
[2024-05-30] MEDS ORDERED: GLUCOSE 4 GM CHEW PO PRN (17:55)
[2024-05-30] MEDS ORDERED: DEXTROSE 50% 50ML SYRINGE IV PRN (17:55)
[2024-05-30] MEDS ORDERED: GLUCAGON INJ 1MG VIAL SC PRN (17:55)
[2024-05-30 18:45] VITALS: BP 139/74; TEMP 97; O2SAT 99
[2024-05-30] MEDS: cefTRIAXone SOD 1 GM in DEXTROSE 5% (D5W) ADV/MINI-BAG 50 ML IV SCH (19:30)
[2024-05-30 20:00] VITALS: BP 142/72; TEMP 97; O2SAT 94
[2024-05-30] MEDS: rifAXIMin 550 MG TAB (XIFAXAN) PO SCH (20:47)
[2024-05-31 04:00] VITALS: BP 109/56; TEMP 97.2; O2SAT 96
[2024-05-31 05:23] LABS: BASO % 0.6 % (0.0-1.0); EOS # 0.2 10^3/uL (0.0-0.5); EOS % 3.1 % (0.0-3.0); HEMATOCRIT 42.3 % (36.0-47.0); HEMOGLOBIN 14.3 g/dl (12.0-15.5); LYMPH # 1.1 10^3/uL (1.5-5.0); MEAN CORPUSCULAR HEMOGLOBIN 32.8 pg (27.0-33.0); MEAN CORPUSCULAR HGB CONC 33.8 g/dl (32.0-36.5); MONO # 0.8 10^3/uL (0.0-0.8); MONO % 15.6 % (2.0-8.0); NEUTROPHILS # 2.8 10^3/uL (1.5-8.5); NEUTROPHILS % 57.5 % (36.0-66.0); RED BLOOD COUNT 4.36 10^6/uL (4.00-5.40); WHITE BLOOD COUNT 4.9 10^3/uL (4.0-10.0)
[2024-05-31 05:27] LABS: PLATELET COUNT, AUTOMATED 84 10^3/uL (150-450)
[2024-05-31 05:51] LABS: BLOOD UREA NITROGEN 17 MG/DL (9-23); CALCIUM LEVEL 8.7 MG/DL (8.3-10.6); CARBON DIOXIDE LEVEL 20 MMOL/L (20-31); CHLORIDE LEVEL 113 MMOL/L (98-107); CREATININE FOR GFR 0.54 MG/DL (0.55-1.30); GLOMERULAR FILTRATION RATE > 90.0 (>45); GLUCOSE, FASTING 112 MG/DL (74-106); POTASSIUM SERUM 4.3 MMOL/L (3.5-5.1); SODIUM LEVEL 145 MMOL/L (136-145)
[2024-05-31 12:00] VITALS: BP 115/57; TEMP 97.2; O2SAT 98
[2024-05-31 20:00] VITALS: BP 126/61; TEMP 97.2; O2SAT 97
[2024-06-01 04:00] VITALS: BP 121/61; TEMP 97.2; O2SAT 96
[2024-06-01 05:48] LABS: EOS # 0.2 10^3/uL (0.0-0.5); EOS % 3.7 % (0.0-3.0); HEMATOCRIT 41.6 % (36.0-47.0); HEMOGLOBIN 13.9 g/dl (12.0-15.5); LYMPH # 1.1 10^3/uL (1.5-5.0); LYMPH % 26.3 % (24.0-44.0); MEAN CORPUSCULAR HGB CONC 33.4 g/dl (32.0-36.5); MEAN CORPUSCULAR VOLUME 98.8 fl (80.0-96.0); MONO # 0.6 10^3/uL (0.0-0.8); MONO % 15.9 % (2.0-8.0); NEUTROPHILS # 2.1 10^3/uL (1.5-8.5); NEUTROPHILS % 52.9 % (36.0-66.0); RED BLOOD COUNT 4.21 10^6/uL (4.00-5.40)
[2024-06-01 05:49] LABS: PLATELET COUNT, AUTOMATED 73 10^3/uL (150-450)
[2024-06-01 06:16] LABS: BLOOD UREA NITROGEN 15 MG/DL (9-23); CALCIUM LEVEL 8.4 MG/DL (8.3-10.6); CARBON DIOXIDE LEVEL 25 MMOL/L (20-31); CHLORIDE LEVEL 109 MMOL/L (98-107); CREATININE FOR GFR 0.52 MG/DL (0.55-1.30); GLOMERULAR FILTRATION RATE > 90.0 (>45); GLUCOSE, FASTING 143 MG/DL (74-106); POTASSIUM SERUM 4.1 MMOL/L (3.5-5.1); SODIUM LEVEL 141 MMOL/L (136-145)
[2024-06-01 12:00] VITALS: BP 108/58; TEMP 97.3; O2SAT 98
[2024-06-01] MEDS ORDERED: CEFD1CAP9 PO (15:21)
[2024-06-01] MEDS: CEFDINIR 300 MG CAP (OMNICEF) PO ONE (15:51)
[2024-06-01] MEDS: CEFDINIR 300 MG CAP (OMNICEF) PO SCH (17:22)
== END 2024-06-01 19:20 | disposition home or self-care (01) | DRG 71 ==
LOC: EDBD 10:09 → M ED 10:09 → M ED INP 13:16 → M MSPAV 18:35
PROVIDERS: ADMIT Internal Medicine Nephrology; ATTEND Internal Medicine Nephrology
DX: G93.41 Metabolic encephalopathy (principal); K76.6 Portal hypertension; K76.82 Hepatic encephalopathy; I12.9 Hypertensive chronic kidney disease with stage 1 through stage 4 chronic kidney disease, or unspecified chronic kidney disease; N18.30 Chronic kidney disease, stage 3 unspecified; E11.40 Type 2 diabetes mellitus with diabetic neuropathy, unspecified; E11.22 Type 2 diabetes mellitus with diabetic chronic kidney disease; I65.23 Occlusion and stenosis of bilateral carotid arteries; K75.81 Nonalcoholic steatohepatitis (NASH); G47.33 Obstructive sleep apnea (adult) (pediatric); H40.9 Unspecified glaucoma; Z86.73 Personal history of transient ischemic attack (TIA), and cerebral infarction without residual deficits; D69.6 Thrombocytopenia, unspecified; R16.1 Splenomegaly, not elsewhere classified; I25.10 Atherosclerotic heart disease of native coronary artery without angina pectoris; I25.2 Old myocardial infarction; Z95.2 Presence of prosthetic heart valve; K21.9 Gastro-esophageal reflux disease without esophagitis; I48.0 Paroxysmal atrial fibrillation; N30.10 Interstitial cystitis (chronic) without hematuria; K57.90 Diverticulosis of intestine, part unspecified, without perforation or abscess without bleeding; M75.02 Adhesive capsulitis of left shoulder; R39.15 Urgency of urination; R32 Unspecified urinary incontinence; E78.1 Pure hyperglyceridemia; Z88.5 Allergy status to narcotic agent; Z88.2 Allergy status to sulfonamides; Z88.8 Allergy status to other drugs, medicaments and biological substances; Z79.899 Other long term (current) drug therapy; Z79.4 Long term (current) use of insulin; Z85.828 Personal history of other malignant neoplasm of skin

== ENCOUNTER 2024-06-26 04:45 | Observation (INO) | payer MEDICARE ==
[~2024-06-26 04:45] MED LIST changes: +ACET-683 PO; +AMMO12CR4 TOP; -AMMO12CR7 TOP; +CEFD1CAP9 PO; +FAMO1TAB11 PO; +INSU100I24 INJ; +INSU100I24 SQ; +LIDO1ADH93 TOP; -LIDO5DIS41 TOP
[2024-06-26 05:28] LABS: EOS # 0.2 10^3/uL (0.0-0.5); EOS % 3.8 % (0.0-3.0); HEMATOCRIT 40.5 % (36.0-47.0); HEMOGLOBIN 13.9 g/dl (12.0-15.5); LYMPH # 0.8 10^3/uL (1.5-5.0); LYMPH % 19.3 % (24.0-44.0); MEAN CORPUSCULAR HEMOGLOBIN 33.6 pg (27.0-33.0); MEAN CORPUSCULAR HGB CONC 34.3 g/dl (32.0-36.5); MEAN CORPUSCULAR VOLUME 97.8 fl (80.0-96.0); MONO # 0.6 10^3/uL (0.0-0.8); NEUTROPHILS # 2.4 10^3/uL (1.5-8.5); NEUTROPHILS % 60.6 % (36.0-66.0); RED BLOOD COUNT 4.14 10^6/uL (4.00-5.40); WHITE BLOOD COUNT 3.9 10^3/uL (4.0-10.0)
[2024-06-26 05:50] LABS: PLATELET COUNT, AUTOMATED 64 10^3/uL (150-450)
[2024-06-26 06:03] LABS: ALBUMIN 2.8 G/DL (3.2-5.2); ALKALINE PHOSPHATASE 101 U/L (35-104); ALT/SGPT 84 U/L (7.0-40); AST/SGOT 73 U/L (<34); BILIRUBIN,TOTAL 1.1 MG/DL (0.3-1.2); BLOOD UREA NITROGEN 15 MG/DL (9-23); CALCIUM LEVEL 9.1 MG/DL (8.3-10.6); CARBON DIOXIDE LEVEL 23 MMOL/L (20-31); CHLORIDE LEVEL 107 MMOL/L (98-107); CREATININE FOR GFR 0.51 MG/DL (0.55-1.30); GLOMERULAR FILTRATION RATE > 90.0 (>45); GLUCOSE, FASTING 223 MG/DL (74-106); SODIUM LEVEL 140 MMOL/L (136-145); TOTAL PROTEIN 6.2 G/DL (5.7-8.2)
[2024-06-26] MEDS: LIDOCAINE 2% 5ML JELLY UROJET TOP ONE (07:15)
[2024-06-26] MEDS ORDERED: ISOVUE-370 76% 100ML VIAL As Ordered ONE (07:23)
[2024-06-26 07:31] LABS: INR 1.01; PARTIAL THROMBOPLASTIN TIME 28.2 SECONDS (24.8-34.2); PROTHROMBIN TIME 13.6 SECONDS (12.5-14.5)
[2024-06-26 07:40] LABS: MAGNESIUM LEVEL 1.6 MG/DL (1.8-2.4)
[2024-06-26 07:44] LABS: CPK CREATINE PHOSPHOKINASE 56 U/L (34-145); MB/CK RELATIVE INDEX 1.78 (< OR =4)
[2024-06-26 08:05] LABS: CK-MB VALUE MASS < 1.0 NG/ML (<3.6)
[2024-06-26 08:06] LABS: CPK CREATINE PHOSPHOKINASE 49 U/L (34-145); MB/CK RELATIVE INDEX 2.04 (< OR =4)
[2024-06-26 08:07] LABS: KETONE, URINE AUTO RFX NEGATIVE (NEGATIVE); NITRITE, URINE AUTO RFX NEGATIVE (NEGATIVE); RBC, URINE AUTO RFX 1 /HPF (0-3); SQUAM EPITHELIAL CELL UR AURFX 3 /HPF (0-6)
[2024-06-26 08:25] LABS: LEUKOCYTE ESTERASE UR AUTO RFX TRACE (NEGATIVE); WBC, URINE AUTO RFX 12 /HPF (0-3)
[2024-06-26] MEDS: NS 500 ML IV ONE (08:38)
[2024-06-26] MEDS: LACTULOSE 20GM/30ML SYRUP UDC PO ONE (08:39)
[2024-06-26] MEDS ORDERED: GLUCOSE 4 GM CHEW PO PRN (10:35)
[2024-06-26] MEDS ORDERED: ACETAMINOPHEN 325 MG TAB PO PRN (10:35)
[2024-06-26] MEDS ORDERED: GLUCAGON INJ 1MG VIAL SC PRN (10:35)
[2024-06-26] MEDS ORDERED: DEXTROSE 50% 50ML SYRINGE IV PRN (10:35)
[2024-06-26] MEDS ORDERED: HOME MED LIST COMPLETE! XX SCH (12:35)
[2024-06-26 12:43] VITALS: BP 131/65; TEMP 97.2; O2SAT 97
[2024-06-26] MEDS: INSULIN LISPRO (NovoLOG) PER UNIT SC SCH ×2 (13:43→20:43)
[2024-06-26] MEDS ORDERED: ACETAMINOPHEN 500 MG TAB PO PRN (14:15)
[2024-06-26] MEDS: LOSARTAN 25 MG TAB PO SCH (14:53)
[2024-06-26] MEDS: ROSUVASTATIN 10 MG TAB PO SCH (14:54)
[2024-06-26] MEDS: DAPAGLIFLOZIN PROPANEDIOL 10MG TABLET PO SCH (14:54)
[2024-06-26] MEDS: oxyBUTYnin *XL* 5 MG TAB PO SCH (14:54)
[2024-06-26] MEDS: LACTULOSE 20GM/30ML SYRUP UDC PO SCH (14:55)
[2024-06-26] MEDS: CLOPIDOGREL 75 MG TAB PO SCH (14:55)
[2024-06-26] MEDS: FAMOTIDINE 20 MG TAB PO SCH (14:55)
[2024-06-26] MEDS: allopurinoL 100 MG TAB PO SCH (14:56)
[2024-06-26] MEDS: MAG SULF 1GM/100ML (MAG RUN) 1 GM in IV 1 EA IV SCH (14:56)
[2024-06-26 16:00] VITALS: BP 124/63; TEMP 97; O2SAT 97
[2024-06-26 19:55] VITALS: BP 123/63; TEMP 97.3; O2SAT 96
[2024-06-26 20:00] VITALS: BP 123/63; TEMP 97.3; O2SAT 96
[2024-06-26] MEDS: rifAXIMin 550 MG TAB PO SCH (20:36)
[2024-06-26] MEDS: CARVedilol 12.5 MG TAB PO SCH (20:40)
[2024-06-26] MEDS: LanTUS (INSULIN GLARGINE INJ) 1 UNITS/0.01 ML SC SCH (21:01)
[2024-06-27] VITALS: BP 104/47; TEMP 97.7; O2SAT 96
[2024-06-27 04:00] VITALS: BP 109/64; TEMP 97.3; O2SAT 96
[2024-06-27 04:34] LABS: BASO % 0.6 % (0.0-1.0); EOS # 0.1 10^3/uL (0.0-0.5); HEMATOCRIT 36.2 % (36.0-47.0); HEMOGLOBIN 12.4 g/dl (12.0-15.5); LYMPH # 0.9 10^3/uL (1.5-5.0); LYMPH % 27.1 % (24.0-44.0); MEAN CORPUSCULAR HEMOGLOBIN 33.4 pg (27.0-33.0); MEAN CORPUSCULAR HGB CONC 34.3 g/dl (32.0-36.5); MEAN CORPUSCULAR VOLUME 97.6 fl (80.0-96.0); MONO # 0.4 10^3/uL (0.0-0.8); MONO % 13.4 % (2.0-8.0); NEUTROPHILS # 1.8 10^3/uL (1.5-8.5); NEUTROPHILS % 54.6 % (36.0-66.0); RED BLOOD COUNT 3.71 10^6/uL (4.00-5.40); WHITE BLOOD COUNT 3.2 10^3/uL (4.0-10.0)
[2024-06-27 04:58] LABS: PLATELET COUNT, AUTOMATED 61 10^3/uL (150-450)
[2024-06-27 05:12] LABS: ALBUMIN 2.5 G/DL (3.2-5.2); ALKALINE PHOSPHATASE 80 U/L (35-104); ALT/SGPT 67 U/L (7.0-40); AST/SGOT 45 U/L (<34); BILIRUBIN,TOTAL 0.9 MG/DL (0.3-1.2); BLOOD UREA NITROGEN 13 MG/DL (9-23); CALCIUM LEVEL 8.6 MG/DL (8.3-10.6); CARBON DIOXIDE LEVEL 23 MMOL/L (20-31); CHLORIDE LEVEL 109 MMOL/L (98-107); CREATININE FOR GFR 0.55 MG/DL (0.55-1.30); GLOMERULAR FILTRATION RATE > 90.0 (>45); GLUCOSE, FASTING 115 MG/DL (74-106); MAGNESIUM LEVEL 1.8 MG/DL (1.8-2.4); POTASSIUM SERUM 3.8 MMOL/L (3.5-5.1); SODIUM LEVEL 141 MMOL/L (136-145); TOTAL PROTEIN 5.4 G/DL (5.7-8.2)
[2024-06-27 08:00] VITALS: BP 103/49; TEMP 97.3; O2SAT 94
[2024-06-27] MEDS: LACTULOSE 20GM/30ML SYRUP UDC PO SCH ×2 (09:54→21:00)
[2024-06-27 12:00] VITALS: BP 120/63; TEMP 97.3; O2SAT 98
[2024-06-27] MEDS: MECLIZINE 25 MG TABLET PO PRN (12:21)
[2024-06-27 20:27] VITALS: BP 118/61; TEMP 97.5; O2SAT 96
[2024-06-27 23:34] VITALS: BP 103/43; TEMP 97.3; O2SAT 95
[2024-06-28 04:52] VITALS: BP 108/52; TEMP 97.2; O2SAT 92
[2024-06-28 05:10] LABS: BASO % 0.9 % (0.0-1.0); EOS # 0.2 10^3/uL (0.0-0.5); EOS % 4.7 % (0.0-3.0); HEMATOCRIT 36.6 % (36.0-47.0); HEMOGLOBIN 12.6 g/dl (12.0-15.5); LYMPH # 0.9 10^3/uL (1.5-5.0); LYMPH % 26.1 % (24.0-44.0); MEAN CORPUSCULAR HEMOGLOBIN 33.7 pg (27.0-33.0); MEAN CORPUSCULAR HGB CONC 34.4 g/dl (32.0-36.5); MEAN CORPUSCULAR VOLUME 97.9 fl (80.0-96.0); MONO # 0.5 10^3/uL (0.0-0.8); MONO % 15.7 % (2.0-8.0); NEUTROPHILS # 1.8 10^3/uL (1.5-8.5); NEUTROPHILS % 52.3 % (36.0-66.0); RED BLOOD COUNT 3.74 10^6/uL (4.00-5.40); WHITE BLOOD COUNT 3.4 10^3/uL (4.0-10.0)
[2024-06-28 05:14] LABS: PLATELET COUNT, AUTOMATED 58 10^3/uL (150-450)
[2024-06-28 05:35] LABS: ALBUMIN 2.5 G/DL (3.2-5.2); ALKALINE PHOSPHATASE 86 U/L (35-104); ALT/SGPT 70 U/L (7.0-40); AST/SGOT 48 U/L (<34); BILIRUBIN,TOTAL 0.8 MG/DL (0.3-1.2); BLOOD UREA NITROGEN 15 MG/DL (9-23); CALCIUM LEVEL 8.5 MG/DL (8.3-10.6); CARBON DIOXIDE LEVEL 24 MMOL/L (20-31); CHLORIDE LEVEL 112 MMOL/L (98-107); CREATININE FOR GFR 0.54 MG/DL (0.55-1.30); GLOMERULAR FILTRATION RATE > 90.0 (>45); GLUCOSE, FASTING 88 MG/DL (74-106); MAGNESIUM LEVEL 1.6 MG/DL (1.8-2.4); POTASSIUM SERUM 3.7 MMOL/L (3.5-5.1); SODIUM LEVEL 145 MMOL/L (136-145); TOTAL PROTEIN 5.6 G/DL (5.7-8.2)
[2024-06-28 08:00] VITALS: BP 109/61; TEMP 97.3; O2SAT 97
[2024-06-28 08:57] VITALS: BP 109/60
[2024-06-28] MEDS: LanTUS (INSULIN GLARGINE INJ) 1 UNITS/0.01 ML SC SCH (08:58)
[2024-06-28] MEDS: POTASSIUM CHLORIDE 10MEQ SR TABLET PO ONE (09:13)
[2024-06-28] MEDS: MAG SULF 1GM/100ML (MAG RUN) 1 GM in IV 1 EA IV SCH (09:15)
[2024-06-28 12:00] VITALS: BP 104/60; TEMP 97.2; O2SAT 97
[2024-06-28] MEDS ORDERED: MECL-209 PO (13:16)
[2024-06-28] MEDS ORDERED: CORE3.12 PO (14:00)
[2024-06-28 16:00] VITALS: BP 121/61; TEMP 97.3; O2SAT 97
== END 2024-06-28 16:58 | disposition home or self-care (01) ==
LOC: EDBD 04:45 → M ED 04:45 → M ED INP 04:46 → M MSPAV 12:47
PROVIDERS: ADMIT Internal Medicine; ATTEND Internal Medicine
DX: G93.41 Metabolic encephalopathy (principal); K75.81 Nonalcoholic steatohepatitis (NASH); K74.60 Unspecified cirrhosis of liver; K76.6 Portal hypertension; K76.82 Hepatic encephalopathy; R16.2 Hepatomegaly with splenomegaly, not elsewhere classified; I85.00 Esophageal varices without bleeding; R16.1 Splenomegaly, not elsewhere classified; Z86.59 Personal history of other mental and behavioral disorders; E11.9 Type 2 diabetes mellitus without complications; I12.9 Hypertensive chronic kidney disease with stage 1 through stage 4 chronic kidney disease, or unspecified chronic kidney disease; N18.30 Chronic kidney disease, stage 3 unspecified; E78.1 Pure hyperglyceridemia; K21.9 Gastro-esophageal reflux disease without esophagitis; Z86.73 Personal history of transient ischemic attack (TIA), and cerebral infarction without residual deficits; G47.33 Obstructive sleep apnea (adult) (pediatric); K58.8 Other irritable bowel syndrome; N30.11 Interstitial cystitis (chronic) with hematuria; N39.41 Urge incontinence; M75.02 Adhesive capsulitis of left shoulder; M75.102 Unspecified rotator cuff tear or rupture of left shoulder, not specified as traumatic; I48.0 Paroxysmal atrial fibrillation; M10.9 Gout, unspecified; R42 Dizziness and giddiness; Z79.4 Long term (current) use of insulin; I25.10 Atherosclerotic heart disease of native coronary artery without angina pectoris; Z98.61 Coronary angioplasty status; Z79.899 Other long term (current) drug therapy
CPT/HCPCS: 36415; 70450; 70496; 70498; 70551; 71045; 73030; 73060; 73200; 80053; 81001; 82140; 82550; 82553; 83735; 84484; 85025; 85049; 85055; 85610; 85730; 87086; 87486; 87581; 87633; 87798; 93005; 93041; 94760; 96361; 96374; 97116; 97161; 97530; 99285; G0378; J1815; J3475; Q9967

== ENCOUNTER 2024-09-11 17:46 | Emergency (ER) | payer MEDICARE ==
[~2024-09-11] VITALS: Ht 157.5 cm; Wt 79.5 kg
[~2024-09-11 17:46] MED LIST changes: +CARV3.12 PO; +CORE3.12 PO; +LACT20EL PO; +MECL-209 PO; +MECL-86 PO
[2024-09-11 18:58] LABS: PLATELET COUNT, AUTOMATED 108 10^3/uL (150-450)
[2024-09-11 19:19] LABS: CALCIUM LEVEL 8.7 MG/DL (8.3-10.6); CARBON DIOXIDE LEVEL 27 MMOL/L (20-31); CHLORIDE LEVEL 108 MMOL/L (98-107); CREATININE FOR GFR 0.63 MG/DL (0.55-1.30); GLOMERULAR FILTRATION RATE > 90.0 (>45); POTASSIUM SERUM 4.0 MMOL/L (3.5-5.1); SODIUM LEVEL 144 MMOL/L (136-145)
[2024-09-11] MEDS ORDERED: HOME MED LIST COMPLETE! XX SCH (19:55)
[2024-09-11 22:07] LABS: MAGNESIUM LEVEL 1.8 MG/DL (1.8-2.4)
[2024-09-11 22:30] VITALS: BP 135/66; TEMP 97.8; O2SAT 95
[2024-09-11] MEDS ORDERED: VALI5TAB PO (22:31)
== END 2024-09-11 22:40 | disposition home or self-care (01) ==
LOC: M ED 17:46
DX: M51.26 Other intervertebral disc displacement, lumbar region (principal); E11.9 Type 2 diabetes mellitus without complications; E78.5 Hyperlipidemia, unspecified; I10 Essential (primary) hypertension; F41.9 Anxiety disorder, unspecified; F32.A Depression, unspecified; K21.9 Gastro-esophageal reflux disease without esophagitis; I50.9 Heart failure, unspecified; I25.2 Old myocardial infarction; Z91.048 Other nonmedicinal substance allergy status; Z88.8 Allergy status to other drugs, medicaments and biological substances; Z88.1 Allergy status to other antibiotic agents; Z88.5 Allergy status to narcotic agent; Z88.2 Allergy status to sulfonamides; Z79.1 Long term (current) use of non-steroidal anti-inflammatories (NSAID); Z79.4 Long term (current) use of insulin; Z79.85 Long-term (current) use of injectable non-insulin antidiabetic drugs; Z79.899 Other long term (current) drug therapy
CPT/HCPCS: 72131; 80048; 82140; 83735; 85027; 96374; 99284; J3360

== ENCOUNTER 2024-10-23 09:16 | Day surgery (SDC) | payer MEDICARE ==
[~2024-10-23] VITALS: Ht 154.9 cm; Wt 75.7 kg
[~2024-10-23 09:16] MED LIST changes: +DIAZ5TAB PO; +LIDOCAINE 2% 100 MG/5 ML SDV (FOR ANES.) As Ordered ONE; +MAGN400T33 PO; +VALI5TAB PO
[2024-10-23] MEDS ORDERED: DEXTROSE 50% 50 ML SYRINGE IV PRN (10:00)
[2024-10-23] MEDS ORDERED: GLUCOSE 4 GM CHEW PO PRN (10:00)
[2024-10-23] MEDS ORDERED: GLUCAGON INJ 1 MG VIAL SC PRN (10:00)
[2024-10-23] MEDS: INSULIN LISPRO (NovoLOG) PER UNIT SC PRN (10:14)
[2024-10-23 10:51] VITALS: TEMP 98
[2024-10-23 11:08] VITALS: BP 108/56; O2SAT 96
== END 2024-10-23 11:21 | disposition home or self-care (01) ==
LOC: M OPP 09:16
PROVIDERS: ATTEND Internal Medicine Gastroenterology
DX: K76.6 Portal hypertension (principal); K31.89 Other diseases of stomach and duodenum; I85.00 Esophageal varices without bleeding; I48.91 Unspecified atrial fibrillation; Z86.73 Personal history of transient ischemic attack (TIA), and cerebral infarction without residual deficits; G47.30 Sleep apnea, unspecified; Z88.1 Allergy status to other antibiotic agents; Z88.2 Allergy status to sulfonamides; Z88.5 Allergy status to narcotic agent; Z88.8 Allergy status to other drugs, medicaments and biological substances; Z91.048 Other nonmedicinal substance allergy status; Z79.85 Long-term (current) use of injectable non-insulin antidiabetic drugs; Z79.899 Other long term (current) drug therapy
CPT/HCPCS: 43235; J1815; J3010

== ENCOUNTER 2024-10-31 11:37 | Inpatient (IN) | payer MEDICARE, MEDICAID ==
[~2024-10-31] VITALS: Ht 157.5 cm; Wt 83.8 kg
[~2024-10-31 11:37] MED LIST changes: -LIDOCAINE 2% 100 MG/5 ML SDV (FOR ANES.) As Ordered ONE
[2024-10-31 13:39] LABS: BASO # 0.0 10^3/uL (0.0-0.2); BASO % 0.6 % (0.0-1.0); EOS # 0.2 10^3/uL (0.0-0.5); EOS % 2.1 % (0.0-3.0); LYMPH # 0.4 10^3/uL (1.5-5.0); LYMPH % 5.5 % (24.0-44.0); MONO # 0.6 10^3/uL (0.0-0.8); MONO % 9.0 % (2.0-8.0); NEUTROPHILS # 5.9 10^3/uL (1.5-8.5); NEUTROPHILS % 82.5 % (36.0-66.0); PLATELET COUNT, AUTOMATED 122 10^3/uL (150-450)
[2024-10-31 13:48] LABS: ERYTHROCYTE SEDIMENTATION RATE 93 mm/hr (0-30)
[2024-10-31 13:58] LABS: C REACTIVE PROTEIN QUANTITATIV 9.49 MG/DL (<1.0)
[2024-10-31 13:59] LABS: ALT/SGPT 49 U/L (7.0-40); AST/SGOT 44 U/L (<34); CALCIUM LEVEL 8.2 MG/DL (8.3-10.6); CARBON DIOXIDE LEVEL 26 MMOL/L (20-31); CHLORIDE LEVEL 103 MMOL/L (98-107); CREATININE FOR GFR 0.55 MG/DL (0.55-1.30); GLOMERULAR FILTRATION RATE > 90.0 (>45); POTASSIUM SERUM 3.6 MMOL/L (3.5-5.1); SODIUM LEVEL 139 MMOL/L (136-145)
[2024-10-31] MEDS: NS (Normal Saline) 0.9% 1,000 ML IV ONE (17:39)
[2024-10-31] MEDS: VANCOMYCIN HCL 1,500 MG, VIAL MATE ADAPTER 1 EACH in NS 500 ML IV ONE (17:39)
[2024-10-31] MEDS ORDERED: GLUCAGON INJ 1 MG VIAL SC PRN (18:25)
[2024-10-31] MEDS ORDERED: GLUCOSE 4 GM CHEW PO PRN (18:25)
[2024-10-31] MEDS ORDERED: DEXTROSE 50% 50 ML SYRINGE IV PRN (18:25)
[2024-10-31] MEDS ORDERED: HOME MED LIST COMPLETE! XX SCH (18:40)
[2024-10-31] MEDS: INSULIN LISPRO (NovoLOG) PER UNIT SC SCH ×2 (19:16→21:14)
[2024-10-31 19:33] LABS: ESTIMATED AVERAGE GLUCOSE 246.0 MG/DL (60-110)
[2024-10-31 19:41] LABS: INR 1.14
[2024-10-31 21:05] VITALS: BP 155/82; TEMP 99.9; O2SAT 98
[2024-10-31] MEDS: LanTUS (INSULIN GLARGINE INJ) 1 UNITS/0.01 ML SC SCH (21:13)
[2024-10-31] MEDS: PIPERACILLIN/TAZOBACTAM SOD 4.5 GM in DEXTROSE 5% (D5W) ADV/MINI-BAG 50 ML IV SCH (21:16)
[2024-10-31] MEDS: LACTULOSE 20 GM/30 ML SYRUP UDC PO SCH (21:17)
[2024-11-01] MEDS: VANCOMYCIN HCL 1,000 MG, VIAL MATE ADAPTER 1 EACH in NS 250 ML IV SCH (02:38)
[2024-11-01 04:00] VITALS: BP 129/64; TEMP 100.3; O2SAT 96
[2024-11-01] MEDS: ACETAMINOPHEN *IV* 1,000 MG in IV 1 EA IV ONE ×2 (06:58→10:00)
[2024-11-01 07:34] LABS: CHOLESTEROL LEVEL 140 MG/DL (<200); CHOLESTEROL RISK RATIO 4.62 (<5); LDL CHOLESTEROL 88.9 MG/DL (<100); NON-HDL-C 109.7 MG/DL; TRIGLYCERIDES LEVEL 104 MG/DL (<150)
[2024-11-01 08:55] LABS: C REACTIVE PROTEIN QUANTITATIV 8.61 MG/DL (<1.0)
[2024-11-01 08:56] LABS: CALCIUM LEVEL 7.6 MG/DL (8.3-10.6); CARBON DIOXIDE LEVEL 24 MMOL/L (20-31); CHLORIDE LEVEL 109 MMOL/L (98-107); CREATININE FOR GFR 0.63 MG/DL (0.55-1.30); GLOMERULAR FILTRATION RATE > 90.0 (>45); POTASSIUM SERUM 3.3 MMOL/L (3.5-5.1); SODIUM LEVEL 144 MMOL/L (136-145)
[2024-11-01] MEDS: SPIRONOLACTONE 50 MG TAB PO SCH (09:00)
[2024-11-01 09:20] LABS: BASO # 0.0 10^3/uL (0.0-0.2); BASO % 0.7 % (0.0-1.0); EOS # 0.2 10^3/uL (0.0-0.5); EOS % 3.2 % (0.0-3.0); LYMPH # 0.6 10^3/uL (1.5-5.0); LYMPH % 10.4 % (24.0-44.0); MONO # 0.8 10^3/uL (0.0-0.8); MONO % 14.1 % (2.0-8.0); NEUTROPHILS # 4.0 10^3/uL (1.5-8.5); NEUTROPHILS % 71.2 % (36.0-66.0); PLATELET COUNT, AUTOMATED 107 10^3/uL (150-450)
[2024-11-01] MEDS: FAMOTIDINE 20 MG TAB PO SCH (09:28)
[2024-11-01] MEDS: ROSUVASTATIN 10 MG TAB PO SCH (09:29)
[2024-11-01] MEDS: DAPAGLIFLOZIN PROPANEDIOL 10 MG TABLET PO SCH (09:30)
[2024-11-01 09:38] LABS: ERYTHROCYTE SEDIMENTATION RATE 79 mm/hr (0-30)
[2024-11-01] MEDS ORDERED: ONDANSETRON 4MG 2ML VIAL As Ordered ONE (09:50)
[2024-11-01] MEDS ORDERED: LIDOCAINE 2% 100 MG/5 ML SDV (FOR ANES.) As Ordered ONE (09:50)
[2024-11-01] MEDS ORDERED: oxyBUTYnin *XL* 5 MG TAB PO SCH (10:04)
[2024-11-01 10:25] VITALS: TEMP 97.7
[2024-11-01] MEDS ORDERED: MIDAZOLAM INJ 2 MG/2 ML VIAL As Ordered ONE (11:30)
[2024-11-01] MEDS: LIDOCAINE 1% SDV 30 ML VIAL As Ordered ONE (11:55)
[2024-11-01 13:07] VITALS: BP 101/51; TEMP 97; O2SAT 95
[2024-11-01 14:00] VITALS: BP 112/54; TEMP 97.3
[2024-11-01 20:21] VITALS: BP 141/58; TEMP 97.5; O2SAT 96
[2024-11-01] MEDS ORDERED: NALOXONE INJ 0.4 MG/1 ML VIAL IV PRN (20:45)
[2024-11-01] MEDS: PERCOCET 5MG/325MG TAB PO PRN (21:31)
[2024-11-02 06:29] VITALS: BP 103/49; TEMP 97.5; O2SAT 96
[2024-11-02] MEDS: oxyBUTYnin *XL* 5 MG TAB PO SCH (07:52)
[2024-11-02] MEDS: ASPIRIN 81 MG CHEWABLE TABLET PO SCH (07:53)
[2024-11-02 08:32] LABS: VANCOMYCIN RANDOM 12.7 UG/ML
[2024-11-02 08:43] LABS: BASO # 0.0 10^3/uL (0.0-0.2); BASO % 0.6 % (0.0-1.0); EOS # 0.2 10^3/uL (0.0-0.5); EOS % 5.0 % (0.0-3.0); LYMPH # 0.6 10^3/uL (1.5-5.0); LYMPH % 12.3 % (24.0-44.0); MONO # 0.7 10^3/uL (0.0-0.8); MONO % 14.6 % (2.0-8.0); NEUTROPHILS # 3.2 10^3/uL (1.5-8.5); NEUTROPHILS % 67.3 % (36.0-66.0); PLATELET COUNT, AUTOMATED 117 10^3/uL (150-450)
[2024-11-02 08:50] LABS: ERYTHROCYTE SEDIMENTATION RATE 78 mm/hr (0-30)
[2024-11-02 08:51] LABS: C REACTIVE PROTEIN QUANTITATIV 8.17 MG/DL (<1.0); CALCIUM LEVEL 7.7 MG/DL (8.3-10.6); CARBON DIOXIDE LEVEL 23 MMOL/L (20-31); CHLORIDE LEVEL 110 MMOL/L (98-107); CREATININE FOR GFR 0.72 MG/DL (0.55-1.30); GLOMERULAR FILTRATION RATE > 90.0 (>45); MAGNESIUM LEVEL 1.8 MG/DL (1.8-2.4); POTASSIUM SERUM 3.6 MMOL/L (3.5-5.1); SODIUM LEVEL 143 MMOL/L (136-145)
[2024-11-02] MEDS: NS (Normal Saline) 0.9% 1,000 ML IV ONE (09:47)
[2024-11-02] MEDS: AMPICILLIN SOD/SULBACTAM SOD 3 GM in DEXTROSE 5% (D5W) MINI-BAG PLU 100 ML IV SCH (09:48)
[2024-11-02] MEDS: KETOROLAC 30 MG/ML 1 ML VIAL IV ONE (09:48)
[2024-11-02 12:41] VITALS: BP 110/55; TEMP 97.7; O2SAT 96
[2024-11-02 14:00] VITALS: BP 117/56; TEMP 97.9
[2024-11-02] MEDS: NIX CREME RINSE 1% 60 ML KIT TOP ONE (18:00)
[2024-11-02 19:30] VITALS: BP 144/68; TEMP 98.2; O2SAT 98
[2024-11-02] MEDS: PERMETHRIN 5% CREAM 60 GM TOP ONE (21:23)
[2024-11-02] MEDS: PERCOCET 5MG/325MG TAB PO PRN (22:29)
[2024-11-03 06:08] VITALS: BP 119/54; TEMP 98.2; O2SAT 97
[2024-11-03] MEDS: NIX CREME RINSE 1% 60 ML KIT TOP ONE (10:04)
[2024-11-03] MEDS: DOXYCYCLINE HYCLATE 100 MG TABLET PO SCH (11:47)
[2024-11-03 12:18] LABS: BASO # 0.0 10^3/uL (0.0-0.2); BASO % 0.5 % (0.0-1.0); EOS # 0.2 10^3/uL (0.0-0.5); EOS % 4.0 % (0.0-3.0); LYMPH # 0.6 10^3/uL (1.5-5.0); LYMPH % 11.2 % (24.0-44.0); MONO # 0.7 10^3/uL (0.0-0.8); MONO % 12.1 % (2.0-8.0); NEUTROPHILS # 4.0 10^3/uL (1.5-8.5); NEUTROPHILS % 71.8 % (36.0-66.0); PLATELET COUNT, AUTOMATED 129 10^3/uL (150-450)
[2024-11-03 12:29] LABS: ERYTHROCYTE SEDIMENTATION RATE 73 mm/hr (0-30)
[2024-11-03 12:42] LABS: C REACTIVE PROTEIN QUANTITATIV 8.16 MG/DL (<1.0)
[2024-11-03 12:45] LABS: CALCIUM LEVEL 7.7 MG/DL (8.3-10.6); CARBON DIOXIDE LEVEL 25 MMOL/L (20-31); CHLORIDE LEVEL 107 MMOL/L (98-107); CREATININE FOR GFR 0.70 MG/DL (0.55-1.30); GLOMERULAR FILTRATION RATE > 90.0 (>45); POTASSIUM SERUM 3.3 MMOL/L (3.5-5.1); SODIUM LEVEL 140 MMOL/L (136-145)
[2024-11-03] MEDS: INSULIN LISPRO (NovoLOG) PER UNIT SC SCH ×2 (13:08→13:09)
[2024-11-03 14:00] VITALS: BP 103/46; TEMP 98.1; O2SAT 98
[2024-11-03] MEDS ORDERED: INSULIN LISPRO (NovoLOG) PER UNIT SC SCH (21:00)
[2024-11-03] MEDS: AUGMENTIN 875 MG TAB PO SCH (22:10)
[2024-11-04 06:08] VITALS: BP 127/60; TEMP 97.5; O2SAT 96
[2024-11-04 09:44] LABS: BASO # 0.0 10^3/uL (0.0-0.2); BASO % 0.9 % (0.0-1.0); EOS # 0.2 10^3/uL (0.0-0.5); EOS % 5.0 % (0.0-3.0); LYMPH # 0.5 10^3/uL (1.5-5.0); LYMPH % 10.6 % (24.0-44.0); MONO # 0.5 10^3/uL (0.0-0.8); MONO % 9.8 % (2.0-8.0); NEUTROPHILS # 3.4 10^3/uL (1.5-8.5); NEUTROPHILS % 73.3 % (36.0-66.0); PLATELET COUNT, AUTOMATED 137 10^3/uL (150-450)
[2024-11-04 09:51] LABS: ERYTHROCYTE SEDIMENTATION RATE 61 mm/hr (0-30)
[2024-11-04 10:12] LABS: C REACTIVE PROTEIN QUANTITATIV 5.66 MG/DL (<1.0); CALCIUM LEVEL 7.2 MG/DL (8.3-10.6); CARBON DIOXIDE LEVEL 24.0 MMOL/L (20-31); CHLORIDE LEVEL 108.0 MMOL/L (98-107); CREATININE FOR GFR 0.75 MG/DL (0.55-1.30); GLOMERULAR FILTRATION RATE 86.7 (>45); MAGNESIUM LEVEL 1.5 MG/DL (1.8-2.4); POTASSIUM SERUM 3.6 MMOL/L (3.5-5.1); SODIUM LEVEL 136.0 MMOL/L (136-145)
[2024-11-04] MEDS: MAGNESIUM OXIDE 400 MG TAB PO ONE (16:07)
[2024-11-04] MEDS: RAMELTEON 8 MG TAB PO PRN (21:12)
[2024-11-05 06:39] VITALS: BP 120/57; TEMP 97.9; O2SAT 96
[2024-11-05 07:23] LABS: BASO # 0.1 10^3/uL (0.0-0.2); BASO % 1.0 % (0.0-1.0); EOS # 0.3 10^3/uL (0.0-0.5); EOS % 5.5 % (0.0-3.0); LYMPH # 0.6 10^3/uL (1.5-5.0); LYMPH % 11.3 % (24.0-44.0); MONO # 0.6 10^3/uL (0.0-0.8); MONO % 10.9 % (2.0-8.0); NEUTROPHILS # 3.6 10^3/uL (1.5-8.5); NEUTROPHILS % 70.9 % (36.0-66.0); PLATELET COUNT, AUTOMATED 136 10^3/uL (150-450)
[2024-11-05 07:40] LABS: ERYTHROCYTE SEDIMENTATION RATE 65 mm/hr (0-30)
[2024-11-05 20:36] VITALS: BP 126/71; TEMP 97.3; O2SAT 96
[2024-11-06 05:49] VITALS: BP 120/71; TEMP 97.5; O2SAT 95
[2024-11-06 07:07] LABS: BASO # 0.0 10^3/uL (0.0-0.2); BASO % 0.8 % (0.0-1.0); EOS # 0.2 10^3/uL (0.0-0.5); EOS % 4.8 % (0.0-3.0); LYMPH # 0.6 10^3/uL (1.5-5.0); LYMPH % 11.7 % (24.0-44.0); MONO # 0.6 10^3/uL (0.0-0.8); MONO % 12.6 % (2.0-8.0); NEUTROPHILS # 3.3 10^3/uL (1.5-8.5); NEUTROPHILS % 69.7 % (36.0-66.0); PLATELET COUNT, AUTOMATED 131 10^3/uL (150-450)
[2024-11-06 08:10] LABS: ERYTHROCYTE SEDIMENTATION RATE 41 mm/hr (0-30)
[2024-11-06] MEDS: ACETAMINOPHEN 325 MG TAB PO PRN (23:19)
[2024-11-07 06:39] VITALS: BP 108/59; TEMP 97.5; O2SAT 96
[2024-11-07 10:00] LABS: CALCIUM LEVEL 8.2 MG/DL (8.3-10.6); CARBON DIOXIDE LEVEL 27 MMOL/L (20-31); CHLORIDE LEVEL 108 MMOL/L (98-107); CREATININE FOR GFR 0.67 MG/DL (0.55-1.30); GLOMERULAR FILTRATION RATE > 90.0 (>45); MAGNESIUM LEVEL 1.5 MG/DL (1.8-2.4); POTASSIUM SERUM 3.6 MMOL/L (3.5-5.1); SODIUM LEVEL 140 MMOL/L (136-145)
[2024-11-07] MEDS: FUROSEMIDE 20 MG TAB PO ONE (12:19)
[2024-11-08 06:50] VITALS: BP 110/52; TEMP 97.3; O2SAT 96
[2024-11-09 06:05] VITALS: BP 105/51; TEMP 97.7; O2SAT 96
[2024-11-09 09:25] VITALS: BP 124/58
[2024-11-09] MEDS ORDERED: DOXY100T PO (13:32)
[2024-11-09] MEDS ORDERED: AMOX875T2 PO (13:32)
[2024-11-09] MEDS ORDERED: PERCOCET PO (13:38)
[2024-11-10] MEDS ORDERED: NIX CREME RINSE 1% 60 ML KIT TOP ONE (09:00)
== END 2024-11-09 17:10 | disposition home health service (06) | DRG 617 ==
LOC: M ED 11:37 → M ED INP 18:20 → M MS5PR 20:45
PROVIDERS: ADMIT General Practice; ATTEND General Practice
PROC: 0Y6Q0Z0 Detachment at Left 1st Toe, Complete, Open Approach (ICD-10-PCS; principal; 2024-11-01 12:00)
DX: E11.69 Type 2 diabetes mellitus with other specified complication (principal); K76.6 Portal hypertension; L03.116 Cellulitis of left lower limb; M86.9 Osteomyelitis, unspecified; E11.22 Type 2 diabetes mellitus with diabetic chronic kidney disease; I12.9 Hypertensive chronic kidney disease with stage 1 through stage 4 chronic kidney disease, or unspecified chronic kidney disease; E78.5 Hyperlipidemia, unspecified; K74.60 Unspecified cirrhosis of liver; K22.70 Barrett's esophagus without dysplasia; I25.10 Atherosclerotic heart disease of native coronary artery without angina pectoris; K75.81 Nonalcoholic steatohepatitis (NASH); R29.6 Repeated falls; N18.1 Chronic kidney disease, stage 1; I25.2 Old myocardial infarction; G47.33 Obstructive sleep apnea (adult) (pediatric); M85.80 Other specified disorders of bone density and structure, unspecified site; F32.A Depression, unspecified; F41.9 Anxiety disorder, unspecified; K58.9 Irritable bowel syndrome, unspecified; E11.621 Type 2 diabetes mellitus with foot ulcer; L97.529 Non-pressure chronic ulcer of other part of left foot with unspecified severity; B96.20 Unspecified Escherichia coli [E. coli] as the cause of diseases classified elsewhere; Z95.5 Presence of coronary angioplasty implant and graft; Z90.49 Acquired absence of other specified parts of digestive tract; Z79.51 Long term (current) use of inhaled steroids; Z79.4 Long term (current) use of insulin; Z79.899 Other long term (current) drug therapy; Z88.2 Allergy status to sulfonamides; Z88.1 Allergy status to other antibiotic agents; Z88.0 Allergy status to penicillin; Z88.5 Allergy status to narcotic agent; Z91.048 Other nonmedicinal substance allergy status; Z88.8 Allergy status to other drugs, medicaments and biological substances; B85.0 Pediculosis due to Pediculus humanus capitis; S92.405A Nondisplaced unspecified fracture of left great toe, initial encounter for closed fracture; X58.XXXA Exposure to other specified factors, initial encounter; Y92.9 Unspecified place or not applicable; Y93.9 Activity, unspecified

== ENCOUNTER → 2024-11-14 | Outpatient (REF) | payer MEDICARE, MEDICAID ==
[~2024-11-14] MED LIST changes: +AMOX875T2 PO; +DOXY100T PO; +PERCOCET PO
== END ==
LOC: M LAB REF 14:02
PROVIDERS: ATTEND Pediatrics
DX: M86.9 Osteomyelitis, unspecified (principal); E83.42 Hypomagnesemia

== ENCOUNTER 2024-11-17 14:28 | Emergency (ER) | payer MEDICARE, MEDICAID ==
[~2024-11-17] VITALS: Ht 157.5 cm; Wt 77.5 kg
[2024-11-17 14:33] VITALS: BP 140/66; TEMP 97.5; O2SAT 95
== END 2024-11-17 17:09 | disposition home or self-care (01) ==
LOC: M ED 14:28
DX: Z48.01 Encounter for change or removal of surgical wound dressing (principal); E11.9 Type 2 diabetes mellitus without complications; I10 Essential (primary) hypertension; E78.5 Hyperlipidemia, unspecified; K58.9 Irritable bowel syndrome, unspecified; G47.33 Obstructive sleep apnea (adult) (pediatric); K75.81 Nonalcoholic steatohepatitis (NASH); N18.9 Chronic kidney disease, unspecified; Z88.5 Allergy status to narcotic agent; Z88.8 Allergy status to other drugs, medicaments and biological substances; Z88.2 Allergy status to sulfonamides; Z88.1 Allergy status to other antibiotic agents; Z91.048 Other nonmedicinal substance allergy status; Z87.39 Personal history of other diseases of the musculoskeletal system and connective tissue

== ENCOUNTER 2024-12-01 21:59 | Emergency (ER) | payer MEDICARE, MEDICAID ==
[~2024-12-01] VITALS: Ht 157.5 cm; Wt 74.7 kg
[2024-12-02 01:31] LABS: ERYTHROCYTE SEDIMENTATION RATE 67 mm/hr (0-30)
[2024-12-02 01:35] LABS: BASO # 0.1 10^3/uL (0.0-0.2); BASO % 1.3 % (0.0-1.0); EOS # 0.2 10^3/uL (0.0-0.5); EOS % 3.5 % (0.0-3.0); LYMPH # 0.7 10^3/uL (1.5-5.0); LYMPH % 15.2 % (24.0-44.0); MONO # 0.7 10^3/uL (0.0-0.8); MONO % 15.7 % (2.0-8.0); NEUTROPHILS # 3.0 10^3/uL (1.5-8.5); NEUTROPHILS % 64.1 % (36.0-66.0); PLATELET COUNT, AUTOMATED 111 10^3/uL (150-450)
[2024-12-02 01:57] LABS: C REACTIVE PROTEIN QUANTITATIV 0.52 MG/DL (<1.0)
[2024-12-02 02:27] LABS: ALT/SGPT 36 U/L (7.0-40); AST/SGOT 37 U/L (<34); CALCIUM LEVEL 9.5 MG/DL (8.3-10.6); CARBON DIOXIDE LEVEL 27 MMOL/L (20-31); CHLORIDE LEVEL 104 MMOL/L (98-107); CREATININE FOR GFR 0.68 MG/DL (0.55-1.30); GLOMERULAR FILTRATION RATE > 90.0 (>45); POTASSIUM SERUM 3.8 MMOL/L (3.5-5.1); SODIUM LEVEL 140 MMOL/L (136-145)
[2024-12-02 03:15] VITALS: BP 152/67; TEMP 97; O2SAT 98
== END 2024-12-02 04:02 | disposition home or self-care (01) ==
LOC: M ED 21:59
DX: Z48.01 Encounter for change or removal of surgical wound dressing (principal); R51.9 Headache, unspecified; G47.30 Sleep apnea, unspecified; N18.2 Chronic kidney disease, stage 2 (mild); K58.9 Irritable bowel syndrome, unspecified; E11.9 Type 2 diabetes mellitus without complications; Z89.412 Acquired absence of left great toe; Z79.01 Long term (current) use of anticoagulants; Z86.79 Personal history of other diseases of the circulatory system; Z87.891 Personal history of nicotine dependence; Z87.42 Personal history of other diseases of the female genital tract; Z79.52 Long term (current) use of systemic steroids; Z79.2 Long term (current) use of antibiotics; Z79.1 Long term (current) use of non-steroidal anti-inflammatories (NSAID); Z79.4 Long term (current) use of insulin; Z79.899 Other long term (current) drug therapy; Z88.1 Allergy status to other antibiotic agents; Z88.5 Allergy status to narcotic agent; Z88.8 Allergy status to other drugs, medicaments and biological substances; Z88.2 Allergy status to sulfonamides; Z91.048 Other nonmedicinal substance allergy status

== ENCOUNTER 2024-12-16 09:10 | Observation (INO) | payer MEDICARE, MEDICAID ==
[~2024-12-16] VITALS: Ht 167.6 cm; Wt 73.3 kg
[~2024-12-16 09:10] MED LIST changes: -INSU100V19; +INSURSDRX; +LINE1TAB6 PO; -ROSU10TA61 PO; +ROSU10TA90 PO
[2024-12-16] MEDS: NS 500 ML IV ONE (09:45)
[2024-12-16 09:49] LABS: BASO # 0.0 10^3/uL (0.0-0.2); BASO % 0.5 % (0.0-1.0); EOS # 0.1 10^3/uL (0.0-0.5); EOS % 3.0 % (0.0-3.0); LYMPH # 0.7 10^3/uL (1.5-5.0); LYMPH % 16.5 % (24.0-44.0); MONO # 0.6 10^3/uL (0.0-0.8); MONO % 14.0 % (2.0-8.0); NEUTROPHILS # 2.6 10^3/uL (1.5-8.5); NEUTROPHILS % 65.7 % (36.0-66.0)
[2024-12-16 10:03] LABS: PLATELET COUNT, AUTOMATED 63 10^3/uL (150-450)
[2024-12-16 10:09] LABS: CALCIUM LEVEL 8.7 MG/DL (8.3-10.6); CARBON DIOXIDE LEVEL 20 MMOL/L (20-31); CHLORIDE LEVEL 109 MMOL/L (98-107); CREATININE FOR GFR 0.62 MG/DL (0.55-1.30); GLOMERULAR FILTRATION RATE > 90.0 (>45); MAGNESIUM LEVEL 1.6 MG/DL (1.8-2.4); POTASSIUM SERUM 3.9 MMOL/L (3.5-5.1); SODIUM LEVEL 142 MMOL/L (136-145)
[2024-12-16 10:37] LABS: ALT/SGPT 19 U/L (7.0-40); AST/SGOT 29 U/L (<34); C REACTIVE PROTEIN QUANTITATIV < 0.50 MG/DL (<1.0)
[2024-12-16] MEDS ORDERED: ISOVUE-370 76% 100 ML VIAL As Ordered ONE (10:37)
[2024-12-16 10:39] LABS: FREE T4 0.80 NG/DL (0.89-1.76)
[2024-12-16] MEDS: MAG SULF 1GM/100ML (MAG RUN) 1 GM in IV 1 EA IV ONE (11:20)
[2024-12-16] MEDS: LINEZOLID 600 MG TABLET PO ONE (11:21)
[2024-12-16] MEDS: LIDOCAINE 2% 5 ML JELLY UROJET TOP ONE (11:40)
[2024-12-16 12:02] LABS: KETONE, URINE AUTO RFX TRACE mg/dL (NEGATIVE); LEUKOCYTE ESTERASE UR AUTO RFX NEGATIVE (NEGATIVE); MUCUS, URINE RFX SMALL (NEGATIVE); NITRITE, URINE AUTO RFX NEGATIVE (NEGATIVE); RBC, URINE AUTO RFX 0 /HPF (0-3); SQUAM EPITHELIAL CELL UR AURFX 1 /HPF (0-6); WBC, URINE AUTO RFX 0 /HPF (0-3)
[2024-12-16 12:21] LABS: AMPHETAMINES LEVEL URINE NEGATIVE (NEGATIVE)
[2024-12-16 12:22] LABS: BARBITURATES URINE NEGATIVE (NEGATIVE); BENZODIAZEPINES URINE NEGATIVE (NEGATIVE); CANNABINOIDS URINE NEGATIVE (NEGATIVE); COCAINE METABOLITE URINE NEGATIVE (NEGATIVE); METHADONE URINE NEGATIVE (NEGATIVE); OPIATES URINE NEGATIVE (NEGATIVE); PHENCYCLIDINE URINE NEGATIVE (NEGATIVE)
[2024-12-16] MEDS ORDERED: GLUCOSE 4 GM CHEW PO PRN (15:10)
[2024-12-16] MEDS ORDERED: GLUCAGON INJ 1 MG VIAL SC PRN (15:10)
[2024-12-16] MEDS ORDERED: DEXTROSE 50% 50 ML SYRINGE IV PRN (15:10)
[2024-12-16 16:50] VITALS: BP 132/70; TEMP 97.5; O2SAT 98
[2024-12-16] MEDS ORDERED: LINE1TAB PO (17:21)
[2024-12-16] MEDS ORDERED: HOME MED LIST COMPLETE! XX SCH (17:25)
[2024-12-16] MEDS: INSULIN LISPRO (NovoLOG) PER UNIT SC SCH ×2 (18:54→21:00)
[2024-12-16] MEDS: KETOROLAC 30 MG/ML 1 ML VIAL IV ONE (18:54)
[2024-12-16] MEDS: DAPAGLIFLOZIN PROPANEDIOL 10 MG TABLET PO SCH (18:55)
[2024-12-16] MEDS: NS (Normal Saline) 0.9% 1,000 ML IV ONE (18:55)
[2024-12-16] MEDS: oxyBUTYnin *XL* 5 MG TAB PO SCH (18:56)
[2024-12-16] MEDS: FAMOTIDINE 20 MG TAB PO SCH (18:56)
[2024-12-16] MEDS: ROSUVASTATIN 10 MG TAB PO SCH (18:56)
[2024-12-16] MEDS: CLOPIDOGREL 75 MG TAB PO SCH (18:56)
[2024-12-16 20:09] VITALS: BP 140/71; TEMP 97.7; O2SAT 96
[2024-12-16] MEDS: LanTUS (INSULIN GLARGINE INJ) 1 UNITS/0.01 ML SC SCH (21:00)
[2024-12-16] MEDS: LINEZOLID 600 MG TABLET PO SCH (21:12)
[2024-12-16] MEDS: MAGNESIUM OXIDE 400 MG TAB PO SCH (21:12)
[2024-12-17] MEDS: ACETAMINOPHEN 325 MG TAB PO PRN (00:38)
[2024-12-17] MEDS: KETOROLAC 30 MG/ML 1 ML VIAL IV ONE (03:53)
[2024-12-17 06:50] VITALS: BP 105/48; TEMP 97.3; O2SAT 97
[2024-12-17 06:50] LABS: BASO # 0.0 10^3/uL (0.0-0.2); BASO % 1.3 % (0.0-1.0); EOS # 0.1 10^3/uL (0.0-0.5); EOS % 2.5 % (0.0-3.0); LYMPH # 0.6 10^3/uL (1.5-5.0); LYMPH % 23.3 % (24.0-44.0); MONO # 0.3 10^3/uL (0.0-0.8); MONO % 14.0 % (2.0-8.0); NEUTROPHILS # 1.4 10^3/uL (1.5-8.5); NEUTROPHILS % 58.9 % (36.0-66.0)
[2024-12-17 06:51] LABS: PLATELET COUNT, AUTOMATED 43 10^3/uL (150-450)
[2024-12-17 07:14] LABS: CALCIUM LEVEL 6.9 MG/DL (8.3-10.6); CARBON DIOXIDE LEVEL 22 MMOL/L (20-31); CHLORIDE LEVEL 112 MMOL/L (98-107); CREATININE FOR GFR 0.61 MG/DL (0.55-1.30); GLOMERULAR FILTRATION RATE > 90.0 (>45); MAGNESIUM LEVEL 1.7 MG/DL (1.8-2.4); POTASSIUM SERUM 3.4 MMOL/L (3.5-5.1); SODIUM LEVEL 143 MMOL/L (136-145)
[2024-12-17] MEDS: POTASSIUM CHLORIDE 10MEQ SR TABLET PO ONE (08:21)
[2024-12-17] MEDS: LACTULOSE 20 GM/30 ML SYRUP UDC PO SCH (08:22)
[2024-12-17 08:30] VITALS: BP 120/60
[2024-12-17 14:00] VITALS: BP 153/83; TEMP 97.7; O2SAT 89
[2024-12-17 20:04] VITALS: BP 145/80; TEMP 97.7
[2024-12-17] MEDS: LanTUS (INSULIN GLARGINE INJ) 1 UNITS/0.01 ML SC SCH (21:00)
[2024-12-17] MEDS: traMADol 50 MG TAB PO PRN (22:31)
[2024-12-18 06:29] LABS: BASO # 0.0 10^3/uL (0.0-0.2); BASO % 0.9 % (0.0-1.0); EOS # 0.1 10^3/uL (0.0-0.5); EOS % 2.4 % (0.0-3.0); LYMPH # 0.5 10^3/uL (1.5-5.0); LYMPH % 14.7 % (24.0-44.0); MONO # 0.4 10^3/uL (0.0-0.8); MONO % 12.7 % (2.0-8.0); NEUTROPHILS # 2.3 10^3/uL (1.5-8.5); NEUTROPHILS % 69.0 % (36.0-66.0)
[2024-12-18 06:34] LABS: PLATELET COUNT, AUTOMATED 36 10^3/uL (150-450)
[2024-12-18 06:41] LABS: ESTIMATED AVERAGE GLUCOSE 206.0 MG/DL (60-110)
[2024-12-18 06:54] LABS: CALCIUM LEVEL 8.6 MG/DL (8.3-10.6); CARBON DIOXIDE LEVEL 22 MMOL/L (20-31); CHLORIDE LEVEL 112 MMOL/L (98-107); CREATININE FOR GFR 0.55 MG/DL (0.55-1.30); GLOMERULAR FILTRATION RATE > 90.0 (>45); POTASSIUM SERUM 4.0 MMOL/L (3.5-5.1); SODIUM LEVEL 143 MMOL/L (136-145)
[2024-12-18] MEDS: LACTULOSE 20 GM/30 ML SYRUP UDC PO SCH (08:17)
[2024-12-18] MEDS ORDERED: TRES1INJ SC (12:04)
[2024-12-18] MEDS ORDERED: LACT10SO94 PO (12:04)
[2024-12-18] MEDS: PNEUMOC 21-VAL CONJ-DIP CRM/PF 0.5 ML SYRINGE IM.IMMUN ONE (15:09)
== END 2024-12-18 15:12 | disposition home or self-care (01) ==
LOC: M ED 09:10 → EDBD 09:10 → M ED INP 09:11 → M MS5PR 16:50
PROVIDERS: ADMIT Internal Medicine Nephrology; ATTEND Internal Medicine Nephrology
DX: K52.1 Toxic gastroenteritis and colitis (principal); T47.4X5A Adverse effect of other laxatives, initial encounter; R42 Dizziness and giddiness; E83.42 Hypomagnesemia; E16.2 Hypoglycemia, unspecified; R26.2 Difficulty in walking, not elsewhere classified; K75.81 Nonalcoholic steatohepatitis (NASH); D69.59 Other secondary thrombocytopenia; R16.1 Splenomegaly, not elsewhere classified; I48.0 Paroxysmal atrial fibrillation; N20.0 Calculus of kidney; M85.80 Other specified disorders of bone density and structure, unspecified site; Z86.59 Personal history of other mental and behavioral disorders; F10.11 Alcohol abuse, in remission; E11.40 Type 2 diabetes mellitus with diabetic neuropathy, unspecified; M54.50 Low back pain, unspecified; I12.9 Hypertensive chronic kidney disease with stage 1 through stage 4 chronic kidney disease, or unspecified chronic kidney disease; E78.1 Pure hyperglyceridemia; K21.9 Gastro-esophageal reflux disease without esophagitis; I25.10 Atherosclerotic heart disease of native coronary artery without angina pectoris; Z79.02 Long term (current) use of antithrombotics/antiplatelets; Z79.4 Long term (current) use of insulin; N18.30 Chronic kidney disease, stage 3 unspecified; E79.0 Hyperuricemia without signs of inflammatory arthritis and tophaceous disease; Z86.73 Personal history of transient ischemic attack (TIA), and cerebral infarction without residual deficits; G47.33 Obstructive sleep apnea (adult) (pediatric); K58.8 Other irritable bowel syndrome; M75.02 Adhesive capsulitis of left shoulder; M67.814 Other specified disorders of tendon, left shoulder; Z23 Encounter for immunization
CPT/HCPCS: 36415; 51701; 70450; 70496; 70498; 71045; 71260; 74177; 80048; 80076; 80307; 81001; 82140; 83036; 83605; 83735; 84145; 84439; 84443; 85025; 85049; 85055; 85652; 86140; 87040; 87486; 87581; 87633; 87798; 90684; 93005; 93041; 94760; 96361; 96374; 96375; 96376; 97116; 97161; 97165; 97530; 97535; 99285; G0009; G0378; J1815; J1885; J3475; Q9967

== ENCOUNTER 2024-12-22 11:44 | Inpatient (IN) | payer MEDICARE, MEDICAID ==
[~2024-12-22] VITALS: Ht 172.7 cm; Wt 76.4 kg
[~2024-12-22 11:44] MED LIST changes: +INSU100V19; -INSURSDRX; +LINE1TAB PO
[2024-12-22 12:54] LABS: BASO # 0.0 10^3/uL (0.0-0.2); BASO % 0.9 % (0.0-1.0); EOS # 0.1 10^3/uL (0.0-0.5); EOS % 2.5 % (0.0-3.0); LYMPH # 0.5 10^3/uL (1.5-5.0); LYMPH % 16.3 % (24.0-44.0); MONO # 0.4 10^3/uL (0.0-0.8); MONO % 11.6 % (2.0-8.0); NEUTROPHILS # 2.2 10^3/uL (1.5-8.5); NEUTROPHILS % 68.4 % (36.0-66.0)
[2024-12-22 13:22] LABS: ALT/SGPT 71 U/L (7.0-40); AST/SGOT 77 U/L (<34); CALCIUM LEVEL 8.9 MG/DL (8.3-10.6); CARBON DIOXIDE LEVEL 25 MMOL/L (20-31); CHLORIDE LEVEL 108 MMOL/L (98-107); CREATININE FOR GFR 0.63 MG/DL (0.55-1.30); GLOMERULAR FILTRATION RATE > 90.0 (>45); MAGNESIUM LEVEL 1.5 MG/DL (1.8-2.4); PLATELET COUNT, AUTOMATED 35 10^3/uL (150-450); POTASSIUM SERUM 3.8 MMOL/L (3.5-5.1); SODIUM LEVEL 145 MMOL/L (136-145)
[2024-12-22] MEDS: MAG SULF 1GM/100ML (MAG RUN) 1 GM in IV 1 EA IV ONE (14:00)
[2024-12-22] MEDS: NS 500 ML IV ONE (14:00)
[2024-12-22 14:28] LABS: INR 1.14
[2024-12-22] MEDS ORDERED: GLUCAGON INJ 1 MG VIAL SC PRN (17:00)
[2024-12-22] MEDS ORDERED: DEXTROSE 50% 50 ML SYRINGE IV PRN (17:00)
[2024-12-22] MEDS ORDERED: GLUCOSE 4 GM CHEW PO PRN (17:00)
[2024-12-22 17:18] LABS: D-DIMER QUANT 1.43 ug/mL (<0.5); INR 1.13
[2024-12-22] MEDS: INSULIN LISPRO (NovoLOG) PER UNIT SC SCH ×2 (17:30→21:00)
[2024-12-22] MEDS ORDERED: ISOVUE-370 76% 100 ML VIAL As Ordered ONE (17:53)
[2024-12-22] MEDS: VANCOMYCIN HCL 1,000 MG, VIAL MATE ADAPTER 1 EACH in NS 250 ML IV ONE (18:32)
[2024-12-22 19:01] LABS: APPEARANCE, URINE HAZY (CLEAR); BACTERIA, URINE AUTO 1+ (NEGATIVE); BILIRUBIN, URINE AUTO NEGATIVE (NEGATIVE); BLOOD, URINE BLOOD 1+ (NEGATIVE); GLUCOSE, URINE (UA) AUTO 3+ mg/dL (NEGATIVE); KETONE, URINE AUTO TRACE mg/dL (NEGATIVE); LEUKOCYTE ESTERASE, URINE AUTO 1+ (NEGATIVE); MUCUS, URINE SMALL (NEGATIVE); NITRITE, URINE AUTO NEGATIVE (NEGATIVE); PROTEIN, URINE AUTO NEGATIVE (NEGATIVE); RBC, URINE AUTO 2 /HPF (0-3); SPECIFIC GRAVITY URINE AUTO 1.026 (1.002-1.035); SQUAMOUS EPITHELIAL CELL UR AU 2 /HPF (0-6); TRANSITIONAL EPITHELIAL AUTO 1 /HPF; UROBILINOGEN, URINE AUTO 0.2 mg/dL (0.0-2.0); WBC, URINE AUTO 5 /HPF (0-3)
[2024-12-22] MEDS ORDERED: LACT20EL PO (19:30)
[2024-12-22] MEDS ORDERED: TRES1INJ SC ×2 (19:34)
[2024-12-22] MEDS ORDERED: HOME MED LIST COMPLETE! XX SCH (19:35)
[2024-12-22] MEDS: MEROPENEM 2 GM, VIAL MATE ADAPTER 1 EACH in NS 100 ML IV SCH (20:48)
[2024-12-22 21:24] VITALS: BP 140/98; TEMP 97.7; O2SAT 94
[2024-12-22] MEDS: VANCOMYCIN HCL 1,000 MG, VIAL MATE ADAPTER 1 EACH in NS 250 ML IV SCH (21:54)
[2024-12-23] MEDS: NIX CREME RINSE 1% 60 ML KIT TOP ONE (01:25)
[2024-12-23] MEDS: MEROPENEM 2 GM, VIAL MATE ADAPTER 1 EACH in NS 100 ML IV SCH (03:56)
[2024-12-23 04:00] VITALS: BP 114/51; TEMP 98.6; O2SAT 94
[2024-12-23 07:48] VITALS: BP 130/64; TEMP 98.1; O2SAT 96
[2024-12-23] MEDS: LACTULOSE 20 GM/30 ML SYRUP UDC PO SCH (07:53)
[2024-12-23] MEDS: OMEPRAZOLE 20MG CAP PO SCH (07:54)
[2024-12-23] MEDS: SPIRONOLACTONE 50 MG TAB PO SCH (07:54)
[2024-12-23] MEDS: LanTUS (INSULIN GLARGINE INJ) 1 UNITS/0.01 ML SC SCH (07:55)
[2024-12-23 08:34] LABS: PLATELET COUNT, AUTOMATED 34 10^3/uL (150-450)
[2024-12-23 08:49] LABS: ALT/SGPT 63 U/L (7.0-40); AST/SGOT 64 U/L (<34); CALCIUM LEVEL 7.9 MG/DL (8.3-10.6); CARBON DIOXIDE LEVEL 26 MMOL/L (20-31); CHLORIDE LEVEL 108 MMOL/L (98-107); CREATININE FOR GFR 0.60 MG/DL (0.55-1.30); GLOMERULAR FILTRATION RATE > 90.0 (>45); POTASSIUM SERUM 3.8 MMOL/L (3.5-5.1); SODIUM LEVEL 143 MMOL/L (136-145)
[2024-12-23 09:06] LABS: INR 1.09
[2024-12-23 12:22] VITALS: BP 115/53; TEMP 97.5
[2024-12-23] MEDS: ACETAMINOPHEN 500 MG TAB PO PRN (17:05)
[2024-12-23 17:06] VITALS: BP 143/66; TEMP 98.1; O2SAT 98
[2024-12-23 20:06] VITALS: BP 141/68; TEMP 98.2; O2SAT 97
[2024-12-23] MEDS: GABAPENTIN 300 MG CAP PO SCH (22:39)
[2024-12-23 23:47] VITALS: BP 108/60; TEMP 98.1; O2SAT 96
[2024-12-24 03:59] VITALS: BP 121/58; TEMP 98.8; O2SAT 96
[2024-12-24 08:00] VITALS: BP 131/54; TEMP 99; O2SAT 95
[2024-12-24] MEDS: ACETAMINOPHEN 325 MG TAB PO PRN (08:21)
[2024-12-24 08:38] LABS: PLATELET COUNT, AUTOMATED 32 10^3/uL (150-450)
[2024-12-24 08:59] LABS: VANCOMYCIN LEVEL TROUGH 9.0 UG/ML (10.0-20.0)
[2024-12-24 09:03] LABS: ALT/SGPT 55 U/L (7.0-40); AST/SGOT 47 U/L (<34); CALCIUM LEVEL 8.0 MG/DL (8.3-10.6); CARBON DIOXIDE LEVEL 25 MMOL/L (20-31); CHLORIDE LEVEL 108 MMOL/L (98-107); CREATININE FOR GFR 0.54 MG/DL (0.55-1.30); GLOMERULAR FILTRATION RATE > 90.0 (>45); POTASSIUM SERUM 3.7 MMOL/L (3.5-5.1); SODIUM LEVEL 140 MMOL/L (136-145)
[2024-12-24 09:23] LABS: INR 1.15
[2024-12-24] MEDS: VANCOMYCIN HCL 1,250 MG, VIAL MATE ADAPTER 1 EACH in NS 250 ML IV SCH (09:27)
[2024-12-24 12:00] VITALS: BP 139/69; TEMP 98.6; O2SAT 96
[2024-12-24 14:41] LABS: C REACTIVE PROTEIN QUANTITATIV < 0.50 MG/DL (<1.0)
[2024-12-24 15:12] LABS: IRON (FE) 129 UG/DL (50-170); PERCENT SATURATION 53.3 % (13.2-45.0)
[2024-12-24 16:00] VITALS: BP 138/65; TEMP 98.8; O2SAT 96
[2024-12-24 19:59] VITALS: BP 138/67; TEMP 99; O2SAT 96
[2024-12-25 00:19] VITALS: BP 122/55; TEMP 98.6; O2SAT 95
[2024-12-25 04:09] VITALS: BP 120/55; TEMP 97.9; O2SAT 98
[2024-12-25] MEDS: ALBUTEROL 90 MCG/ACT 8 GM HFA INHALER INH PRN (06:19)
[2024-12-25 07:01] LABS: PLATELET COUNT, AUTOMATED 33 10^3/uL (150-450)
[2024-12-25 07:17] LABS: INR 1.16
[2024-12-25 07:48] LABS: HIV 1&2 SCREEN NEGATIVE (NEGATIVE)
[2024-12-25 07:56] LABS: HEPATITIS C VIRUS ABY INDEX < 0.02 INDEX (<0.8)
[2024-12-25 08:00] VITALS: BP 120/59; TEMP 97.9; O2SAT 99
[2024-12-25 08:03] LABS: ALT/SGPT 55 U/L (7.0-40); AST/SGOT 52 U/L (<34); CALCIUM LEVEL 8.0 MG/DL (8.3-10.6); CARBON DIOXIDE LEVEL 26 MMOL/L (20-31); CHLORIDE LEVEL 109 MMOL/L (98-107); CREATININE FOR GFR 0.52 MG/DL (0.55-1.30); GLOMERULAR FILTRATION RATE > 90.0 (>45); POTASSIUM SERUM 3.4 MMOL/L (3.5-5.1); SODIUM LEVEL 142 MMOL/L (136-145)
[2024-12-25] MEDS: POTASSIUM CHLORIDE 10MEQ SR TABLET PO ONE (09:31)
[2024-12-25] MEDS ORDERED: LACT20EL PO (10:17)
[2024-12-25 12:00] VITALS: BP 126/73; TEMP 98.1; O2SAT 97
[2024-12-25 16:00] VITALS: BP 117/55; TEMP 98.9; O2SAT 96
[2024-12-25] MEDS: MECLIZINE 25 MG TABLET PO PRN (20:55)
[2024-12-26 05:15] VITALS: BP 108/55; TEMP 98.4; O2SAT 96
[2024-12-26 06:56] LABS: PLATELET COUNT, AUTOMATED 39 10^3/uL (150-450)
[2024-12-26 07:17] LABS: INR 1.14
[2024-12-26 07:18] LABS: ALT/SGPT 75 U/L (7.0-40); AST/SGOT 77 U/L (<34); CALCIUM LEVEL 7.6 MG/DL (8.3-10.6); CARBON DIOXIDE LEVEL 26 MMOL/L (20-31); CHLORIDE LEVEL 106 MMOL/L (98-107); CREATININE FOR GFR 0.50 MG/DL (0.55-1.30); GLOMERULAR FILTRATION RATE > 90.0 (>45); POTASSIUM SERUM 3.8 MMOL/L (3.5-5.1); SODIUM LEVEL 139 MMOL/L (136-145)
[2024-12-26 09:27] VITALS: BP 132/63
[2024-12-26] MEDS: PERCOCET 5MG/325MG TAB PO PRN (09:55)
[2024-12-27 07:37] LABS: PLATELET COUNT, AUTOMATED 48 10^3/uL (150-450)
[2024-12-27 07:54] LABS: INR 1.11
[2024-12-27 08:01] LABS: ALT/SGPT 66 U/L (7.0-40); AST/SGOT 56 U/L (<34); CALCIUM LEVEL 8.2 MG/DL (8.3-10.6); CARBON DIOXIDE LEVEL 28 MMOL/L (20-31); CHLORIDE LEVEL 106 MMOL/L (98-107); CREATININE FOR GFR 0.55 MG/DL (0.55-1.30); GLOMERULAR FILTRATION RATE > 90.0 (>45); POTASSIUM SERUM 4.0 MMOL/L (3.5-5.1); SODIUM LEVEL 142 MMOL/L (136-145)
[2024-12-27 09:00] VITALS: BP 111/56
== END 2024-12-27 15:26 | disposition home health service (06) | DRG 809 ==
LOC: M ED 11:44 → EDBD 11:44 → M ED INP 16:50 → M MSPAV 21:10
PROVIDERS: ADMIT Student in an Organized Health Care Education/Training Program; ATTEND Internal Medicine
PROC: 0Y9N3ZX Drainage of Left Foot, Percutaneous Approach, Diagnostic (ICD-10-PCS; principal; 2024-12-24)
DX: D61.818 Other pancytopenia (principal); I85.10 Secondary esophageal varices without bleeding; K76.6 Portal hypertension; R18.8 Other ascites; M96.842 Postprocedural seroma of a musculoskeletal structure following a musculoskeletal system procedure; N18.30 Chronic kidney disease, stage 3 unspecified; E11.22 Type 2 diabetes mellitus with diabetic chronic kidney disease; I12.9 Hypertensive chronic kidney disease with stage 1 through stage 4 chronic kidney disease, or unspecified chronic kidney disease; I25.10 Atherosclerotic heart disease of native coronary artery without angina pectoris; I25.2 Old myocardial infarction; Z95.5 Presence of coronary angioplasty implant and graft; E78.1 Pure hyperglyceridemia; E79.0 Hyperuricemia without signs of inflammatory arthritis and tophaceous disease; Z66 Do not resuscitate; G47.33 Obstructive sleep apnea (adult) (pediatric); K76.0 Fatty (change of) liver, not elsewhere classified; I48.0 Paroxysmal atrial fibrillation; D69.6 Thrombocytopenia, unspecified; E11.42 Type 2 diabetes mellitus with diabetic polyneuropathy; K21.9 Gastro-esophageal reflux disease without esophagitis; H40.9 Unspecified glaucoma; M85.80 Other specified disorders of bone density and structure, unspecified site; R26.89 Other abnormalities of gait and mobility; R29.6 Repeated falls; E83.42 Hypomagnesemia; R19.7 Diarrhea, unspecified; E11.649 Type 2 diabetes mellitus with hypoglycemia without coma; K04.7 Periapical abscess without sinus; R32 Unspecified urinary incontinence; Z88.1 Allergy status to other antibiotic agents; Z88.2 Allergy status to sulfonamides; Z88.5 Allergy status to narcotic agent; Z88.8 Allergy status to other drugs, medicaments and biological substances; Z91.048 Other nonmedicinal substance allergy status; Z89.412 Acquired absence of left great toe; Z90.49 Acquired absence of other specified parts of digestive tract; Z85.828 Personal history of other malignant neoplasm of skin; Z86.73 Personal history of transient ischemic attack (TIA), and cerebral infarction without residual deficits; Z79.4 Long term (current) use of insulin; Z79.899 Other long term (current) drug therapy

== ENCOUNTER → 2025-01-09 | Outpatient (REF) | payer MEDICARE, MEDICAID ==
[~2025-01-09] MED LIST changes: -INSU100V19; +INSURSDRX
[2025-01-09 16:29] LABS: BASO # 0.0 10^3/uL (0.0-0.2); BASO % 1.1 % (0.0-1.0); EOS # 0.2 10^3/uL (0.0-0.5); EOS % 4.1 % (0.0-3.0); LYMPH # 0.7 10^3/uL (1.5-5.0); LYMPH % 20.3 % (24.0-44.0); MONO # 0.6 10^3/uL (0.0-0.8); MONO % 15.1 % (2.0-8.0); NEUTROPHILS # 2.2 10^3/uL (1.5-8.5); NEUTROPHILS % 59.1 % (36.0-66.0); PLATELET COUNT, AUTOMATED 126 10^3/uL (150-450)
[2025-01-09 16:36] LABS: ALT/SGPT 31 U/L (7.0-40); AST/SGOT 34 U/L (<34); CALCIUM LEVEL 8.9 MG/DL (8.3-10.6); CARBON DIOXIDE LEVEL 28 MMOL/L (20-31); CHLORIDE LEVEL 107 MMOL/L (98-107); CREATININE FOR GFR 0.55 MG/DL (0.55-1.30); GLOMERULAR FILTRATION RATE > 90.0 (>45); POTASSIUM SERUM 4.1 MMOL/L (3.5-5.1); SODIUM LEVEL 144 MMOL/L (136-145)
== END ==
LOC: M LAB REF 16:16
PROVIDERS: ATTEND Pediatrics
DX: D61.818 Other pancytopenia (principal); K74.60 Unspecified cirrhosis of liver

== ENCOUNTER 2025-01-16 22:23 | Inpatient (IN) | payer MEDICARE, MEDICAID ==
[~2025-01-16] VITALS: Ht 157.5 cm; Wt 73.8 kg
[2025-01-16 23:02] LABS: BASO # 0.0 10^3/uL (0.0-0.2); BASO % 0.8 % (0.0-1.0); EOS # 0.2 10^3/uL (0.0-0.5); EOS % 4.1 % (0.0-3.0); LYMPH # 0.8 10^3/uL (1.5-5.0); LYMPH % 20.2 % (24.0-44.0); MONO # 0.5 10^3/uL (0.0-0.8); MONO % 13.5 % (2.0-8.0); NEUTROPHILS # 2.4 10^3/uL (1.5-8.5); NEUTROPHILS % 61.1 % (36.0-66.0); PLATELET COUNT, AUTOMATED 75 10^3/uL (150-450)
[2025-01-16 23:18] LABS: KETONE, URINE AUTO RFX NEGATIVE (NEGATIVE); LEUKOCYTE ESTERASE UR AUTO RFX NEGATIVE (NEGATIVE); NITRITE, URINE AUTO RFX NEGATIVE (NEGATIVE); RBC, URINE AUTO RFX 1 /HPF (0-3); SQUAM EPITHELIAL CELL UR AURFX 0 /HPF (0-6); WBC, URINE AUTO RFX 3 /HPF (0-3)
[2025-01-16 23:24] LABS: CK-MB VALUE MASS 1.1 NG/ML (<3.6)
[2025-01-16 23:25] LABS: ETHYL ALCOHOL (ETHANOL) < 0.003 % (0.000-0.010)
[2025-01-16 23:27] LABS: ALT/SGPT 27 U/L (7.0-40); AST/SGOT 26 U/L (<34); CALCIUM LEVEL 8.7 MG/DL (8.3-10.6); CARBON DIOXIDE LEVEL 23 MMOL/L (20-31); CHLORIDE LEVEL 114 MMOL/L (98-107); CPK CREATINE PHOSPHOKINASE 37 U/L (34-145); CREATININE FOR GFR 0.62 MG/DL (0.55-1.30); GLOMERULAR FILTRATION RATE > 90.0 (>45); MB/CK RELATIVE INDEX 2.97 (< OR =4); POTASSIUM SERUM 4.0 MMOL/L (3.5-5.1); SALICYLATE LEVEL < 3.0 MG/DL (<30); SODIUM LEVEL 148 MMOL/L (136-145)
[2025-01-16 23:29] LABS: OSMOLALITY SERUM 307 MOSM/KG (280-301)
[2025-01-16 23:35] LABS: AMPHETAMINES LEVEL URINE NEGATIVE (NEGATIVE); BARBITURATES URINE NEGATIVE (NEGATIVE); BENZODIAZEPINES URINE NEGATIVE (NEGATIVE); CANNABINOIDS URINE NEGATIVE (NEGATIVE); COCAINE METABOLITE URINE NEGATIVE (NEGATIVE); METHADONE URINE NEGATIVE (NEGATIVE); OPIATES URINE NEGATIVE (NEGATIVE); PHENCYCLIDINE URINE NEGATIVE (NEGATIVE)
[2025-01-16 23:36] LABS: INR 1.05
[2025-01-16 23:38] LABS: CK-MB VALUE MASS 1.0 NG/ML (<3.6)
[2025-01-16 23:39] LABS: CPK CREATINE PHOSPHOKINASE 38 U/L (34-145); MB/CK RELATIVE INDEX 2.63 (< OR =4)
[2025-01-17] MEDS: LACTULOSE 20 GM/30 ML SYRUP UDC PO ONE (00:46)
[2025-01-17] MEDS ORDERED: GLUCAGON INJ 1 MG VIAL SC PRN (01:35)
[2025-01-17] MEDS ORDERED: DEXTROSE 50% 50 ML SYRINGE IV PRN (01:35)
[2025-01-17] MEDS ORDERED: GLUCOSE 4 GM CHEW PO PRN (01:35)
[2025-01-17 04:39] VITALS: BP 137/63; TEMP 98; O2SAT 100
[2025-01-17] MEDS ORDERED: HOME MED LIST COMPLETE! XX SCH (07:20)
[2025-01-17] MEDS: INSULIN LISPRO (NovoLOG) PER UNIT SC SCH ×2 (07:30→21:00)
[2025-01-17 08:15] VITALS: BP 116/56; TEMP 98.3; O2SAT 97
[2025-01-17] MEDS: NS 0.45% 1,000 ML IV ONE (08:17)
[2025-01-17] MEDS ORDERED: SPIRONOLACTONE 25 MG TAB PO SCH (09:00)
[2025-01-17] MEDS ORDERED: ENOXAPARIN 30 MG/0.3 ML SYRINGE (J1650 PER 10MG) SC SCH (09:00)
[2025-01-17 09:14] LABS: BASO # 0.0 10^3/uL (0.0-0.2); BASO % 1.1 % (0.0-1.0); EOS # 0.1 10^3/uL (0.0-0.5); EOS % 4.4 % (0.0-3.0); LYMPH # 0.6 10^3/uL (1.5-5.0); LYMPH % 22.6 % (24.0-44.0); MONO # 0.4 10^3/uL (0.0-0.8); MONO % 13.9 % (2.0-8.0); NEUTROPHILS # 1.6 10^3/uL (1.5-8.5); NEUTROPHILS % 58.0 % (36.0-66.0)
[2025-01-17 09:17] LABS: PLATELET COUNT, AUTOMATED 59 10^3/uL (150-450)
[2025-01-17] MEDS: NS (Normal Saline) 0.9% 1,000 ML IV SCH (09:42)
[2025-01-17 09:43] LABS: CALCIUM LEVEL 8.3 MG/DL (8.3-10.6); CARBON DIOXIDE LEVEL 22 MMOL/L (20-31); CHLORIDE LEVEL 114 MMOL/L (98-107); CREATININE FOR GFR 0.51 MG/DL (0.55-1.30); GLOMERULAR FILTRATION RATE > 90.0 (>45); POTASSIUM SERUM 3.5 MMOL/L (3.5-5.1); SODIUM LEVEL 149 MMOL/L (136-145)
[2025-01-17] MEDS: LACTULOSE 20 GM/30 ML SYRUP UDC PO SCH (09:45)
[2025-01-17] MEDS: ASPIRIN 81 MG ENTERIC TABLET PO SCH (09:45)
[2025-01-17] MEDS: NS 0.45% 1,000 ML IV SCH (10:21)
[2025-01-17 11:32] VITALS: BP 150/72; TEMP 98.3; O2SAT 98
[2025-01-17] MEDS: NADOLOL 20MG TABLET PO SCH (13:09)
[2025-01-17 15:11] LABS: CALCIUM LEVEL 8.5 MG/DL (8.3-10.6); CARBON DIOXIDE LEVEL 23 MMOL/L (20-31); CHLORIDE LEVEL 107 MMOL/L (98-107); CREATININE FOR GFR 0.57 MG/DL (0.55-1.30); GLOMERULAR FILTRATION RATE > 90.0 (>45); POTASSIUM SERUM 3.7 MMOL/L (3.5-5.1); SODIUM LEVEL 142 MMOL/L (136-145)
[2025-01-17 16:15] VITALS: BP 132/67; TEMP 98.7; O2SAT 98
[2025-01-17 19:55] LABS: CALCIUM LEVEL 8.6 MG/DL (8.3-10.6); CARBON DIOXIDE LEVEL 22 MMOL/L (20-31); CHLORIDE LEVEL 109 MMOL/L (98-107); CREATININE FOR GFR 0.50 MG/DL (0.55-1.30); GLOMERULAR FILTRATION RATE > 90.0 (>45); POTASSIUM SERUM 3.5 MMOL/L (3.5-5.1); SODIUM LEVEL 143 MMOL/L (136-145)
[2025-01-17 20:41] VITALS: BP 153/66; TEMP 98.4; O2SAT 98
[2025-01-18 00:48] VITALS: BP 148/68; TEMP 98.3; O2SAT 98
[2025-01-18 02:05] LABS: CALCIUM LEVEL 8.1 MG/DL (8.3-10.6); CARBON DIOXIDE LEVEL 21 MMOL/L (20-31); CHLORIDE LEVEL 110 MMOL/L (98-107); CREATININE FOR GFR 0.52 MG/DL (0.55-1.30); GLOMERULAR FILTRATION RATE > 90.0 (>45); POTASSIUM SERUM 3.7 MMOL/L (3.5-5.1); SODIUM LEVEL 142 MMOL/L (136-145)
[2025-01-18 04:02] VITALS: BP 130/64; TEMP 98.7; O2SAT 100
[2025-01-18 06:56] LABS: PLATELET COUNT, AUTOMATED 60 10^3/uL (150-450)
[2025-01-18 07:20] LABS: ALT/SGPT 25 U/L (7.0-40); AST/SGOT 26 U/L (<34); CALCIUM LEVEL 7.8 MG/DL (8.3-10.6); CARBON DIOXIDE LEVEL 21 MMOL/L (20-31); CHLORIDE LEVEL 110 MMOL/L (98-107); CREATININE FOR GFR 0.49 MG/DL (0.55-1.30); GLOMERULAR FILTRATION RATE > 90.0 (>45); MAGNESIUM LEVEL 1.4 MG/DL (1.8-2.4); POTASSIUM SERUM 3.7 MMOL/L (3.5-5.1); SODIUM LEVEL 141 MMOL/L (136-145)
[2025-01-18] MEDS: LACTULOSE 20 GM/30 ML SYRUP UDC PO SCH (10:00)
[2025-01-18] MEDS ORDERED: LACT20EL PO (10:06)
[2025-01-18 16:00] VITALS: BP 149/66; TEMP 98.6; O2SAT 97
[2025-01-18 20:48] VITALS: BP 123/63; TEMP 98.6; O2SAT 94
[2025-01-18] MEDS: MECLIZINE 25 MG TABLET PO SCH (21:25)
[2025-01-18] MEDS: ACETAMINOPHEN 325 MG TAB PO PRN (23:45)
[2025-01-18 23:49] VITALS: BP 121/58; TEMP 98.6; O2SAT 96
[2025-01-19] MEDS: FAMOTIDINE 20 MG TAB PO SCH (00:02)
[2025-01-19 04:16] VITALS: BP 113/58; TEMP 98.1; O2SAT 97
[2025-01-19 07:39] VITALS: BP 132/38; TEMP 98.2; O2SAT 98
[2025-01-19] MEDS: LACTULOSE 20 GM/30 ML SYRUP UDC PO SCH ×2 (08:12→12:17)
[2025-01-19 08:36] LABS: BASO # 0.1 10^3/uL (0.0-0.2); BASO % 1.3 % (0.0-1.0); EOS # 0.2 10^3/uL (0.0-0.5); EOS % 5.1 % (0.0-3.0); LYMPH # 0.7 10^3/uL (1.5-5.0); LYMPH % 16.9 % (24.0-44.0); MONO # 0.5 10^3/uL (0.0-0.8); MONO % 13.6 % (2.0-8.0); NEUTROPHILS # 2.5 10^3/uL (1.5-8.5); NEUTROPHILS % 62.8 % (36.0-66.0); PLATELET COUNT, AUTOMATED 63 10^3/uL (150-450)
[2025-01-19 09:12] LABS: CALCIUM LEVEL 7.5 MG/DL (8.3-10.6); CARBON DIOXIDE LEVEL 22 MMOL/L (20-31); CHLORIDE LEVEL 110 MMOL/L (98-107); CREATININE FOR GFR 0.42 MG/DL (0.55-1.30); GLOMERULAR FILTRATION RATE > 90.0 (>45); POTASSIUM SERUM 4.1 MMOL/L (3.5-5.1); SODIUM LEVEL 141 MMOL/L (136-145)
[2025-01-19] MEDS: MAG SULF 1GM/100ML (MAG RUN) 1 GM in IV 1 EA IV SCH (09:49)
[2025-01-19 11:45] LABS: CALCIUM LEVEL 7.9 MG/DL (8.3-10.6); CARBON DIOXIDE LEVEL 21 MMOL/L (20-31); CHLORIDE LEVEL 109 MMOL/L (98-107); CREATININE FOR GFR 0.42 MG/DL (0.55-1.30); GLOMERULAR FILTRATION RATE > 90.0 (>45); POTASSIUM SERUM 3.9 MMOL/L (3.5-5.1); SODIUM LEVEL 140 MMOL/L (136-145)
[2025-01-19 11:51] VITALS: BP 133/61; TEMP 98.8; O2SAT 96
[2025-01-19 15:59] VITALS: BP 137/87; TEMP 99.1; O2SAT 97
[2025-01-19 19:50] VITALS: BP 133/63; TEMP 97.6; O2SAT 97
[2025-01-19 23:31] VITALS: BP 127/60; TEMP 98.4; O2SAT 97
[2025-01-20 04:15] VITALS: BP 111/56; TEMP 97.8; O2SAT 97
[2025-01-20 06:53] LABS: BASO # 0.0 10^3/uL (0.0-0.2); BASO % 0.9 % (0.0-1.0); EOS # 0.2 10^3/uL (0.0-0.5); EOS % 5.1 % (0.0-3.0); LYMPH # 0.6 10^3/uL (1.5-5.0); LYMPH % 14.3 % (24.0-44.0); MONO # 0.6 10^3/uL (0.0-0.8); MONO % 14.7 % (2.0-8.0); NEUTROPHILS # 2.8 10^3/uL (1.5-8.5); NEUTROPHILS % 64.8 % (36.0-66.0); PLATELET COUNT, AUTOMATED 59 10^3/uL (150-450)
[2025-01-20 08:00] VITALS: BP 117/58; TEMP 98.1; O2SAT 97
[2025-01-20 12:00] VITALS: BP 126/60; TEMP 98.9; O2SAT 95
[2025-01-20] MEDS: MAG SULF 1GM/100ML (MAG RUN) 1 GM in IV 1 EA IV SCH (12:38)
[2025-01-20] MEDS: MAGNESIUM OXIDE 400 MG TAB PO SCH (12:38)
[2025-01-20 12:59] LABS: CALCIUM LEVEL 8.2 MG/DL (8.3-10.6); CARBON DIOXIDE LEVEL 22 MMOL/L (20-31); CHLORIDE LEVEL 109 MMOL/L (98-107); CREATININE FOR GFR 0.49 MG/DL (0.55-1.30); GLOMERULAR FILTRATION RATE > 90.0 (>45); POTASSIUM SERUM 3.7 MMOL/L (3.5-5.1); SODIUM LEVEL 141 MMOL/L (136-145)
[2025-01-20] MEDS: LanTUS (INSULIN GLARGINE INJ) 1 UNITS/0.01 ML SC SCH (13:19)
[2025-01-20] MEDS: SPIRONOLACTONE 50 MG TAB PO SCH (13:19)
[2025-01-20] MEDS: DAPAGLIFLOZIN PROPANEDIOL 10 MG TABLET PO SCH (13:20)
[2025-01-20 16:00] VITALS: BP 116/65; TEMP 98.3; O2SAT 99
[2025-01-20 19:52] VITALS: BP 116/60
[2025-01-20] MEDS: ROSUVASTATIN 10 MG TAB PO SCH (20:24)
[2025-01-20] MEDS: oxyBUTYnin *XL* 5 MG TAB PO SCH (20:24)
[2025-01-20] MEDS: CLOPIDOGREL 75 MG TAB PO SCH (20:25)
[2025-01-20] MEDS ORDERED: MAGNESIUM OXIDE 400 MG TAB PO SCH (21:00)
[2025-01-21 03:51] VITALS: BP 116/55; TEMP 98; O2SAT 98
[2025-01-21] MEDS: MAGNESIUM OXIDE 400 MG TAB PO SCH (10:15)
[2025-01-21 10:18] VITALS: BP 116/56
[2025-01-22 04:32] VITALS: BP 109/54; TEMP 98.4; O2SAT 96
[2025-01-22 04:41] VITALS: BP 107/58; TEMP 97.9; O2SAT 97
[2025-01-22 07:02] LABS: BASO # 0.0 10^3/uL (0.0-0.2); BASO % 0.9 % (0.0-1.0); EOS # 0.2 10^3/uL (0.0-0.5); EOS % 5.9 % (0.0-3.0); LYMPH # 0.6 10^3/uL (1.5-5.0); LYMPH % 18.7 % (24.0-44.0); MONO # 0.5 10^3/uL (0.0-0.8); MONO % 15.3 % (2.0-8.0); NEUTROPHILS # 1.9 10^3/uL (1.5-8.5); NEUTROPHILS % 58.6 % (36.0-66.0)
[2025-01-22 07:03] LABS: PLATELET COUNT, AUTOMATED 63 10^3/uL (150-450)
[2025-01-22 08:19] VITALS: BP 120/59; TEMP 97.8; O2SAT 95
[2025-01-23 03:07] VITALS: BP 110/53; TEMP 98.2; O2SAT 96
[2025-01-23 08:15] VITALS: BP 120/57; TEMP 98; O2SAT 94
[2025-01-24 03:46] VITALS: BP_SYST 102; BP_SYST 97; BP_DIAS 51; TEMP 97.8; O2SAT 94
[2025-01-24 04:19] VITALS: BP 106/58
[2025-01-24 07:46] LABS: BASO # 0.0 10^3/uL (0.0-0.2); BASO % 0.8 % (0.0-1.0); EOS # 0.2 10^3/uL (0.0-0.5); EOS % 5.2 % (0.0-3.0); LYMPH # 0.8 10^3/uL (1.5-5.0); LYMPH % 20.5 % (24.0-44.0); MONO # 0.6 10^3/uL (0.0-0.8); MONO % 17.5 % (2.0-8.0); NEUTROPHILS # 2.0 10^3/uL (1.5-8.5); NEUTROPHILS % 55.7 % (36.0-66.0)
[2025-01-24 07:57] LABS: PLATELET COUNT, AUTOMATED 77 10^3/uL (150-450)
[2025-01-25 03:29] VITALS: BP 100/58; TEMP 97.7; O2SAT 97
[2025-01-25 08:00] VITALS: BP 99/57; TEMP 98.1; O2SAT 95
[2025-01-25] MEDS: traMADol 50 MG TAB PO ONE ×2 (10:36→21:38)
[2025-01-25 12:00] VITALS: BP 108/58; TEMP 97.5; O2SAT 100
[2025-01-26 06:22] VITALS: BP 107/53; TEMP 97.4; O2SAT 98
[2025-01-26 06:36] LABS: BASO # 0.0 10^3/uL (0.0-0.2); BASO % 1.2 % (0.0-1.0); EOS # 0.2 10^3/uL (0.0-0.5); EOS % 5.6 % (0.0-3.0); LYMPH # 0.7 10^3/uL (1.5-5.0); LYMPH % 19.6 % (24.0-44.0); MONO # 0.6 10^3/uL (0.0-0.8); MONO % 17.5 % (2.0-8.0); NEUTROPHILS # 1.9 10^3/uL (1.5-8.5); NEUTROPHILS % 55.8 % (36.0-66.0); PLATELET COUNT, AUTOMATED 83 10^3/uL (150-450)
[2025-01-26 07:13] LABS: CALCIUM LEVEL 8.3 MG/DL (8.3-10.6); CARBON DIOXIDE LEVEL 23 MMOL/L (20-31); CHLORIDE LEVEL 111 MMOL/L (98-107); CREATININE FOR GFR 0.52 MG/DL (0.55-1.30); GLOMERULAR FILTRATION RATE > 90.0 (>45); MAGNESIUM LEVEL 1.6 MG/DL (1.8-2.4); POTASSIUM SERUM 4.0 MMOL/L (3.5-5.1); SODIUM LEVEL 144 MMOL/L (136-145)
[2025-01-27 06:10] VITALS: BP 102/48; TEMP 98.3; O2SAT 95
[2025-01-27] MEDS: MAG SULF 1GM/100ML (MAG RUN) 1 GM in IV 1 EA IV SCH (20:20)
[2025-01-28 04:12] VITALS: BP 106/54; TEMP 97.8; O2SAT 97
[2025-01-28] MEDS: MULTIVITAMINS/MINERALS THERAP 1 TAB PO SCH (09:25)
[2025-01-28] MEDS: MAGNESIUM OXIDE 400 MG TAB PO SCH (09:25)
[2025-01-28] MEDS: CYANOCOBALAMIN 500 MCG TAB PO SCH (09:25)
[2025-01-28] MEDS: traMADol 50 MG TAB PO ONE (15:59)
[2025-01-29 03:42] VITALS: BP 110/55; TEMP 97.5; O2SAT 97
[2025-01-30 04:09] VITALS: BP 113/57; TEMP 98.5; O2SAT 96
[2025-01-31 05:32] VITALS: BP 99/49; TEMP 97.3; O2SAT 96
[2025-01-31 22:16] VITALS: BP 114/74
[2025-02-01 05:34] VITALS: BP 107/56; TEMP 98.2; O2SAT 96
[2025-02-01 08:35] VITALS: BP 122/52
[2025-02-01] MEDS ORDERED: LANTINJ4 SC (08:54)
== END 2025-02-01 10:55 | DRG 442 ==
LOC: M ED 22:23 → M ED INP 01-17 01:34 → M MSPAV 01-17 04:33
PROVIDERS: ADMIT Internal Medicine; ATTEND Student in an Organized Health Care Education/Training Program
DX: K76.82 Hepatic encephalopathy (principal); I85.10 Secondary esophageal varices without bleeding; K76.6 Portal hypertension; E87.0 Hyperosmolality and hypernatremia; K70.30 Alcoholic cirrhosis of liver without ascites; Z66 Do not resuscitate; E11.42 Type 2 diabetes mellitus with diabetic polyneuropathy; D69.6 Thrombocytopenia, unspecified; E87.8 Other disorders of electrolyte and fluid balance, not elsewhere classified; I48.0 Paroxysmal atrial fibrillation; E80.6 Other disorders of bilirubin metabolism; I12.9 Hypertensive chronic kidney disease with stage 1 through stage 4 chronic kidney disease, or unspecified chronic kidney disease; K21.9 Gastro-esophageal reflux disease without esophagitis; E78.1 Pure hyperglyceridemia; N18.30 Chronic kidney disease, stage 3 unspecified; I25.10 Atherosclerotic heart disease of native coronary artery without angina pectoris; K58.9 Irritable bowel syndrome, unspecified; I25.2 Old myocardial infarction; Z95.5 Presence of coronary angioplasty implant and graft; H40.9 Unspecified glaucoma; M85.80 Other specified disorders of bone density and structure, unspecified site; Z85.828 Personal history of other malignant neoplasm of skin; Z90.49 Acquired absence of other specified parts of digestive tract; Z79.4 Long term (current) use of insulin; Z79.899 Other long term (current) drug therapy; Z88.1 Allergy status to other antibiotic agents; Z88.2 Allergy status to sulfonamides; Z88.5 Allergy status to narcotic agent; Z88.8 Allergy status to other drugs, medicaments and biological substances; Z91.048 Other nonmedicinal substance allergy status; M10.9 Gout, unspecified; E83.42 Hypomagnesemia; Z89.412 Acquired absence of left great toe; J45.909 Unspecified asthma, uncomplicated; L97.529 Non-pressure chronic ulcer of other part of left foot with unspecified severity